=== PATIENT | male | born 1960 | race Two or more races ===

== ENCOUNTER → 2020-05-31 | Outpatient (BNVA) | payer MEDICARE, MEDICAID, SELFPAY | END | disposition home or self-care (01) | PROVIDERS: Visit Provider Urology ==

== ENCOUNTER → 2024-08-27 | Outpatient (CLI) | payer MEDICARE, MEDICAID, SELFPAY ==
[2024-08-27 19:07] LABS: Collection Type, Urine Catheter; Squamous Epithelial Cell,Urine 0 /hpf (0-5)
[2024-08-27 19:17] LABS: Bilirubin,Urine Negative (Negative); Blood,Urine 3+ (Negative); Clarity,Urine Turbid (Clear/Hazy); Color,Urine Dark-Brown (Lt Yel-Yel); Culture Indicated,Urine Yes; Glucose, Urine Negative (Negative); Ketones,Urine Negative (Negative); Leukocyte Esterase,Urine Positive (Negative); Nitrite,Urine Positive (Negative); Protein,Urine 2+ (Neg - Trace); RBC,Urine 3573 /hpf (0-3); Urobilinogen,Urine Negative mg/dL (0.0-1.0); WBC,Urine 423 /hpf (0-5)
== END | disposition home or self-care (01) ==
LOC: SLAB 21:56 → SLDO 08-28 09:17
PROVIDERS: PCP Family Medicine; Referring Provider Family Medicine; Visit Provider Family Medicine
DX: E11.29 Type 2 diabetes mellitus with other diabetic kidney complication (principal); R31.0 Gross hematuria
CPT/HCPCS: 81001; 87077; 87086; 87186

== ENCOUNTER → 2024-10-02 | Outpatient (CLI) | payer MEDICARE, MEDICAID, SELFPAY ==
[2024-10-02 16:36] LABS: Collection Type, Urine Catheter; Squamous Epithelial Cell,Urine 0 /hpf (0-5)
[2024-10-02 17:35] LABS: Bacteria,Urine 3+; Bilirubin,Urine Negative (Negative); Blood,Urine 1+ (Negative); Color,Urine Lt-Yellow (Lt Yel-Yel); Glucose, Urine Negative (Negative); Ketones,Urine Negative (Negative); Leukocyte Esterase,Urine Positive (Negative); Nitrite,Urine Positive (Negative); Protein,Urine 1+ (Neg - Trace); RBC,Urine 12 /hpf (0-3); Urobilinogen,Urine Negative mg/dL (0.0-1.0); WBC,Urine 221 /hpf (0-5)
[2024-10-02 17:39] LABS: Clarity,Urine Hazy (Clear/Hazy); Culture Indicated,Urine Yes
== END | disposition home or self-care (01) ==
LOC: SLDO 16:23
PROVIDERS: PCP Family Medicine; Referring Provider Family Medicine; Visit Provider Family Medicine
DX: E11.29 Type 2 diabetes mellitus with other diabetic kidney complication (principal); N39.0 Urinary tract infection, site not specified
CPT/HCPCS: 81001; 87077; 87086; 87186

== ENCOUNTER → 2024-10-20 | Outpatient (CLI) | payer MEDICARE, MEDICAID, SELFPAY ==
[2024-10-20 16:22] LABS: Collection Type, Urine Catheter
[2024-10-20 17:46] LABS: Bacteria,Urine 2+; Bilirubin,Urine Negative (Negative); Blood,Urine 3+ (Negative); Color,Urine Yellow (Lt Yel-Yel); Glucose, Urine Negative (Negative); Ketones,Urine Negative (Negative); Leukocyte Esterase,Urine Positive (Negative); Nitrite,Urine Negative (Negative); Protein,Urine 1+ (Neg - Trace); RBC,Urine 183 /hpf (0-3); Specific Gravity,Urine 1.014 (1.001-1.035); Squamous Epithelial Cell,Urine 1 /hpf (0-5); Urobilinogen,Urine Negative mg/dL (0.0-1.0); WBC,Urine 272 /hpf (0-5)
[2024-10-20 17:54] LABS: Clarity,Urine Hazy (Clear/Hazy); Culture Indicated,Urine Yes
== END | disposition home or self-care (01) ==
LOC: SLDO 16:19
PROVIDERS: PCP Family Medicine; Referring Provider Family Medicine; Visit Provider Family Medicine
DX: N39.0 Urinary tract infection, site not specified (principal)
CPT/HCPCS: 81001; 87077; 87086; 87186

== ENCOUNTER → 2024-11-19 | Outpatient (CLI) | payer MEDICARE, MEDICAID, SELFPAY ==
[2024-11-19 10:41] LABS: Collection Type, Urine Clean Catch; Squamous Epithelial Cell,Urine 0 /hpf (0-5)
[2024-11-19 11:23] LABS: Basophils % (Auto) 1 % (0-2.5); Eosinophils # (Auto) 0.8 Thou/mm3 (0.0-0.5); Eosinophils % (Auto) 11 % (0-10); Hematocrit 44.3 % (41.0-53.0); Hemoglobin 14.2 g/dL (13.5-16.0); Immature Granulocytes % (Auto) 0 % (0-0); Immature Granulocytes Auto 0.01 Thou/mm3 (0.00-0.00); Lymphocytes # (Auto) 1.7 Thou/mm3 (1.0-4.8); Lymphocytes % (Auto) 21 % (10-50); Mean Corpuscular HGB Conc 32.1 g/dl (31.0-37.0); Mean Corpuscular Hemoglobin 28.7 pg (25.0-35.0); Mean Corpuscular Volume 90 fL (80-100); Monocytes # (Auto) 0.5 Thou/mm3 (0.0-0.8); Monocytes % (Auto) 7 % (0-12); Neutrophils # (Auto) 4.6 Thou/mm3 (1.8-7.7); Neutrophils % (Auto) 60 % (37-80); Nucleated Red Blood Cell % 0 /100 WBC (0); Platelet Count 264 Thou/mm3 (140-440); RDW Standard Deviation 43.9 fL (35.1-43.9); Red Blood Count 4.94 Miln/mm3 (4.50-5.90); White Blood Count 7.7 Thou/mm3 (3.8-10.6)
[2024-11-19 11:54] LABS: Bacteria,Urine 1+; Bilirubin,Urine Negative (Negative); Blood,Urine 1+ (Negative); Clarity,Urine Turbid (Clear/Hazy); Color,Urine Yellow (Lt Yel-Yel); Glucose, Urine Negative (Negative); Ketones,Urine Negative (Negative); Leukocyte Esterase,Urine Positive (Negative); Nitrite,Urine Positive (Negative); PH,Urine 7.5 (5.0-7.0); Protein,Urine 2+ (Neg - Trace); RBC,Urine 36 /hpf (0-3); Specific Gravity,Urine 1.015 (1.001-1.035); Triple Phosphate Crystal,Urine 1+; Urobilinogen,Urine Negative mg/dL (0.0-1.0); WBC,Urine 214 /hpf (0-5)
[2024-11-19 11:57] LABS: Vitamin B12 709 pg/mL (211-911)
[2024-11-19 12:00] LABS: Creatinine MALB Rnd Ur 74 mg/dL (30-125)
[2024-11-19 12:01] LABS: Alanine Aminotransferase 11 U/L (10-49); Albumin, Serum 3.6 gm/dL (3.4-4.8); Alkaline Phosphatase 117 U/L (46-116); Anion Gap 9 (7-16); Aspartate Amino Transferase 22 U/L (0-34); BUN/Creatinine Ratio 17 Ratio (12-20); Bilirubin,Total 0.4 mg/dL (0.3-1.2); Blood Urea Nitrogen 24 mg/dL (9-23); Calcium 8.9 mg/dL (8.3-10.6); Calcium (Corrected) 9.2 mg/dL (8.5-10.1); Cardiac Risk Estimate 3.9 RATIO (4.0-6.7); Chloride 93 mMol/L (98-107); Cholesterol 141 mg/dL (132-200); Creatinine (Component) 1.4 mg/dL (0.6-1.3); Globulin 3.5 gm/dL (2.3-3.5); Glucose 88 mg/dL (74-106); HDL Cholesterol 36 mg/dL (40-60); LDL Cholesterol,Calculated 88 mg/dL (0-130); Osmolality,Calculated 267 (275-295); Potassium 5.1 mMol/L (3.4-5.1); Sodium 132 mMol/L (136-145); Thyroid Stimulating Hormone 0.87 uIU/mL (0.55-4.78); Total Protein 7.1 gm/dL (5.7-8.2); Triglycerides 83 mg/dL (30-150); Uric Acid 5.5 mg/dL (3.7-9.2); eGFR 57 See Note
[2024-11-19 12:03] LABS: Culture Indicated,Urine Yes
[2024-11-19 12:09] LABS: Glucose Estimated Average 123 mg/dL (80-131); Hemoglobin A1C 5.9 % Hgb (4.8-6.0)
[2024-11-19 12:21] LABS: Microalbumin Creat Ratio 870 mg/gCrea (<30); Microalbumin, Random Urine 644 mg/L (0-300)
== END | disposition home or self-care (01) ==
LOC: SLDO 10:16
PROVIDERS: Referring Provider Family Medicine; Visit Provider Internal Medicine
DX: Z00.00 Encounter for general adult medical examination without abnormal findings (principal); I12.9 Hypertensive chronic kidney disease with stage 1 through stage 4 chronic kidney disease, or unspecified chronic kidney disease; E11.22 Type 2 diabetes mellitus with diabetic chronic kidney disease; N18.30 Chronic kidney disease, stage 3 unspecified; N13.30 Unspecified hydronephrosis; F70 Mild intellectual disabilities; D51.9 Vitamin B12 deficiency anemia, unspecified; E55.9 Vitamin D deficiency, unspecified
CPT/HCPCS: 36415; 80053; 80061; 81001; 82043; 82306; 82570; 82607; 83036; 84443; 84550; 85025; 87077; 87086; 87186

== ENCOUNTER → 2024-11-22 | Outpatient (CLI) | payer MEDICARE, MEDICAID, SELFPAY ==
[2024-11-22 17:55] LABS: Collection Type, Urine Catheter
[2024-11-22 18:03] LABS: Bacteria,Urine 2+; Bilirubin,Urine Negative (Negative); Blood,Urine 2+ (Negative); Clarity,Urine Turbid (Clear/Hazy); Color,Urine Yellow (Lt Yel-Yel); Culture Indicated,Urine Yes; Glucose, Urine Negative (Negative); Ketones,Urine Negative (Negative); Leukocyte Esterase,Urine Positive (Negative); Nitrite,Urine Positive (Negative); PH,Urine 8.5 (5.0-7.0); Protein,Urine 2+ (Neg - Trace); RBC,Urine 262 /hpf (0-3); Specific Gravity,Urine 1.012 (1.001-1.035); Squamous Epithelial Cell,Urine 1 /hpf (0-5); Urobilinogen,Urine Negative mg/dL (0.0-1.0); WBC,Urine 2157 /hpf (0-5)
== END | disposition home or self-care (01) ==
LOC: SLAB 17:45 → SLDO 11-23 10:44
PROVIDERS: Referring Provider Family Medicine; Visit Provider Family Medicine
DX: N39.0 Urinary tract infection, site not specified (principal); N18.30 Chronic kidney disease, stage 3 unspecified
CPT/HCPCS: 81001; 87077; 87086; 87186

== ENCOUNTER → 2024-12-16 | Outpatient (CLI) | payer MEDICARE, MEDICAID, SELFPAY ==
[2024-12-16 16:33] LABS: Collection Type, Urine Catheter
[2024-12-16 18:18] LABS: Bacteria,Urine 3+; Bilirubin,Urine Negative (Negative); Blood,Urine 3+ (Negative); Glucose, Urine Negative (Negative); Ketones,Urine Negative (Negative); Leukocyte Esterase,Urine Positive (Negative); Nitrite,Urine Positive (Negative); PH,Urine 8.5 (5.0-7.0); Protein,Urine 2+ (Neg - Trace); RBC,Urine 376 /hpf (0-3); Specific Gravity,Urine 1.013 (1.001-1.035); Squamous Epithelial Cell,Urine 1 /hpf (0-5); Urobilinogen,Urine Negative mg/dL (0.0-1.0); WBC,Urine 85 /hpf (0-5)
[2024-12-16 18:19] LABS: Color,Urine Yellow (Lt Yel-Yel)
[2024-12-16 18:20] LABS: Clarity,Urine Turbid (Clear/Hazy); Culture Indicated,Urine Yes
== END | disposition home or self-care (01) ==
LOC: SLDO 16:27
PROVIDERS: PCP Family Medicine; Referring Provider Family Medicine; Visit Provider Family Medicine
DX: N39.0 Urinary tract infection, site not specified (principal)
CPT/HCPCS: 81001; 87077; 87086; 87186

== ENCOUNTER → 2025-02-24 | Outpatient (CLI) | payer MEDICARE, MEDICAID, SELFPAY ==
[2025-02-24 15:00] LABS: Collection Type, Urine Catheter; Squamous Epithelial Cell,Urine 0 /hpf (0-5)
[2025-02-24 16:44] LABS: Bilirubin,Urine Negative (Negative); Blood,Urine 2+ (Negative); Color,Urine Yellow (Lt Yel-Yel); Glucose, Urine Negative (Negative); Ketones,Urine Negative (Negative); Leukocyte Esterase,Urine Positive (Negative); Nitrite,Urine Positive (Negative); Protein,Urine 2+ (Neg - Trace); RBC,Urine 196 /hpf (0-3); Urobilinogen,Urine Negative mg/dL (0.0-1.0); WBC,Urine 1467 /hpf (0-5)
[2025-02-24 16:47] LABS: Clarity,Urine Turbid (Clear/Hazy); Culture Indicated,Urine Yes
== END | disposition home or self-care (01) ==
LOC: SLDO 14:47
PROVIDERS: PCP Family Medicine; Referring Provider Family Medicine; Visit Provider Family Medicine
DX: N39.0 Urinary tract infection, site not specified (principal)
CPT/HCPCS: 81001; 87077; 87086; 87186

== ENCOUNTER → 2025-03-08 | Outpatient (CLI) | payer MEDICARE, MEDICAID, SELFPAY | END | disposition home or self-care (01) | LOC: SLDO 16:10 | PROVIDERS: PCP Family Medicine; Referring Provider Family Medicine; Visit Provider Family Medicine | DX: N39.0 Urinary tract infection, site not specified (principal); N18.30 Chronic kidney disease, stage 3 unspecified | CPT/HCPCS: 87077; 87086; 87186 ==

== ENCOUNTER → 2025-03-09 | Outpatient (CLI) | payer MEDICARE, MEDICAID, SELFPAY ==
[2025-03-09 10:24] LABS: Collection Type, Urine Clean Catch
[2025-03-09 13:57] LABS: Bacteria,Urine 2+; Bilirubin,Urine Negative (Negative); Blood,Urine 2+ (Negative); Clarity,Urine Hazy (Clear/Hazy); Color,Urine Yellow (Lt Yel-Yel); Glucose, Urine Negative (Negative); Ketones,Urine Negative (Negative); Leukocyte Esterase,Urine Positive (Negative); Nitrite,Urine Positive (Negative); PH,Urine 7.5 (5.0-7.0); Protein,Urine 1+ (Neg - Trace); RBC,Urine 156 /hpf (0-3); Specific Gravity,Urine 1.012 (1.001-1.035); Squamous Epithelial Cell,Urine < 1 /hpf (0-5); Urobilinogen,Urine Negative mg/dL (0.0-1.0); WBC,Urine 335 /hpf (0-5)
== END | disposition home or self-care (01) ==
PROVIDERS: Referring Provider Urology; Visit Provider Urology
DX: N30.00 Acute cystitis without hematuria (principal)
CPT/HCPCS: 81001; 87077; 87086; 87186

== ENCOUNTER → 2025-03-09 | Outpatient (CLI) | payer MEDICARE, MEDICAID, SELFPAY ==
--- NOTE | 2025-03-09 10:36 | XR_ITS ---
Examination: Abdomen AP single view Technique: AP portable supine abdomen, single view Exam date and time: March 09, 2025 1050 hours INDICATIONS: Abdominal pain flank pain months, history kidney stones. FINDINGS: Prominent osteopenia Multiple calcifications, the largest 10 mm overlying the lower pole right kidney Colonic ileus Severe osteopenia Air density over the right groin which may relate to inguinal hernia IMPRESSION: Suspicious for right renal calculi
== END | disposition home or self-care (01) ==
PROVIDERS: Referring Provider Urology; Visit Provider Urology
DX: N20.0 Calculus of kidney (principal)
CPT/HCPCS: 74018

== ENCOUNTER → 2025-04-27 | Outpatient (CLI) | payer MEDICARE, MEDICAID, SELFPAY ==
[2025-04-27 08:52] LABS: Glucose Estimated Average 123 mg/dL (80-131); Hemoglobin A1C 5.9 % Hgb (4.8-6.0)
[2025-04-27 09:02] LABS: Ferritin 186 ng/mL (10.5-307.3); Iron 37 mcg/dL (65-175); Total Iron Binding Capacity 236 mcg/dL (250-425)
[2025-04-27 09:26] LABS: Basophils # (Auto) 0.0 Thou/mm3 (0.0-0.2); Basophils % (Auto) 0 % (0-2.5); Eosinophils # (Auto) 0.7 Thou/mm3 (0.0-0.5); Eosinophils % (Auto) 13 % (0-10); Hematocrit 35.3 % (41.0-53.0); Hemoglobin 11.6 g/dL (13.5-16.0); Immature Granulocytes Auto 0.02 Thou/mm3 (0.00-0.00); Lymphocytes # (Auto) 1.1 Thou/mm3 (1.0-4.8); Lymphocytes % (Auto) 20 % (10-50); Mean Corpuscular HGB Conc 32.9 g/dl (31.0-37.0); Mean Corpuscular Hemoglobin 29.4 pg (25.0-35.0); Mean Corpuscular Volume 89 fL (80-100); Monocytes # (Auto) 0.4 Thou/mm3 (0.0-0.8); Monocytes % (Auto) 8 % (0-12); Neutrophils # (Auto) 3.2 Thou/mm3 (1.8-7.7); Neutrophils % (Auto) 59 % (37-80); Nucleated Red Blood Cell # 0.00 Thou/mm3 (0.00-0.00); Nucleated Red Blood Cell % 0 /100 WBC (0); Platelet Count 210 Thou/mm3 (140-440); RDW Standard Deviation 45.8 fL (35.1-43.9); Red Blood Count 3.95 Miln/mm3 (4.50-5.90); White Blood Count 5.4 Thou/mm3 (3.8-10.6)
[2025-04-27 09:35] LABS: Alanine Aminotransferase 12 U/L (10-49); Albumin, Serum 3.2 gm/dL (3.4-4.8); Albumin/Globulin Ratio 1.1 (1.2-2.2); Alkaline Phosphatase 97 U/L (46-116); Anion Gap 6 (7-16); Aspartate Amino Transferase 18 U/L (0-34); BUN/Creatinine Ratio 14 Ratio (12-20); Bilirubin,Total 0.3 mg/dL (0.3-1.2); Blood Urea Nitrogen 22 mg/dL (9-23); Calcium 8.9 mg/dL (8.3-10.6); Calcium (Corrected) 9.5 mg/dL (8.5-10.1); Carbon Dioxide 34.7 mMol/L (20.0-31.0); Cardiac Risk Estimate 3.6 RATIO (4.0-6.7); Chloride 94 mMol/L (98-107); Cholesterol 146 mg/dL (132-200); Creatinine (Component) 1.6 mg/dL (0.6-1.3); Free T4 (Free Thyroxine) 1.07 ng/dL (0.89-1.76); Globulin 3.0 gm/dL (2.3-3.5); Glucose 117 mg/dL (74-106); HDL Cholesterol 41 mg/dL (40-60); LDL Cholesterol,Calculated 88 mg/dL (0-130); Osmolality,Calculated 274 (275-295); Potassium 4.9 mMol/L (3.4-5.1); Sodium 135 mMol/L (136-145); Thyroid Stimulating Hormone 0.71 uIU/mL (0.55-4.78); Total Protein 6.2 gm/dL (5.7-8.2); Triglycerides 86 mg/dL (30-150); eGFR 48 See Note
[2025-04-27 11:22] LABS: Vitamin B12 472 pg/mL (211-911)
== END | disposition home or self-care (01) ==
LOC: SLDO 07:32
PROVIDERS: Referring Provider Family Medicine; Visit Provider Family Medicine
DX: Z00.00 Encounter for general adult medical examination without abnormal findings (principal); E11.29 Type 2 diabetes mellitus with other diabetic kidney complication
CPT/HCPCS: 36415; 80053; 80061; 82607; 82728; 83036; 83540; 83550; 84439; 84443; 85025

== ENCOUNTER → 2025-05-04 | Outpatient (CLI) | payer MEDICARE, MEDICAID, SELFPAY ==
[2025-05-04 11:21] LABS: Collection Type, Urine Catheter; Squamous Epithelial Cell,Urine 0 /hpf (0-5)
[2025-05-04 13:38] LABS: Bacteria,Urine 3+; Bilirubin,Urine Negative (Negative); Blood,Urine 2+ (Negative); Clarity,Urine Clear (Clear/Hazy); Color,Urine Lt-Yellow (Lt Yel-Yel); Glucose, Urine Negative (Negative); Ketones,Urine Negative (Negative); Leukocyte Esterase,Urine Positive (Negative); Nitrite,Urine Positive (Negative); PH,Urine 7.5 (5.0-7.0); Protein,Urine 1+ (Neg - Trace); RBC,Urine 119 /hpf (0-3); Specific Gravity,Urine 1.011 (1.001-1.035); Urobilinogen,Urine Negative mg/dL (0.0-1.0); WBC,Urine 95 /hpf (0-5)
[2025-05-04 13:40] LABS: Culture Indicated,Urine Yes
== END | disposition home or self-care (01) ==
PROVIDERS: PCP Family Medicine; Referring Provider Family Medicine; Visit Provider Family Medicine
DX: R39.0 Extravasation of urine (principal); E11.29 Type 2 diabetes mellitus with other diabetic kidney complication
CPT/HCPCS: 81001; 87077; 87086; 87186

== ENCOUNTER → 2025-05-18 | Outpatient (CLI) | payer MEDICARE, MEDICAID, SELFPAY ==
[2025-05-18 22:06] LABS: Collection Type, Urine Catheter; Squamous Epithelial Cell,Urine 0 /hpf (0-5)
[2025-05-18 22:16] LABS: Bacteria,Urine 2+; Bilirubin,Urine Negative (Negative); Blood,Urine 3+ (Negative); Clarity,Urine Cloudy (Clear/Hazy); Color,Urine Orange (Lt Yel-Yel); Glucose, Urine Negative (Negative); Ketones,Urine Negative (Negative); Leukocyte Esterase,Urine Positive (Negative); Nitrite,Urine Negative (Negative); PH,Urine 7.5 (5.0-7.0); Protein,Urine 2+ (Neg - Trace); RBC,Urine 232 /hpf (0-3); Specific Gravity,Urine 1.012 (1.001-1.035); Urobilinogen,Urine Negative mg/dL (0.0-1.0); WBC,Urine 2351 /hpf (0-5)
[2025-05-18 22:17] LABS: Culture Indicated,Urine Yes
== END | disposition home or self-care (01) ==
LOC: SERX 21:43 → SLDO 09-03 09:21
PROVIDERS: Referring Provider Family Medicine; Visit Provider Family Medicine
DX: N39.0 Urinary tract infection, site not specified (principal); E11.29 Type 2 diabetes mellitus with other diabetic kidney complication; N18.30 Chronic kidney disease, stage 3 unspecified
CPT/HCPCS: 81001; 87077; 87086; 87186

== ENCOUNTER → 2025-06-10 | Outpatient (CLI) | payer MEDICARE, MEDICAID, SELFPAY ==
[2025-06-10 23:17] LABS: Collection Type, Urine Catheter; Squamous Epithelial Cell,Urine 0 /hpf (0-5)
[2025-06-10 23:44] LABS: Bilirubin,Urine Negative (Negative); Blood,Urine 3+ (Negative); Glucose, Urine Negative (Negative); Ketones,Urine Negative (Negative); Leukocyte Esterase,Urine Positive (Negative); Nitrite,Urine Negative (Negative); PH,Urine 7.5 (5.0-7.0); Protein,Urine 1+ (Neg - Trace); RBC,Urine 59 /hpf (0-3); Specific Gravity,Urine 1.007 (1.001-1.035); Urobilinogen,Urine Negative mg/dL (0.0-1.0); WBC,Urine 2961 /hpf (0-5)
[2025-06-10 23:55] LABS: Clarity,Urine Turbid (Clear/Hazy); Color,Urine Lt-Orange (Lt Yel-Yel)
== END | disposition home or self-care (01) ==
LOC: SLDO 22:37
PROVIDERS: PCP Family Medicine; Referring Provider Family Medicine; Visit Provider Family Medicine
DX: N39.0 Urinary tract infection, site not specified (principal); E11.29 Type 2 diabetes mellitus with other diabetic kidney complication; N18.9 Chronic kidney disease, unspecified
CPT/HCPCS: 81001

== ENCOUNTER → 2025-07-27 | Outpatient (CLI) | payer MEDICARE, MEDICAID, SELFPAY ==
[2025-07-27 09:32] LABS: Basophils # (Auto) 0.0 Thou/mm3 (0.0-0.2); Basophils % (Auto) 1 % (0-2.5); Eosinophils # (Auto) 0.8 Thou/mm3 (0.0-0.5); Eosinophils % (Auto) 12 % (0-10); Hematocrit 36.1 % (41.0-53.0); Hemoglobin 11.3 g/dL (13.5-16.0); Immature Granulocytes Auto 0.01 Thou/mm3 (0.00-0.00); Lymphocytes # (Auto) 1.6 Thou/mm3 (1.0-4.8); Lymphocytes % (Auto) 25 % (10-50); Mean Corpuscular HGB Conc 31.3 g/dl (31.0-37.0); Mean Corpuscular Hemoglobin 28.8 pg (25.0-35.0); Mean Corpuscular Volume 92 fL (80-100); Monocytes # (Auto) 0.4 Thou/mm3 (0.0-0.8); Monocytes % (Auto) 6 % (0-12); Neutrophils # (Auto) 3.5 Thou/mm3 (1.8-7.7); Neutrophils % (Auto) 56 % (37-80); Nucleated Red Blood Cell # 0.00 Thou/mm3 (0.00-0.00); Nucleated Red Blood Cell % 0 /100 WBC (0); Platelet Count 240 Thou/mm3 (140-440); RDW Standard Deviation 43.8 fL (35.1-43.9); Red Blood Count 3.92 Miln/mm3 (4.50-5.90); White Blood Count 6.2 Thou/mm3 (3.8-10.6)
[2025-07-27 09:52] LABS: Glucose Estimated Average 108 mg/dL (80-131); Hemoglobin A1C 5.4 % Hgb (4.8-6.0)
[2025-07-27 09:56] LABS: Alanine Aminotransferase 8 U/L (10-49); Albumin, Serum 3.7 gm/dL (3.4-4.8); Albumin/Globulin Ratio 1.2 (1.2-2.2); Alkaline Phosphatase 101 U/L (46-116); Anion Gap 7 (7-16); Aspartate Amino Transferase 22 U/L (0-34); BUN/Creatinine Ratio 19 Ratio (12-20); Bilirubin,Total 0.2 mg/dL (0.3-1.2); Blood Urea Nitrogen 26 mg/dL (9-23); Calcium 9.3 mg/dL (8.3-10.6); Calcium (Corrected) 9.5 mg/dL (8.5-10.1); Carbon Dioxide 32.8 mMol/L (20.0-31.0); Chloride 94 mMol/L (98-107); Creatinine (Component) 1.4 mg/dL (0.6-1.3); Globulin 3.0 gm/dL (2.3-3.5); Glucose 85 mg/dL (74-106); Osmolality,Calculated 271 (275-295); Potassium 5.1 mMol/L (3.4-5.1); Sodium 134 mMol/L (136-145); Thyroid Stimulating Hormone 1.15 uIU/mL (0.55-4.78); Total Protein 6.7 gm/dL (5.7-8.2); eGFR 57 See Note
== END | disposition home or self-care (01) ==
LOC: SLDO 09:02
PROVIDERS: Referring Provider Family Medicine; Visit Provider Family Medicine
DX: Z00.00 Encounter for general adult medical examination without abnormal findings (principal); E11.29 Type 2 diabetes mellitus with other diabetic kidney complication
CPT/HCPCS: 36415; 80053; 83036; 84443; 85025

== ENCOUNTER → 2025-08-11 | Outpatient (CLI) | payer MEDICARE, MEDICAID, SELFPAY ==
[2025-08-11 15:20] LABS: Collection Type, Urine Catheter; Squamous Epithelial Cell,Urine 0 /hpf (0-5)
[2025-08-11 16:55] LABS: Bacteria,Urine 2+; Bilirubin,Urine Negative (Negative); Blood,Urine 3+ (Negative); Color,Urine Lt-Brown (Lt Yel-Yel); Glucose, Urine Negative (Negative); Ketones,Urine Negative (Negative); Leukocyte Esterase,Urine Positive (Negative); Nitrite,Urine Negative (Negative); PH,Urine 7.5 (5.0-7.0); Protein,Urine 2+ (Neg - Trace); RBC,Urine 276 /hpf (0-3); Specific Gravity,Urine 1.009 (1.001-1.035); Urobilinogen,Urine Negative mg/dL (0.0-1.0); WBC,Urine 78 /hpf (0-5)
[2025-08-11 17:03] LABS: Clarity,Urine Hazy (Clear/Hazy); Culture Indicated,Urine Yes
== END | disposition home or self-care (01) ==
LOC: SLDO 15:03
PROVIDERS: PCP Family Medicine; Referring Provider Family Medicine; Visit Provider Family Medicine
DX: R31.0 Gross hematuria (principal); E11.29 Type 2 diabetes mellitus with other diabetic kidney complication
CPT/HCPCS: 81001; 87077; 87086; 87186

== ENCOUNTER → 2025-08-23 | Outpatient (CLI) | payer MEDICARE, MEDICAID, SELFPAY ==
[2025-08-23 23:01] LABS: Basophils # (Auto) 0.0 Thou/mm3 (0.0-0.2); Basophils % (Auto) 1 % (0-2.5); Eosinophils # (Auto) 0.7 Thou/mm3 (0.0-0.5); Eosinophils % (Auto) 10 % (0-10); Hematocrit 33.4 % (41.0-53.0); Hemoglobin 10.8 g/dL (13.5-16.0); Immature Granulocytes Auto 0.02 Thou/mm3 (0.00-0.00); Lymphocytes # (Auto) 1.7 Thou/mm3 (1.0-4.8); Lymphocytes % (Auto) 24 % (10-50); Mean Corpuscular HGB Conc 32.3 g/dl (31.0-37.0); Mean Corpuscular Hemoglobin 28.7 pg (25.0-35.0); Mean Corpuscular Volume 89 fL (80-100); Monocytes # (Auto) 0.5 Thou/mm3 (0.0-0.8); Monocytes % (Auto) 7 % (0-12); Neutrophils # (Auto) 4.2 Thou/mm3 (1.8-7.7); Neutrophils % (Auto) 58 % (37-80); Nucleated Red Blood Cell # 0.00 Thou/mm3 (0.00-0.00); Nucleated Red Blood Cell % 0 /100 WBC (0); Platelet Count 203 Thou/mm3 (140-440); RDW Standard Deviation 40.2 fL (35.1-43.9); Red Blood Count 3.76 Miln/mm3 (4.50-5.90); White Blood Count 7.2 Thou/mm3 (3.8-10.6)
[2025-08-23 23:26] LABS: Albumin, Serum 3.6 gm/dL (3.4-4.8); Anion Gap 6 (7-16); BUN/Creatinine Ratio 15 Ratio (12-20); Blood Urea Nitrogen 21 mg/dL (9-23); Calcium 8.6 mg/dL (8.3-10.6); Calcium (Corrected) 8.9 mg/dL (8.5-10.1); Carbon Dioxide 34.6 mMol/L (20.0-31.0); Chloride 90 mMol/L (98-107); Creatinine (Component) 1.4 mg/dL (0.6-1.3); Glucose 133 mg/dL (74-106); Magnesium 2.6 mg/dL (1.6-2.6); Osmolality,Calculated 267 (275-295); Phosphorous 2.9 mg/dL (2.4-5.1); Potassium 4.6 mMol/L (3.4-5.1); Sodium 131 mMol/L (136-145); Uric Acid 4.6 mg/dL (3.7-9.2); Vitamin D 25 Hydroxy Total 49.0 ng/mL (7.3-40.2); eGFR 56 See Note
== END | disposition home or self-care (01) ==
LOC: SLDO 22:23
PROVIDERS: PCP Internal Medicine; Referring Provider Internal Medicine; Visit Provider Internal Medicine
DX: E11.22 Type 2 diabetes mellitus with diabetic chronic kidney disease (principal); N18.32 Chronic kidney disease, stage 3b; N40.0 Benign prostatic hyperplasia without lower urinary tract symptoms
CPT/HCPCS: 36415; 80069; 82306; 83735; 84550; 85025

== ENCOUNTER 2025-09-15 20:14 | Inpatient (IN) | payer MEDICARE, MEDICAID, SELFPAY ==
[2025-09-15] VITALS (10 sets, daily range): BP systolic 100–119; BP diastolic 51–93; PULSE 120–156; RESP 18–19; TEMP 34.9; O2SAT 98–100; BMI 45.1
[2025-09-15] MEDS: SUCCINYLCHOLINE INJ 20 MG/ML VIAL 10 ML 200 MG IV (20:18)
[2025-09-15] MEDS: ETOMIDATE INJ 2 MG/ML VIAL 10 ML 40 MG IVP ×2 (20:18→20:38)
--- NOTE | 2025-09-15 20:22 | EKG_ITS ---
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
--- NOTE | 2025-09-15 20:24 | EDNOTE_ITS ---
Altered Mental Status RME/HPI General Chief Complaint: Altered Mental Status Stated Complaint: RESPIRATORY ARREST Time Seen by Provider: 09/15/25 20:23 Arrival date/time: 09/15/25 20:14 Mode of arrival: EMS RME / HPI MD complaint: altered mental status Associated symptoms: shortness of breath RME / HPI narrative: See [facility] for Dr. Belle's HPI Documentation. Related Data Home Medications ?Medication ?Instructions ?Recorded ?Confirmed duloxetine 20 mg capsule,delayed 20 mg PO BID 05/01/19 02/11/23 release gabapentin 100 mg capsule 100 mg PO TID 05/01/1902/11 polyethylene glycol 3350 17 gram 17 g PO QPM 05/01/19 02/11/23 oral powder packet (Miralax) baclofen 10 mg tablet 10 mg PO HS 03/01/20 3 clopidogrel 75 mg tablet (Plavix) 75 mg PO QDAY 02/11/23 metformin 500 mg tablet 500 mg PO BID 04/28/2102/11 tamsulosin 0.4 mg capsule 0.8 mg PO HS 02/12/22 acetaminophen 500 mg capsule 500 mg PO Q6H PRN Pain (S jaz 06/01/22 02/11/23 Score 1-3) magnesium oxide 400 mg PO QDAY 06/01/2201/20 multivitamin 1 tab PO HS 06/01/22 3 sennosides 8.6 mg-docusate sodium 1 tab-cap PO QHS PRN Constipation 06/01/22 02/11/23 50 mg tablet vitamin A 3,000 mcg (10,000 unit) 8,000 unit PO QDAY 1 02/11/23 capsule aspirin 81 mg tablet,delayed 81 mg PO HS 02/11/2301/20 release Previous Rx's ?Medication ?Instructions ?Recorded calcium carbonate (Oyster Shell 500 mg PO BID #60 tabs 03/10/20 Calcium 500) finasteride 5 mg tablet 5 mg PO QDAY #30 tabs ferrous sulfate 325 mg (65 mg 325 mg PO BID #60 tabs 0 04/28/21 iron) tablet cefuroxime axetil 500 mg tablet 500 mg PO BID #14 tabs 03/28/23 sulfamethoxazole 800 1 tab PO BID #14 tabs mg-trimethoprim 160 mg tablet (Bactrim DS) Allergies Allergy/AdvReac Type Severity Reaction Status Date / Time No Known Drug Allergies Allergy Unknown Verified 12/17/22 12:45 Review of Systems Review of Systems ROS Unobtainable: unobtainable due to mental status Past Medical History Past Medical History NEUROLOGIC: Positive Neurological Disorders and Cerebrovascular Accident CARDIAC: Positive Cardiac Disorders, Coronary Artery Disease, Hypercholesterolemia and Hypertension RESPIRATORY: Positive Pneumonia GASTROINTESTINAL: Positive Gastrointestinal Disorders, Obstructive Bowel, Hiatal Hernia and Gastroesophageal Reflux Disease GENITOURINARY: Positive Renal Disease and Benign Prostatic Hyperplasia MUSCULOSKELETAL: Positive Musculoskeletal Disorders and Muscular Dystrophy ENDOCRINE: Positive Endocrine Disorders and Diabetes Mellitus Type 2 HEMATOLOGIC: Positive Anemia OTHER HISTORY: Positive Developmental Delay Surgical History SURGICAL: Positive Abdominal Surgery and Bowel Surgery Social History SECOND HAND EXPOSURE: Yes ED Exam Narrative Physical exam: See [facility] for Dr. Belle's Physical Exam Documentation. Course Quality Measures none Orders Category Date Time Status Bedside COVID-19 Antigen Test NOW Care 09/15/25 20:[address] Screening NOW Care 09/15/25 20:37 Active EKG (ED ONLY) *Do not use* NOW Care 09/15/25 20:22 Completed [place]osta [Urinary Catheter] QS Care 09/15/25 21:03 Active [place] to [place] Routine Care 09/15/25 20:24 Ordered Insert NG / OG tube NOW Care 09/15/25 20:24 Active Intubation NOW Care 09/15/25 20:36 Completed Saline [Insert IV] NOW Care 09/15/25 20:[address] abdomen pelvis w con Stat Exams 09/15/25 20:[address] angio chest Stat Exams 09/15/25 20:[address] head/brain wo con Stat Exams 09/15/25 20:25 Completed EKG (ED Only) Stat Exams 09/15/25 20:22 Draft XR chest 1V post procedure Stat Exams 09/15/25 20:25 Completed ABG [Arterial Blood Gas] Stat Lab 09/15/25 20:48 Completed ABG [Arterial Blood Gas] Stat Lab 09/15/25 22:33 Completed Acetaminophen Stat Lab 09/15/25 20:58 Completed Alcohol, Blood Medical Stat Lab 09/15/25 20:58 Completed Ammonia Stat Lab 09/15/25 20:58 Completed Amylase Stat Lab 09/15/25 20:58 Completed BNP [B-Type Natriuretic Peptide] Stat Lab 09/15/25 20:58 Completed Beta Hydroxybutyrate Stat Lab 09/15/25 20:58 Completed Bilirubin,Direct Stat Lab 09/15/25 20:58 Completed Blood Culture (Lab) Stat Lab 09/15/25 21:25 Received CBC Stat Lab 09/15/25 20:58 Completed CK [Creatine Kinase] Stat Lab 09/15/25 20:58 Completed CMP [Comprehensive Metabolic Panel] Stat Lab 09/15/25 20:58 Completed COVID-19 Antigen (In-House) Stat Lab 09/15/25 21:20 Completed CRP [C-Reactive Protein] Stat Lab 09/15/25 20:58 Completed D-Dimer Stat Lab 09/15/25 20:58 Completed Drug Screen,Urine Stat Lab 09/15/25 20:37 Ordered ESR [Sed Rate (ESR)] Stat Lab 09/15/25 20:58 Completed Hemoglobin A1C [Glycohemoglobin w (eAG)] Stat Lab 09/15/25 20:58 Completed Influenza A & B Rapid Panel Stat Lab 09/15/25 21:20 Completed Lactate (Lactic Acid) Stat Lab 09/15/25 20:58 Completed Lactic Acid, 3 HR Stat Lab 09/16/25 00:11 Completed Lipase Stat Lab 09/15/25 20:58 Completed Magnesium Stat Lab 09/15/25 20:58 Completed PT [Prothrombin Time with INR] Stat Lab 09/15/25 20:58 Completed PTT [Partial Thromboplastin Time] Stat Lab 09/15/25 20:58 Completed Potassium Stat Lab 09/15/25 23:12 Completed Procalcitonin Stat Lab 09/15/25 20:58 Completed Sputum Culture and Gram Stain Stat Lab 09/15/25 23:06 Results TSH [Thyroid Stimulating Hormone] Stat Lab 09/15/25 20:58 Completed Troponin I Stat Lab 09/15/25 20:58 Completed Type and Screen Stat Lab 09/15/25 21:30 Completed UA, C/S IF [Urinalysis, C/S if Indicated] Stat Lab 09/15/25 20:38 Ordered DOPamine/D5w 400 MG IVPB [Intropin in D5w Ivpb] Med 09/15/25 20:37 Discontinued 400 mg in 250 ml IV .STK-MED DOPamine/D5w 400 MG IVPB [Intropin in D5w Ivpb] Med 09/15/25 20:35 Discontinued 400 mg in 250 ml IV 5 mcg/kg/min EPINEPHrine in NS 16 MG IVPB [Adrenalin/NS 16 MG IVPB] Med 09/15/25 20:34 Discontinued 16 mg in 250 ml IV .STK-MED EPINEPHrine in NS 16 MG IVPB [Adrenalin/NS 16 MG IVPB] Med 09/15/25 20:36 Discontinued 16 mg in 250 ml IV .STK-MED EPINEPHrine in NS 16 MG IVPB [Adrenalin/NS 16 MG IVPB] Med 09/15/25 20:35 Discontinued 16 mg in 250 ml IV 0.05 mcg/kg/min Etomidate Inj [Amidate Inj] Med 09/15/25 20:36 Discontinued 40 mg .ROUTE .STK-MED ONE Etomidate Inj [Amidate Inj] Med 09/15/25 20:10 Discontinued 40 mg IVP X1 ONE Etomidate Inj [Amidate Inj] Med 09/15/25 20:34 Discontinued 40 mg IVP X1 ONE Metoprolol Tartrate Inj [Lopressor Inj] Med 09/15/25 20:45 Discontinued 2.5 mg IVP X1 ONE Ondansetron Inj [Zofran Inj] Med 09/15/25 20:24 Discontinued 4 mg IVP X1 ONE Propofol 1,000 mg Ivpb [Diprivan Ivpb] Med 09/15/25 20:21 Discontinued 1,000 mg in 100 ml IV 5 mcg/kg/min Rocuronium Inj [Zemuron Inj] Med 09/15/25 20:37 Discontinued 100 mg .ROUTE .STK-MED ONE Rocuronium Inj [Zemuron Inj] Med 09/15/25 20:24 Discontinued 100 mg IVP X1 ONE Rocuronium Inj [Zemuron Inj] Med 09/15/25 20:34 Discontinued 100 mg IVP X1 ONE Sodium Chloride 0.9% 1000 ml [Ns] 1,000 ml Med 09/15/25 20:24 Discontinued IV 999 mls/hr Sodium Chloride 0.9% 1000 ml [Ns] 1,000 ml Med 09/15/25 22:40 Discontinued IV 999 mls/hr Sodium Chloride Rt Liset 10% [NS Rt Liset 10%] Med 09/15/25 20:37 Discontinued 5 ml INH X1 ONE Succinylcholine Inj [Anectine Inj] Med 09/15/25 20:10 Discontinued 200 mg IV X1 ONE Sputum Induction PRN RT 09/15/25 20:45 Ordered Volume Ventilator Stat RT 09/15/25 Active Vital Signs Vital signs: Vital Signs Pulse Rate 156 H 09/15/25 20:41 Blood Pressure 110/73 09/15/25 20:41 Pulse Oximetry (%) 100 09/15/25 20:41 Fraction of Inspired Oxygen 100 09/15/25 20:41 PROCEDURES: Intubation Time out performed: Yes sedative: Etomidate Mg Given: 40 paralytic: Rocuronium Mg Given: 100 Laryngoscope: Jessica Assist Device Used: LMA ET Tube Size: 8 ET Tube Uncuffed: Yes Tube Secured Depth (cm): 24 Tube Secured Location: other (gums) Tube Placement Confirmation: equal breath sounds bilaterally, no breath sounds over epigastrium and confirmation by capnometry Patient Tolerated Procedure: well and no complications Intubation Complications: none Altered Mental Status MDM Narrative MDM Narrative:: This section includes all my notes and documentations, including HPI, PE, and ED course. Harsh Belle MD HPI: 65 y/o male with Hx of CVA, CAD, HTN, Hypercholesterolemia, Muscular Dystrophy, and Type II DM BIBA from [facility] after witnessed unresponsiveness. He was placed on rubber table for shower. When he became unresponsive. When EMS arrived, he was unresponsive with agonal breathing. With Narcan 2 mg, equivocal improvement noted. Never lost pulse. No defibrillation. ROS: Can't obtain from the patient due to current clinical condition. Physical Exam: General: Patient is unresponsive. Eyes: PERRL. Neck: Supple. Heart: RRR. Lungs: In respiratory distress. Decreased air movement. Difficult to assess rhonchi, wheezing, rales. Abdomen: Soft. Legs: No clubbing, cyanosis, edema. Skin: Warm and dry. Neuro: GCS 3. I reviewed EMS and half-way notes. I reviewed all diagnostic test results: My interpretation of the EKG is: Sinus rhythm (102 bpm) with nonspecific ST-T changes. My interpretation of the chest x-ray is infiltrates. My review of the Head/Brain CT report is NAD. My review of the Chest CTA report is: Extensive bilateral pneumonia. My review of the Abdomen/Pelvis CT report is: Small bowel obstruction pattern. Right inguinal hernia containing bowel although no definite incarcerated bowel. Blood tests remarkable for D-dimer 3220, Cr 2.4, Glu 255, lactic acid 6.5, Ca 11.2. ABG showed pH 7.30, pCO2 57, pHCO3 28. Urine specimen pending. At this point, diagnoses include: Cardiac arrest Sepsis Pneumonia Airway intubation performed without difficulty Right inguinal hernia CHAR (acute kidney injury) Hypercalcemia Hyperglycemia Before diagnostic tests, patient lost pulse here and coded. ACLS protocol followed, including 2-minute cycles of chest compressions. After 2 cycles, patient successfully resuscitated. Treatment here included: IVF ABX Intubation Central line I discussed the case with our ICU team. About the presentation and exam and diagnostics and treatments here. And need of further care in the hospital. Agreed accept the patient. Harsh Belle MD Patient data External records reviewed:: [facility] previous records, EMS form, [facility] records and PCP records Clinical information provided by:: EMS Social determinants that could affect healthcare access:: housing (Care Home) Patient has the following chronic illnesses:: Cerebrovascular Accident, Coronary Artery Disease, Hypercholesterolemia, Hypertension, Obstructive Bowel, Hiatal Hernia, Gastroesophageal Reflux Disease, Renal Disease, Benign Prostatic Hyperplasia, Muscular Dystrophy, Diabetes Mellitus Type 2, Anemia, Developmental Delay How is presenting disease/condition affected by chronic disease/condition?: exacerbated by Evaluation data The following diagnostics were reviewed and interpreted by me:: EKG tracing(s) (My interpretation of the EKG is: Sinus rhythm (102 bpm) with nonspecific ST-T changes. Harsh Belle MD) Lab and/or radiology exams considered but not ordered:: None Interpretation Summary: I reviewed all diagnostic test results: My interpretation of the EKG is: Sinus rhythm (102 bpm) with nonspecific ST-T changes. My interpretation of the chest x-ray is infiltrates. My review of the Head/Brain CT report is NAD. My review of the Chest CTA report is: Extensive bilateral pneumonia. My review of the Abdomen/Pelvis CT report is: Small bowel obstruction pattern. Right inguinal hernia containing bowel although no definite incarcerated bowel. Blood tests remarkable for D-dimer 3220, Cr 2.4, Glu 255, lactic acid 6.5, Ca 11.2. ABG showed pH 7.30, pCO2 57, pHCO3 28. Urine specimen pending. Medications / Prescriptions Medications or Prescriptions considered but not ordered:: None Medication administrations:: Medication Administration History Acetaminophen (Acetaminophen 325 Mg Tablet) 650 mg PO Q6H PRN PRN Reason: Fever >101.3 Stop: 10/16/25 00:35 Aspirin (Aspirin Ec 81 Mg Tabec) 81 mg PO QDAY SHIVAM Stop: 10/16/25 15:44 Last Admin: 09/16/25 17:06 Dose: 81 mg Documented By: BRIAN Dextrose (Dextrose 50%-Water Inj 50 Ml Syringe) 25 ml IV Q15MIN PRN PRN Reason: BG 50-70 responsive npo pt Stop: 10/16/25 05:17 Dextrose (Dextrose 50%-Water Inj 50 Ml Syringe) 50 ml IV Q15MIN PRN PRN Reason: BG <50 OR BG <70 & pt unresponsive Stop: 10/16/25 05:17 Glucagon (Glucagon Inj 1 Mg Vial) 1 mg IM Q15MIN PRN PRN Reason: BG <70, and no IV access Heparin Sodium (Porcine) (Heparin Sod Inj 5000 Unit/Ml Vial) 5,000 unit SC Q8HR [facility] Stop: 09/30/25 05:59 Last Admin: 09/16/25 15:37 Dose: 5,000 unit Documented By: BRIAN Co-signed By: KARLEY Admin: 09/16/25 06:13 Dose: 5,000 unit Documented By: ANJELICA Co-signed By: SUNDAR Vasopressin/Sodium Chloride (Vasostrict/Ns Ivpb) 20 unit in 100 mls @ 9 mls/hr IV .Q11H7M PRN; Protocol PRN Reason: PER PROTOCOL Stop: 10/16/25 00:41 Last Admin: 09/16/25 11:54 Dose: 0.03 unit/min, 9 mls/hr Documented By: Titration: 09/16/25 11:54 Dose: Infused Documented By: MGKhalif Admin: 09/16/25 02:24 Dose: 0.03 unit/min, 9 mls/hr Documented By: ELIS Piperacillin/Tazobactam/Dextrose (Zosyn) 3.375 gm in 50 mls @ 100 mls/hr IV Q8HR SHIVAM; Protocol Stop: 09/23/25 13:59 Last Admin: 09/16/25 15:36 Dose: 100 mls/hr Documented By: BRIAN Propofol (Diprivan Ivpb) 1,000 mg in 100 mls @ 2.919 mls/hr IV .Q24H PRN; Protocol PRN Reason: PER PROTOCOL Stop: 10/15/25 20:20 Last Titration: 09/16/25 09:45 Dose: 0 mcg/kg/min, 0 mls/hr Documented By: Admin: 09/16/25 09:14 Dose: 35 mcg/kg/min, 20.433 mls/hr Documented By: BRIAN Co-signed By: CLARA Titration: 09/16/25 09:14 Dose: Infused Documented By: BRIAN Co-signed By: CLARA Titration: 09/16/25 09:00 Dose: 35 mcg/kg/min, 20.433 mls/hr Documented By: Titration: 09/16/25 08:00 Dose: 35 mcg/kg/min, 20.433 mls/hr Documented By: Titration: 09/16/25 07:00 Dose: 35 mcg/kg/min, 20.433 mls/hr Documented By: Titration: 09/16/25 06:00 Dose: 35 mcg/kg/min, 20.433 mls/hr Documented By: Titration: 09/16/25 05:00 Dose: 35 mcg/kg/min, 20.433 mls/hr Documented By: Titration: 09/16/25 04:51 Dose: 35 mcg/kg/min, 20.433 mls/hr Documented By: Admin: 09/16/25 04:32 Dose: 40 mcg/kg/min, 23.352 mls/hr Documented By: AD Co-signed By: AMY Fentanyl Citrate (Sublimaze Inj 2,500 Mcg/250 Ml Bag) 2,500 mcg in 250 mls @ 2.5 mls/hr IV .Q24H PRN; Protocol PRN Reason: PER PROTOCOL Stop: 09/21/25 03:50 Last Titration: 09/16/25 09:45 Dose: 0 mcg/hr, 0 mls/hr Documented By: Titration: 09/16/25 09:00 Dose: 175 mcg/hr, 17.5 mls/hr Documented By: Titration: 09/16/25 08:00 Dose: 175 mcg/hr, 17.5 mls/hr Documented By: Titration: 09/16/25 07:00 Dose: 175 mcg/hr, 17.5 mls/hr Documented By: Titration: 09/16/25 06:25 Dose: 175 mcg/hr, 17.5 mls/hr Documented By: Titration: 09/16/25 06:00 Dose: 125 mcg/hr, 12.5 mls/hr Documented By: Titration: 09/16/25 05:30 Dose: 125 mcg/hr, 12.5 mls/hr Documented By: Titration: 09/16/25 05:00 Dose: 75 mcg/hr, 7.5 mls/hr Documented By: Titration: 09/16/25 04:53 Dose: 75 mcg/hr, 7.5 mls/hr Documented By: Admin: 09/16/25 04:52 Dose: 25 mcg/hr, 2.5 mls/hr Documented By: AD Co-signed By: MLD Norepinephrine/Dextrose (Levophed In D5w 8mg/250ml) 8 mg in 250 mls @ 31.014 mls/hr IV .Q8H4M PRN; Protocol PRN Reason: PER PROTOCOL Stop: 10/16/25 04:02 Last Titration: 09/16/25 19:00 Dose: 0.15 mcg/kg/min, 27.366 mls/hr Documented By: Titration: 09/16/25 18:15 Dose: 0.15 mcg/kg/min, 27.366 mls/hr Documented By: Titration: 09/16/25 18:00 Dose: 0.17 mcg/kg/min, 31.014 mls/hr Documented By: Admin: 09/16/25 17:05 Dose: 0.17 mcg/kg/min, 31.014 mls/hr Documented By: Titration: 09/16/25 17:00 Dose: Infused Documented By: Titration: 09/16/25 16:00 Dose: 0.17 mcg/kg/min, 31.014 mls/hr Documented By: Titration: 09/16/25 15:23 Dose: 0.17 mcg/kg/min, 31.014 mls/hr Documented By: Titration: 09/16/25 15:00 Dose: 0.19 mcg/kg/min, 34.663 mls/hr Documented By: Titration: 09/16/25 14:00 Dose: 0.19 mcg/kg/min, 34.663 mls/hr Documented By: Titration: 09/16/25 13:00 Dose: 0.19 mcg/kg/min, 34.663 mls/hr Documented By: Titration: 09/16/25 12:00 Dose: 0.19 mcg/kg/min, 34.663 mls/hr Documented By: Titration: 09/16/25 11:00 Dose: 0.19 mcg/kg/min, 34.663 mls/hr Documented By: Titration: 09/16/25 10:00 Dose: 0.19 mcg/kg/min, 34.663 mls/hr Documented By: Titration: 09/16/25 09:00 Dose: 0.19 mcg/kg/min, 34.663 mls/hr Documented By: Admin: 09/16/25 08:45 Dose: 0.19 mcg/kg/min, 34.663 mls/hr Documented By: BRIAN Insulin Human Lispro (Insulin Lispro (Admelog) 1 Unit/0.01 Ml Unit) 0 unit SC Q6HR SHIVAM; Protocol Stop: 10/16/25 17:59 Last Admin: 09/16/25 19:32 Dose: Not Given Documented By: BRIAN Non-Admin Reason: BG 143 Ondansetron HCl (Ondansetron Inj 2 Mg/Ml Inj 2 Ml) 4 mg IVP Q6H PRN; Protocol PRN Reason: NAUSEA OR VOMITING Stop: 10/16/25 00:35 Pantoprazole Sodium (Pantoprazole Inj 40 Mg Vial) 40 mg IVP QDAY [facility] Stop: 10/16/25 08:59 Last Admin: 09/16/25 08:24 Dose: 40 mg Documented By: BRIAN Pharmacy Consult (Vancomycin Pharmacy To Dose 1 Each Each) 1 each IV QDAY PRN PRN Reason: PROTOCOL Stop: 10/16/25 08:59 Pharmacy Consult (Pharmacy Renal Dose Adjustment 1 Ea) 1 each XX PRN PRN PRN Reason: CONSULT Stop: 10/16/25 00:41 Discontinued Medications Aspirin (Aspirin 300 Mg Supp) 300 mg DE X1 ONE Stop: 09/16/25 09:49 Last Admin: 09/16/25 15:37 Dose: Not Given Documented By: BRIAN Non-Admin Reason: HELD PER Etomidate (Etomidate Inj 2 Mg/Ml Vial 10 Ml) 40 mg IVP X1 ONE Stop: 09/15/25 20:11 Last Admin: 09/15/25 20:18 Dose: 40 mg Documented By: DENVER Etomidate (Etomidate Inj 2 Mg/Ml Vial 10 Ml) 40 mg IVP X1 ONE Stop: 09/15/25 20:35 Last Admin: 09/15/25 20:38 Dose: 40 mg Documented By: DENVER Etomidate (Etomidate Inj 2 Mg/Ml Vial 10 Ml) Confirm Administered Dose 40 mg .ROUTE .STK-MED ONE Stop: 09/15/25 20:37 Last Admin: 09/15/25 20:51 Dose: Not Given Documented By: DENVER Non-Admin Reason: Override Medication Propofol (Diprivan Ivpb) 1,000 mg in 100 mls @ 3.81 mls/hr IV .Q24H PRN; Protocol PRN Reason: PER PROTOCOL Stop: 10/15/25 20:20 Last Titration: 09/16/25 04:00 Dose: 40 mcg/kg/min, 30.481 mls/hr Documented By: Titration: 09/16/25 03:56 Dose: 40 mcg/kg/min, 30.481 mls/hr Documented By: Titration: 09/16/25 03:41 Dose: 35 mcg/kg/min, 26.671 mls/hr Documented By: Titration: 09/16/25 03:00 Dose: 30 mcg/kg/min, 22.861 mls/hr Documented By: Titration: 09/16/25 02:45 Dose: 25 mcg/kg/min, 19.051 mls/hr Documented By: Titration: 09/16/25 02:12 Dose: 25 mcg/kg/min, 19.051 mls/hr Documented By: Titration: 09/16/25 02:10 Dose: 20 mcg/kg/min, 15.241 mls/hr Documented By: Titration: 09/16/25 01:35 Dose: 15 mcg/kg/min, 11.431 mls/hr Documented By: Titration: 09/15/25 21:01 Dose: 10 mcg/kg/min, 7.62 mls/hr Documented By: Admin: 09/15/25 20:45 Dose: 5 mcg/kg/min, 3.81 mls/hr Documented By: DENVER Co-signed By: TAHIRA Sodium Chloride (Ns) 1,000 mls @ 999 mls/hr IV .Q1H1M ONE Stop: 09/15/25 21:24 Last Infusion: 09/15/25 21:41 Dose: Infused Documented By: Admin: 09/15/25 20:40 Dose: 999 mls/hr Documented By: DENVER Epinephrine/Sodium Chloride (Adrenalin/Ns 16 Mg Ivpb) 16 mg in 250 mls @ 5.953 mls/hr IV .Q24H PRN; Protocol PRN Reason: Per Protocol Stop: 10/15/25 20:34 Last Titration: 09/16/25 04:53 Dose: 0 mcg/kg/min, 0 mls/hr Documented By: Titration: 09/16/25 04:45 Dose: 0.01 mcg/kg/min, 1.191 mls/hr Documented By: Titration: 09/16/25 04:38 Dose: 0.03 mcg/kg/min, 3.572 mls/hr Documented By: Titration: 09/16/25 04:24 Dose: 0.05 mcg/kg/min, 5.953 mls/hr Documented By: Titration: 09/16/25 04:10 Dose: 0.07 mcg/kg/min, 8.335 mls/hr Documented By: Titration: 09/16/25 04:00 Dose: 0.09 mcg/kg/min, 10.716 mls/hr Documented By: Titration: 09/16/25 03:56 Dose: 0.09 mcg/kg/min, 10.716 mls/hr Documented By: Titration: 09/16/25 03:41 Dose: 0.11 mcg/kg/min, 13.097 mls/hr Documented By: Titration: 09/16/25 03:09 Dose: 0.13 mcg/kg/min, 15.479 mls/hr Documented By: Titration: 09/16/25 03:00 Dose: 0.15 mcg/kg/min, 17.86 mls/hr Documented By: Titration: 09/16/25 02:45 Dose: 0.15 mcg/kg/min, 17.86 mls/hr Documented By: Titration: 09/16/25 02:10 Dose: 0.15 mcg/kg/min, 17.86 mls/hr Documented By: Titration: 09/15/25 21:00 Dose: 0.17 mcg/kg/min, 20.242 mls/hr Documented By: Titration: 09/15/25 20:56 Dose: 0.13 mcg/kg/min, 15.479 mls/hr Documented By: Admin: 09/15/25 20:41 Dose: 0.05 mcg/kg/min, 5.953 mls/hr Documented By: AC Dopamine HCl/Dextrose (Intropin In D5w Ivpb) 400 mg in 250 mls @ 23.814 mls/hr IV .[id number] [facility]; Protocol Stop: 10/15/25 20:34 Last Titration: 09/16/25 01:34 Dose: Infused Documented By: Admin: 09/15/25 23:07 Dose: 25 mcg/kg/min, 119.068 mls/hr Documented By: Titration: 09/15/25 23:04 Dose: Infused Documented By: Titration: 09/15/25 21:10 Dose: 25 mcg/kg/min, 119.068 mls/hr Documented By: Titration: 09/15/25 21:05 Dose: 20 mcg/kg/min, 95.255 mls/hr Documented By: Titration: 09/15/25 21:01 Dose: 15 mcg/kg/min, 71.441 mls/hr Documented By: Titration: 09/15/25 20:55 Dose: 10 mcg/kg/min, 47.627 mls/hr Documented By: Titration: 09/15/25 20:50 Dose: 10 mcg/kg/min, 47.627 mls/hr Documented By: Admin: 09/15/25 20:44 Dose: 5 mcg/kg/min, 23.814 mls/hr Documented By: AC Epinephrine/Sodium Chloride (Adrenalin/Ns 16 Mg Ivpb) Confirm Administered Dose 16 mg in 250 mls @ ud IV .STK-MED ONE Stop: 09/15/25 20:35 Last Admin: 09/15/25 20:50 Dose: Not Given Documented By: AC Non-Admin Reason: Cancelled by Provider Epinephrine/Sodium Chloride (Adrenalin/Ns 16 Mg Ivpb) Confirm Administered Dose 16 mg in 250 mls @ ud IV .STK-MED ONE Stop: 09/15/25 20:37 Last Admin: 09/15/25 20:50 Dose: Not Given Documented By: AC Non-Admin Reason: Override Medication Dopamine HCl/Dextrose (Intropin In D5w Ivpb) Confirm Administered Dose 400 mg in 250 mls @ ud IV .STK-MED ONE Stop: 09/15/25 20:38 Last Admin: 09/15/25 20:52 Dose: Not Given Documented By: DENVER Non-Admin Reason: Override Medication Sodium Chloride (Ns) 1,000 mls @ 999 mls/hr IV .Q1H1M ONE Stop: 09/15/25 23:40 Last Infusion: 09/16/25 00:16 Dose: Infused Documented By: Admin: 09/15/25 23:15 Dose: 999 mls/hr Documented By: DT Norepinephrine/Dextrose (Levophed In D5w 8mg/250ml) 8 mg in 250 mls @ 11.907 mls/hr IV .Q21H PRN; Protocol PRN Reason: PER PROTOCOL Stop: 10/16/25 00:39 Last Titration: 09/16/25 08:00 Dose: Infused Documented By: Titration: 09/16/25 07:00 Dose: 0.19 mcg/kg/min, 45.246 mls/hr Documented By: Titration: 09/16/25 06:00 Dose: 0.19 mcg/kg/min, 45.246 mls/hr Documented By: Titration: 09/16/25 05:00 Dose: 0.19 mcg/kg/min, 45.246 mls/hr Documented By: Titration: 09/16/25 04:53 Dose: 0.19 mcg/kg/min, 45.246 mls/hr Documented By: Titration: 09/16/25 04:00 Dose: 0.17 mcg/kg/min, 40.483 mls/hr Documented By: Titration: 09/16/25 03:41 Dose: 0.17 mcg/kg/min, 40.483 mls/hr Documented By: Titration: 09/16/25 02:45 Dose: 0.17 mcg/kg/min, 40.483 mls/hr Documented By: Titration: 09/16/25 02:09 Dose: 0.17 mcg/kg/min, 40.483 mls/hr Documented By: Titration: 09/16/25 01:46 Dose: 0.11 mcg/kg/min, 26.195 mls/hr Documented By: Admin: 09/16/25 01:35 Dose: 0.05 mcg/kg/min, 11.907 mls/hr Documented By: DT Lactated Ringer's (Lactated Ringers) 1,000 mls @ 999 mls/hr IV .Q1H1M ONE Stop: 09/16/25 01:46 Last Admin: 09/16/25 04:35 Dose: 999 mls/hr Documented By: AD Piperacillin/Tazobactam/Dextrose (Zosyn) 3.375 g in 50 mls @ 100 mls/hr IV X1 ONE; Protocol Stop: 09/16/25 01:29 Last Admin: 09/16/25 01:11 Dose: 100 mls/hr Documented By: DT Norepinephrine/Dextrose (Levophed In D5w 8mg/250ml) 8 mg in 250 mls @ 9.122 mls/hr IV .Q24H PRN; Protocol PRN Reason: PER PROTOCOL Stop: 10/16/25 00:39 Norepinephrine Bitartrate (Levophed In Ns 16mg/250ml) 16 mg in 250 mls @ 15.507 mls/hr IV .Q16H8M PRN; Protocol PRN Reason: PER PROTOCOL Stop: 10/16/25 02:44 Lactated Ringer's (Lactated Ringers) 1,000 mls @ 999 mls/hr IV .Q1H1M ONE Stop: 09/16/25 05:40 Last Admin: 09/16/25 04:51 Dose: 999 mls/hr Documented By: AD Lactated Ringer's (Lactated Ringers) 1,000 mls @ 999 mls/hr IV .Q1H1M ONE Stop: 09/16/25 06:31 Last Admin: 09/16/25 07:04 Dose: 999 mls/hr Documented By: BRIAN Vancomycin/Sodium Chloride (Vancomycin/Ns 1 Gm Ivpb) 200 mls @ 120 mls/hr IV Q2H SHIVAM Stop: 09/16/25 10:24 Last Admin: 09/16/25 09:31 Dose: 120 mls/hr Documented By: Infusion: 09/16/25 09:20 Dose: Infused Documented By: Admin: 09/16/25 07:39 Dose: 120 mls/hr Documented By: BRIAN Insulin Degludec (Insulin Degludec 5 Unit/0.05 Ml (Per 5 Units)) 6 unit SC X1 ONE Stop: 09/16/25 08:10 Last Admin: 09/16/25 08:24 Dose: 6 unit Documented By: BRIAN Co-signed By: CLARA Insulin Human Lispro (Insulin Lispro (Admelog) 1 Unit/0.01 Ml Unit) 0 unit SC Q4HR SHIVAM; Protocol Stop: 10/16/25 05:59 Last Admin: 09/16/25 06:14 Dose: 4 unit Documented By: ANJELICA Co-signed By: SUNDAR Insulin Human Lispro (Insulin Lispro (Admelog) 1 Unit/0.01 Ml Unit) 6 unit SC X1 ONE Stop: 09/16/25 08:10 Last Admin: 09/16/25 08:25 Dose: 6 unit Documented By: BRIAN Co-signed By: CLARA Insulin Human Lispro (Insulin Lispro (Admelog) 1 Unit/0.01 Ml Unit) 0 unit SC Q4HR SHIVAM; Protocol Stop: 10/16/25 08:59 Last Admin: 09/16/25 15:42 Dose: Not Given Documented By: BRIAN Non-Admin Reason: Bg [id number] Admin: 09/16/25 09:44 Dose: 4 unit Documented By: BRIAN Co-signed By: jada Lactulose (Lactulose Syrup 20 Gm/30 Ml Udc) 30 gm NG X1 ONE; Protocol Stop: 09/16/25 14:14 Last Admin: 09/16/25 15:37 Dose: 30 gm Documented By: BRIAN Metoprolol Tartrate (Metoprolol Tartrate Inj 1 Mg/Ml Vial 5 Ml) 2.5 mg IVP X1 ONE Stop: 09/15/25 20:46 Last Admin: 09/15/25 23:45 Dose: Not Given Documented By: ELIS Non-Admin Reason: Cancelled by Provider Ondansetron HCl (Ondansetron Inj 2 Mg/Ml Inj 2 Ml) 4 mg IVP X1 ONE; Protocol Stop: 09/15/25 20:25 Last Admin: 09/15/25 23:15 Dose: 4 mg Documented By: ELIS Polyethylene Glycol (Polyethylene Glycol 17 Gm Packet) 17 gm NG X1 ONE Stop: 09/16/25 18:27 Last Admin: 09/16/25 19:57 Dose: 17 gm Documented By: Rocuronium [place] (Rocuronium Inj 10 Mg/Ml Vial 10 Ml) 100 mg IVP X1 ONE Stop: 09/15/25 20:25 Last Admin: 09/15/25 20:40 Dose: 100 mg Documented By: DENVER Co-signed By: TAHIRA Rocuronium [place] (Rocuronium Inj 10 Mg/Ml Vial 10 Ml) 100 mg IVP X1 ONE Stop: 09/15/25 20:35 Last Admin: 09/15/25 20:43 Dose: Not Given Documented By: AC Non-Admin Reason: Cancelled by Provider Rocuronium [place] (Rocuronium Inj 10 Mg/Ml Vial 10 Ml) Confirm Administered Dose 100 mg .ROUTE .STK-MED ONE Stop: 09/15/25 20:38 Last Admin: 09/15/25 20:52 Dose: Not Given Documented By: DENVER Non-Admin Reason: Override Medication Sennosides (Senna Tablet) 1 tab NG X1 ONE; Protocol Stop: 09/16/25 18:27 Last Admin: 09/16/25 19:57 Dose: 1 tab Documented By: Sodium Chloride (Sodium Chloride Rt 10% 15 Ml Nebu) 5 ml INH X1 ONE Stop: 09/15/25 20:38 Last Admin: 09/15/25 23:19 Dose: Not Given Documented By: EVIE Non-Admin Reason: Sputum culture obtained w/o induction Succinylcholine Chloride (Succinylcholine Inj 20 Mg/Ml Vial 10 Ml) 200 mg IV X1 ONE Stop: 09/15/25 20:11 Last Admin: 09/15/25 20:18 Dose: 200 mg Documented By: DENVER See chart Consultations Consultation(s) initiated? (list below): Yes Consultation #1 (Physician, Specialty, Details): I discussed the case with our ICU team. About the presentation and exam and diagnostics and treatments here. And need of further care in the hospital. Agreed accept the patient. Diagnosis Differential diagnosis altered mental status: altered mental status, delirium, hypoglycemia, hyponatremia, subarachnoid hemorrhage, sepsis and other (Drug Overdose) Most likely diagnosis given after review of the tests above:: Cardiac arrest Sepsis Pneumonia Airway intubation performed without difficulty Right inguinal hernia CHAR (acute kidney injury) Hypercalcemia Admission Indicated Admission indicated?: indicated Explain why admission is indicated or not indicated:: Cardiac arrest Sepsis Pneumonia Airway intubation performed without difficulty Right inguinal hernia CHAR (acute kidney injury) Hypercalcemia Admission Request Was there a request for admission?: Yes Admission Attestation Admission request attestation: I discussed the case with our ICU team. About the presentation and exam and diagnostics and treatments here. And need of further care in the hospital. Agreed accept the patient. Disposition Plan Disposition Plan: Admit Critical Care Time Critical Care Time Critical Care Time: Yes Total Critical Care Time (min.): 62 Attestation: Due to a high probability of clinically significant, life threatening deterioration, the patient required my highest level of preparedness to intervene emergently and I personally spent this critical care time directly and personally managing the patient. This critical care time included obtaining a history; examining the patient; ordering and review of studies; arranging urgent treatment with development of a management plan; evaluation of patient's response to treatment; frequent reassessment; and discussions with family and other providers. It was exclusive of separately billable procedures and treating other patients and teaching time. Harsh Belle MD Discharge Plan Plan Patient Disposition: Admit Acute Care w/in Hospital Problem List Clinical Impression: Cardiac arrest, Sepsis, Pneumonia, Airway intubation performed without difficulty, Right inguinal hernia, CHAR (acute kidney injury), Hypercalcemia, Hyperglycemia
--- NOTE | 2025-09-15 20:25 | XR_ITS ---
Examination: CT brain head without contrast. 2-D sagittal coronal reconstructions Date and time of exam: Examination: September 15, 2025, 10:51 p.m., comparison May 06, 2019 INDICATIONS: CODE BLUE cardiopulmonary arrest 32 hours ago with altered mental status CTDI: vol (mGy): 50 DLP: (mGycm): 1020 Technique: Multiple CT axial sections of the brain have been obtained, 5 mm slice thickness. Contrast has not been administered. 2-D sagittal, coronal reconstructions have been obtained Low dose protocols were performed. One or more of the following dose reduction techniques were used; automated exposure control, adjustment of the mA and/or KV according to patient size, use of iterative reconstruction technique. Findings: No significant ventricular enlargement. Intra-axial or extra-axial hemorrhage density is not seen. No mass effect or midline shift Basal cisterns are not remarkable. Fourth ventricle is midline. Cranial vault intact. Impression: Negative for acute hemorrhage, mass effect or midline shift As clinically warranted, brain MRI follow-up would best assess for ischemic/anoxic change
--- NOTE | 2025-09-15 20:25 | XR_ITS ---
EXAMINATION: AP chest single view TECHNIQUE: AP portable supine chest single view Date and time: September 15, 2025, 10 0 7:00 p.m., comparison February 10, 2023 INDICATIONS: Hypoxic respiratory failure. FINDINGS: No significant cardiac enlargement Bilateral perihilar left basilar pneumonia with air bronchograms left base Endotracheal tube tip 2.6 cm above michael Orogastric tube in the stomach satisfactory position Central line tip SVC IMPRESSION: Bilateral perihilar left basilar pneumonia
--- NOTE | 2025-09-15 20:37 | XR_ITS ---
Examination: CTA chest with intravenous contrast 2-D reconstructions 3-D reconstructions, vascular Date and time of exam: September 15, 2025, 10:53 p.m. INDICATIONS: Hypoxia today CTDI: vol (mGy) 36.25 DLP: (mGycm) 623 Technique: Multiple axial sections of the thorax have been obtained. 3 mm slice thickness, from below the hemidiaphragms to above the apices of the lungs. Mediastinal and lung density settings have been obtained. 2-D sagittal and coronal reconstructions. 3-D angiographic renderings, 3-D volume renderings, 3D post processing, vascular maximum intensity projections obtained. Contrast administered is 100 cc Isovue-370. Low dose protocols were performed. One or more of the following dose reduction techniques were used; automated exposure control, adjustment of the mA and/or KV according to patient size, use of iterative reconstruction technique. Findings: Tracheal tube tip 16 mm above michael No thoracic aortic aneurysmal dilatation No pulmonary artery emboli Extensive bilateral pneumonia Moderate osteopenia IMPRESSION: Negative for pulmonary artery emboli Extensive bilateral pneumonia
--- NOTE | 2025-09-15 20:37 | XR_ITS ---
Examination: CT abdomen with intravenous contrast CT pelvis with intravenous contrast 2-D coronal reconstructions 2-D sagittal reconstructions Date and time of exam: September 15, 2025, 10:53 p.m. Comparison February 11, 2023 INDICATIONS: Vomiting abdominal pain today. CTDI: vol (mGy) 24.7 DLP: (mGycm) 1653 Technique: Multiple axial sections of the abdomen and pelvis have been obtained. 64 slice high-resolution scanner used. 3 mm axial sections have been obtained, post intravenous injection 60 cc Isovue-370 2-D sagittal, coronal reconstructions obtained. Low dose protocols were performed. One or more of the following dose reduction techniques were used; automated exposure control, adjustment of the mA and/or KV according to patient size, use of iterative reconstruction technique. Findings: Bibasilar pneumonia, consider aspiration pneumonia No visualized liver or splenic lesion Orogastric tube in the stomach No gallstones No pancreatic or adrenal mass Significant bilateral renal scarring Atrophic left kidney Fluid distended small bowel loops Colon and small bowel present in right inguinal hernia Abundant stool in the rectosigmoid Urinary bladder contracted around a Acosta catheter Rectal wall thickening Mild prostatomegaly IMPRESSION: Small bowel obstruction pattern, consider Gastrografin small bowel series follow-up Right inguinal hernia containing bowel although no definite incarcerated bowel
[2025-09-15] MEDS: ROCURONIUM INJ 10 MG/ML VIAL 10 ML 100 MG IVP (20:40)
[2025-09-15] MEDS: SODIUM CHLORIDE 0.9% 1000 ML 1,000 ML 999 ML IV ×2 (20:40→23:15)
[2025-09-15] MEDS: EPINEPHrine in NS 16 MG IVPB 16 MG/250 ML BAG 5.953 MG IV (20:41)
[2025-09-15] MEDS: DOPamine/D5w 400 MG IVPB 400 MG/250 ML BAG 23.814 MG IV (20:44)
[2025-09-15] MEDS: PROPOFOL 1,000 MG IVPB 1,000 MG/100 ML VIAL 3.81 MG IV (20:45)
[2025-09-15 20:55] LABS: Base Excess 0 (-3-3); HCO3 28 mEq/L (20-26); Inspired Oxygen, FIO2 100 %; O2 Saturation 100 % (91-98); PCO2 57 mmHg (32.0-48.0); PO2 167 mmHg (83-108); pH, Arterial 7.30 (7.35-7.45)
[2025-09-15 21:00] LABS: Allen Test Not Performed; Puncture Site Left Radial
[2025-09-15 21:08] LABS: Basophils # (Auto) 0.0 Thou/mm3 (0.0-0.2); Basophils % (Auto) 0 % (0-2.5); Beta Hydroxybutyrate 0.5 mmol/L (<0.6); Eosinophils # (Auto) 0.1 Thou/mm3 (0.0-0.5); Eosinophils % (Auto) 1 % (0-10); Hematocrit 49.3 % (41.0-53.0); Hemoglobin 16.0 g/dL (13.5-16.0); Immature Granulocytes Auto 0.03 Thou/mm3 (0.00-0.00); Lymphocytes # (Auto) 1.4 Thou/mm3 (1.0-4.8); Lymphocytes % (Auto) 12 % (10-50); Mean Corpuscular HGB Conc 32.5 g/dl (31.0-37.0); Mean Corpuscular Hemoglobin 28.9 pg (25.0-35.0); Mean Corpuscular Volume 89 fL (80-100); Monocytes # (Auto) 0.3 Thou/mm3 (0.0-0.8); Monocytes % (Auto) 3 % (0-12); Neutrophils # (Auto) 9.6 Thou/mm3 (1.8-7.7); Neutrophils % (Auto) 84 % (37-80); Nucleated Red Blood Cell # 0.00 Thou/mm3 (0.00-0.00); Nucleated Red Blood Cell % 0 /100 WBC (0); Platelet Count 226 Thou/mm3 (140-440); RDW Standard Deviation 41.2 fL (35.1-43.9); Red Blood Count 5.54 Miln/mm3 (4.50-5.90); White Blood Count 11.4 Thou/mm3 (3.8-10.6)
[2025-09-15 21:14] LABS: Lactate (Lactic Acid) 6.5 mMol/L (0.4-2.0)
[2025-09-15 21:16] LABS: Sed Rate (ESR) 63 mm/hr (0-20)
[2025-09-15 21:22] LABS: INR 1.0 (0.9-1.3); Partial Thromboplastin Time 21.1 Seconds (22.0-36.0); Prothrombin Time 10.6 Seconds (9.0-12.2)
[2025-09-15 21:25] LABS: Ammonia 18 uMol/L (11-32)
[2025-09-15 21:26] LABS: D-Dimer 3220 ng/mL (<600)
[2025-09-15 21:29] LABS: Glucose Estimated Average 103 mg/dL (80-131); Hemoglobin A1C 5.2 % Hgb (4.8-6.0)
[2025-09-15 21:39] LABS: B-Type Natriuretic Peptide < 20 pg/mL (0-100)
[2025-09-15 21:46] LABS: Influenza A Ag Negative; Influenza B Ag Negative
[2025-09-15 21:47] LABS: COVID-19 Antigen (In-House) Negative (Negative)
[2025-09-15 22:17] LABS: Acetaminophen < 2.0 mcg/mL (10.0-20.0); Albumin, Serum 4.6 gm/dL (3.4-4.8); Albumin/Globulin Ratio 1.1 (1.2-2.2); Alkaline Phosphatase 132 U/L (46-116); Amylase 259 U/L (30-118); Aspartate Amino Transferase 29 U/L (0-34); BUN/Creatinine Ratio 8 Ratio (12-20); Blood Urea Nitrogen 20 mg/dL (9-23); C-Reactive Protein 1.3 mg/dL (0.0-0.9); Calcium 11.2 mg/dL (8.3-10.6); Calcium (Corrected) 11.2 mg/dL (8.5-10.1); Carbon Dioxide 24.1 mMol/L (20.0-31.0); Creatine Kinase 74 U/L (34-171); Creatinine (Component) 2.4 mg/dL (0.6-1.3); Estimated Creatinine Clearance 39.7 mL/min (>60); Globulin 4.1 gm/dL (2.3-3.5); Glucose 255 mg/dL (74-106); Procalcitonin 0.45 ng/ml (0.0-0.49); Thyroid Stimulating Hormone 3.52 uIU/mL (0.55-4.78); Total Protein 8.7 gm/dL (5.7-8.2); eGFR 30 See Note
[2025-09-15 22:26] LABS: Troponin I 0.045 ng/mL (0.0-0.045)
--- NOTE | 2025-09-15 22:30 | PC.NURSE ---
THIS RN INFORMED PROVIDER OF NO URINE OUTPUT.
[2025-09-15 22:36] LABS: Alanine Aminotransferase 16 U/L (10-49); Alcohol, Blood Medical < 3.0 mg/dL (0-10.0); Anion Gap 17 (7-16); Bilirubin,Direct 0.1 mg/dL (0.0-0.3); Bilirubin,Total 0.4 mg/dL (0.3-1.2); Chloride 89 mMol/L (98-107); Lipase 55 U/L (12-53); Magnesium 3.2 mg/dL (1.6-2.6); Osmolality,Calculated 272 (275-295); Sodium 130 mMol/L (136-145)
[2025-09-15 22:38] LABS: Base Excess -1 (-3-3); HCO3 26 mEq/L (20-26); Inspired Oxygen, FIO2 100 %; O2 Saturation 100 % (91-98); PCO2 49 mmHg (32.0-48.0); PO2 154 mmHg (83-108); pH, Arterial 7.33 (7.35-7.45)
[2025-09-15 22:38] LABS: Potassium 6.4 mMol/L (3.4-5.1)
[2025-09-15 22:39] LABS: Allen Test Performed/OK; Puncture Site Right Radial
[2025-09-15] MEDS: DOPamine/D5w 400 MG IVPB 400 MG/250 ML BAG 119.068 MG IV (23:07)
[2025-09-15] MEDS: ONDANSETRON INJ 2 MG/ML INJ 2 ML 4 MG IVP (23:15)
[2025-09-15 23:32] LABS: Potassium 3.9 mMol/L (3.4-5.1)
--- NOTE | 2025-09-15 23:36 | PD.RESPROC ---
PROCEDURES: Procedure Date / Time 09/15/25 6216 Central Line Placement Right SC: Indication(s): shock and poor, or inadequate peripheral venous access Informed consent obtained: implied and procedure done urgently Time out done, and the following verified: correct patient, side and site, procedure, patient position and implants and/or equipment Patient placed on monitor/pulse ox: Yes Hand Hygiene: scrub, soap & water and alcohol-based hand rub Max Sterile Barrier Techniques used: cap, mask, sterile gown, sterile gloves and sterile full body drape Central line prep: Povidone-Iodine 1%, Chlorhexidine scrub and sterile drapes applied Ultrasound used for placement: Yes Sterile Technique if Ultrasound used, including sterile gel: yes Central line lumen inserted: triple Post procedure: sutured in place, good blood return, all ports aspirated, flushed, capped and sterile dressing applied Post procedure x-ray: tip of catheter in good position and no pneumothorax seen Patient tolerated procedure: well EBL(ml): 5 Procedure comment: Proceedure:Subclavian vein central line insertion A time out was performed. My hands were washed immediately prior to the procedure. I wore a surgical cap, mask with protective eyewear, sterile gown and sterile gloves throughout the procedure. The patient was placed in Trendelenburg position. The Rt chest region was prepped using chlorhexidine scrub and draped in sterile fashion using a full drape and sterile probe cover and sterile gel employed. The introducer needle was inserted approximately two centimeters lateral to and 1 cm inferior to the normal curvature of the patient's right clavicle. Venous blood was withdrawn. The syringe was removed and a guidewire was advanced into the introducer needle. A small incision was made at the skin surface with a scalpel and the introducer needle was exchanged for a dilator over the guidewire. After appropriate dilation was obtained, the dilator was exchanged over the wire for a central venous catheter. The wire was removed and the catheter was sutured in place. A sterile sorbaview shield was placed over the catheter at the insertion site. The patient tolerated the procedure without any hemodynamic compromise. At time of procedure completion, all ports aspirated and flushed properly. Post-procedure chest x-ray show tip of central line in SVC. Estimated blood loss is 5 cc. Procedure was performed under supervision of ED physician, Dr. Barbra Kirk MD PGY-3
[2025-09-16] VITALS (109 sets, daily range): BP systolic 68–148; BP diastolic 39–89; PULSE 64–126; RESP 0–33; TEMP 35.5–37.7; O2SAT 91–100
[2025-09-16 00:03] LABS: Reflex Lactate? Y
[2025-09-16 00:21] LABS: Lactic Acid, 3 HR 7.7 mMol/L (0.4-2.0)
[2025-09-16 01:09] LABS: Troponin I 2.194 ng/mL (0.0-0.045)
[2025-09-16] MEDS: PIPER/TAZO 3.375 GM PREMIX 3.375 G/50 ML BAG IV (01:11)
[2025-09-16] MEDS: Norepinephrine/D5W 8mg/250ml 8 MG/250 ML BAG 11.907 MG IV (01:35)
--- NOTE | 2025-09-16 01:54 | XR_ITS ---
EXAMINATION: AP chest single view TECHNIQUE: AP portable supine chest single view Date and time: September 16, 2025, 0208 hours, comparison September 15, 2025 INDICATIONS: Post central line placement FINDINGS: Reduced inspiratory effort Bilateral perihilar and left basilar pneumonia Normal heart size Tracheal tube tip 25 mm above michael Interval right internal jugular central line tip SVC satisfactory position Orogastric tube in the stomach Vascular congestion IMPRESSION: Interval right internal jugular central line tip SVC satisfactory position, no pneumothorax
[2025-09-16 02:12] LABS: Collection Type, Urine Clean Catch; Squamous Epithelial Cell,Urine 0 /hpf (0-5)
[2025-09-16] MEDS: VASOPRESSIN IN NS IVPB 20 UNIT/100 ML BAG 9 UNIT IV ×3 (02:24→23:05)
[2025-09-16 02:48] LABS: Bilirubin,Urine Negative (Negative); Blood,Urine 3+ (Negative); Color,Urine Orange (Lt Yel-Yel); Glucose, Urine 2+ (Negative); Ketones,Urine Negative (Negative); Leukocyte Esterase,Urine Positive (Negative); Nitrite,Urine Negative (Negative); PH,Urine 6.5 (5.0-7.0); Protein,Urine 2+ (Neg - Trace); Specific Gravity,Urine 1.042 (1.001-1.035); Urobilinogen,Urine Negative mg/dL (0.0-1.0); WBC,Urine 2197 /hpf (0-5)
[2025-09-16 02:51] LABS: Clarity,Urine Turbid (Clear/Hazy)
[2025-09-16 02:52] LABS: RBC,Urine 370 /hpf (0-3)
--- NOTE | 2025-09-16 03:13 | ESOP_ITS ---
PROCEDURES: Procedure Date / Time 09/16/25 0313 Procedural Time Out Time out performed: At 1:49 AM Central Line Placement Right IJ: Indication(s): shock and poor, or inadequate peripheral venous access Informed consent obtained: procedure done urgently Time out done, and the following verified: correct patient, side and site, procedure, patient position and implants and/or equipment Patient placed on monitor/pulse ox: Yes Hand Hygiene: scrub, soap & water and alcohol-based hand rub Max Sterile Barrier Techniques used: cap, mask, sterile gown, sterile glov es and sterile full body drape Sterile Technique if Ultrasound used, including sterile gel: yes Central line lumen inserted: triple Post procedure: sutured in place, good blood return, all ports aspirated, flushed, capped and sterile dressing applied Post procedure x-ray: tip of catheter in good position and no pneumothorax seen Patient tolerated procedure: well EBL(ml): 5 Procedure comment: Initially, Attempts were made to place a central line in the right femoral vein, left IJ and subclavian. The line was placed in subclavian vein but it was in the artery therefore it was taken out and right IJ was placed. Proceedure Name: Right IJV central Line placement Consent: Proceedure done urgently Indication: Shock A time out was performed. My hands were washed immediately prior to the procedure. I wore a surgical cap, mask with protective eyewear, full gown and sterile gloves throughout the procedure. The patient was placed in Trendelenburg position. Right chest region was prepped using chlorhexidine scrub and draped in sterile fashion using a full drape and sterile probe cover and sterile gel employed. The medial and lateral heads of the sternocleidomastoid muscle were identified as was the carotid pulse. The Right Internal Jugular vein was identified using the ultrasound. Anesthesia was achieved over the vein using 1% lidocaine. Using real-time out of plane guidance, the introducer needle was inserted into the left Internal Jugular vein under direct ultrasound visualization. Venous blood was withdrawn. The syringe was removed and a guidewire was advanced into the introducer needle. The guidewire was visualized in the Internal Jugular Vein by ultrasound. A small incision was made at the skin surface with a scalpel and the introducer needle was exchanged for a dilator over the guidewire. After appropriate dilation was obtained, the dilator was exchanged over the wire for a central venous catheter. The wire was removed and the catheter was sutured in place. A sterile sorbaview shield was placed over the catheter at the insertion site. The patient tolerated the procedure without any hemodynamic compromise. At time of procedure completion, all ports aspirated and flushed properly. Post-procedure chest x-ray confirmed correct Placement. Estimated blood loss is <5cc. -- Proceedure performed under the supervision of Dr Barbra Kirk MD PGY-3
--- NOTE | 2025-09-16 03:13 | PD.RESHP ---
Documentation for date of: 09/16/25 [facility] History of Present Illness Chief complaint: AMS, cardiac arrest History of present illness: This patient is a 65-year-old male with past medical history of developmental delay, muscular dystrophy, benign prostatic hyperplasia, history of neurogenic bladder, right inguinal hernia, CVA, CAD, hypertension, hyperlipidemia and diabetes was brought in to the ED on 09/15/2025 from [facility] with altered mental status.with altered mental status and had cardiac arrest with downtime of 20 mins at the facility. In ED he was resuscitated and ROSC was achieved. Just prior to arrival patient stated he did not feel good and rolled his eyes back and became unresponsive per nursing staff. Patient was found in supine position with GCS of 3 and blood sugar of 121 mg/dL. Narcan 2 mg was administered which made patient more responsive with improvement in agonal respiration. No obvious trauma was seen. No other complaints. Of note, patient was found to have labs done on 08/25/2025 at some clinic. Patient has a significant history of UTI with resistant organism including E. coli and Proteus. On 08/09/2025 patient was found to have E. coli ESBL type sensitive to Zosyn. Patient's caregiver is Antonia Garcia who can be contacted on [facility] who is the decision-maker for the patient. Patient's aunt was present at the bedside as well. They stated that patient was unresponsive prior to going to restroom for shower and he became unconscious. PMH: As above PSH: Suprapubic catheter placement in 2018 not removed, small bowel obstruction surgery Allergies: NKDA SH: None Home medications: Ferrous sulfate 325 mg twice daily, vitamin A 8000 units 1 cap p.o. daily, NS 0.9% irrigation solution flush Acosta catheter weekly with 60 cc NS, methenamine hippurate 1 tablet p.o. daily, DuoNebs as needed Tylenol 500 mg every 6 hourly as needed, Robitussin 5 mL p.o. as needed every 4 hourly for cough or congestion,, Camoseptine oint as needed to perineal area for redness, ibuprofen 400 mg every 6 as needed finasteride 5 mg 1 tablet daily, tamsulosin 0.4 mg 2 tablets p.o. daily, magnesium oxide 1 tablet daily, multivitamin 1 tablet daily, metformin 500 mg twice daily, duloxetine DR 20 mg capsule 1 p.o. twice daily, gabapentin 100 mg 3 times daily, baclofen 10 mg 1 tablet at night, mineral oil for impacted cerumen/hard of hearing, aspirin 81 mg for hypertension, calcium carbonate 500 mg twice daily, clopidogrel 75 mg for CVA prevention, polyethylene glycol once daily, Jazmin lanta liquid 15 mL p.o. twice daily for GERD ED course: Patient presented with pulseless electrical activity. CODE BLUE was called. CPR was performed with 2 rounds of epinephrine and ROSC was achieved.Patient received 40 mg etomidate, 100 mg rocuronium and ET tube 8 was placed around 24 cm.Patient received epinephrine and dopamine drip with propofol for sedation. He received 1 L bolus of NS. Post CODE BLUE, vitals reviewed blood pressure 113/93, heart rate 131, RR 18. Patient is currently intubated and mechanically ventilated. Chest x-ray revealed central line tip subclavian vein and bilateral perihilar left basilar pneumonia. ET tube 2.6 cm above michael. Orogastric tube in stomach. Labs revealed WBC 11.4, hemoglobin 16, platelet 226. INR 1.0. D-dimer 3220. ABGs revealed pH 7.33, pCO2 49, pO2 154. FiO2 100%. Chemistry panel reveals sodium 130, potassium 6.4, chloride 89, bicarb 24. Bicarb on 08/23/2025 was 34.6. Anion gap 17. BUN 20 and creatinine 2.4 baseline creatinine 1.4 from 08/23/2025. Blood glucose 255. A1c 5.2, lactic acid 6.5, corrected calcium 11.2, magnesium 3.2. CRP 1.3. Amylase 259. Lipase 55. Procalcitonin 0.45. TSH within normal limits. U tox revealed Tylenol less than 2 COVID and flu negative. Blood cultures were sent. Urinalysis is orange turbid with pH 6.5. Specific gravity of 1.042. Protein 2+, glucose 1+ blood 3+. RBC 370. WBC 2197. Imaging: Head CT showed no acute changes. Abdominal CT was significant for small bowel obstruction pattern with right inguinal hernia containing bowel. Abundant stool in rectosigmoid. CTA chest was negative for PE. Extensive bilateral pneumonia noted. Patient is admitted to ICU for acute encephalopathy postcardiac arrest, SBO and septic shock. Review of Systems Review of Systems ROS Unobtainable: unobtainable due to mental status and due to endotracheal tube Past Medical History Past Medical History NEUROLOGIC: Positive Neurological Disorders and Cerebrovascular Accident CARDIAC: Positive Cardiac Disorders, Coronary Artery Disease, Hypercholesterolemia and Hypertension RESPIRATORY: Positive Pneumonia GASTROINTESTINAL: Positive Gastrointestinal Disorders, Obstructive Bowel, Hiatal Hernia and Gastroesophageal Reflux Disease GENITOURINARY: Positive Renal Disease and Benign Prostatic Hyperplasia MUSCULOSKELETAL: Positive Musculoskeletal Disorders and Muscular Dystrophy ENDOCRINE: Positive Endocrine Disorders and Diabetes Mellitus Type 2 HEMATOLOGIC: Positive Anemia OTHER HISTORY: Positive Developmental Delay Surgical History SURGICAL: Positive Abdominal Surgery and Bowel Surgery Social History SECOND HAND EXPOSURE: Yes Exam Vital Signs Temp Pulse Resp BP Pulse Ox O2 Del Method FiO2 96.3 F L 114 H 18 134/89 H 99 Mechanical Ventilation 80 09/16/25 00:37 09/16/25 02:58 09/16/25 00:37 09/16/25 02:58 09/16/25 02:58 09/16/25 00:37 09/16/25 02:58 Narrative Exam GENERAL APPEARANCE: Patient is intubated and mechanically ventilated with sedation. HEENT: NC, AT. MMM. EOMI, clear conjunctiva, oropharynx clear. Anisocoria. Left pupil possible coloboma. Right pupil medial deviation. NECK: Supple without lymphadenopathy. No stiffness or restricted ROM. Right IJ central line placed. HEART: Sinus tachycardia with regular rhythm, normal S1/S2, no m/r/g LUNGS: CTAB, moving air well. No crackles or wheezes are heard. ABDOMEN: Soft, distended abdomen with hypoactive bowel sounds. BACK: No CVAT, no obvious deformity. EXTREMITIES: Without cyanosis, clubbing or edema. NEUROLOGICAL: Grossly nonfocal. Intubated and mechanically ventilated. CN not formally tested but appear grossly intact. Bedbound. Power in all limbs 2/4. exam: Right inguinal hernia not reducible. Skin: Warm and dry without any rash. Small swelling around the left IJ. Psych: Unable to assess Results: Labs 09/17/25 03:40 09/16/25 03:32 Labs: Short CBC 09/15/25 Range/Units 20:58 WBC 11.4 H (3.8-10.6) Thou/mm3 Hgb 16.0 (13.5-16.0) g/dL Hct 49.3 (41.0-53.0) % Plt Count 226 (140-440) Thou/mm3 BMP 09/15/25 09/15/25 20:58 23:12 Sodium 130 L Potassium 6.4 H* 3.9 D Chloride 89 L Carbon Dioxide 24.1 BUN 20 Creatinine 2.4 H Glucose 255 H Calcium 11.2 H Cardiac Enzymes 09/15/25 09/16/25 Range/Units 20:58 00:11 Total Creatine Kinase 74 (34-171) U/L Troponin I 0.045 2.194 H* D (0.0-0.045) ng/mL Liver Function 09/15/25 Range/Units 20:58 Total Bilirubin 0.4 (0.3-1.2) mg/dL Direct Bilirubin 0.1 (0.0-0.3) mg/dL AST 29 (0-34) U/L ALT 16 (10-49) U/L Alkaline Phosphatase 132 H (46-116) U/L Albumin 4.6 (3.4-4.8) gm/dL Urine 09/16/25 Range/Units 01:50 Urine Color [place] A (Lt Yel-Yel) Urine Clarity Turbid A (Clear/Hazy) Urine pH 6.5 (5.0-7.0) Ur Specific [place] 1.042 H (1.001-1.035) Urine Protein 2+ A (Neg - Trace) Urine Glucose (UA) 2+ A (Negative) ABG Interpretation ABG results: 09/15/25 09/15/25 20:48 22:33 ABG pH 7.30 L 7.33 L ABG pCO2 57 H 49 H ABG pO2 167 H 154 H ABG HCO3 28 H 26 ABG O2 Saturation 100 H 100 H ABG Base Excess 0 -1 Quality Measures Quality Measures VTE prophylaxis (Heparin SC ) Medications Home Medications and Allergies Home Medications ?Medication ?Instructions ?Recorded ?Confirmed ?Type duloxetine 20 mg capsule,delayed 20 mg PO BID 05/01/19 09/16/25 History release gabapentin 100 mg capsule 100 mg PO TID 05/01/19 09/16/25 History Held on 09/16/25. Instructions: Doctor's Order polyethylene glycol 3350 17 gram 17 g PO QPM 05/01/19 09/16/25 History oral powder packet (Miralax) baclofen 10 mg tablet 10 mg PO HS 03/01/20 09/16/25 History clopidogrel 75 mg tablet (Plavix) 75 mg PO QDAY 04/28/21 09/16/25 History metformin 500 mg tablet 500 mg PO BID 04/28/21 09/16/25 History Held on 09/16/25. Instructions: Doctor's Order tamsulosin 0.4 mg capsule 0.8 mg PO HS 02/12/22 09/16/25 History acetaminophen 500 mg capsule 500 mg PO Q6H PRN Pain (Scale 06/01/22 09/16/25 History Score 1-3) magnesium oxide 400 mg PO QDAY 06/01/22 09/16/25 History Held on 09/16/25. Instructions: Doctor's Order multivitamin 1 tab PO HS 06/01/22 09/16/25 History sennosides 8.6 mg-docusate sodium 1 tab-cap PO QHS PRN Constipation 06/01/22 09/16/25 History 50 mg tablet vitamin A 3,000 mcg (10,000 unit) 8,000 unit PO QDAY 07/23/22 09/16/25 History capsule aspirin 81 mg tablet,delayed 81 mg PO HS 02/11/23 09/16/25 History release methenamine hippurate 1 gram tablet 1 g PO DAILY 09/16/25 09/16/25 History Allergies Allergy/AdvReac Type Severity Reaction Status Date / Time No Known Drug Allergies Allergy Unknown Verified 12/17/22 12:45 Visit Medications Acetaminophen (Acetaminophen 325 Mg Tablet) 650 mg PO Q6H PRN PRN Reason: Fever >101.3 Stop: 10/16/25 00:35 Heparin Sodium (Porcine) (Heparin Sod Inj 5000 Unit/Ml Vial) 5,000 unit SC Q8HR [facility] Stop: 09/30/25 05:59 Propofol (Diprivan Ivpb) 1,000 mg in 100 mls @ 3.81 mls/hr IV .Q24H PRN; Protocol PRN Reason: PER PROTOCOL Stop: 10/15/25 20:20 Last Titration: 09/16/25 03:00 Dose: 30 mcg/kg/min, 22.861 mls/hr Norepinephrine/Dextrose (Levophed In D5w 8mg/250ml) 8 mg in 250 mls @ 11.907 mls/hr IV .Q21H PRN; Protocol PRN Reason: PER PROTOCOL Stop: 10/16/25 00:39 Last Titration: 09/16/25 03:00 Dose: 0.17 mcg/kg/min, 40.483 mls/hr Vasopressin/Sodium Chloride (Vasostrict/Ns Ivpb) 20 unit in 100 mls @ 9 mls/hr IV .Q11H7M PRN; Protocol PRN Reason: PER PROTOCOL Stop: 10/16/25 00:41 Last Admin: 09/16/25 02:24 Dose: 0.03 unit/min, 9 mls/hr Piperacillin/Tazobactam/Dextrose (Zosyn) 50 mls @ 100 mls/hr IV Q6HR SHIVAM; Protocol Stop: 09/23/25 00:41 Vancomycin HCl 2,000 mg/ (Sodium Chloride) 500 mls @ 150 mls/hr IV X1 ONE Stop: 09/16/25 04:19 Ondansetron HCl (Ondansetron Inj 2 Mg/Ml Inj 2 Ml) 4 mg IVP Q6H PRN; Protocol PRN Reason: NAUSEA OR VOMITING Stop: 10/16/25 00:35 Pantoprazole Sodium (Pantoprazole Inj 40 Mg Vial) 40 mg IVP QDAY SHIVAM Stop: 10/16/25 08:59 Pharmacy Consult (Vancomycin Pharmacy To Dose 1 Each Each) 1 each IV QDAY SHIVAM Stop: 10/16/25 08:59 Pharmacy Consult (Pharmacy Renal Dose Adjustment 1 Ea) 1 each XX PRN PRN PRN Reason: CONSULT Stop: 10/16/25 00:41 Discontinued Medications Etomidate (Etomidate Inj 2 Mg/Ml Vial 10 Ml) 40 mg IVP X1 ONE Stop: 09/15/25 20:11 Last Admin: 09/15/25 20:18 Dose: 40 mg Etomidate (Etomidate Inj 2 Mg/Ml Vial 10 Ml) 40 mg IVP X1 ONE Stop: 09/15/25 20:35 Last Admin: 09/15/25 20:38 Dose: 40 mg Sodium Chloride (Ns) 1,000 mls @ 999 mls/hr IV .Q1H1M ONE Stop: 09/15/25 21:24 Last Infusion: 09/15/25 21:41 Dose: Infused Epinephrine/Sodium Chloride (Adrenalin/Ns 16 Mg Ivpb) 16 mg in 250 mls @ 5.953 mls/hr IV .Q24H PRN; Protocol PRN Reason: Per Protocol Stop: 10/15/25 20:34 Last Titration: 09/16/25 03:09 Dose: 0.13 mcg/kg/min, 15.479 mls/hr Dopamine HCl/Dextrose (Intropin In D5w Ivpb) 400 mg in 250 mls @ 23.814 mls/hr IV .Q06O88O SHIVAM; Protocol Stop: 10/15/25 20:34 Last Titration: 09/16/25 01:34 Dose: Infused Sodium Chloride (Ns) 1,000 mls @ 999 mls/hr IV .Q1H1M ONE Stop: 09/15/25 23:40 Last Infusion: 09/16/25 00:16 Dose: Infused Lactated Ringer's (Lactated Ringers) 1,000 mls @ 999 mls/hr IV .Q1H1M ONE Stop: 09/16/25 01:46 Piperacillin/Tazobactam/Dextrose (Zosyn) 3.375 g in 50 mls @ 100 mls/hr IV X1 ONE; Protocol Stop: 09/16/25 01:29 Last Admin: 09/16/25 01:11 Dose: 100 mls/hr Metoprolol Tartrate (Metoprolol Tartrate Inj 1 Mg/Ml Vial 5 Ml) 2.5 mg IVP X1 ONE Stop: 09/15/25 20:46 Last Admin: 09/15/25 23:45 Dose: Not Given Ondansetron HCl (Ondansetron Inj 2 Mg/Ml Inj 2 Ml) 4 mg IVP X1 ONE; Protocol Stop: 09/15/25 20:25 Last Admin: 09/15/25 23:15 Dose: 4 mg Rocuronium Hext (Rocuronium Inj 10 Mg/Ml Vial 10 Ml) 100 mg IVP X1 ONE Stop: 09/15/25 20:25 Last Admin: 09/15/25 20:40 Dose: 100 mg Rocuronium Hext (Rocuronium Inj 10 Mg/Ml Vial 10 Ml) 100 mg IVP X1 ONE Stop: 09/15/25 20:35 Last Admin: 09/15/25 20:43 Dose: Not Given Sodium Chloride (Sodium Chloride Rt 10% 15 Ml Nebu) 5 ml INH X1 ONE Stop: 09/15/25 20:38 Last Admin: 09/15/25 23:19 Dose: Not Given Succinylcholine Chloride (Succinylcholine Inj 20 Mg/Ml Vial 10 Ml) 200 mg IV X1 ONE Stop: 09/15/25 20:11 Last Admin: 09/15/25 20:18 Dose: 200 mg Assessment & Plan Plan This patient is a 65-year-old bedbound male with past medical history of developmental delay, muscular dystrophy, benign prostatic hyperplasia, history of neurogenic bladder, right inguinal hernia, CVA, CAD, hypertension, hyperlipidemia and diabetes was brought in to the ED on 09/15/2025 from [facility] with altered mental status and had cardiac arrest with downtime of 20 mins at the facility. In ED he was resuscitated and ROSC was achieved. Patient is admitted to ICU for acute encephalopathy postcardiac arrest,SBO and septic shock. Neuro #Acute encephalopathy -DDx: Postcardiac arrest, septic shock - Patient presented from [facility] with altered mental status. Just prior to their arrival, patient did not feel good and rolled his eyes back. Baseline AOX3 -He became unresponsive and was found in supine position with GCS of 3 blood sugar 121 mg/dL. - Narcan 2 mg was given which made him more responsive with improvement in agonal respiration. No obvious trauma was seen. - Patient was found in PEA and CODE BLUE was called. CPR was performed with 2 rounds of epinephrine and ROSC was achieved. Patient was started on epinephrine and dopamine along with propofol for sedation and was intubated and mechanically ventilated for airway protection. -Patient does have a history of CVA with no residual deficit and was on Plavix for CVA prevention. - Tylenol less than 2. Ammonia 18. - mildly elevated Trop I -Urinalysis is orange turbid with pH 6.5. Specific gravity of 1.042. Protein 2+, glucose 1+ blood 3+. RBC 370. WBC 2197. -Imaging: Head CT showed no acute changes. Abdominal CT was significant for small bowel obstruction pattern with right inguinal hernia containing bowel. Abundant stool in rectosigmoid. CTA chest was negative for PE. Extensive bilateral pneumonia noted Rx -Continue with intubation and mechanical ventilation -Will continue with sedation for now - Will likely perform sedation occasion to assess patient's neurological status tomorrow #History of developmental delay and muscular dystrophy - Patient has a history of development delay and muscular dystrophy. -Patient is bedbound and has weakness in all 4 limbs and does not ambulate per caregiver. He cannot move his limbs against resistance at baseline. - He lives at residential. Rx -Outpatient follow-up -Will restart patient's home med once SBO resolved CVS #ROSC s/p Cardiac arrest #Shock -Likely multifactorial DDx: Cardiac arrest,cardiogenic vs septic -He became unresponsive and was found in supine position with GCS of 3 blood sugar 121 mg/dL. - Narcan 2 mg was given which made him more responsive with improvement in agonal respiration. No obvious trauma was seen. - Patient was found in PEA and CODE BLUE was called. CPR was performed with 2 rounds of epinephrine and ROSC was achieved. Patient was started on epinephrine and dopamine along with propofol for sedation and was intubated and mechanically ventilated for airway protection due to cardiac arrest. -Post CODE BLUE, vitals reviewed blood pressure 113/93, heart rate 131, RR 18. - Patient received 1 L bolus of NS and epinephrine and dopamine were started in the ED. -Subclavian central line was taken out as it was found to be in artery. -Post chest x-ray for right IJ central line was confirmed in the corrected position. -Elevated CRP. -Additional 1 L bolus was given. Urinalysis is orange turbid with pH 6.5. Specific gravity of 1.042. Protein 2+, glucose 1+ blood 3+. RBC 370. WBC 2197. Imaging: Head CT showed no acute changes. Abdominal CT was significant for small bowel obstruction pattern with right inguinal hernia containing bowel. Abundant stool in rectosigmoid. -CTA chest was negative for PE. Extensive bilateral pneumonia noted -Limited bedside ultrasound showed hyperdynamic heart with good segmental wall motion. IVC was not visible due to increased abdominal distention. -NICOM assessment showed fluid responsiveness with SVI 15.8% after 250 cc bolus. Cardiac index increased from 2.4-2.8 after fluid bolus. SVI 31, heart rate 90. Rx - Epinephrine and dopamine were stopped due to low suspicion for cardiogenic shock and patient was started on Levophed and vasopressin for septic shock - Continue with sedation with propofol -Continue IV antibiotics IV vancomycin and Zosyn Rxx - Will perform [place], bedside ultrasound and give fluids based on results - Monitor ABGs and vitals - Follow-up with blood cultures, urine culture, sputum cultures and MRSA screen - Follow-up with echo #NSTEMI type II vs type I - Troponin I 0.045--> 2 .194 -Patient presented with cardiac arrest with achievement of ROSC after 2 rounds of epi and CPR. - EKG showed sinus tachycardia with no acute ST-T changes. QTc 423. Rx -Troponin I Q6 hourly -Follow-up with echocardiogram due to cardiac arrest #History of hypertension #History of hyperlipidemia #History of CVA Rx - Holding home meds due to cardiac arrest and shock Pulm #Acute hypoxic respiratory failure #Intubated and mechanically ventilated post cardiac arrest DDx- Postcardiac arrest, aspiration versus community-acquired pneumonia -Patient presented with pulseless electrical activity. Per patient's caregiver, patient had agonal respiration. CODE BLUE was called. CPR was performed with 2 rounds of epinephrine and ROSC was achieved.Patient received 40 mg etomidate, 100 mg rocuronium and ET tube 8 was placed around 24 cm.Patient received epinephrine and dopamine drip with propofol for sedation. He received 1 L bolus of NS. -ABGs reveal pH 7.33, pCO2 49, pO2 of 154, FiO2 100%. -Post CODE BLUE, vitals reviewed blood pressure 113/93, heart rate 131, RR 18. -Chest x-ray revealed central line tip subclavian vein and bilateral perihilar left basilar pneumonia. ET tube 2.6 cm above michael. Orogastric tube in stomach. Rx -Will continue with intubation and mechanical ventilation -Continuing with antibiotics Rxx - Follow-up with ABGs and sputum cultures GI/ #Small bowel obstruction -History of ex lap due to hx of SBO, right inguinal hernia and neurogenic bladder with suprapubic cathetar in the past -Abdominal CT was significant for small bowel obstruction pattern with right inguinal hernia containing bowel. Abundant stool in rectosigmoid. -Patient has history of small bowel obstruction. Rx - NG tube on LIS - Will do Gastrografin series tomorrow - surgery consulted due to large RT inguinal hernia with SBO Rxx - Monitor for abdominal distention #History of right inguinal hernia #History of BPH and neurogenic bladder #History of recurrent UTIs with ESBL organisms - On chart review, patient was found to have recurrent UTIs with ESBL organism including E. coli and Proteus. - Patient was found to have right large inguinal hernia on examination. -UA was dirty Rx -Acosta catheter inserted -On antibiotics -Strict DIXON's #UTI with indwelling Acosta catheter -History of nephrolithiasis, bilateral hydronephrosis and neurogenic bladder - Patient has a history of indwelling Acosta catheter. Suprapubic catheter was placed in 2017 and was removed per patient's caregiver. -Suprapubic catheter was removed due to clots in the bladder. - Acosta catheter was replaced this week. -Previous urine cultures have been ESBL type with E. coli. -Per caregiver patient is due for another surgery on September 29 in [place] for removal of kidney stones. Rx -Will continue with Zosyn based on sensitivity to previous cultures Rxx - Follow-up with urine cultures Renal #CHAR on CKD stage II #Anion gap metabolic acidosis -Postcardiac arrest, history of obstructive uropathy due to BPH, history of neurogenic bladder - Patient presented with bicarb 24. Bicarb on 08/23/2025 was 34.6. Anion gap 17. -BUN 20 and creatinine 2.4 baseline creatinine 1.4 from 08/23/2025. Rx - Continue with pressors - Strict DIXON's - Avoid nephrotoxic agent - Renally dose medication #Lactic acidosis - In the setting of cardiac arrest Rx - IV fluids and pressors Rxx - Lactic acid Q3 hourly #Electrolyte disturbance #Hyponatremia #Hyperkalemia #Hypercalcemia - Patient presented with sodium 130, potassium 6.4, chloride 89. Rx -Repeat K came back 3.9 -Close monitoring of electrolytes Heme #Leukocytosis -White count 11.4 - Continue to monitor for fever spike and infection Rxx - Daily labs #Elevated D-dimer - D-dimer 3220 Endo #History of type 2 diabetes -A1c was 5 Rx - Blood sugar checks Q6 hourly ID #Septic shock #Aspiration pneumonia versus community-acquired pneumonia #UTI Rx -Continue with IV vancomycin and Zosyn [09/15/2025?] Rxx -Follow-up with blood cultures, sputum cultures and urine culture with MRSA Skin - Hematoma versus seroma on left side of neck - Continue to monitor swelling currently not increasing in size ICU health maintenance GI prophylaxis: Protonix 40 mg IV daily DVT prophylaxis: Heparin subcut Drips: Epinephrine and dopamine Antibiotics: Vancomycin and Zosyn Lines: Right IJ central line Tubes: OG Ventilator: AC/VC mode CODE STATUS: Full code Hospitalization: Patient is admitted to ICU for acute encephalopathy status postcardiac arrest, SBO with septic shock. Patient is seen and discussed with attending physician, Dr.Alhalaibeh Marquez Kirk MD PGY-3 Attending Provider Attestation/Addendum After examining patient and review of the clinical data patient was found to have high probability of imminent deterioration which required my direct management and intervention TOTAL CC TIME: 60 MIN TOTAL TIME: 60 Minutes of direct medical management and planning of care. I Yoon Allen MD, attest that I was physically present for del real portions of evaluation, and examined patient, labs and imagings and plan of care were discussed with IM residents team, and I agree with the findings and plans documented above.
[2025-09-16 03:44] LABS: Basophils # (Auto) 0.0 Thou/mm3 (0.0-0.2); Basophils % (Auto) 0 % (0-2.5); Eosinophils # (Auto) 0.0 Thou/mm3 (0.0-0.5); Eosinophils % (Auto) 0 % (0-10); Hematocrit 38.0 % (41.0-53.0); Hemoglobin 12.5 g/dL (13.5-16.0); Immature Granulocytes Auto 0.01 Thou/mm3 (0.00-0.00); Lymphocytes # (Auto) 0.4 Thou/mm3 (1.0-4.8); Lymphocytes % (Auto) 5 % (10-50); Mean Corpuscular HGB Conc 32.9 g/dl (31.0-37.0); Mean Corpuscular Hemoglobin 29.2 pg (25.0-35.0); Mean Corpuscular Volume 89 fL (80-100); Monocytes # (Auto) 0.3 Thou/mm3 (0.0-0.8); Monocytes % (Auto) 4 % (0-12); Neutrophils # (Auto) 6.5 Thou/mm3 (1.8-7.7); Neutrophils % (Auto) 91 % (37-80); Nucleated Red Blood Cell # 0.00 Thou/mm3 (0.00-0.00); Nucleated Red Blood Cell % 0 /100 WBC (0); Platelet Count 262 Thou/mm3 (140-440); RDW Standard Deviation 41.5 fL (35.1-43.9); Red Blood Count 4.28 Miln/mm3 (4.50-5.90); White Blood Count 7.2 Thou/mm3 (3.8-10.6)
[2025-09-16 03:48] LABS: Lactate (Lactic Acid) 8.4 mMol/L (0.4-2.0)
--- NOTE | 2025-09-16 03:53 | ECHO_ITS ---
Patient Info Name: Antonino Ennis Age: 65 years : 1960 Gender: Male Ht: 168 cm Wt: 97 kg BSA: 2.16 m2 BP: 104 / 51 mmHg HR: 76 bpm Exam Date: 09/17/2025 7:32 AM Admit Date: 09/16/2025 Site: [facility] Room Number: [id number] Patient Status: I Exam Type: CA echo doppler complete Oceanographic Meteorologist: Anna Armstrong Ordering Physician: Marquez Kirk Study Info Indications Elevated troponin and postcardiac arrest - Primary Location: S2SX Left Ventricular Outflow Tract Name Value Normal LVOT 2D LVOT Diameter 1.8 cm LVOT Doppler LVOT Peak Velocity 96 cm/s LVOT Mean Gradient 2 mmHg LVOT VTI 20 cm LVOT VTI/AV VTI Ratio 0.9 LVOT Stroke Volume 51 ml Pulmonic Valve Name Value Normal PV Doppler PV Peak Velocity 95 cm/s Mitral Valve Name Value Normal MV Doppler MV Decel Desha 517 cm/s2 MV PHT 49 ms MV Area (PHT) 4.5 cm2 4.0-5.0 MV Diastolic Function MV E Peak Velocity 87 cm/s MV A Peak Velocity 91 cm/s MV E/A 1.0 MV Annular TDI MV Septal e' Velocity 7.6 cm/s MV E/e' (Septal) 11.5 MV Lateral e' Velocity 9.6 cm/s MV E/e' (Lateral) 9.1 MV e' Average 8.60 cm/s MV E/e' (Average) 10.3 Tricuspid Valve Name Value Normal TV Regurgitation Doppler TR Peak Velocity 174 cm/s Estimated PAP/RSVP RA Pressure 8 mmHg <=5 PA Systolic Pressure 20 mmHg <36 RV Systolic Pressure 20 mmHg <36 TV Annular TDI TV Lateral Bridget s' Velocity 11.6 cm/s >=9.5 Aortic Valve Name Value Normal AV 2D/MM AV Cusp Sep (MM) 2.0 cm AV Doppler AV Peak Velocity 116 cm/s AV Mean Gradient 3 mmHg AV VTI 22 cm AV Area (Cont Eq VTI) 2.3 cm2 >=3.0 AV Area (Cont Eq Moustapha) 2.1 cm2 AV DI (Moustapha) 0.83 AV Regurgitation 2D LVOT Area 2.5 cm2 Ventricles Name Value Normal LV Dimensions 2D/MM IVS Diastolic Thickness (2D) 1.1 cm 0.6-1.0 LVID Diastole (2D) 4.7 cm 4.2-5.8 LVIW Diastolic Thickness (2D) 1.2 cm 0.6-1.0 LVID Systole (2D) 3.3 cm 2.5-4.0 LVIW Systolic Thickness (2D) 0.6 cm LVOT Diameter 1.8 cm LV Mass (2D Cubed) 199.60 g 88.00-224.00 LV Mass Index (2D Cubed) 92 g/m2 49-115 Relative Wall Thickness (2D) 0.51 <=0.42 IVS/LVIW Diastolic Thickness (2D) 0.92 0.00-1.50 LV Fractional Shortening/Ejection Fraction 2D/MM LV Fractional Shortening (2D) 30 % 25-43 LV EF (2D Teichholz) 57 % RV Dimensions 2D/MM TV Lateral Bridget s' Velocity 11.6 cm/s >=9.5 Atria Name Value Normal LA Dimensions LA Volume (4C A-L) 39 ml LA Volume (BP A-L) 44 ml Left Ventricle Left ventricular chamber dimension is normal. Left ventricular systolic function is normal with visually estimated ejection fraction of 60-65%. There is mild concentric hypertrophy noted in the left ventricle. Left ventricular segmental wall motion is normal. There is normal diastolic function in the left ventricle. Right Ventricle Right ventricular chamber dimension is normal. Right ventricular systolic function is normal. Left Atrium Left atrial chamber dimension is normal. Right Atrium Right atrial chamber dimension is normal. Aortic Valve The aortic valve is trileaflet. There is no aortic valve sclerosis. There is no aortic valve stenosis with a peak velocity of 116 cm/s, mean gradient of 3 mmHg, and aortic valve area of 2.3 cm2. There is no aortic valve regurgitation. Pulmonic Valve The pulmonic valve is normal. There is no pulmonic valve stenosis. There is trace pulmonic regurgitation. Mitral Valve The mitral valve has normal leaflets. There is no mitral valve stenosis. There is trace mitral valve regurgitation. Tricuspid Valve The tricuspid valve leaflets are normal. There is no tricuspid valve stenosis. There is trace tricuspid valve regurgitation. Pericardium/Pleural The pericardium appears normal. There is no pericardial effusion. No pleural effusion visualized. Inferior Vena Cava Not well visualized inferior vena cava with >50% collapse upon inspiration consistent with normal right atrial pressure, 8 mmHg. Aorta The aortic measurements are indexed to age and body surface area. The aortic root at the sinus of Valsalva is not well visualized. The prox ascending aorta is not well visualized. Summary 1. Left ventricle size is normal and systolic function is normal. Estimated ejection fraction is 60-65%. There is normal diastolic function. There is mild concentric hypertrophy noted. 2. The right ventricle is not well visualized. 3. There is trace mitral valve regurgitation. 4. There is trace tricuspid valve regurgitation. 5. trace pulmonic valve regurgitation. 6. The left atrium is normal. The right atrium is normal. 7. Not well visualized IVC with estimated RA pressure 8 mmHg. Report Signatures Finalized by Nicole Orozco on 09/17/2025 05:49 PM
[2025-09-16 04:20] LABS: Base Excess -2 (-3-3); HCO3 25 mEq/L (20-26); Inspired Oxygen, FIO2 80 %; O2 Saturation 99 % (91-98); PCO2 51 mmHg (32.0-48.0); PO2 118 mmHg (83-108); pH, Arterial 7.29 (7.35-7.45)
[2025-09-16 04:21] LABS: Allen Test Performed/OK; Puncture Site Left Radial
[2025-09-16] MEDS: PROPOFOL 1,000 MG IVPB 1,000 MG/100 ML VIAL 23.352 MG IV (04:32)
[2025-09-16] MEDS: RINGERS LACTATED 1000 ML 1,000 ML 999 ML IV ×3 (04:35→07:04)
[2025-09-16 04:37] LABS: Alanine Aminotransferase 10 U/L (10-49); Anion Gap 14 (7-16); Aspartate Amino Transferase 30 U/L (0-34); BUN/Creatinine Ratio 13 Ratio (12-20); Bilirubin,Total 0.6 mg/dL (0.3-1.2); Blood Urea Nitrogen 30 mg/dL (9-23); Carbon Dioxide 24.4 mMol/L (20.0-31.0); Cardiac Risk Estimate 3.7 RATIO (4.0-6.7); Chloride 91 mMol/L (98-107); Cholesterol 117 mg/dL (132-200); Creatinine (Component) 2.4 mg/dL (0.6-1.3); Estimated Creatinine Clearance 34.4 mL/min (>60); HDL Cholesterol 32 mg/dL (40-60); LDL Cholesterol,Calculated 59 mg/dL (0-130); Magnesium 2.8 mg/dL (1.6-2.6); Potassium 4.3 mMol/L (3.4-5.1); Sodium 129 mMol/L (136-145); Total Protein 6.6 gm/dL (5.7-8.2); Triglycerides 128 mg/dL (30-150); eGFR 30 See Note
[2025-09-16] MEDS: fentaNYL 2,500 MCG/250 ML BAG 2,500 MCG/250 ML BAG IV (04:52)
[2025-09-16 04:57] LABS: Albumin, Serum 3.4 gm/dL (3.4-4.8); Albumin/Globulin Ratio 1.1 (1.2-2.2); Alkaline Phosphatase 94 U/L (46-116); Calcium 8.8 mg/dL (8.3-10.6); Calcium (Corrected) 9.3 mg/dL (8.5-10.1); Globulin 3.2 gm/dL (2.3-3.5); Osmolality,Calculated 286 (275-295); Thyroid Stimulating Hormone 1.26 uIU/mL (0.55-4.78)
[2025-09-16 04:58] LABS: Glucose 485 mg/dL (74-106)
[2025-09-16] MEDS: HEPARIN SOD INJ 5000 UNIT/ML VIAL SC ×3 (06:13→22:16)
--- NOTE | 2025-09-16 06:13 | XR_ITS ---
EXAMINATION: AP chest single view TECHNIQUE: AP portable semiupright chest single view Date and time: 2024, 0719 hours, comparison September 16, 2025 0208 hours INDICATIONS: History cardiopulmonary arrest, shortness of breath, post intubation FINDINGS: Reduced inspiratory effort Perihilar left basilar pneumonia Mild prominence cardiac contour Prominent vascular congestion Tracheal tube tip 3.4 cm above michael. Orogastric tube in the stomach Right internal jugular central line tip SVC IMPRESSION: Bilateral perihilar and left basilar pneumonia Prominent vascular congestion
[2025-09-16] MEDS: INSULIN LISPRO (AdmeLOG) 1 UNIT/0.01 ML UNIT SC ×2 (06:14→09:44)
[2025-09-16 06:39] LABS: Reflex Lactate? Y
[2025-09-16 06:46] LABS: Lactate (Lactic Acid) 7.0 mMol/L (0.4-2.0)
[2025-09-16] MEDS: VANCOMYCIN/NS 1 GM IVPB 200 ML IV ×2 (07:39→09:31)
[2025-09-16 08:02] LABS: Troponin I 3.404 ng/mL (0.0-0.045)
[2025-09-16] MEDS: INSULIN DEGLUDEC 5 UNIT/0.05 ML (PER 5 UNITS) 6 UNIT SC (08:24)
[2025-09-16] MEDS: INSULIN LISPRO (AdmeLOG) 1 UNIT/0.01 ML UNIT 6 UNIT SC (08:25)
[2025-09-16] MEDS: Norepinephrine/D5W 8mg/250ml 8 MG/250 ML BAG 34.663 MG IV (08:45)
[2025-09-16] MEDS: PROPOFOL 1,000 MG IVPB 1,000 MG/100 ML VIAL 20.433 MG IV (09:14)
[2025-09-16 09:31] LABS: Lactate (Lactic Acid) 6.2 mMol/L (0.4-2.0)
[2025-09-16 09:39] LABS: Reflex Lactate? Y
--- NOTE | 2025-09-16 09:47 | EKG_ITS ---
[facility] Test Date: 2025-09-16 Pat Name: SINCERE RUBIN [facility] Gender: Male Eligibility Counselor: FTUIB : 1960 Requested By: Tc Méndez Order Number: [id number] Reading MD: Tc Méndez Measurements Intervals [place] Rate: 70 P: 28 TX: 168 QRS: -14 QRSD: 88 T: 51 QT: 356 QTc: 386 Interpretive Statements SINUS RHYTHM POSSIBLE RIGHT VENTRICULAR CONDUCTION DELAY NONSPECIFIC T-WAVE ABNORMALITY Compared to ECG 09/15/2025 20:21:45 T-wave abnormality now present Sinus tachycardia no longer present /store/S0/[id number].pdf
--- NOTE | 2025-09-16 10:51 | PC.SS ---
65YO male, Reason for visit: AMS, CARDIAC ARREST Initial assessment completed with Rosemarie Lema- Batch Freezer Operator [phone] via telephone. Role and purpose of today's contact was explained to Rosemarie. Patient's primary medical surrogate decisionmaker is the Emission Technician Rosemarie Lema [phone] or Antonia Garcia-[employer] [phone]. Rosemarie explained patient is non-ambulatory and requires maximum assistance with ADL completion. Patient utilizes 2L of oxygen at all times. Patient is connected to [facility] and his rehabilitation case coordinator is Mandi [place]. PCP: Saray Benitez, last appt. was early August 2025. PHARMACY: [facility] [place]. Patient to return to [facility] when medically clear. Per Rosemarie, ambulance transportation will be needed. DISCHARGE PLAN: [facility] NEXT OF KIN: Rosemarie Lema [phone], Antonia Garcia [phone]
[2025-09-16 12:25] LABS: Reflex Lactate? Y
[2025-09-16 13:02] LABS: Lactate (Lactic Acid) 4.0 mMol/L (0.4-2.0)
[2025-09-16 13:18] LABS: Troponin I 2.425 ng/mL (0.0-0.045)
--- NOTE | 2025-09-16 13:40 | ESCONSULT_ITS ---
<Statement entered by Nicole Orozco MD - 09/19/25 15:14> Patient is personally examined by me along with resident physician PGY 1 Dr. Rishi Dominguez I examined the patient and reviewed all the essential components of the consultation report is reviewed patient came to the hospital as lwl-no-dciomstz questionable cardiac arrest mostly appears to be PEA type of situation patient appears at developed hyperkalemia this is second time he has developed hyperkalemia possibly FELIX inhibitor related with CKD stage IIIb resuscitated successfully hyperkalemia is corrected patient is clinically stable not have any further issues. Cardiac echo unremarkable patient will be monitored closely in ICU for cardiac arrhythmias. Evidently patient with resident physician agree with the treatment and plan recommendation as documented. HPI Data of Consult Requesting Physician: Yoon Allen MD Admitting Provider: Yoon Allen MD Attending Provider: Yoon Allen MD Primary Care Provider: Saray Benitez NP Consult Narrative Reason for consult: ?Cardiac arrest, NSTEMI Type 2 vs Type 1, ?PEA History of present illness: Patient is a 65 yo M with PMH of neuromuscular issues, muscular dystrophy, benign prostatic hyperplasia, history of neurogenic bladder, right inguinal hernia, CVA, CAD, hypertension, hyperlipidemia and diabetes was brought in to the ED on 09/15/2025 pier[place] to ED with altered mentation and cardiac arrest. Per family member, he became unresponsive at correction, and was brought in to ED, where ROSC occurred. Cardiology consulted due to potential cardiac arrest vs PEA and NSTEMI. cc:: cc: Yoon Allen MD Review of Systems Review of Systems Narrative Review of Systems: General: Unable to obtain due to patient sedation. HEENT: Unable to obtain due to patient sedation. Heart: Unable to obtain due to patient sedation. Lungs: Unable to obtain due to patient sedation. Abdomen: Unable to obtain due to patient sedation. Genitourinary: Unable to obtain due to patient sedation. Musculoskeletal: Unable to obtain due to patient sedation. Neurology: Unable to obtain due to patient sedation. ROS otherwise negative except what is mentioned above. Exam Vital Signs Temp Pulse Resp BP Pulse Ox O2 Del Method FiO2 99.9 F 66 2 L 118/59 L 99 Mechanical Ventilation 40 09/16/25 04:00 09/16/25 08:45 09/16/25 07:46 09/16/25 08:45 09/16/25 07:46 09/16/25 00:37 09/16/25 07:04 Narrative Exam General: Alert, well-nourished, well-developed, bedbound, Eyes: PERRL, EOMI. Anicteric, vision grossly intact. Ears: No ear pain, no ear discharge, Hearing grossly intact. Nose: No nasal discharge. Mouth/Throat: Moist mucous membranes, no redness, no lesions. Neck: Neck supple, non-tender, no cervical lymphadenopathy. Lungs: Clear LYNNETTE to auscultation and percussion, No accessory muscle use. Cardio: Normal S1/S2, regular rhythm, no murmurs, no JVD or carotid bruits. Abdomen: Soft, non-tender, no palpable masses, peristalsis present, no guarding or rebound. Extremities: Symmetrical, no significant deformities, no peripheral edema , non-tender, peripheral pulses present. Skin: No rashes, no lesions, warm to touch. Neuro: No focal neurological deficits. Psych: Alert, un Results Labs 09/16/25 03:32 09/16/25 03:32 Labs: Short CBC 09/15/25 09/16/25 Range/Units 20:58 03:32 WBC 11.4 H 7.2 (3.8-10.6) Thou/mm3 Hgb 16.0 12.5 L D (13.5-16.0) g/dL Hct 49.3 38.0 L D (41.0-53.0) % Plt Count 226 262 D (140-440) Thou/mm3 BMP 09/15/25 09/15/25 09/16/25 20:58 23:12 03:32 Sodium 130 L 129 L Potassium 6.4 H* 3.9 D 4.3 Chloride 89 L 91 L Carbon Dioxide 24.1 24.4 BUN 20 30 H Creatinine 2.4 H 2.4 H Glucose 255 H 485 H* D Calcium 11.2 H 8.8 D Cardiac Enzymes 09/15/25 09/16/25 09/16/25 Range/Units 20:58 00:11 06:33 Total Creatine Kinase 74 (34-171) U/L Troponin I 0.045 2.194 H* D 3.404 H* D (0.0-0.045) ng/mL 09/16/25 Range/Units 12:48 Total Creatine Kinase (34-171) U/L Troponin I 2.425 H* D (0.0-0.045) ng/mL Liver Function 09/15/25 09/16/25 Range/Units 20:58 03:32 Total Bilirubin 0.4 0.6 (0.3-1.2) mg/dL Direct Bilirubin 0.1 (0.0-0.3) mg/dL AST 29 30 (0-34) U/L ALT 16 10 (10-49) U/L Alkaline Phosphatase 132 H 94 D (46-116) U/L Albumin 4.6 3.4 D (3.4-4.8) gm/dL Urine 09/16/25 Range/Units 01:50 Urine Color [place] A (Lt Yel-Yel) Urine Clarity Turbid A (Clear/Hazy) Urine pH 6.5 (5.0-7.0) Ur Specific [place] 1.042 H (1.001-1.035) Urine Protein 2+ A (Neg - Trace) Urine Glucose (UA) 2+ A (Negative) ABG Interpretation ABG results: 09/15/25 09/15/25 09/16/25 20:48 22:33 04:03 ABG pH 7.30 L 7.33 L 7.29 L ABG pCO2 57 H 49 H 51 H ABG pO2 167 H 154 H 118 H D ABG HCO3 28 H 26 25 ABG O2 Saturation 100 H 100 H 99 H ABG Base Excess 0 -1 -2 Quality Measures Quality Measures VTE prophylaxis (Heparin SC ) Medications Home Medications and Allergies Home Medications ?Medication ?Instructions ?Recorded ?Confirmed ?Type duloxetine 20 mg capsule,delayed 20 mg PO BID 05/01/19 02/11/23 History release gabapentin 100 mg capsule 100 mg PO TID 05/01/1902/11 History polyethylene glycol 3350 17 gram 17 g PO QPM 05/01/19 02/11/23 History oral powder packet (Miralax) baclofen 10 mg tablet 10 mg PO HS 03/01/20 3 History clopidogrel 75 mg tablet (Plavix) 75 mg PO QDAY 02/11/23 History metformin 500 mg tablet 500 mg PO BID 04/28/2102/11 History tamsulosin 0.4 mg capsule 0.8 mg PO HS 02/12/22 History acetaminophen 500 mg capsule 500 mg PO Q6H PRN Pain (S jaz 06/01/22 02/11/23 History Score 1-3) magnesium oxide 400 mg PO QDAY 06/01/2201/20 History multivitamin 1 tab PO HS 06/01/22 3 History sennosides 8.6 mg-docusate sodium 1 tab-cap PO QHS PRN Constipation 06/01/22 02/11/23 History 50 mg tablet vitamin A 3,000 mcg (10,000 unit) 8,000 unit PO QDAY 1 02/11/23 History capsule aspirin 81 mg tablet,delayed 81 mg PO HS 02/11/2301/20 History release Allergies Allergy/AdvReac Type Severity Reaction Status Date / Time No Known Drug Allergies Allergy Unknown Verified 12/17/22 12:45 Visit Medications Acetaminophen (Acetaminophen 325 Mg Tablet) 650 mg PO Q6H PRN PRN Reason: Fever >101.3 Stop: 10/16/25 00:35 Dextrose (Dextrose 50%-Water Inj 50 Ml Syringe) 25 ml IV Q15MIN PRN PRN Reason: BG 50-70 responsive npo pt Stop: 10/16/25 05:17 Dextrose (Dextrose 50%-Water Inj 50 Ml Syringe) 50 ml IV Q15MIN PRN PRN Reason: BG <50 OR BG <70 & pt unresponsive Stop: 10/16/25 05:17 Glucagon (Glucagon Inj 1 Mg Vial) 1 mg IM Q15MIN PRN PRN Reason: BG <70, and no IV access Heparin Sodium (Porcine) (Heparin Sod Inj 5000 Unit/Ml Vial) 5,000 unit SC Q8HR SHIVAM Stop: 09/30/25 05:59 Last Admin: 09/16/25 06:13 Dose: 5,000 unit Vasopressin/Sodium Chloride (Vasostrict/Ns Ivpb) 20 unit in 100 mls @ 9 mls/hr IV .Q11H7M PRN; Protocol PRN Reason: PER PROTOCOL Stop: 10/16/25 00:41 Last Admin: 09/16/25 11:54 Dose: 0.03 unit/min, 9 mls/hr Piperacillin/Tazobactam/Dextrose (Zosyn) 3.375 gm in 50 mls @ 100 mls/hr IV Q8HR SHIVAM; Protocol Stop: 09/23/25 13:59 Propofol (Diprivan Ivpb) 1,000 mg in 100 mls @ 2.919 mls/hr IV .Q24H PRN; Protocol PRN Reason: PER PROTOCOL Stop: 10/15/25 20:20 Last Admin: 09/16/25 09:14 Dose: 35 mcg/kg/min, 20.433 mls/hr Fentanyl Citrate (Sublimaze Inj 2,500 Mcg/250 Ml Bag) 2,500 mcg in 250 mls @ 2.5 mls/hr IV .Q24H PRN; Protocol PRN Reason: PER PROTOCOL Stop: 09/21/25 03:50 Last Titration: 09/16/25 06:25 Dose: 175 mcg/hr, 17.5 mls/hr Norepinephrine/Dextrose (Levophed In D5w 8mg/250ml) 8 mg in 250 mls @ 31.014 mls/hr IV .Q8H4M PRN; Protocol PRN Reason: PER PROTOCOL Stop: 10/16/25 04:02 Last Admin: 09/16/25 08:45 Dose: 0.19 mcg/kg/min, 34.663 mls/hr Insulin Human Lispro (Insulin Lispro (Admelog) 1 Unit/0.01 Ml Unit) 0 unit SC Q4HR SHIVAM; Protocol Stop: 10/16/25 08:59 Last Admin: 09/16/25 09:44 Dose: 4 unit Ondansetron HCl (Ondansetron Inj 2 Mg/Ml Inj 2 Ml) 4 mg IVP Q6H PRN; Protocol PRN Reason: NAUSEA OR VOMITING Stop: 10/16/25 00:35 Pantoprazole Sodium (Pantoprazole Inj 40 Mg Vial) 40 mg IVP QDAY SHIVAM Stop: 10/16/25 08:59 Last Admin: 09/16/25 08:24 Dose: 40 mg Pharmacy Consult (Vancomycin Pharmacy To Dose 1 Each Each) 1 each IV QDAY PRN PRN Reason: PROTOCOL Stop: 10/16/25 08:59 Pharmacy Consult (Pharmacy Renal Dose Adjustment 1 Ea) 1 each XX PRN PRN PRN Reason: CONSULT Stop: 10/16/25 00:41 Discontinued Medications Aspirin (Aspirin 300 Mg Supp) 300 mg AL X1 ONE Stop: 09/16/25 09:49 Etomidate (Etomidate Inj 2 Mg/Ml Vial 10 Ml) 40 mg IVP X1 ONE Stop: 09/15/25 20:11 Last Admin: 09/15/25 20:18 Dose: 40 mg Etomidate (Etomidate Inj 2 Mg/Ml Vial 10 Ml) 40 mg IVP X1 ONE Stop: 09/15/25 20:35 Last Admin: 09/15/25 20:38 Dose: 40 mg Propofol (Diprivan Ivpb) 1,000 mg in 100 mls @ 3.81 mls/hr IV .Q24H PRN; Protocol PRN Reason: PER PROTOCOL Stop: 10/15/25 20:20 Last Titration: 09/16/25 04:00 Dose: 40 mcg/kg/min, 30.481 mls/hr Sodium Chloride (Ns) 1,000 mls @ 999 mls/hr IV .Q1H1M ONE Stop: 09/15/25 21:24 Last Infusion: 09/15/25 21:41 Dose: Infused Epinephrine/Sodium Chloride (Adrenalin/Ns 16 Mg Ivpb) 16 mg in 250 mls @ 5.953 mls/hr IV .Q24H PRN; Protocol PRN Reason: Per Protocol Stop: 10/15/25 20:34 Last Titration: 09/16/25 04:53 Dose: 0 mcg/kg/min, 0 mls/hr Dopamine HCl/Dextrose (Intropin In D5w Ivpb) 400 mg in 250 mls @ 23.814 mls/hr IV .[id number] [facility]; Protocol Stop: 10/15/25 20:34 Last Titration: 09/16/25 01:34 Dose: Infused Sodium Chloride (Ns) 1,000 mls @ 999 mls/hr IV .Q1H1M ONE Stop: 09/15/25 23:40 Last Infusion: 09/16/25 00:16 Dose: Infused Norepinephrine/Dextrose (Levophed In D5w 8mg/250ml) 8 mg in 250 mls @ 11.907 mls/hr IV .Q21H PRN; Protocol PRN Reason: PER PROTOCOL Stop: 10/16/25 00:39 Last Titration: 09/16/25 08:00 Dose: Infused Lactated Ringer's (Lactated Ringers) 1,000 mls @ 999 mls/hr IV .Q1H1M ONE Stop: 09/16/25 01:46 Last Admin: 09/16/25 04:35 Dose: 999 mls/hr Piperacillin/Tazobactam/Dextrose (Zosyn) 3.375 g in 50 mls @ 100 mls/hr IV X1 ONE; Protocol Stop: 09/16/25 01:29 Last Admin: 09/16/25 01:11 Dose: 100 mls/hr Norepinephrine/Dextrose (Levophed In D5w 8mg/250ml) 8 mg in 250 mls @ 9.122 mls/hr IV .Q24H PRN; Protocol PRN Reason: PER PROTOCOL Stop: 10/16/25 00:39 Norepinephrine Bitartrate (Levophed In Ns 16mg/250ml) 16 mg in 250 mls @ 15.507 mls/hr IV .Q16H8M PRN; Protocol PRN Reason: PER PROTOCOL Stop: 10/16/25 02:44 Lactated Ringer's (Lactated Ringers) 1,000 mls @ 999 mls/hr IV .Q1H1M ONE Stop: 09/16/25 05:40 Last Admin: 09/16/25 04:51 Dose: 999 mls/hr Lactated Ringer's (Lactated Ringers) 1,000 mls @ 999 mls/hr IV .Q1H1M ONE Stop: 09/16/25 06:31 Last Admin: 09/16/25 07:04 Dose: 999 mls/hr Vancomycin/Sodium Chloride (Vancomycin/Ns 1 Gm Ivpb) 200 mls @ 120 mls/hr IV Q2H SHIVAM Stop: 09/16/25 10:24 Last Admin: 09/16/25 09:31 Dose: 120 mls/hr Insulin Degludec (Insulin Degludec 5 Unit/0.05 Ml (Per 5 Units)) 6 unit SC X1 ONE Stop: 09/16/25 08:10 Last Admin: 09/16/25 08:24 Dose: 6 unit Insulin Human Lispro (Insulin Lispro (Admelog) 1 Unit/0.01 Ml Unit) 0 unit SC Q4HR SHIVAM; Protocol Stop: 10/16/25 05:59 Last Admin: 09/16/25 06:14 Dose: 4 unit Insulin Human Lispro (Insulin Lispro (Admelog) 1 Unit/0.01 Ml Unit) 6 unit SC X1 ONE Stop: 09/16/25 08:10 Last Admin: 09/16/25 08:25 Dose: 6 unit Metoprolol Tartrate (Metoprolol Tartrate Inj 1 Mg/Ml Vial 5 Ml) 2.5 mg IVP X1 ONE Stop: 09/15/25 20:46 Last Admin: 09/15/25 23:45 Dose: Not Given Ondansetron HCl (Ondansetron Inj 2 Mg/Ml Inj 2 Ml) 4 mg IVP X1 ONE; Protocol Stop: 09/15/25 20:25 Last Admin: 09/15/25 23:15 Dose: 4 mg Rocuronium Oneco (Rocuronium Inj 10 Mg/Ml Vial 10 Ml) 100 mg IVP X1 ONE Stop: 09/15/25 20:25 Last Admin: 09/15/25 20:40 Dose: 100 mg Rocuronium Oneco (Rocuronium Inj 10 Mg/Ml Vial 10 Ml) 100 mg IVP X1 ONE Stop: 09/15/25 20:35 Last Admin: 09/15/25 20:43 Dose: Not Given Sodium Chloride (Sodium Chloride Rt 10% 15 Ml Nebu) 5 ml INH X1 ONE Stop: 09/15/25 20:38 Last Admin: 09/15/25 23:19 Dose: Not Given Succinylcholine Chloride (Succinylcholine Inj 20 Mg/Ml Vial 10 Ml) 200 mg IV X1 ONE Stop: 09/15/25 20:11 Last Admin: 09/15/25 20:18 Dose: 200 mg Assessment & Plan Plan This patient is a 65-year-old male with past medical history of developmental delay, muscular dystrophy, benign prostatic hyperplasia, history of neurogenic bladder, right inguinal hernia, CVA, CAD, hypertension, hyperlipidemia and diabetes was brought in to the ED on 09/15/2025 from [facility] home with altered mental status and had reported cardiac arrest with downtime of 20 mins at the facility. Per patient, he had a headache and stomach upset, and refused dinner; he went in to the shower (it had not started) and then felt like he was going to pass out. He has had these headaches before. In ED he was resuscitated and ROSC was achieved. Patient admitted for acute encephalopathy, postcardiac arrest, SBO, septic shock. #Cardiac arrest, (carcinogenic vs septic) vs PEA Head CT showed no acute changes. CTA chest negative for PE. Extensive bilateral pneumonia noted. Limited bedside ultrasound showed hyperdynamic heart with good segmental wall motion. IVC not visible due to increased abdominal distention. Plan: - Likely PEA - Monitor ABGs and vitals - Follow-up with blood cultures, urine culture, sputum cultures and MRSA screen - Follow-up with echo #NSTEMI type II - Troponin I 0.045--> 2.194 --> 3.404 --> 2.425 (last one 09/16/25 12:48) -Patient presented with cardiac arrest with achievement of ROSC after 2 rounds of epi and CPR. - EKG on admission showed sinus tachycardia with no acute ST-T changes. QTc 423. - Repeat EKG 09/16/25 showed sinus rhythm. QTc- 386 Plan: -Echo ordered #History of hypertension #History of hyperlipidemia #History of CVA Plan: - Holding home meds due to cardiac arrest and shock #Acute encephalopathy #History of developmental delay and muscular dystrophy #Acute hypoxic respiratory failure #Intubated and mechanically ventilated post cardiac arrest #Small bowel obstruction #History of right inguinal hernia #History of BPH and neurogenic bladder #History of recurrent UTIs with ESBL organisms #UTI with indwelling Acosta catheter #History of nephrolithiasis, bilateral hydronephrosis and neurogenic bladder #CHAR on CKD stage II #Anion gap metabolic acidosis #Lactic acidosis #Hyponatremia #Hyperkalemia #Hypercalcemia #Leukocytosis #Elevated D-dimer #History of type 2 diabetes #Septic shock #Aspiration pneumonia versus community-acquired pneumonia #UTI #Hematoma versus seroma on left side of neck Per primary team. This case was discussed with my attending physician, Dr. Orozco. Vadim Dominguez, PGY1
--- NOTE | 2025-09-16 14:44 | XR_ITS ---
EXAMINATION: AP chest single view TECHNIQUE: AP portable semiupright chest single view Date and time: September 11, 2025 1515 hours, comparison September 16, 2025 0719 hours INDICATIONS: Post orogastric tube placement FINDINGS: Mild enlargement cardiac contour Prominent perihilar infiltrate with vascular congestion Right internal jugular central line tip right atrium Orogastric tube in the stomach IMPRESSION: Bilateral significant perihilar pneumonia Moderate vascular congestion Orogastric tube in the stomach
--- NOTE | 2025-09-16 15:08 | ESPR_ITS ---
<Statement entered by Tc Méndez MD - 09/16/25 18:19> He is a 65-year-old male with significant past medical history of developmental delay, muscular dystrophy, BPH, history of neurogenic bladder, right inguinal hernia, CVA, CAD, hypertension, hyperlipidemia, diabetes was brought from halfway in view of altered mental status. Patient was noted to be unconscious and immediately called the EMS, unsure whether patient got chest compressions by the EMS and later brought to the ED where 2 rounds of chest compressions with 2 rounds of epinephrine is given following which he received achieved the ROSC. Later patient was intubated, started on dopamine and Epinephrine and admitted to the ICU. Later vasopressors were switched to Levophed and vasopressin in view of less suspicion of cardiac arrest. Patient had a history of recurrent ESBL E. coli UTIs and noted to have urinalysis suggestive of UTI, likely from ESBL E. coli. Patient is suspected to have a septic shock for which Zosyn and vancomycin is started, continued Levophed and vasopressin. This morning, sedation was stopped and patient is responding, following verbal commands. Received total 5 L bolus since overnight. Later SBT is done in the afternoon and patient was extubated successfully. Will continue to titrate the blood pressures and titrate vasopressors accordingly. Noted to have elevated troponin levels which later down trended. No significant EKG changes of ST and T wave changes. Patient had history of CVA for which she is on dual antiplatelets, aspirin and Plavix. No history of heart disease. Certified Public Accountant, Dr. Orozco is consulted in view of elevated troponins which is likely to to demand ischemia and he is recommended to continue current management and he also suggested that elevated troponin is due to demand ischemia. Will continue to monitor patient overnight, weaned off the vasopressors. Noted to have adequate amount of urine output. Pending blood and urine cultures I have personally seen and examined the patient, agree with residents assessment and plan Patient plan of care was discussed with the attending physician, Dr. Silvino Méndez, PGY2 Documentation for date of: 09/16/25 Subjective Subjective Interval history: History of present illness: This patient is a 65-year-old male with past medical history of developmental delay, muscular dystrophy, benign prostatic hyperplasia, history of neurogenic bladder, right inguinal hernia, CVA, CAD, hypertension, hyperlipidemia and diabetes was brought in to the ED on 09/15/2025 from [facility] with altered mental status.with altered mental status and had cardiac arrest with downtime of 20 mins at the facility. In ED he was resuscitated and ROSC was achieved. Just prior to arrival patient stated he did not feel good and rolled his eyes back and became unresponsive per nursing staff. Patient was found in supine position with GCS of 3 and blood sugar of 121 mg/dL. Narcan 2 mg was administered which made patient more responsive with improvement in agonal respiration. No obvious trauma was seen. No other complaints. Of note, patient was found to have labs done on 08/25/2025 at some clinic. Patient has a significant history of UTI with resistant organism including E. coli and Proteus. On 08/09/2025 patient was found to have E. coli ESBL type sensitive to Zosyn. Patient's caregiver is Antonia Garcia who can be contacted on [facility] who is the decision-maker for the patient. Patient's aunt was present at the bedside as well. They stated that patient was unresponsive prior to going to restroom for shower and he became unconscious. PMH: As above PSH: Suprapubic catheter placement in 2018 not removed, small bowel obstruction surgery Allergies: NKDA SH: None Home medications: Ferrous sulfate 325 mg twice daily, vitamin A 8000 units 1 cap p.o. daily, NS 0.9% irrigation solution flush Acosta catheter weekly with 60 cc NS, methenamine hippurate 1 tablet p.o. daily, DuoNebs as needed Tylenol 500 mg every 6 hourly as needed, Robitussin 5 mL p.o. as needed every 4 hourly for cough or congestion,, Camoseptine oint as needed to perineal area for redness, ibuprofen 400 mg every 6 as needed finasteride 5 mg 1 tablet daily, tamsulosin 0.4 mg 2 tablets p.o. daily, magnesium oxide 1 tablet daily, multivitamin 1 tablet daily, metformin 500 mg twice daily, duloxetine DR 20 mg capsule 1 p.o. twice daily, gabapentin 100 mg 3 times daily, baclofen 10 mg 1 tablet at night, mineral oil for impacted cerumen/hard of hearing, aspirin 81 mg for hypertension, calcium carbonate 500 mg twice daily, clopidogrel 75 mg for CVA prevention, polyethylene glycol once daily, Jazmin lanta liquid 15 mL p.o. twice daily for GERD ED course: Patient presented with pulseless electrical activity. CODE BLUE was called. CPR was performed with 2 rounds of epinephrine and ROSC was achieved.Patient received 40 mg etomidate, 100 mg rocuronium and ET tube 8 was placed around 24 cm.Patient received epinephrine and dopamine drip with propofol for sedation. He received 1 L bolus of NS. Post CODE BLUE, vitals reviewed blood pressure 113/93, heart rate 131, RR 18. Patient is currently intubated and mechanically ventilated. Chest x-ray revealed central line tip subclavian vein and bilateral perihilar left basilar pneumonia. ET tube 2.6 cm above michael. Orogastric tube in stomach. Labs revealed WBC 11.4, hemoglobin 16, platelet 226. INR 1.0. D-dimer 3220. ABGs revealed pH 7.33, pCO2 49, pO2 154. FiO2 100%. Chemistry panel reveals sodium 130, potassium 6.4, chloride 89, bicarb 24. Bicarb on 08/23/2025 was 34.6. Anion gap 17. BUN 20 and creatinine 2.4 baseline creatinine 1.4 from 08/23/2025. Blood glucose 255. A1c 5.2, lactic acid 6.5, corrected calcium 11.2, magnesium 3.2. CRP 1.3. Amylase 259. Lipase 55. Procalcitonin 0.45. TSH within normal limits. U tox revealed Tylenol less than 2 COVID and flu negative. Blood cultures were sent. Urinalysis is orange turbid with pH 6.5. Specific gravity of 1.042. Protein 2+, glucose 1+ blood 3+. RBC 370. WBC 2197. Imaging: Head CT showed no acute changes. Abdominal CT was significant for small bowel obstruction pattern with right inguinal hernia containing bowel. Abundant stool in rectosigmoid. CTA chest was negative for PE. Extensive bilateral pneumonia noted. Patient is admitted to ICU for acute encephalopathy postcardiac arrest, SBO and septic shock. 09/16/25: Patient seen and assessed at bedside. Maintained good urine output s/p 4L IV fluids, started on 5th liter this morning. NG tube suctioned 100 cc. Discontinued from epi and dopamine, started on Levophed and vasopressin due to higher suspicion of septic shock. Was sedated and intubated on exam this morning. Attempted sedation holiday, patient was alert and responding to commands. Started on SBT and successfully extubated. Alert and oriented x3 s/p extubation. Decreased strength in upper extremities, no strength in lower extremities per baseline. Troponins increased overnight from 2.194 to 3.404 in the morning. Repeat EKG was unremarkable for ST changes, consulted cardiology who also agreed likely secondary to NSTEMI type II in setting of septic shock. Troponin downtrended to 2.4. Lactic acidosis improving, continue to trend q3hr. Anion gap resolved. WBC WNL. Hgb back to baseline. Glucose 485, given lispro 4, with improvement to 300s, given lispro 6 and degludec 6 x1, started on sliding scale. Spoke to general surgeon, hernia is not strangulated and low suspicion for bowel obstruction. Given lactulose 30 x1, miralax, and senna. Monitor bowel movements tomorrow. Wean pressors as tolerated. Preliminary sputum cultures showed WBCs, GPC, and GNR. Continue IV vanc and Zosyn, will follow up urine, blood, and final sputum cultures. Exam Vital Signs Temp Pulse Resp BP Pulse Ox O2 Del Method FiO2 99.9 F 80 2 L 112/57 L 94 L Mechanical Ventilation 30 09/16/25 04:00 09/16/25 14:40 09/16/25 07:46 09/16/25 14:40 09/16/25 14:40 09/16/25 00:37 09/16/25 14:40 Narrative Exam Physical Exam General: Intubated and sedated. On mechanical ventilation. HEENT: Normocephalic, atraumatic, mucous membranes moist. Anisocoria. Right pupil medially deviated. Left pupil coloboma. Right IJ central line. Small hematoma on left neck. Heart: Regular rate and rhythm, normal S1 and S2, no murmurs appreciated. Lungs: Clear to auscultation with no wheezing or crackles. Abdomen: Soft, mildly distended, decreased bowel sounds. : Right inguinal hernia, no discoloration or sign of strangulation. Neurologic: Unable to assess due to sedation. Bedbound at baseline. Strength 2/4 in upper extremities at baseline. Extremities: No edema. Extremities cool to touch, decreased pedal pulses. 6th right toe. Skin: No rash or ecchymoses. Objective Labs 09/17/25 03:40 09/17/25 03:40 Labs: Laboratory Results - last 24 hr 09/15/25 09/15/25 09/15/25 20:48 20:58 21:20 WBC 11.4 H RBC 5.54 Hgb 16.0 Hct 49.3 MCV 89 MCH 28.9 MCHC 32.5 RDW Std Deviation 41.2 Plt Count 226 Neut % (Auto) 84 H Lymph % (Auto) 12 [place] % (Auto) 3 Eos % (Auto) 1 Baso % (Auto) 0 Neut # (Auto) 9.6 H Lymph # (Auto) 1.4 [place] # (Auto) 0.3 Eos # (Auto) 0.1 Baso # (Auto) 0.0 Immature Gran # (Auto) 0.03 H Absolute Nucleated RBC 0.00 Immature Gran % 0 Nucleated RBC % 0 ESR 63 H PT 10.6 INR 1.0 APTT 21.1 L D-Dimer 3220 H Puncture Site Left Radial ABG pH 7.30 L ABG pCO2 57 H ABG pO2 167 H ABG HCO3 28 H ABG O2 Saturation 100 H ABG Base Excess 0 FiO2 100 Sodium 130 L Potassium 6.4 H* Chloride 89 L Carbon Dioxide 24.1 Anion Gap 17 H BUN 20 Creatinine 2.4 H Estim Creat Clear Calc 39.7 L eGFR 30 L BUN/Creatinine Ratio 8 L Glucose [address] Glu mg/dL 103 Hemoglobin A1c 5.2 Calculated Osmolality 272 L Lactic Acid 6.5 H* Calcium 11.2 H Corrected Calcium 11.2 H Magnesium 3.2 H Total Bilirubin 0.4 Direct Bilirubin 0.1 AST 29 ALT 16 Alkaline Phosphatase 132 H Ammonia 18 Total Creatine Kinase 74 Troponin I 0.045 C-Reactive Prot, Quant 1.3 H B-Natriuretic Peptide < 20 Total Protein 8.7 H Albumin 4.6 Globulin 4.1 H Albumin/Globulin Ratio 1.1 L Triglycerides Cholesterol LDL Cholesterol, Calc HDL Cholesterol Cholesterol/HDL Ratio Amylase 259 H Lipase 55 H Beta-Hydroxybutyrate/Acetoacetate 0.5 Procalcitonin 0.45 TSH 3.52 Ur Collection Type Urine Color Urine Clarity Urine pH Ur Specific [place] Urine Protein Urine Glucose (UA) Urine Ketones Urine Blood Urine Nitrite Urine Bilirubin Urine Urobilinogen (Auto) Ur Leukocyte Esterase Urine RBC Urine WBC Ur Squamous Epith Cells Urine Bacteria Acetaminophen < 2.0 L Ethyl Alcohol < 3.0 Influenza A (Rapid) Negative Influenza B (Rapid) Negative SARS-CoV-2 Ag (Rapid) Negative Blood Type Antibody Screen Blood Bank Wristband ID 09/15/25 09/15/25 09/15/25 21:30 22:33 23:12 WBC RBC Hgb Hct MCV MCH MCHC RDW Std Deviation Plt Count Neut % (Auto) Lymph % (Auto) [place] % (Auto) Eos % (Auto) Baso % (Auto) Neut # (Auto) Lymph # (Auto) [place] # (Auto) Eos # (Auto) Baso # (Auto) Immature Gran # (Auto) Absolute Nucleated RBC Immature Gran % Nucleated RBC % ESR PT INR APTT D-Dimer Puncture Site Right Radial ABG pH 7.33 L ABG pCO2 49 H ABG pO2 154 H ABG HCO3 26 ABG O2 Saturation 100 H ABG Base Excess -1 FiO2 100 Sodium Potassium 3.9 D Chloride Carbon Dioxide Anion Gap BUN Creatinine Estim Creat Clear Calc eGFR BUN/Creatinine Ratio Glucose Estimated Ave Glu mg/dL Hemoglobin A1c Calculated Osmolality Lactic Acid Calcium Corrected Calcium Magnesium Total Bilirubin Direct Bilirubin AST ALT Alkaline Phosphatase Ammonia Total Creatine Kinase Troponin I C-Reactive Prot, Quant B-Natriuretic Peptide Total Protein Albumin Globulin Albumin/Globulin Ratio Triglycerides Cholesterol LDL Cholesterol, Calc HDL Cholesterol Cholesterol/HDL Ratio Amylase Lipase Beta-Hydroxybutyrate/Acetoacetate Procalcitonin TSH Ur Collection Type Urine Color Urine Clarity Urine pH Ur Specific [place] Urine Protein Urine Glucose (UA) Urine Ketones Urine Blood Urine Nitrite Urine Bilirubin Urine Urobilinogen (Auto) Ur Leukocyte Esterase Urine RBC Urine WBC Ur Squamous Epith Cells Urine Bacteria Acetaminophen Ethyl Alcohol Influenza A (Rapid) Influenza B (Rapid) SARS-CoV-2 Ag (Rapid) Blood Type B Positive Antibody Screen NEGATIVE Blood Bank Wristband ID Yes 09/16/25 09/16/25 09/16/25 00:11 01:50 03:32 WBC 7.2 RBC 4.28 L Hgb 12.5 L D Hct 38.0 L D MCV 89 MCH 29.2 MCHC 32.9 RDW Std Deviation 41.5 Plt Count 262 D Neut % (Auto) 91 H Lymph % (Auto) 5 L [place] % (Auto) 4 Eos % (Auto) 0 Baso % (Auto) 0 Neut # (Auto) 6.5 Lymph # (Auto) 0.4 L [place] # (Auto) 0.3 Eos # (Auto) 0.0 Baso # (Auto) 0.0 Immature Gran # (Auto) 0.01 H Absolute Nucleated RBC 0.00 Immature Gran % 0 Nucleated RBC % 0 ESR PT INR APTT D-Dimer Puncture Site ABG pH ABG pCO2 ABG pO2 ABG HCO3 ABG O2 Saturation ABG Base Excess FiO2 Sodium 129 L Potassium 4.3 Chloride 91 L Carbon Dioxide 24.4 Anion Gap 14 BUN 30 H Creatinine 2.4 H Estim Creat Clear Calc 34.4 L eGFR 30 L BUN/Creatinine Ratio 13 Glucose 485 H* D Estimated Ave Glu mg/dL Hemoglobin A1c Calculated Osmolality 286 Lactic Acid 7.7 H* 8.4 H* Calcium 8.8 D Corrected Calcium 9.3 D Magnesium 2.8 H Total Bilirubin 0.6 Direct Bilirubin AST 30 ALT 10 Alkaline Phosphatase 94 D Ammonia Total Creatine Kinase Troponin I 2.194 H* D C-Reactive Prot, Quant B-Natriuretic Peptide Total Protein 6.6 Albumin 3.4 D Globulin 3.2 Albumin/Globulin Ratio 1.1 L Triglycerides 128 Cholesterol 117 L LDL Cholesterol, Calc 59 HDL Cholesterol 32 L Cholesterol/HDL Ratio 3.7 L Amylase Lipase Beta-Hydroxybutyrate/Acetoacetate Procalcitonin TSH 1.26 D Ur Collection Type Clean Catch Urine Color [place] A Urine Clarity Turbid A Urine pH 6.5 Ur Specific [place] 1.042 H Urine Protein 2+ A Urine Glucose (UA) 2+ A Urine Ketones Negative Urine Blood 3+ A Urine Nitrite Negative Urine Bilirubin Negative Urine Urobilinogen (Auto) Negative Ur Leukocyte Esterase Positive Urine RBC 370 H Urine WBC 2197 H Ur Squamous Epith Cells 0 Urine Bacteria None Acetaminophen Ethyl Alcohol Influenza A (Rapid) Influenza B (Rapid) SARS-CoV-2 Ag (Rapid) Blood Type Antibody Screen Blood Bank Wristband ID 09/16/25 09/16/25 09/16/25 04:03 06:33 09:00 WBC RBC Hgb Hct MCV MCH MCHC RDW Std Deviation Plt Count Neut % (Auto) Lymph % (Auto) [place] % (Auto) Eos % (Auto) Baso % (Auto) Neut # (Auto) Lymph # (Auto) [place] # (Auto) Eos # (Auto) Baso # (Auto) Immature Gran # (Auto) Absolute Nucleated RBC Immature Gran % Nucleated RBC % ESR PT INR APTT D-Dimer Puncture Site Left Radial ABG pH 7.29 L ABG pCO2 51 H ABG pO2 118 H D ABG HCO3 25 ABG O2 Saturation 99 H ABG Base Excess -2 FiO2 80 Sodium Potassium Chloride Carbon Dioxide Anion Gap BUN Creatinine Estim Creat Clear Calc eGFR BUN/Creatinine Ratio Glucose Estimated Ave Glu mg/dL Hemoglobin A1c Calculated Osmolality Lactic Acid 7.0 H* 6.2 H* Calcium Corrected Calcium Magnesium Total Bilirubin Direct Bilirubin AST ALT Alkaline Phosphatase Ammonia Total Creatine Kinase Troponin I 3.404 H* D C-Reactive Prot, Quant B-Natriuretic Peptide Total Protein Albumin Globulin Albumin/Globulin Ratio Triglycerides Cholesterol LDL Cholesterol, Calc HDL Cholesterol Cholesterol/HDL Ratio Amylase Lipase Beta-Hydroxybutyrate/Acetoacetate Procalcitonin TSH Ur Collection Type Urine Color Urine Clarity Urine pH Ur Specific [place] Urine Protein Urine Glucose (UA) Urine Ketones Urine Blood Urine Nitrite Urine Bilirubin Urine Urobilinogen (Auto) Ur Leukocyte Esterase Urine RBC Urine WBC Ur Squamous Epith Cells Urine Bacteria Acetaminophen Ethyl Alcohol Influenza A (Rapid) Influenza B (Rapid) SARS-CoV-2 Ag (Rapid) Blood Type Antibody Screen Blood Bank Wristband ID 09/16/25 12:48 WBC RBC Hgb Hct MCV MCH MCHC RDW Std Deviation Plt Count Neut % (Auto) Lymph % (Auto) [place] % (Auto) Eos % (Auto) Baso % (Auto) Neut # (Auto) Lymph # (Auto) [place] # (Auto) Eos # (Auto) Baso # (Auto) Immature Gran # (Auto) Absolute Nucleated RBC Immature Gran % Nucleated RBC % ESR PT INR APTT D-Dimer Puncture Site ABG pH ABG pCO2 ABG pO2 ABG HCO3 ABG O2 Saturation ABG Base Excess FiO2 Sodium Potassium Chloride Carbon Dioxide Anion Gap BUN Creatinine Estim Creat Clear Calc eGFR BUN/Creatinine Ratio Glucose Estimated Ave Glu mg/dL Hemoglobin A1c Calculated Osmolality Lactic Acid 4.0 H Calcium Corrected Calcium Magnesium Total Bilirubin Direct Bilirubin AST ALT Alkaline Phosphatase Ammonia Total Creatine Kinase Troponin I 2.425 H* D C-Reactive Prot, Quant B-Natriuretic Peptide Total Protein Albumin Globulin Albumin/Globulin Ratio Triglycerides Cholesterol LDL Cholesterol, Calc HDL Cholesterol Cholesterol/HDL Ratio Amylase Lipase Beta-Hydroxybutyrate/Acetoacetate Procalcitonin TSH Ur Collection Type Urine Color Urine Clarity Urine pH Ur Specific [place] Urine Protein Urine Glucose (UA) Urine Ketones Urine Blood Urine Nitrite Urine Bilirubin Urine Urobilinogen (Auto) Ur Leukocyte Esterase Urine RBC Urine WBC Ur Squamous Epith Cells Urine Bacteria Acetaminophen Ethyl Alcohol Influenza A (Rapid) Influenza B (Rapid) SARS-CoV-2 Ag (Rapid) Blood Type Antibody Screen Blood Bank Wristband ID ABG Interpretation ABG results: 09/15/25 09/15/25 09/16/25 20:48 22:33 04:03 ABG pH 7.30 L 7.33 L 7.29 L ABG pCO2 57 H 49 H 51 H ABG pO2 167 H 154 H 118 H D ABG HCO3 28 H 26 25 ABG O2 Saturation 100 H 100 H 99 H ABG Base Excess 0 -1 -2 Quality Measures Quality Measures VTE prophylaxis (Heparin SC ) Assessment & Plan Assessment Current Active Medications: Generic Name Dose Route Start Last Admin Trade Name Freq PRN Reason Stop Dose Admin Acetaminophen 650 mg 09/16/25 00:36 Acetaminophen 325 Mg Tablet PO 10/16/25 00:35 Q6H PRN Fever >101.3 Dextrose 25 ml 09/16/25 05:18 Dextrose 50%-Water Inj 50 Ml Syringe IV 10/16/25 05:17 Q15MIN PRN BG 50-70 responsive npo pt Dextrose 50 ml 09/16/25 05:18 Dextrose 50%-Water Inj 50 Ml Syringe IV 10/16/25 05:17 Q15MIN PRN BG <50 OR BG <70 & pt unresponsive Glucagon 1 mg 09/16/25 05:18 Glucagon Inj 1 Mg Vial IM Q15MIN PRN BG <70, and no IV access Heparin Sodium (Porcine) 5,000 unit 09/16/25 06:00 09/16/25 06:13 Heparin Sod Inj 5000 Unit/Ml Vial SC 09/30/25 05:59 5,000 unit Q8HR SHIVAM Administration Vasopressin/Sodium Chloride 20 unit in 100 mls @ 9 mls/hr 09/16/25 00:42 09/16/25 11:54 Vasostrict/Ns Ivpb IV 10/16/25 00:41 0.03 unit/min .Q11H7M PRN 9 mls/hr PER PROTOCOL Administration Protocol 0.03 UNIT/MIN Piperacillin/Tazobactam/Dextrose 3.375 gm in 50 mls @ 100 mls/hr 09/16/25 14:00 Zosyn IV 09/23/25 13:59 Q8HR SHIVAM Protocol Propofol 1,000 mg in 100 mls @ 2.919 mls/hr 09/16/25 03:24 09/16/25 09:14 Diprivan Ivpb IV 10/15/25 20:20 35 mcg/kg/min .Q24H PRN 20.433 mls/hr PER PROTOCOL Administration Protocol 5 MCG/KG/MIN Fentanyl Citrate 2,500 mcg in 250 mls @ 2.5 mls/hr 09/16/25 03:51 09/16/25 06:25 Sublimaze Inj 2,500 Mcg/250 Ml Bag IV 09/21/25 03:50 175 mcg/hr .Q24H PRN 17.5 mls/hr PER PROTOCOL Titration Protocol 25 MCG/HR Norepinephrine/Dextrose 8 mg in 250 mls @ 31.014 mls/hr 09/16/25 04:03 09/16/25 08:45 Levophed In D5w 8mg/250ml IV 10/16/25 04:02 0.19 mcg/kg/min .Q8H4M PRN 34.663 mls/hr PER PROTOCOL Administration Protocol 0.17 MCG/KG/MIN Insulin Human Lispro 0 unit 09/16/25 09:00 09/16/25 09:44 Insulin Lispro (Admelog) 1 Unit/0.01 Ml Unit SC 10/16/25 08:59 4 unit Q4HR SHIVAM Administration Protocol Ondansetron HCl 4 mg 09/16/25 00:36 Ondansetron Inj 2 Mg/Ml Inj 2 Ml IVP 10/16/25 00:35 Q6H PRN NAUSEA OR VOMITING Protocol Pantoprazole Sodium 40 mg 09/16/25 09:00 09/16/25 08:24 Pantoprazole Inj 40 Mg Vial IVP 10/16/25 08:59 40 mg QDAY SHIVAM Administration Pharmacy Consult 1 each 09/16/25 09:00 Vancomycin Pharmacy To Dose 1 Each Each IV 10/16/25 08:59 QDAY PRN PROTOCOL Pharmacy Consult 1 each 09/16/25 00:42 Pharmacy Renal Dose Adjustment 1 Ea XX 10/16/25 00:41 PRN PRN CONSULT Plan This patient is a 65-year-old bedbound male with past medical history of developmental delay, muscular dystrophy, benign prostatic hyperplasia, history of neurogenic bladder, right inguinal hernia, CVA, CAD, hypertension, hyperlipidemia and diabetes was brought in to the ED on 09/15/2025 from [facility] with altered mental status and had cardiac arrest with downtime of 20 mins at the facility. In ED he was resuscitated and ROSC was achieved. Patient is admitted to ICU for acute encephalopathy postcardiac arrest,SBO and septic shock. Neuro #Acute encephalopathy (resolved) -DDx: Postcardiac arrest, septic shock Diagnostic work up: - Tylenol less than 2. Ammonia 18. -UA was orange turbid with pH 6.5. Specific gravity of 1.042. Protein 2+, glucose 1+ blood 3+. RBC 370. WBC 2197. - Head CT showed no acute changes. - Abdominal CT was significant for small bowel obstruction pattern with right inguinal hernia containing bowel. Abundant stool in rectosigmoid. - CTA chest was negative for PE. Extensive bilateral pneumonia noted Treatment: - Off sedation - Passed SBT, extubated successfully - Back to baseline Treatment follow up: - Follow up urine and blood cultures #History of developmental delay and muscular dystrophy #Neuropathy #Hx TIA 2021 Diagnostic work up: -Patient is bedbound and has weakness in all 4 limbs and does not ambulate per caregiver. He cannot move his limbs against resistance at baseline. - Home medications include gabapentin 100 mg TID and baclofen 10 mg nightly - He lives at [facility]. - Has history of TIA 2021 with no residual deficit, on Plavix and ASA. - Follows Dr. Patterson Treatment: - No active treatment - Restarted ASA 81 mg daily Treatment follow up: -Outpatient follow-up - Recommend discontinuing Plavix as TIA has been over 3 months - Restart home gabapentin and baclofen when able to tolerate PO #Hx of depression Diagnostic work up: - Home medication includes duloxetine 20 mg BID Treatment: - Hold home duloxetine Treatment follow up: - Restart once patient able to tolerate oral CVS #Shock -Likely distributive septic Diagnostic work up: - BP 113/93, heart rate 131, RR 18 s/p ROSC - Attempted right femoral central line, then subclavian, finally successfully placed central line in right IJ - Post procedural CXR showed good position of central line, negative for hemopericardium or pneumothorax. - WBC 11.4 -> 7.2. - Urinalysis was orange turbid with pH 6.5. Specific gravity of 1.042. Protein 2+, glucose 1+ blood 3+. RBC 370. WBC 2197. - Has history of recurrent ESBL UTIs with indwelling Acosta cathether, previously suprapubic. - CTA chest was negative for PE. Extensive bilateral pneumonia noted. - Limited bedside ultrasound showed hyperdynamic heart with good segmental wall motion, unlikely cardiogenic. IVC was not visible due to increased abdominal distention. - NICOM assessment showed fluid responsiveness with SVI 15.8% after 250 cc bolus. Cardiac index increased from 2.4-2.8 after fluid bolus. SVI 31, heart rate 90. Treatment: - S/p epinephrine and dopamine - S/p 5L IV LR - Wean Levophed and vasopressin as tolerated, MAP >65 - Off sedation - Extubated - IV vancomycin and Zosyn (09/15- Treatment follow up: - Follow-up with blood cultures, urine culture, sputum cultures and MRSA screen - Follow up formal echo #NSTEMI type II #?Cardiac arrest Diagnostic work up: - From [facility]. EMS called around 8PM on 09/15, patient was being bathed when he became unresponsive. Baseline AOX3 - Per EMS, GCS of 3 blood sugar 121 mg/dL. - Given Narcan 2 mg, became more responsive with improvement in agonal respiration. No obvious trauma was seen. - Upon ED arrival, patient found in PEA and CODE BLUE was called. CPR was performed with 2 rounds of epinephrine and ROSC was achieved. Intubated and sedated upon arrival - Troponin I 0.045--> 2 .194 -> 3.4 -> 2.4 - EKG showed sinus tachycardia with no acute ST-T changes. QTc 423. - Repeat EKG also showed sinus tachycardia with non-specific T wave changes (only in V2). - Limited bedside ultrasound showed hyperdynamic heart with good segmental wall motion, unlikely cardiogenic. IVC was not visible due to increased abdominal distention. Treatment: - Consulted cardiology, agreed likely demand ischemia in setting of septic shock Treatment follow up: -Follow-up with echocardiogram #History of hypertension #History of hyperlipidemia #History of CVA Treatment: - Holding home meds due to cardiac arrest and shock Pulm #Acute hypoxic respiratory failure #Intubated and mechanically ventilated post cardiac arrest #Extubated 09/16 DDx- Postcardiac arrest, aspiration versus community-acquired pneumonia - Has been on 2L O2 all day for the past couple of months. 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 Diagnostic work up: - Intubated after achieving ROSC - ABGs 09/15 pH 7.33, pCO2 49, pO2 of 154, FiO2 100%. - ABG 09/16 pH 7.29, pCO2 51 prior to extubation -Chest x-ray revealed central line tip subclavian vein and bilateral perihilar left basilar pneumonia. ET tube 2.6 cm above michael. Orogastric tube in stomach. - Successfully discontinued from sedation and extubated on 09/16. Saturating well on 5L oxymask. - Preliminary sputum gram stain show GPC, GNR, and WBCs Treatment: - Off sedation - S/p extubation - IV vanc and Zosyn Treatment follow up: - Follow-up final sputum cultures GI/ #Small bowel obstruction (ruled out) #Hx SBO s/p ex lap Diagnostic work up: -Abdominal CT was significant for small bowel obstruction pattern with right inguinal hernia containing bowel. Abundant stool in rectosigmoid. Treatment: - Clamped and removed OG tube - Replaced with NG tube - Lactulose 30 x1, Miralax x1, and Senna x1 - Consulted surgery, upon review of CT low suspicion for SBO and inguinal hernia not strangulated or incarcerated, may consider surgery at a later time Treatment work up: - Monitor for abdominal distention #History of BPH and neurogenic bladder #History of recurrent UTIs with ESBL organisms Diagnostic work up: - Suprapubic catheter was placed in 2018, recently replaced with indwelling Acosta catheter last week - Home medications include tamulosin 0.4 mg 2 tabs daily and finasteride 5 mg daily - Upon chart review, previous urine cultures grew ESBL sensitive to Zosyn, as well as Pseudomonas and Morganella - Urinalysis was orange turbid with pH 6.5. Specific gravity of 1.042. Protein 2+, glucose 1+ blood 3+. RBC 370. WBC 2197. Treatment: - IV Zosyn (09/15- Treatment follow up: - Follow up final urine cultures - Resume home tamulosin and finasteride if able to tolerate PO #History of right inguinal hernia Diagnostic work up: - Has large right inguinal hernia on exam, does not appear to be strangulated (no discoloration around area) - Abdominal CT was significant for small bowel obstruction pattern with right inguinal hernia containing bowel. Treatment: - Consulted general surgery, no need for intervention at this time Treatment follow up: - Outpatient follow up Renal #CHAR on CKD stage II Likely in setting of septic shock Diagnostic work up: - BUN 20. Creatinine 2.4 (baseline 1.4-1.6) Treatment: - S/p 5L IV LR - Avoid nephrotoxic agent - Renally dose medication Treatment follow up: - Strict DIXON's #Anion gap metabolic acidosis (resolved) Likely in setting of septic shock Diagnostic work up: - ABG 09/15 pH 7.3, pCO2 57 - ABG 09/16 pH 7.29, pCO2 51 - Bicarb 24 - Anion gap 17 -> 14 Treatment: - Continue with pressors Treatment follow up: - Follow up post extubation ABG #Lactic acidosis (improving) In the setting of septic shock Diagnostic work up: - Lactic 6.5 --> 8.4 --> 4.0 --> 2.1 Treatment: - S/p 5L IV LR Treatment follow up: - Trend Lactic acid Q3 hourly #Hyponatremia #Hypochloremia #Hyperkalemia (resolved) #Hypercalcemia (resolved) Likely pseudo in setting of hyperglycemia Diagnostic work up: - Patient presented with sodium 130, potassium 6.4, chloride 89. Treatment: - No active treatment at this time Treatment follow up: -Follow up AM CMP #History of nephrolithiasis, bilateral hydronephrosis and neurogenic bladder #?Nephrolithiasis Diagnostic work up: - Per caregiver patient is due for another surgery on September 29 in [place] for removal of kidney stones. - No stones noted on CT - Maintaining good urine output Treatment: - S/p 5L LR - No active treatment at this time Treatment follow up: - Outpatient follow up Heme #Leukocytosis, reactive versus infection (resolved) Ddx: UTI, CAP Diagnostic work up: - WBC 11.4 -> 7.2 - Afebrile during admission - Urinalysis was orange turbid with pH 6.5. Specific gravity of 1.042. Protein 2+, glucose 1+ blood 3+. RBC 370. WBC 2197. - Preliminary sputum gram stain show GPC, GNR, and WBCs Treatment: - IV vanc and Zosyn (09/15- Treatment follow up: - Monitor CBC AM - Follow up urine and blood cultures - Follow up final sputum cultures #Elevated D-dimer Ddx: older age, septic shock Diagnostic work up: - D-dimer 3220 - PT and INR WNL, PTT low at 21 - CTA chest was negative for PE. Extensive bilateral pneumonia noted. - No lower extremity swelling noted on exam Treatment: - Treat underlying cause for septic shock - DVT prophylaxis with heparin Treatment follow up: - Continue to monitor for signs of clots Endo #History of type 2 diabetes, non insulin dependent Diagnostic work up: - A1c 5.2 - Home medication includes metformin 500 mg BID - Glucose 121 -> 231 -> 406 -> 149 Treatment: - S/p lispro 4 x1, lispro 6 x1 and degludec 6 x1 - SSI step 3 q6hr Treatment follow up: - Blood sugar checks Q6 hourly ID #Pneumonia #Hx of recurrent ESBL UTI with indwelling Acosta catheter Diagnostic work up: - WBC 11.4 -> 7.2 - Afebrile during admission -Chest x-ray revealed central line tip subclavian vein and bilateral perihilar left basilar pneumonia. - Urinalysis was orange turbid with pH 6.5. Specific gravity of 1.042. Protein 2+, glucose 1+ blood 3+. RBC 370. WBC 2197. - Preliminary sputum gram stain show GPC, GNR, and WBCs Treatment: - IV vanc and Zosyn (09/15- Treatment follow up: - Monitor CBC AM - Follow up urine and blood cultures - Follow up final sputum cultures Skin #Hematoma versus seroma on left side of neck Diagnostic work up: - S/p attempt to place left IJ central line Treatment: - No active treatment at this time Treatment follow up: - Continue to monitor swelling currently not increasing in size ICU Health maintenance: Mechanical ventilation: extubated Sedation: off Diet: NG Tube DVT prophylaxis: Heparin SQ GI prophylaxis: Protonix 40 IV daily Acosta: yes Lines: PIV, right IJ central line Antibiotics: vanc and zosyn CODE STATUS: FULL Patient plan of care was discussed with the senior resident, Dr. Méndez, and attending physician, Dr. Silvino Denise DO, PGY-1 Attending Provider Attestation/Addendum Patient seen and examined, discussed with resident team. In brief this is 65-year-old male who was admitted overnight status post cardiac arrest. There is question whether the patient actually did lose pulses versus agonal breathing and a respiratory arrest. Patient underwent approximately 1 round of CPR with epi prior to ROSC. He was intubated at that point in time. On exam patient is intubated, sedated, lungs are clear to auscultation, heart rate regular and rhythmic, abdomen appears to be somewhat distended, there is no clubbing or mottling noted on the extremities with some trace edema present. Patient is currently on vasopressors for shock. Will place a cheetah to evaluate for additional fluid balance evidence as well as some hemodynamics, suspect distributive shock. He is status post multiple liters of fluids in the ER. Continue with his antibiotics. Will give a sedation vacation and see if we are able to transition him from AC/VC to a spontaneous breathing trial. He has minimal FiO2 requirements. He has been seen by surgery for his possible small bowel obstruction as well as significant right inguinal hernia containing bowel. No indication for any acute surgical procedure. The patient was noted to have elevated troponins in the setting of status post arrest and CPR. There are no ST elevations or depressions on EKG. Given that his troponins have increased to 3 will request a cardiology eval and start the patient on aspirin. Highly suspect that this is a type II demand ischemia event. If we are able to wean his ventilator and he does well on spontaneous will extubate later today. Patient does have a significant lactic acidosis however this is trending back down and overall the patient appears to be improving. He currently has acute on chronic kidney disease and will monitor I's and O's. He has a adequate urinary output at this point in time. Case discussed with ICU team Labs, imaging and records reviewed Approximately 40 critical care minutes required evaluation, exam, review, dimension, discussion and formulation of plan of care for this critically ill patient with shock and respiratory failure at high risk for further ongoing decompensation.
[2025-09-16 15:27] LABS: Lactate (Lactic Acid) 2.9 mMol/L (0.4-2.0)
[2025-09-16] MEDS: PIPER/TAZO 3.375 GM PREMIX 3.375 GM/50 ML BAG IV ×2 (15:36→22:16)
[2025-09-16] MEDS: LACTULOSE SYRUP 20 GM/30 ML UDC 30 GM NG (15:37)
[2025-09-16 15:53] LABS: Reflex Lactate? Y
[2025-09-16] MEDS: Norepinephrine/D5W 8mg/250ml 8 MG/250 ML BAG 31.014 MG IV (17:05)
[2025-09-16] MEDS: ASPIRIN EC 81 MG TABEC PO (17:06)
[2025-09-16 18:26] LABS: Reflex Lactate? Y
[2025-09-16 18:48] LABS: Lactate (Lactic Acid) 2.1 mMol/L (0.4-2.0)
[2025-09-16] MEDS: POLYETHYLENE GLYCOL 17 GM PACKET NG (19:57)
[2025-09-16 21:36] LABS: Lactate (Lactic Acid) 1.8 mMol/L (0.4-2.0)
[2025-09-16 21:46] LABS: Reflex Lactate? Y
[2025-09-17] VITALS (100 sets, daily range): BP systolic 74–133; BP diastolic 37–86; PULSE 61–98; RESP 0–914; TEMP 36.6–37.5; O2SAT 90–100; BMI 34.4
[2025-09-17] MEDS: Norepinephrine/D5W 8mg/250ml 8 MG/250 ML BAG 16.419 MG IV (01:46)
[2025-09-17 04:05] LABS: Base Excess, Venous 3 (-3-3); O2 Saturation, Venous 100 % (96-97); PCO2, Venous 41 mmHg (36-56); PO2, Venous 139 mmHg (15-58); pH, Venous 7.43 (7.33-7.66)
[2025-09-17 04:08] LABS: Basophils # (Auto) 0.0 Thou/mm3 (0.0-0.2); Basophils % (Auto) 0 % (0-2.5); Eosinophils # (Auto) 0.0 Thou/mm3 (0.0-0.5); Eosinophils % (Auto) 0 % (0-10); Hematocrit 29.0 % (41.0-53.0); Hemoglobin 9.5 g/dL (13.5-16.0); Immature Granulocytes Auto 0.07 Thou/mm3 (0.00-0.00); Lymphocytes # (Auto) 0.9 Thou/mm3 (1.0-4.8); Lymphocytes % (Auto) 12 % (10-50); Mean Corpuscular HGB Conc 32.8 g/dl (31.0-37.0); Mean Corpuscular Hemoglobin 29.1 pg (25.0-35.0); Mean Corpuscular Volume 89 fL (80-100); Monocytes # (Auto) 0.7 Thou/mm3 (0.0-0.8); Monocytes % (Auto) 8 % (0-12); Neutrophils # (Auto) 6.3 Thou/mm3 (1.8-7.7); Neutrophils % (Auto) 79 % (37-80); Nucleated Red Blood Cell # 0.00 Thou/mm3 (0.00-0.00); Nucleated Red Blood Cell % 0 /100 WBC (0); Platelet Count 189 Thou/mm3 (140-440); RDW Standard Deviation 43.7 fL (35.1-43.9); Red Blood Count 3.27 Miln/mm3 (4.50-5.90); White Blood Count 8.0 Thou/mm3 (3.8-10.6)
[2025-09-17 04:28] LABS: INR 1.2 (0.9-1.3); Partial Thromboplastin Time 31.9 Seconds (22.0-36.0); Prothrombin Time 12.6 Seconds (9.0-12.2)
[2025-09-17 04:58] LABS: Alanine Aminotransferase 10 U/L (10-49); Albumin, Serum 3.1 gm/dL (3.4-4.8); Albumin/Globulin Ratio 1.1 (1.2-2.2); Alkaline Phosphatase 74 U/L (46-116); Anion Gap 4 (7-16); Aspartate Amino Transferase 33 U/L (0-34); BUN/Creatinine Ratio 16 Ratio (12-20); Bilirubin,Total 0.3 mg/dL (0.3-1.2); Blood Urea Nitrogen 33 mg/dL (9-23); Calcium 8.2 mg/dL (8.3-10.6); Calcium (Corrected) 8.9 mg/dL (8.5-10.1); Carbon Dioxide 29.5 mMol/L (20.0-31.0); Chloride 98 mMol/L (98-107); Creatinine (Component) 2.1 mg/dL (0.6-1.3); Estimated Creatinine Clearance 39.3 mL/min (>60); Globulin 2.8 gm/dL (2.3-3.5); Glucose 140 mg/dL (74-106); Magnesium 3.1 mg/dL (1.6-2.6); Osmolality,Calculated 271 (275-295); Phosphorous 3.3 mg/dL (2.4-5.1); Potassium 5.2 mMol/L (3.4-5.1); Sodium 131 mMol/L (136-145); Total Protein 5.9 gm/dL (5.7-8.2); Vancomycin,Random 19.6 mcg/mL; eGFR 35 See Note
[2025-09-17] MEDS: HEPARIN SOD INJ 5000 UNIT/ML VIAL SC ×3 (05:12→20:55)
[2025-09-17] MEDS: PIPER/TAZO 3.375 GM PREMIX 3.375 GM/50 ML BAG IV ×3 (05:12→20:56)
--- NOTE | 2025-09-17 07:37 | ESPR_ITS ---
<Statement entered by Nicole Orozco MD - 09/19/25 15:16> I personally examined evaluated the patient intensive care and patient is clinically stable extubated successfully patient clearly has hyperkalemia possibly causing bradycardia and cardiac arrest which improved successfully with resuscitation now back to sinus rhythm hyperkalemia corrected clinically stable echo is unremarkable hence we will sign off the patient's case now we will see the patient as necessary. Examined the patient evaluated the resident physician all essential components of the note is reviewed by me agree with the treatment plan recommendation as documented by resident physician Dr. Blayne Bell Documentation for date of: 09/17/25 Subjective Subjective Interval history: Patient seen and assessed in hospital bed. Troponin has peaked and downtrended. Echo is pending official read. Continue monitoring patient for any abrupt changes in vitals, labs or telemetry monitoring. Reason for elevated troponin likely multifactorial and secondary to sepsis and s/p chest compressions during cardiac arrest. Per H&P, patient never complained of chest pain prior to being unresponsive. He does have extensive risk factors for CAD as noted by his ASCVD risk score of 11.1%(coronary or stroke or non-fatal GA or stroke) in next 10 years. Also, patient's QUEENIE score is 165?points; 30?% probability of from admission to 6 months. Will consider further invasive workup based on ECHO findings. Exam Vital Signs Temp Pulse Resp BP Pulse Ox O2 Del Method O2 Flow Rate 99.5 F 69 16 119/59 L 98 Oxy Mask 3 09/17/25 07:00 09/17/25 07:35 09/17/25 07:35 09/17/25 07:30 09/17/25 07:35 09/17/25 07:00 09/17/25 07:35 FiO2 30 09/16/25 14:40 Narrative Exam Gen: NAD HEENT: NCAT, EOMI, Pupils reactive LYNNETTE, not icteric. External ears normal. No rhinorrhea. Dry mucous membranes. Neck: Supple, full range of motion, no observable masses, No meningeal sign, L side small hematoma, unchanged. Lungs: No Respiratory distress, clear bilateral. CV: RRR, no murmurs. Abdomen: Soft, nondistended, No rebound tenderness. MSK: No joint swelling, no redness, peripheral pulses presents, no peripheral edema, 6th toe on R foot. Skin: No rashes, petechiae, lesions. Neuro: No focal neurological deficits appreciated, sensory and motor strength 2/5 LYNNETTE UE and LE. Objective Labs 09/17/25 16:45 09/17/25 11:15 Labs: Laboratory Results - last 24 hr 09/16/25 09/16/25 09/16/25 06:33 09:00 12:48 WBC RBC Hgb Hct MCV MCH MCHC RDW Std Deviation Plt Count Neut % (Auto) Lymph % (Auto) Lanier % (Auto) Eos % (Auto) Baso % (Auto) Neut # (Auto) Lymph # (Auto) Lanier # (Auto) Eos # (Auto) Baso # (Auto) Immature Gran # (Auto) Absolute Nucleated RBC Immature Gran % Nucleated RBC % PT INR APTT VBG pH VBG pCO2 VBG pO2 VBG O2 Sat (Nilesh) VBG Base Excess Sodium Potassium Chloride Carbon Dioxide Anion Gap BUN Creatinine Estim Creat Clear Calc eGFR BUN/Creatinine Ratio Glucose Calculated Osmolality Lactic Acid 6.2 H* 4.0 H Calcium Corrected Calcium Phosphorus Magnesium Total Bilirubin AST ALT Alkaline Phosphatase Troponin I 3.404 H* D 2.425 H* D Total Protein Albumin Globulin Albumin/Globulin Ratio Random Vancomycin 09/16/25 09/16/25 09/16/25 15:20 18:30 21:20 WBC RBC Hgb Hct MCV MCH MCHC RDW Std Deviation Plt Count Neut % (Auto) Lymph % (Auto) Lanier % (Auto) Eos % (Auto) Baso % (Auto) Neut # (Auto) Lymph # (Auto) Lanier # (Auto) Eos # (Auto) Baso # (Auto) Immature Gran # (Auto) Absolute Nucleated RBC Immature Gran % Nucleated RBC % PT INR APTT VBG pH VBG pCO2 VBG pO2 VBG O2 Sat (Nilesh) VBG Base Excess Sodium Potassium Chloride Carbon Dioxide Anion Gap BUN Creatinine Estim Creat Clear Calc eGFR BUN/Creatinine Ratio Glucose Calculated Osmolality Lactic Acid 2.9 H 2.1 H 1.8 Calcium Corrected Calcium Phosphorus Magnesium Total Bilirubin AST ALT Alkaline Phosphatase Troponin I Total Protein Albumin Globulin Albumin/Globulin Ratio Random Vancomycin 09/17/25 03:40 WBC 8.0 RBC 3.27 L Hgb 9.5 L D Hct 29.0 L MCV 89 MCH 29.1 MCHC 32.8 RDW Std Deviation 43.7 Plt Count 189 D Neut % (Auto) 79 Lymph % (Auto) 12 Lanier % (Auto) 8 Eos % (Auto) 0 Baso % (Auto) 0 Neut # (Auto) 6.3 Lymph # (Auto) 0.9 L Lanier # (Auto) 0.7 Eos # (Auto) 0.0 Baso # (Auto) 0.0 Immature Gran # (Auto) 0.07 H Absolute Nucleated RBC 0.00 Immature Gran % 1 H Nucleated RBC % 0 PT 12.6 H INR 1.2 APTT 31.9 D VBG pH 7.43 VBG pCO2 41 VBG pO2 139 H VBG O2 Sat (Nilesh) 100 H VBG Base Excess 3 Sodium 131 L Potassium 5.2 H D Chloride 98 Carbon Dioxide 29.5 Anion Gap 4 L BUN 33 H Creatinine 2.1 H Estim Creat Clear Calc 39.3 L eGFR 35 L BUN/Creatinine Ratio 16 Glucose 140 H D Calculated Osmolality 271 L Lactic Acid Calcium 8.2 L Corrected Calcium 8.9 Phosphorus 3.3 Magnesium 3.1 H Total Bilirubin 0.3 AST 33 ALT 10 Alkaline Phosphatase 74 D Troponin I Total Protein 5.9 Albumin 3.1 L Globulin 2.8 Albumin/Globulin Ratio 1.1 L Random Vancomycin 19.6 ABG Interpretation ABG results: 09/15/25 09/15/25 09/16/25 20:48 22:33 04:03 ABG pH 7.30 L 7.33 L 7.29 L ABG pCO2 57 H 49 H 51 H ABG pO2 167 H 154 H 118 H D ABG HCO3 28 H 26 25 ABG O2 Saturation 100 H 100 H 99 H ABG Base Excess 0 -1 -2 VBG pH VBG pCO2 VBG pO2 VBG Base Excess 09/17/25 03:40 ABG pH ABG pCO2 ABG pO2 ABG HCO3 ABG O2 Saturation ABG Base Excess VBG pH 7.43 VBG pCO2 41 VBG pO2 139 H VBG Base Excess 3 Quality Measures Quality Measures VTE prophylaxis (Heparin SC ) Assessment & Plan Assessment Current Active Medications: Generic Name Dose Route Start Last Admin Trade Name Freq PRN Reason Stop Dose Admin Acetaminophen 650 mg 09/16/25 00:36 Acetaminophen 325 Mg Tablet PO 10/16/25 00:35 Q6H PRN Fever >101.3 Aspirin 81 mg 09/16/25 15:45 09/16/25 17:06 Aspirin Ec 81 Mg Tabec PO 10/16/25 15:44 81 mg QDAY SHIVAM Administration Dextrose 25 ml 09/16/25 05:18 Dextrose 50%-Water Inj 50 Ml Syringe IV 10/16/25 05:17 Q15MIN PRN BG 50-70 responsive npo pt Dextrose 50 ml 09/16/25 05:18 Dextrose 50%-Water Inj 50 Ml Syringe IV 10/16/25 05:17 Q15MIN PRN BG <50 OR BG <70 & pt unresponsive Glucagon 1 mg 09/16/25 05:18 Glucagon Inj 1 Mg Vial IM Q15MIN PRN BG <70, and no IV access Heparin Sodium (Porcine) 5,000 unit 09/16/25 06:00 09/17/25 05:12 Heparin Sod Inj 5000 Unit/Ml Vial SC 09/30/25 05:59 5,000 unit Q8HR SHIVAM Administration Vasopressin/Sodium Chloride 20 unit in 100 mls @ 9 mls/hr 09/16/25 00:42 09/16/25 23:05 Vasostrict/Ns Ivpb IV 10/16/25 00:41 0.03 unit/min .Q11H7M PRN 9 mls/hr PER PROTOCOL Administration Protocol 0.03 UNIT/MIN Piperacillin/Tazobactam/Dextrose 3.375 gm in 50 mls @ 100 mls/hr 09/16/25 14:00 09/17/25 05:42 Zosyn IV 09/23/25 13:59 Infused Q8HR SHIVAM Infusion Protocol Propofol 1,000 mg in 100 mls @ 2.919 mls/hr 09/16/25 03:24 09/16/25 09:45 Diprivan Ivpb IV 10/15/25 20:20 0 mcg/kg/min .Q24H PRN 0 mls/hr PER PROTOCOL Titration Protocol 5 MCG/KG/MIN Fentanyl Citrate 2,500 mcg in 250 mls @ 2.5 mls/hr 09/16/25 03:51 09/16/25 09:45 Sublimaze Inj 2,500 Mcg/250 Ml Bag IV 09/21/25 03:50 0 mcg/hr .Q24H PRN 0 mls/hr PER PROTOCOL Titration Protocol 25 MCG/HR Norepinephrine/Dextrose 8 mg in 250 mls @ 31.014 mls/hr 09/16/25 04:03 09/17/25 06:15 Levophed In D5w 8mg/250ml IV 10/16/25 04:02 0.07 mcg/kg/min .Q8H4M PRN 12.771 mls/hr PER PROTOCOL Titration Protocol 0.17 MCG/KG/MIN Vancomycin HCl/Dextrose 250 mls @ 120 mls/hr 09/17/25 10:00 Vancomycin/D5w 1,250 Mg Ivpb IV 09/24/25 09:59 Q24H SHIVAM Insulin Human Lispro 0 unit 09/16/25 18:00 09/17/25 05:47 Insulin Lispro (Admelog) 1 Unit/0.01 Ml Unit SC 10/16/25 17:59 Not Given Q6HR SHIVAM Protocol Ondansetron HCl 4 mg 09/16/25 00:36 Ondansetron Inj 2 Mg/Ml Inj 2 Ml IVP 10/16/25 00:35 Q6H PRN NAUSEA OR VOMITING Protocol Pantoprazole Sodium 40 mg 09/16/25 09:00 09/16/25 08:24 Pantoprazole Inj 40 Mg Vial IVP 10/16/25 08:59 40 mg QDAY SHIVAM Administration Pharmacy Consult 1 each 09/16/25 09:00 Vancomycin Pharmacy To Dose 1 Each Each IV 10/16/25 08:59 QDAY PRN PROTOCOL Pharmacy Consult 1 each 09/16/25 00:42 Pharmacy Renal Dose Adjustment 1 Ea XX 10/16/25 00:41 PRN PRN CONSULT Plan 65-year-old male with past medical history of developmental delay, muscular dystrophy, benign prostatic hyperplasia, history of neurogenic bladder, right inguinal hernia, CVA, CAD, hypertension, hyperlipidemia and diabetes presented with altered mental status and had reported cardiac arrest with downtime of 20 minutes; admitted for post-ROSC management in ICU,\ #NSTEMI type II As per HPI, patient did not report any chest [facility] ASCVD risk score of 11.1%(coronary or stroke or non-fatal GA or stroke) in next 10 years - Lipid panel largely unremarkable along with no home medications for hypertension, A1c of 5.2 QUEENIE score is 165?points; 30?% probability of from admission to 6 months. Troponin I 0.045--> 2.194 --> 3.404 --> 2.425 (last one 09/16/25 12:48) Patient presented with cardiac arrest with achievement of ROSC after 2 rounds of epi and CPR. EKG on admission showed sinus tachycardia with no acute ST-T changes. QTc 423. Repeat EKG 09/16/25 showed sinus rhythm. QTc- 386 Plan: Echo pending official read Will consider further invasive workup, including LHC, if significant findings are noted. #Cardiac arrest Etiology of arrest likely secondary to electrolyte abnormalities (hyperkalemia) in the setting of constipation, SBO deemed not to be clinically significant Other etiologies include ACS (less likely based on bedisde ECHO findings) vs. Aspiration PNA Head CT showed no acute changes CTA chest negative for PE. Extensive bilateral pneumonia noted. Limited bedside ultrasound showed hyperdynamic heart with good segmental wall motion. IVC not visible due to increased abdominal distention. 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 Patient seen and assessed with attending Dr. Ernesto Bell, DO PGY-2 - Internal Medicine
[2025-09-17] MEDS: INSULIN HUM REGULAR 1 UNIT/0.01 ML (PER UNIT) 5 UNIT IV (08:15)
[2025-09-17] MEDS: DEXTROSE 50%-WATER INJ 50 ML SYRINGE IVP (08:15)
[2025-09-17] MEDS: ASPIRIN EC 81 MG TABEC PO (08:16)
[2025-09-17] MEDS: VANCOMYCIN/D5W 1,250 MG IVPB 250 ML 120 MG IV (10:00)
[2025-09-17] MEDS: VASOPRESSIN IN NS IVPB 20 UNIT/100 ML BAG 9 UNIT IV (10:02)
[2025-09-17 10:50] LABS: Hematocrit 26.6 % (41.0-53.0)
--- NOTE | 2025-09-17 10:52 | ESPR_ITS ---
Documentation for date of: 09/17/25 Subjective Subjective Interval history: This patient is a 65-year-old male with past medical history of developmental delay, muscular dystrophy, benign prostatic hyperplasia, history of neurogenic bladder, right inguinal hernia, CVA, CAD, hypertension, hyperlipidemia and diabetes was brought in to the ED on 09/15/2025 from [facility] with altered mental status.with altered mental status and had cardiac arrest with downtime of 20 mins at the facility. In ED he was resuscitated and ROSC was achieved. Just prior to arrival patient stated he did not feel good and rolled his eyes back and became unresponsive per nursing staff. Patient was found in supine position with GCS of 3 and blood sugar of 121 mg/dL. Narcan 2 mg was administered which made patient more responsive with improvement in agonal respiration. No obvious trauma was seen. No other complaints. Of note, patient was found to have labs done on 08/25/2025 at some clinic. Patient has a significant history of UTI with resistant organism including E. coli and Proteus. On 08/09/2025 patient was found to have E. coli ESBL type sensitive to Zosyn. Patient's caregiver is Antonia Garcia who can be contacted on [facility] who is the decision-maker for the patient. Patient's aunt was present at the bedside as well. They stated that patient was unresponsive prior to going to restroom for shower and he became unconscious. PMH: As above PSH: Suprapubic catheter placement in 2018 not removed, small bowel obstruction surgery Allergies: NKDA SH: None Home medications: Ferrous sulfate 325 mg twice daily, vitamin A 8000 units 1 cap p.o. daily, NS 0.9% irrigation solution flush Acosta catheter weekly with 60 cc NS, methenamine hippurate 1 tablet p.o. daily, DuoNebs as needed Tylenol 500 mg every 6 hourly as needed, Robitussin 5 mL p.o. as needed every 4 hourly for cough or congestion,, Camoseptine oint as needed to perineal area for redness, ibuprofen 400 mg every 6 as needed finasteride 5 mg 1 tablet daily, tamsulosin 0.4 mg 2 tablets p.o. daily, magnesium oxide 1 tablet daily, multivitamin 1 tablet daily, metformin 500 mg twice daily, duloxetine DR 20 mg capsule 1 p.o. twice daily, gabapentin 100 mg 3 times daily, baclofen 10 mg 1 tablet at night, mineral oil for impacted cerumen/hard of hearing, aspirin 81 mg for hypertension, calcium carbonate 500 mg twice daily, clopidogrel 75 mg for CVA prevention, polyethylene glycol once daily, Jazmin lanta liquid 15 mL p.o. twice daily for GERD ED course: Patient presented with pulseless electrical activity. CODE BLUE was called. CPR was performed with 2 rounds of epinephrine and ROSC was achieved.Patient received 40 mg etomidate, 100 mg rocuronium and ET tube 8 was placed around 24 cm.Patient received epinephrine and dopamine drip with propofol for sedation. He received 1 L bolus of NS. Post CODE BLUE, vitals reviewed blood pressure 113/93, heart rate 131, RR 18. Patient is currently intubated and mechanically ventilated. Chest x-ray revealed central line tip subclavian vein and bilateral perihilar left basilar pneumonia. ET tube 2.6 cm above michael. Orogastric tube in stomach. Labs revealed WBC 11.4, hemoglobin 16, platelet 226. INR 1.0. D-dimer 3220. ABGs revealed pH 7.33, pCO2 49, pO2 154. FiO2 100%. Chemistry panel reveals sodium 130, potassium 6.4, chloride 89, bicarb 24. Bicarb on 08/23/2025 was 34.6. Anion gap 17. BUN 20 and creatinine 2.4 baseline creatinine 1.4 from 08/23/2025. Blood glucose 255. A1c 5.2, lactic acid 6.5, corrected calcium 11.2, magnesium 3.2. CRP 1.3. Amylase 259. Lipase 55. Procalcitonin 0.45. TSH within normal limits. U tox revealed Tylenol less than 2 COVID and flu negative. Blood cultures were sent. Urinalysis is orange turbid with pH 6.5. Specific gravity of 1.042. Protein 2+, glucose 1+ blood 3+. RBC 370. WBC 2197. Imaging: Head CT showed no acute changes. Abdominal CT was significant for small bowel obstruction pattern with right inguinal hernia containing bowel. Abundant stool in rectosigmoid. CTA chest was negative for PE. Extensive bilateral pneumonia noted. Patient is admitted to ICU for acute encephalopathy postcardiac arrest, SBO and septic shock. 09/16/25: Patient seen and assessed at bedside. Maintained good urine output s/p 4L IV fluids, started on 5th liter this morning. NG tube suctioned 100 cc. Discontinued from epi and dopamine, started on Levophed and vasopressin due to higher suspicion of septic shock. Was sedated and intubated on exam this morning. Attempted sedation holiday, patient was alert and responding to commands. Started on SBT and successfully extubated. Alert and oriented x3 s/p extubation. Decreased strength in upper extremities, no strength in lower extremities per baseline. Troponins increased overnight from 2.194 to 3.404 in the morning. Repeat EKG was unremarkable for ST changes, consulted cardiology who also agreed likely secondary to NSTEMI type II in setting of septic shock. Troponin downtrended to 2.4. Lactic acidosis improving, continue to trend q3hr. Anion gap resolved. WBC WNL. Hgb back to baseline. Glucose 485, given lispro 4, with improvement to 300s, given lispro 6 and degludec 6 x1, started on sliding scale. Spoke to general surgeon, hernia is not strangulated and low suspicion for bowel obstruction. Given lactulose 30 x1, miralax, and senna. Monitor bowel movements tomorrow. Wean pressors as tolerated. Preliminary sputum cultures showed WBCs, GPC, and GNR. Continue IV vanc and Zosyn, will follow up urine, blood, and final sputum cultures. 09/09/2025: Patient was seen and examined at bedside this morning. Overnight patient had a large bowel movement. Has been having good urine output and no fevers overnight, but nursing staff stated dark output from the NG tube, therefore will follow up on Hgb for possible bleed. Otherwise patient's urine culture did grow GNR therefore we will continue with Zosyn for now as previous cultures have grown ESBL. Patient's hemoglobin did drop to 9.5 from 12.5, but patient did in fact get 5 L of IV fluids yesterday therefore could be hemodilutional. Will follow-up in the afternoon with a repeat hemoglobin if continues to drop will get GI. Patient continues to be on vasopressors, but requirements are going down and he is currently off Levophed and only on vasopressin. Patient mildly hyperkalemic today in the a.m. therefore was given insulin 5 IV x 1 with an amp of D50. Kidney function is also improving slightly. Will consider DC vanco once MRSA nares results. Exam Vital Signs Temp Pulse Resp BP Pulse Ox O2 Del Method O2 Flow Rate 99.5 F 68 13 112/72 99 Oxy Mask 3 09/17/25 07:00 09/17/25 10:18 09/17/25 10:18 09/17/25 09:46 09/17/25 10:18 09/17/25 07:00 09/17/25 07:35 FiO2 30 09/16/25 14:40 Narrative Exam Gen: A&O X 3, NAD HEENT: NCAT, EOMI, Pupils reactive LYNNETTE, not icteric. External ears normal. No rhinorrhea. Dry mucous membranes. Neck: Supple, full range of motion, no observable masses, No meningeal sign, L side small hematoma, unchanged. Lungs: No Respiratory distress, clear bilateral. CV: RRR, no murmurs. Abdomen: Soft, nondistended, No rebound tenderness. MSK: No joint swelling, no redness, peripheral pulses presents, no peripheral edema, 6th toe on R foot. Skin: No rashes, petechiae, lesions. Neuro: No focal neurological deficits appreciated, sensory and motor strength 2/5 LYNNETTE UE and LE. Psych: Cooperative, appropriate mood and effect. Objective Labs 09/18/25 05:25 09/18/25 05:25 Labs: Laboratory Results - last 24 hr 09/16/25 09/16/25 09/16/25 12:48 15:20 18:30 WBC RBC Hgb Hct MCV MCH MCHC RDW Std Deviation Plt Count Neut % (Auto) Lymph % (Auto) [place] % (Auto) Eos % (Auto) Baso % (Auto) Neut # (Auto) Lymph # (Auto) [place] # (Auto) Eos # (Auto) Baso # (Auto) Immature Gran # (Auto) Absolute Nucleated RBC Immature Gran % Nucleated RBC % PT INR APTT VBG pH VBG pCO2 VBG pO2 VBG O2 Sat (Nilesh) VBG Base Excess Sodium Potassium Chloride Carbon Dioxide Anion Gap BUN Creatinine Estim Creat Clear Calc eGFR BUN/Creatinine Ratio Glucose Calculated Osmolality Lactic Acid 4.0 H 2.9 H 2.1 H Calcium Corrected Calcium Phosphorus Magnesium Total Bilirubin AST ALT Alkaline Phosphatase Troponin I 2.425 H* D Total Protein Albumin Globulin Albumin/Globulin Ratio Random Vancomycin 09/16/25 09/17/25 21:20 03:40 WBC 8.0 RBC 3.27 L Hgb 9.5 L D Hct 29.0 L MCV 89 MCH 29.1 MCHC 32.8 RDW Std Deviation 43.7 Plt Count 189 D Neut % (Auto) 79 Lymph % (Auto) 12 [place] % (Auto) 8 Eos % (Auto) 0 Baso % (Auto) 0 Neut # (Auto) 6.3 Lymph # (Auto) 0.9 L [place] # (Auto) 0.7 Eos # (Auto) 0.0 Baso # (Auto) 0.0 Immature Gran # (Auto) 0.07 H Absolute Nucleated RBC 0.00 Immature Gran % 1 H Nucleated RBC % 0 PT 12.6 H INR 1.2 APTT 31.9 D VBG pH 7.43 VBG pCO2 41 VBG pO2 139 H VBG O2 Sat (Nilesh) 100 H VBG Base Excess 3 Sodium 131 L Potassium 5.2 H D Chloride 98 Carbon Dioxide 29.5 Anion Gap 4 L BUN 33 H Creatinine 2.1 H Estim Creat Clear Calc 39.3 L eGFR 35 L BUN/Creatinine Ratio 16 Glucose 140 H D Calculated Osmolality 271 L Lactic Acid 1.8 Calcium 8.2 L Corrected Calcium 8.9 Phosphorus 3.3 Magnesium 3.1 H Total Bilirubin 0.3 AST 33 ALT 10 Alkaline Phosphatase 74 D Troponin I Total Protein 5.9 Albumin 3.1 L Globulin 2.8 Albumin/Globulin Ratio 1.1 L Random Vancomycin 19.6 ABG Interpretation ABG results: 09/15/25 09/15/25 09/16/25 20:48 22:33 04:03 ABG pH 7.30 L 7.33 L 7.29 L ABG pCO2 57 H 49 H 51 H ABG pO2 167 H 154 H 118 H D ABG HCO3 28 H 26 25 ABG O2 Saturation 100 H 100 H 99 H ABG Base Excess 0 -1 -2 VBG pH VBG pCO2 VBG pO2 VBG Base Excess 09/17/25 03:40 ABG pH ABG pCO2 ABG pO2 ABG HCO3 ABG O2 Saturation ABG Base Excess VBG pH 7.43 VBG pCO2 41 VBG pO2 139 H VBG Base Excess 3 Quality Measures Quality Measures VTE prophylaxis (Heparin SC ) Assessment & Plan Assessment Current Active Medications: Generic Name Dose Route Start Last Admin Trade Name Freq PRN Reason Stop Dose Admin Acetaminophen 650 mg 09/16/25 00:36 Acetaminophen 325 Mg Tablet PO 10/16/25 00:35 Q6H PRN Fever >101.3 Aspirin 81 mg 09/16/25 15:45 09/17/25 08:16 Aspirin Ec 81 Mg Tabec PO 10/16/25 15:44 81 mg QDAY SHIVAM Administration Dextrose 25 ml 09/16/25 05:18 Dextrose 50%-Water Inj 50 Ml Syringe IV 10/16/25 05:17 Q15MIN PRN BG 50-70 responsive npo pt Dextrose 50 ml 09/16/25 05:18 Dextrose 50%-Water Inj 50 Ml Syringe IV 10/16/25 05:17 Q15MIN PRN BG <50 OR BG <70 & pt unresponsive Glucagon 1 mg 09/16/25 05:18 Glucagon Inj 1 Mg Vial IM Q15MIN PRN BG <70, and no IV access Heparin Sodium (Porcine) 5,000 unit 09/16/25 06:00 09/17/25 05:12 Heparin Sod Inj 5000 Unit/Ml Vial SC 09/30/25 05:59 5,000 unit Q8HR SHIVAM Administration Vasopressin/Sodium Chloride 20 unit in 100 mls @ 9 mls/hr 09/16/25 00:42 09/16/25 23:05 Vasostrict/Ns Ivpb IV 10/16/25 00:41 0.03 unit/min .Q11H7M PRN 9 mls/hr PER PROTOCOL Administration Protocol 0.03 UNIT/MIN Piperacillin/Tazobactam/Dextrose 3.375 gm in 50 mls @ 100 mls/hr 09/16/25 14:00 09/17/25 05:42 Zosyn IV 09/23/25 13:59 Infused Q8HR SHIVAM Infusion Protocol Propofol 1,000 mg in 100 mls @ 2.919 mls/hr 09/16/25 03:24 09/16/25 09:45 Diprivan Ivpb IV 10/15/25 20:20 0 mcg/kg/min .Q24H PRN 0 mls/hr PER PROTOCOL Titration Protocol 5 MCG/KG/MIN Fentanyl Citrate 2,500 mcg in 250 mls @ 2.5 mls/hr 09/16/25 03:51 09/16/25 09:45 Sublimaze Inj 2,500 Mcg/250 Ml Bag IV 09/21/25 03:50 0 mcg/hr .Q24H PRN 0 mls/hr PER PROTOCOL Titration Protocol 25 MCG/HR Norepinephrine/Dextrose 8 mg in 250 mls @ 31.014 mls/hr 09/16/25 04:03 09/17/25 10:00 Levophed In D5w 8mg/250ml IV 10/16/25 04:02 0.03 mcg/kg/min .Q8H4M PRN 5.473 mls/hr PER PROTOCOL Titration Protocol 0.17 MCG/KG/MIN Vancomycin HCl/Dextrose 250 mls @ 120 mls/hr 09/17/25 10:00 Vancomycin/D5w 1,250 Mg Ivpb IV 09/24/25 09:59 Q24H SHIVAM Protocol Insulin Human Lispro 0 unit 09/16/25 18:00 09/17/25 05:47 Insulin Lispro (Admelog) 1 Unit/0.01 Ml Unit SC 10/16/25 17:59 Not Given Q6HR SHIVAM Protocol Ondansetron HCl 4 mg 09/16/25 00:36 Ondansetron Inj 2 Mg/Ml Inj 2 Ml IVP 10/16/25 00:35 Q6H PRN NAUSEA OR VOMITING Protocol Pantoprazole Sodium 40 mg 09/16/25 09:00 09/17/25 08:16 Pantoprazole Inj 40 Mg Vial IVP 10/16/25 08:59 40 mg QDAY SHIVAM Administration Pharmacy Consult 1 each 09/16/25 09:00 Vancomycin Pharmacy To Dose 1 Each Each IV 10/16/25 08:59 QDAY PRN PROTOCOL Pharmacy Consult 1 each 09/16/25 00:42 Pharmacy Renal Dose Adjustment 1 Ea XX 10/16/25 00:41 PRN PRN CONSULT Plan This patient is a 65-year-old bedbound male with past medical history of developmental delay, muscular dystrophy, benign prostatic hyperplasia, history of neurogenic bladder, right inguinal hernia, CVA, CAD, hypertension, hyperlipidemia and diabetes was brought in to the ED on 09/15/2025 from [facility] home with altered mental status and had cardiac arrest with downtime of 20 mins at the facility. In ED he was resuscitated and ROSC was achieved. Patient is admitted to ICU for acute encephalopathy postcardiac arrest,SBO and septic shock. Neuro #Acute encephalopathy (resolved) #History of developmental delay and muscular dystrophy #Neuropathy #Hx TIA 2021 Diagnostic work up: -Patient is bedbound and has weakness in all 4 limbs and does not ambulate per caregiver. He cannot move his limbs against resistance at baseline. - Home medications include gabapentin 100 mg TID and baclofen 10 mg nightly - He lives at [facility]. - Has history of TIA 2021 with no residual deficit, on Plavix and ASA. - Follows Dr. Patterson Treatment: - No active treatment - Continue ASA 81 mg daily Treatment follow up: -Outpatient follow-up - Recommend discontinuing Plavix as TIA has been over 3 months - Restart home gabapentin and baclofen when able to tolerate PO #Hx of depression Diagnostic work up: - Home medication includes duloxetine 20 mg BID Treatment: - Not taking duloxetine as per chart Treatment follow up: - Restart once patient able to tolerate oral CVS #Shock -Likely distributive septic Diagnostic work up: - BP 113/93, heart rate 131, RR 18 s/p ROSC - Attempted right femoral central line, then subclavian, finally successfully placed central line in right IJ - Post procedural CXR showed good position of central line, negative for hemopericardium or pneumothorax. - WBC 11.4 -> 7.2. - Urinalysis was orange turbid with pH 6.5. Specific gravity of 1.042. Protein 2+, glucose 1+ blood 3+. RBC 370. WBC 2197. - Has history of recurrent ESBL UTIs with indwelling Acosta cathether, previously suprapubic. - CTA chest was negative for PE. Extensive bilateral pneumonia noted. - Limited bedside ultrasound showed hyperdynamic heart with good segmental wall motion, unlikely cardiogenic. IVC was not visible due to increased abdominal distention. - Initial NICOM assessment showed fluid responsiveness with SVI 15.8% after 250 cc bolus. Cardiac index increased from 2.4-2.8 after fluid bolus. SVI 31, heart rate 90. - Urine culture grew GNR Treatment: - S/p epinephrine and dopamine - S/p 5L IV LR - Weaning Levophed and vasopressin as tolerated, MAP >65 - Added midodrine to help wean off vasopressors - IV vancomycin and Zosyn (09/15- Treatment follow up: - Follow-up with blood cultures, urine culture, sputum cultures and MRSA screen - Follow up formal echo #NSTEMI type II #?Cardiac arrest Diagnostic work up: - From [facility]. EMS called around 8PM on 09/15, patient was being bathed when he became unresponsive. Baseline AOX3 - Per EMS, GCS of 3 blood sugar 121 mg/dL. - Given Narcan 2 mg, became more responsive with improvement in agonal respiration. No obvious trauma was seen. - Upon ED arrival, patient found in PEA and CODE BLUE was called. CPR was performed with 2 rounds of epinephrine and ROSC was achieved. Intubated and sedated upon arrival - Troponin I 0.045--> 2 .194 -> 3.4 -> 2.4 - EKG showed sinus tachycardia with no acute ST-T changes. QTc 423. - Repeat EKG also showed sinus tachycardia with non-specific T wave changes (only in V2). - Limited bedside ultrasound showed hyperdynamic heart with good segmental wall motion, unlikely cardiogenic. IVC was not visible due to increased abdominal distention. Treatment: - Consulted cardiology, agreed likely demand ischemia in setting of septic shock Treatment follow up: -Follow-up with echocardiogram #History of hypertension #History of hyperlipidemia #History of CVA Treatment: - Holding home meds due to cardiac arrest and shock Pulm #Acute hypoxic respiratory failure, resolved #Intubated and mechanically ventilated post cardiac arrest #Extubated 09/16 DDx- Postcardiac arrest, aspiration versus community-acquired pneumonia - Has been on 2L O2 all day for the past couple of months. Following cardiopulmonary technologist in [place]. Diagnostic work up: - Intubated after achieving ROSC - ABGs 09/15 pH 7.33, pCO2 49, pO2 of 154, FiO2 100%. - ABG 09/16 pH 7.29, pCO2 51 prior to extubation -Chest x-ray revealed central line tip subclavian vein and bilateral perihilar left basilar pneumonia. ET tube 2.6 cm above michael. Orogastric tube in stomach. - Successfully discontinued from sedation and extubated on 09/16. Saturating well on 5L oxymask. - Preliminary sputum gram stain show GPC, GNR, and WBCs Treatment: - Off sedation - S/p extubation - IV vanc and Zosyn Treatment follow up: - Follow-up final sputum cultures GI #Small bowel obstruction (ruled out) #Hx SBO s/p ex lap #History of BPH and neurogenic bladder #History of recurrent UTIs with ESBL organisms Diagnostic work up: - Suprapubic catheter was placed in 2018, recently replaced with indwelling Acosta catheter last week - Home medications include tamulosin 0.4 mg 2 tabs daily and finasteride 5 mg daily - Upon chart review, previous urine cultures grew ESBL sensitive to Zosyn, as well as Pseudomonas and Morganella - Urinalysis was orange turbid with pH 6.5. Specific gravity of 1.042. Protein 2+, glucose 1+ blood 3+. RBC 370. WBC 2197. Treatment: - IV Zosyn (09/15- Treatment follow up: - Follow up final urine cultures - Resume home tamulosin and finasteride if able to tolerate PO #History of right inguinal hernia Diagnostic work up: - Has large right inguinal hernia on exam, does not appear to be strangulated (no discoloration around area) - Abdominal CT was significant for small bowel obstruction pattern with right inguinal hernia containing bowel. Treatment: - Consulted general surgery, no need for intervention at this time Treatment follow up: - Outpatient follow up Renal #CHAR on CKD stage II, improving Likely in setting of septic shock Diagnostic work up: - BUN 20. Creatinine 2.4 (baseline 1.4-1.6) Treatment: - S/p 5L IV LR - Avoid nephrotoxic agent - Renally dose medication Treatment follow up: - Strict DIXON's #Anion gap metabolic acidosis (resolved) #Lactic acidosis (resolved) #Hyponatremia #Hypochloremia #Hyperkalemia (resolved) #Hypercalcemia (resolved) Likely pseudo in setting of hyperglycemia Diagnostic work up: - Patient presented with sodium 130, potassium 6.4, chloride 89. Treatment: - Insulin R 5unit IV x1 and D50 Treatment follow up: -Follow up AM CMP #History of nephrolithiasis, bilateral hydronephrosis and neurogenic bladder #?Nephrolithiasis Diagnostic work up: - Per caregiver patient is due for another surgery on September 29 in [place] for removal of kidney stones. - No stones noted on CT - Maintaining good urine output Treatment: - S/p 5L LR - No active treatment at this time Treatment follow up: - Outpatient follow up Heme #Normocytic hypochromic anemia Patient's hemoglobin 8.7 today from 12.5 previously Could be hemodilutional in the setting of 5 L of IV fluids versus GI bleed in the setting of dark output from NG tube No history of any esophageal ulcers or varices or any gastric ulcers either. Plan: Follow-up on afternoon hemoglobin Consider GI consult if hemoglobin continues to drop Consider transfusion if Hgb less than 7 #Leukocytosis, reactive versus infection (resolved) Ddx: UTI, CAP Diagnostic work up: - WBC 11.4 -> 7.2 - Afebrile during admission - Urinalysis was orange turbid with pH 6.5. Specific gravity of 1.042. Protein 2+, glucose 1+ blood 3+. RBC 370. WBC 2197. - Preliminary sputum gram stain show GPC, GNR, and WBCs Treatment: - IV vanc and Zosyn (09/15- Treatment follow up: - Monitor CBC AM - Follow up urine and blood cultures - Follow up final sputum cultures #Elevated D-dimer Ddx: older age, septic shock Diagnostic work up: - D-dimer 3220 - PT and INR WNL, PTT low at 21 - CTA chest was negative for PE. Extensive bilateral pneumonia noted. - No lower extremity swelling noted on exam Treatment: - Treat underlying cause for septic shock - DVT prophylaxis with heparin Treatment follow up: - Continue to monitor for signs of clots Endo #History of type 2 diabetes, non insulin dependent Diagnostic work up: - A1c 5.2 - Home medication includes metformin 500 mg BID - Glucose 121 -> 231 -> 406 -> 149 Treatment: - S/p lispro 4 x1, lispro 6 x1 and degludec 6 x1 - SSI step 3 q6hr Treatment follow up: - Blood sugar checks Q6 hourly ID #Community acquired Pneumonia #UTI, GNR #Hx of recurrent ESBL UTI with indwelling Acosta catheter Diagnostic work up: - WBC 11.4 -> 7.2 - Afebrile during admission -Chest x-ray revealed central line tip subclavian vein and bilateral perihilar left basilar pneumonia. - Urinalysis was orange turbid with pH 6.5. Specific gravity of 1.042. Protein 2+, glucose 1+ blood 3+. RBC 370. WBC 2197. - Preliminary sputum gram stain show GPC, GNR, and WBCs - Urine culture grew GNR preliminary Treatment: - IV vanc and Zosyn (09/15-) Treatment follow up: - Monitor CBC AM - Follow up urine and blood cultures - Follow up final sputum cultures Skin #Hematoma versus seroma on left side of neck Diagnostic work up: - S/p attempt to place left IJ central line - No increase in size Treatment: - No active treatment at this time Treatment follow up: - Continue to monitor swelling currently not increasing in size ICU Health maintenance: Mechanical ventilation: extubated Sedation: off Diet: CLL DVT prophylaxis: Heparin SQ GI prophylaxis: Protonix 40 IV daily Acosta: yes Lines: PIV, right IJ central line Antibiotics: vanc and zosyn CODE STATUS: FULL Patient plan of care was discussed with my attending physician, Dr. Silvino Reddy Attending Provider Attestation/Addendum Patient seen and examined, discussed with resident. In brief this is 65-year-old male status post cardiac arrest with acute hypoxic respiratory failure. The patient was successfully extubated. He did have some degree of shock requiring vasopressor support. This is improving. Today he is awake alert and interactive. His abdomen is less distended than yesterday. He is having bowel movements with bowel regimen in place. Will continue with antibiotics. Patient does have a history of ESBL organisms with UTIs. His urine at this time is suspicious for UTI and has gram-negative rods. He is currently stable on antibiotics. He appears ready for downgrade to the floor. Case discussed with ICU team Labs, imaging records reviewed Approximately 40 critical care been required for evaluation, exam, review, touch, discussion formulation of plan of care for prescription outpatient status post cardiac arrest who is at high risk for further ongoing decompensation.
[2025-09-17 10:57] LABS: Hemoglobin 8.7 g/dL (13.5-16.0)
[2025-09-17] MEDS: INSULIN LISPRO (AdmeLOG) 1 UNIT/0.01 ML UNIT SC (11:52)
[2025-09-17 11:57] LABS: Potassium 4.7 mMol/L (3.4-5.1)
[2025-09-17] MEDS: MIDODRINE 5 MG TABLET PO ×2 (16:36→20:55)
[2025-09-17 17:45] LABS: Hematocrit 25.4 % (41.0-53.0)
[2025-09-17 17:47] LABS: Hemoglobin 8.3 g/dL (13.5-16.0)
[2025-09-18] VITALS (56 sets, daily range): BP systolic 90–149; BP diastolic 49–90; PULSE 65–88; RESP 0–25; TEMP 36.6–37.3; O2SAT 91–98; BMI 34.4
[2025-09-18] MEDS: MIDODRINE 5 MG TABLET PO (00:42)
[2025-09-18] MEDS: MIDODRINE 5 MG TABLET 10 MG PO ×2 (05:17→14:18)
[2025-09-18] MEDS: PIPER/TAZO 3.375 GM PREMIX 3.375 GM/50 ML BAG IV ×3 (05:18→22:15)
[2025-09-18] MEDS: HEPARIN SOD INJ 5000 UNIT/ML VIAL SC ×2 (05:18→17:04)
[2025-09-18 06:06] LABS: Basophils # (Auto) 0.0 Thou/mm3 (0.0-0.2); Basophils % (Auto) 0 % (0-2.5); Eosinophils # (Auto) 0.0 Thou/mm3 (0.0-0.5); Eosinophils % (Auto) 0 % (0-10); Hematocrit 25.9 % (41.0-53.0); Immature Granulocytes Auto 0.09 Thou/mm3 (0.00-0.00); Lymphocytes # (Auto) 1.0 Thou/mm3 (1.0-4.8); Lymphocytes % (Auto) 13 % (10-50); Mean Corpuscular HGB Conc 32.0 g/dl (31.0-37.0); Mean Corpuscular Hemoglobin 29.0 pg (25.0-35.0); Mean Corpuscular Volume 91 fL (80-100); Monocytes # (Auto) 0.5 Thou/mm3 (0.0-0.8); Monocytes % (Auto) 6 % (0-12); Neutrophils # (Auto) 6.1 Thou/mm3 (1.8-7.7); Neutrophils % (Auto) 79 % (37-80); Nucleated Red Blood Cell # 0.00 Thou/mm3 (0.00-0.00); Nucleated Red Blood Cell % 0 /100 WBC (0); Platelet Count 180 Thou/mm3 (140-440); RDW Standard Deviation 44.1 fL (35.1-43.9); Red Blood Count 2.86 Miln/mm3 (4.50-5.90); White Blood Count 7.7 Thou/mm3 (3.8-10.6)
[2025-09-18 06:15] LABS: Hemoglobin 8.3 g/dL (13.5-16.0)
[2025-09-18 06:29] LABS: INR 1.0 (0.9-1.3); Prothrombin Time 10.7 Seconds (9.0-12.2)
[2025-09-18 06:32] LABS: Alanine Aminotransferase 11 U/L (10-49); Albumin, Serum 3.2 gm/dL (3.4-4.8); Albumin/Globulin Ratio 1.1 (1.2-2.2); Alkaline Phosphatase 67 U/L (46-116); Anion Gap 5 (7-16); Aspartate Amino Transferase 30 U/L (0-34); BUN/Creatinine Ratio 18 Ratio (12-20); Bilirubin,Total 0.2 mg/dL (0.3-1.2); Blood Urea Nitrogen 40 mg/dL (9-23); Calcium 8.0 mg/dL (8.3-10.6); Calcium (Corrected) 8.6 mg/dL (8.5-10.1); Carbon Dioxide 30.6 mMol/L (20.0-31.0); Chloride 97 mMol/L (98-107); Creatinine (Component) 2.2 mg/dL (0.6-1.3); Estimated Creatinine Clearance 37.4 mL/min (>60); Globulin 2.9 gm/dL (2.3-3.5); Glucose 93 mg/dL (74-106); Magnesium 3.2 mg/dL (1.6-2.6); Osmolality,Calculated 276 (275-295); Phosphorous 2.8 mg/dL (2.4-5.1); Potassium 4.6 mMol/L (3.4-5.1); Sodium 133 mMol/L (136-145); Total Protein 6.1 gm/dL (5.7-8.2); eGFR 33 See Note
[2025-09-18] MEDS: ASPIRIN EC 81 MG TABEC PO (08:45)
[2025-09-18] MEDS: VANCOMYCIN/D5W 1,250 MG IVPB 250 ML 120 MG IV (09:23)
[2025-09-18 11:20] LABS: OBS Card Expiration Date 2026-09; OBS Card Lot # 23001; OBS Developer Lot # 23002; OBS Performed By loped2; OBS QC OK? Yes; Occult Blood, Stool Negative (Negative)
--- NOTE | 2025-09-18 14:44 | PD.RESPRO ---
Documentation for date of: 09/18/25 Subjective Subjective Interval history: 65-year-old male received as ICU downgrade overnight. Patient admitted after pulseless electrical activity, cardiac arrest with downtime 20 minutes at facility, admitted to ICU. Patient's underlying etiology of distributive shock likely septic secondary to UTI. Patient extubated 09/16, weaned off of pressors and was downgraded to telemetry overnight. Patient seen in ICU this morning, alert oriented answering questions. Has NG tube intact. Speech therapy recommended dysphagia 1 diet, patient was started on it, will keep NG tube for now, consider discontinuing in the morning. Continue midodrine, patient having black stools however occult blood was negative will defer GI consult for now. Watch closely strict aspiration precautions consider videofluoroscopic swallow or GI consult if patient has concerns of dysphagia/aspiration. Will continue with vancomycin and Zosyn, MRSA nares pending, urine culture resulted GNR pending speciation. Will consider resuming home medicines in AM. Exam Vital Signs Temp Pulse Resp BP Pulse Ox O2 Del Method O2 Flow Rate 98.2 F 70 19 112/53 L 95 Nasal Cannula 2 09/18/25 13:30 09/18/25 14:18 09/18/25 13:30 09/18/25 14:18 09/18/25 13:30 09/18/25 13:30 09/18/25 13:30 FiO2 30 09/16/25 14:40 Narrative Exam Gen: A&O X 3, NAD HEENT: NCAT, EOMI, Pupils reactive LYNNETTE, not icteric. External ears normal. No rhinorrhea. Dry mucous membranes. Neck: Supple, full range of motion, no observable masses, No meningeal sign, L side small hematoma, unchanged. Lungs: No Respiratory distress, clear bilateral. CV: RRR, no murmurs. Abdomen: Soft, nondistended, No rebound tenderness. MSK: No joint swelling, no redness, peripheral pulses presents, no peripheral edema, 6th toe on R foot. Skin: No rashes, petechiae, lesions. Neuro: No focal neurological deficits appreciated, sensory and motor strength 2/5 LYNNETTE UE and LE. Psych: Cooperative, appropriate mood and effect. Objective Labs 09/18/25 05:25 09/18/25 05:25 Labs: Laboratory Results - last 24 hr 09/17/25 09/18/25 09/18/25 16:45 05:25 10:48 WBC 7.7 RBC 2.86 L Hgb 8.3 L 8.3 L Hct 25.4 L 25.9 L MCV 91 MCH 29.0 MCHC 32.0 RDW Std Deviation 44.1 H Plt Count 180 Neut % (Auto) 79 Lymph % (Auto) 13 Dare % (Auto) 6 Eos % (Auto) 0 Baso % (Auto) 0 Neut # (Auto) 6.1 Lymph # (Auto) 1.0 Dare # (Auto) 0.5 Eos # (Auto) 0.0 Baso # (Auto) 0.0 Immature Gran # (Auto) 0.09 H Absolute Nucleated RBC 0.00 Immature Gran % 1 H Nucleated RBC % 0 PT 10.7 INR 1.0 Sodium 133 L Potassium 4.6 Chloride 97 L Carbon Dioxide 30.6 Anion Gap 5 L BUN 40 H Creatinine 2.2 H Estim Creat Clear Calc 37.4 L eGFR 33 L BUN/Creatinine Ratio 18 Glucose 93 Calculated Osmolality 276 Calcium 8.0 L Corrected Calcium 8.6 Phosphorus 2.8 Magnesium 3.2 H Total Bilirubin 0.2 L AST 30 ALT 11 Alkaline Phosphatase 67 Total Protein 6.1 Albumin 3.2 L Globulin 2.9 Albumin/Globulin Ratio 1.1 L Stool Occult Blood Negative ABG Interpretation ABG results: 09/15/25 09/15/25 09/16/25 20:48 22:33 04:03 ABG pH 7.30 L 7.33 L 7.29 L ABG pCO2 57 H 49 H 51 H ABG pO2 167 H 154 H 118 H D ABG HCO3 28 H 26 25 ABG O2 Saturation 100 H 100 H 99 H ABG Base Excess 0 -1 -2 VBG pH VBG pCO2 VBG pO2 VBG Base Excess 09/17/25 03:40 ABG pH ABG pCO2 ABG pO2 ABG HCO3 ABG O2 Saturation ABG Base Excess VBG pH 7.43 VBG pCO2 41 VBG pO2 139 H VBG Base Excess 3 Quality Measures Quality Measures VTE prophylaxis (Heparin SC ) Assessment & Plan Assessment Current Active Medications: Generic Name Dose Route Start Last Admin Trade Name Freq PRN Reason Stop Dose Admin Acetaminophen 650 mg 09/16/25 00:36 Acetaminophen 325 Mg Tablet PO 10/16/25 00:35 Q6H PRN Fever >101.3 Aspirin 81 mg 09/16/25 15:45 09/18/25 08:45 Aspirin Ec 81 Mg Tabec PO 10/16/25 15:44 81 mg QDAY SHIVAM Administration Dextrose 25 ml 09/16/25 05:18 Dextrose 50%-Water Inj 50 Ml Syringe IV 10/16/25 05:17 Q15MIN PRN BG 50-70 responsive npo pt Dextrose 50 ml 09/16/25 05:18 Dextrose 50%-Water Inj 50 Ml Syringe IV 10/16/25 05:17 Q15MIN PRN BG <50 OR BG <70 & pt unresponsive Glucagon 1 mg 09/16/25 05:18 Glucagon Inj 1 Mg Vial IM Q15MIN PRN BG <70, and no IV access Heparin Sodium (Porcine) 5,000 unit 09/18/25 18:00 Heparin Sod Inj 5000 Unit/Ml Vial SC 10/02/25 17:59 Q12HR SHIVAM Piperacillin/Tazobactam/Dextrose 3.375 gm in 50 mls @ 100 mls/hr 09/16/25 14:00 09/18/25 14:17 Zosyn IV 09/23/25 13:59 100 mls/hr Q8HR SHIVAM Administration Protocol Vancomycin HCl/Dextrose 250 mls @ 120 mls/hr 09/17/25 10:00 09/18/25 09:23 Vancomycin/D5w 1,250 Mg Ivpb IV 09/24/25 09:59 120 mls/hr Q24H SHIVAM Administration Protocol Insulin Human Lispro 0 unit 09/16/25 18:00 09/18/25 12:10 Insulin Lispro (Admelog) 1 Unit/0.01 Ml Unit SC 10/16/25 17:59 Not Given Q6HR [facility] Protocol Midodrine 10 mg 09/18/25 06:00 09/18/25 14:18 Midodrine 5 Mg Tablet PO 10/18/25 05:59 10 mg TID SHIVAM Administration Ondansetron HCl 4 mg 09/16/25 00:36 Ondansetron Inj 2 Mg/Ml Inj 2 Ml IVP 10/16/25 00:35 Q6H PRN NAUSEA OR VOMITING Protocol Pharmacy Consult 1 each 09/16/25 09:00 Vancomycin Pharmacy To Dose 1 Each Each IV 10/16/25 08:59 QDAY PRN PROTOCOL Pharmacy Consult 1 each 09/16/25 00:42 Pharmacy Renal Dose Adjustment 1 Ea XX 12/27/25 00:41 PRN PRN CONSULT Plan Assessment and plan: Summary: 65-year-old bedbound male with past medical history of evelopmental delay, muscular dystrophy, benign prostatic hyperplasia, history of neurogenic bladder, right inguinal hernia, CVA, CAD, hypertension, hyperlipidemia and diabetes was brought in to the ED on 09/15/2025 from [facility]' family home with altered mental status and had cardiac arrest with downtime of 20 mins at the facility. In ED he was resuscitated and ROSC was achieved. Patient was admitted to ICU for acute encephalopathy postcardiac arrest, distributive shock?septic secondary to UTI for management. Patient was extubated 09/16, weaned off of pressors and was downgraded to telemetry on 09/18. #Urinary tract infection #Community-acquired pneumonia #Distributive shock, likely septic secondary to UTI, resolved Patient presented with septic shock, weaned off of pressors. Currently on midodrine, blood pressure stable. Blood culture negative for 48 hours Urine culture positive for GNR, pending speciation - Continue Zosyn and vancomycin - Follow MRSA naris and discontinue vancomycin - Follow urine culture speciation - Continue midodrine with hold parameters #CHAR on CKD stage II Patient's baseline creatinine 1.4?1.6 Patient is status post 5 L IV LR Patient's underlying CHAR secondary to insult from distributive shock - Nephrology consulted, appreciate recommendations - Avoid nephrotoxic agents #NSTEMI type II #Cardiac arrest, pulseless electrical activity, status post ROSC In ER patient was found in PEA, CODE BLUE was called CPR performed with 2 rounds of epi and ROSC was achieved. Echocardiogram obtained shows EF 60 to 65%, mild concentric hypertrophy normal diastolic dysfunction EKG 09/16?sinus rhythm, EKG 09/15?sinus tachycardia no acute ST-T changes Troponin on presentation 2.194 up trended to 3.4 and then down trended to 2.4 - Cardiology is consulted, appreciate recommendations #Type 2 diabetes mellitus, [id number] Hemoglobin A1c 5.2 - Sliding scale insulin #Dysphagia Patient has NG tube intact, SBO was ruled out Speech therapy recommended dysphagia 1 diet, patient was started on it, will keep NG tube for now, consider discontinuing in the morning. Watch closely strict aspiration precautions consider videofluoroscopic swallow or GI consult if patient has concerns of dysphagia/aspiration. #History of developmental delay and muscular dystrophy #History of depression #History of TIA Patient on gabapentin and baclofen at home, from [facility] has history of TIA - Continue aspirin - Hold home baclofen, duloxetine and gabapentin, monitor mentation consider resuming in a.m. #History of hypertension #History of hyperlipidemia Currently blood pressure normotensive hold antihypertensives #History of BPH and neurogenic bladder #History of right inguinal hernia - Hold home tamsulosin, resume in a.m. #Anion gap metabolic acidosis, resolved #Lactic acidosis resolved #Hyponatremia #Hypochloremia #Hyperkalemia resolved #Hypercalcemia resolved - Follow CMP in a.m. #Normocytic normochromic anemia #Dark stools - Follow CBC in a.m. - Consider GI workup if hemoglobin drops, FOBT negative DVT prophylaxis: Heparin every 12 hour GI prophylaxis: IV Protonix 40 Diet: Dysphagia 1 Lines: Peripheral IV Code status: Full code Case discussed with Attending Physician Dr. Yash Vallecillo MD Internal Medicine PGY-2 Disclaimer: This note was dictated by speech recognition. Minor errors in trim operator may be present due to voice recognition software. Attending Provider Attestation/Addendum I have discussed and was present for the essential components of the history, physical examination, diagnosis, and treatment plan with the resident. I agree with the patient's care as documented by the resident and amended herein by me. Elmo Mason DO. Although this document has been carefully reviewed, there may still be some phonetic and other typographical errors. These errors are purely grammatical due to imperfections in the software program and should not be construed in any way to compromise the substance of the patient's medical care during this visit. Patient seen and evaluated this AM. No acute events overnight, urine output 1 L last 24 hours, other significant labs include a stable hemoglobin 11.3, sodium 133, BUN 40 and an uptrending creatinine to 2.2. Urine cultures demonstrating GNR however no speciation as of yet, blood cultures NGTD. FOBT was negative. Speech eval recommended pur?ed diet which has been added. MRSA nares negative hence vancomycin has been discontinued. Will continue Zosyn at this time until urine culture speciate, nephrology has been consulted, thinks uptrending creatinine is likely from previous shock, will continue to monitor, possible DC in the next few days once urine culture speciate's and renal function improves.
[2025-09-19] VITALS (15 sets, daily range): BP systolic 108–155; BP diastolic 63–82; PULSE 73–115; RESP 13–96; TEMP 36.4–37.4; O2SAT 90–100; BMI 36.8
[2025-09-19] MEDS: ONDANSETRON INJ 2 MG/ML INJ 2 ML 4 MG IVP ×2 (03:01→10:20)
[2025-09-19 05:32] LABS: Basophils # (Auto) 0.0 Thou/mm3 (0.0-0.2); Basophils % (Auto) 0 % (0-2.5); Eosinophils # (Auto) 0.0 Thou/mm3 (0.0-0.5); Eosinophils % (Auto) 0 % (0-10); Hematocrit 26.5 % (41.0-53.0); Immature Granulocytes Auto 0.02 Thou/mm3 (0.00-0.00); Lymphocytes # (Auto) 0.9 Thou/mm3 (1.0-4.8); Lymphocytes % (Auto) 11 % (10-50); Mean Corpuscular HGB Conc 32.5 g/dl (31.0-37.0); Mean Corpuscular Hemoglobin 29.5 pg (25.0-35.0); Mean Corpuscular Volume 91 fL (80-100); Monocytes # (Auto) 0.4 Thou/mm3 (0.0-0.8); Monocytes % (Auto) 4 % (0-12); Neutrophils # (Auto) 6.6 Thou/mm3 (1.8-7.7); Neutrophils % (Auto) 84 % (37-80); Nucleated Red Blood Cell # 0.00 Thou/mm3 (0.00-0.00); Nucleated Red Blood Cell % 0 /100 WBC (0); Platelet Count 190 Thou/mm3 (140-440); RDW Standard Deviation 45.1 fL (35.1-43.9); Red Blood Count 2.92 Miln/mm3 (4.50-5.90); White Blood Count 7.9 Thou/mm3 (3.8-10.6)
[2025-09-19 05:35] LABS: Hemoglobin 8.6 g/dL (13.5-16.0)
[2025-09-19 05:38] LABS: INR 1.0 (0.9-1.3); Prothrombin Time 10.3 Seconds (9.0-12.2)
[2025-09-19 05:52] LABS: Alanine Aminotransferase 9 U/L (10-49); Albumin, Serum 3.4 gm/dL (3.4-4.8); Albumin/Globulin Ratio 1.2 (1.2-2.2); Alkaline Phosphatase 72 U/L (46-116); Anion Gap 8 (7-16); Aspartate Amino Transferase 12 U/L (0-34); BUN/Creatinine Ratio 16 Ratio (12-20); Bilirubin,Total 0.2 mg/dL (0.3-1.2); Blood Urea Nitrogen 36 mg/dL (9-23); Calcium 8.3 mg/dL (8.3-10.6); Calcium (Corrected) 8.8 mg/dL (8.5-10.1); Carbon Dioxide 30.8 mMol/L (20.0-31.0); Chloride 98 mMol/L (98-107); Creatinine (Component) 2.3 mg/dL (0.6-1.3); Estimated Creatinine Clearance 37.0 mL/min (>60); Globulin 2.9 gm/dL (2.3-3.5); Glucose 110 mg/dL (74-106); Osmolality,Calculated 283 (275-295); Phosphorous 2.7 mg/dL (2.4-5.1); Potassium 4.1 mMol/L (3.4-5.1); Sodium 137 mMol/L (136-145); Total Protein 6.3 gm/dL (5.7-8.2); eGFR 31 See Note
[2025-09-19] MEDS: PIPER/TAZO 3.375 GM PREMIX 3.375 GM/50 ML BAG IV ×3 (05:56→21:30)
--- NOTE | 2025-09-19 07:52 | XR_ITS ---
EXAMINATION: AP chest single view TECHNIQUE: AP portable upright chest single view Date and time: September 19, 2025, 0809 hours INDICATIONS: Shortness of breath today FINDINGS: Mild enlargement cardiac contour Prominent vascular congestion Extensive edema and/or pneumonia throughout both lungs Right internal jugular central line tip right atrium Prominent osteopenia IMPRESSION: Mild enlargement cardiac contour Prominent vascular congestion Extensive edema and/or pneumonia throughout both lungs, clinical correlation advised
[2025-09-19] MEDS: ASPIRIN EC 81 MG TABEC PO (08:14)
[2025-09-19] MEDS: HEPARIN SOD INJ 5000 UNIT/ML VIAL SC ×2 (08:14→21:29)
[2025-09-19] MEDS: ALBUTEROL/IPRATROPIUM (Duoneb) RT SOL 3 ML NEBU INH (08:35)
[2025-09-19 09:01] LABS: Base Excess, Venous 5 (-3-3); O2 Saturation, Venous 97 % (96-97); PCO2, Venous 52 mmHg (36-56); PO2, Venous 80 mmHg (15-58); pH, Venous 7.39 (7.33-7.66)
[2025-09-19] MEDS: FUROSEMIDE INJ 10 MG/ML 4ML VIAL 40 MG IVP (10:11)
--- NOTE | 2025-09-19 14:42 | ESPR_ITS ---
Documentation for date of: 09/19/25 Subjective Subjective Interval history: Overnight, patient was noted to have cough productive of dark brown sputum. Patient seen examined at bedside. Patient alert, appropriately responsive to commands. Noted to be hypoxic, saturating approximately 87-90% on 15 L OxyMask, improved with high flow nasal cannula. Patient did note shortness of breath, but denied fevers, chills, chest pain. Chest x-ray showed increased fluid bilateral lungs, Lasix IV given. Patient noted to have melena, FOBT positive, GI consulted, patient made n.p.o. Sputum and urine culture speciated to broadly resistant bacteria, continue treatment with IV Zosyn. Exam Vital Signs Temp Pulse Resp BP Pulse Ox O2 Del Method O2 Flow Rate 97.5 F 94 22 H 113/81 99 High Flow Nasal Cannula 40 09/19/25 12:00 09/19/25 13:18 09/19/25 13:18 09/19/25 12:00 09/19/25 13:18 09/19/25 12:00 09/19/25 13:18 FiO2 90 09/19/25 13:18 Narrative Exam Gen: A&O X 3, NAD HEENT: NCAT, EOMI, Pupils reactive LYNNETTE, not icteric. External ears normal. No rhinorrhea. Dry mucous membranes. Neck: Supple, full range of motion, no observable masses, No meningeal sign, L side small hematoma, unchanged. Lungs: Diffuse wheezing, rhonchi, coarse breath sounds. CV: RRR, no murmurs. Abdomen: Soft, nondistended, No rebound tenderness. MSK: No joint swelling, no redness, peripheral pulses presents, 2+ BLE edema, 6th toe on R foot. Skin: No rashes, petechiae, lesions. Neuro: No focal neurological deficits appreciated, sensory and motor strength 2/5 LYNNETTE UE and LE. Psych: Cooperative, appropriate mood and effect. Objective Labs 09/19/25 04:45 09/19/25 04:45 Labs: Laboratory Results - last 24 hr 09/19/25 09/19/25 04:45 08:35 WBC 7.9 RBC 2.92 L Hgb 8.6 L Hct 26.5 L MCV 91 MCH 29.5 MCHC 32.5 RDW Std Deviation 45.1 H Plt Count 190 Neut % (Auto) 84 H Lymph % (Auto) 11 Hughes % (Auto) 4 Eos % (Auto) 0 Baso % (Auto) 0 Neut # (Auto) 6.6 Lymph # (Auto) 0.9 L Hughes # (Auto) 0.4 Eos # (Auto) 0.0 Baso # (Auto) 0.0 Immature Gran # (Auto) 0.02 H Absolute Nucleated RBC 0.00 Immature Gran % 0 Nucleated RBC % 0 PT 10.3 INR 1.0 VBG pH 7.39 VBG pCO2 52 D VBG pO2 80 H D VBG O2 Sat (Nilesh) 97 VBG Base Excess 5 H Sodium 137 Potassium 4.1 D Chloride 98 Carbon Dioxide 30.8 Anion Gap 8 BUN 36 H Creatinine 2.3 H Estim Creat Clear Calc 37.0 L eGFR 31 L BUN/Creatinine Ratio 16 Glucose 110 H Calculated Osmolality 283 Calcium 8.3 Corrected Calcium 8.8 Phosphorus 2.7 Total Bilirubin 0.2 L AST 12 ALT 9 L Alkaline Phosphatase 72 Total Protein 6.3 Albumin 3.4 Globulin 2.9 Albumin/Globulin Ratio 1.2 ABG Interpretation ABG results: 09/15/25 09/15/25 09/16/25 20:48 22:33 04:03 ABG pH 7.30 L 7.33 L 7.29 L ABG pCO2 57 H 49 H 51 H ABG pO2 167 H 154 H 118 H D ABG HCO3 28 H 26 25 ABG O2 Saturation 100 H 100 H 99 H ABG Base Excess 0 -1 -2 VBG pH VBG pCO2 VBG pO2 VBG Base Excess 09/17/25 09/19/25 03:40 08:35 ABG pH ABG pCO2 ABG pO2 ABG HCO3 ABG O2 Saturation ABG Base Excess VBG pH 7.43 7.39 VBG pCO2 41 52 D VBG pO2 139 H 80 H D VBG Base Excess 3 5 H Quality Measures Quality Measures VTE prophylaxis (Heparin SC ) Assessment & Plan Assessment Current Active Medications: Generic Name Dose Route Start Last Admin Trade Name Freq PRN Reason Stop Dose Admin Acetaminophen 650 mg 09/16/25 00:36 Acetaminophen 325 Mg Tablet PO 10/16/25 00:35 Q6H PRN Fever >101.3 Aspirin 81 mg 09/16/25 15:45 09/19/25 08:14 Aspirin Ec 81 Mg Tabec PO 10/16/25 15:44 81 mg QDAY SHIVAM Administration Dextrose 25 ml 09/16/25 05:18 Dextrose 50%-Water Inj 50 Ml Syringe IV 10/16/25 05:17 Q15MIN PRN BG 50-70 responsive npo pt Dextrose 50 ml 09/16/25 05:18 Dextrose 50%-Water Inj 50 Ml Syringe IV 10/16/25 05:17 Q15MIN PRN BG <50 OR BG <70 & pt unresponsive Glucagon 1 mg 09/16/25 05:18 Glucagon Inj 1 Mg Vial IM Q15MIN PRN BG <70, and no IV access Heparin Sodium (Porcine) 5,000 unit 09/18/25 18:00 09/19/25 08:14 Heparin Sod Inj 5000 Unit/Ml Vial SC 10/02/25 17:59 5,000 unit Q12HR SHIVAM Administration Piperacillin/Tazobactam/Dextrose 3.375 gm in 50 mls @ 100 mls/hr 09/16/25 14:00 09/19/25 13:33 Zosyn IV 09/23/25 13:59 100 mls/hr Q8HR SHIVAM Administration Protocol Insulin Human Lispro 0 unit 09/18/25 17:00 09/19/25 12:13 Insulin Lispro (Admelog) 1 Unit/0.01 Ml Unit SC 10/18/25 16:59 Not Given ACHS [facility] Protocol Midodrine 10 mg 09/18/25 06:00 09/19/25 13:39 Midodrine 5 Mg Tablet PO 10/18/25 05:59 Not Given TID [facility] Ondansetron HCl 4 mg 09/16/25 00:36 09/19/25 10:20 Ondansetron Inj 2 Mg/Ml Inj 2 Ml IVP 10/16/25 00:35 4 mg Q6H PRN Administration NAUSEA OR VOMITING Protocol Pantoprazole Sodium 40 mg 09/19/25 21:00 Pantoprazole Inj 40 Mg Vial IVP 10/19/25 20:59 BID [facility] Pharmacy Consult 1 each 09/16/25 00:42 Pharmacy Renal Dose Adjustment 1 Ea XX 10/16/25 00:41 PRN PRN CONSULT Plan Assessment and plan: Summary: 65-year-old bedbound male with past medical history of evelopmental delay, muscular dystrophy, benign prostatic hyperplasia, history of neurogenic bladder, right inguinal hernia, CVA, CAD, hypertension, hyperlipidemia and diabetes was brought in to the ED on 09/15/2025 from [facility]' family home with altered mental status and had cardiac arrest with downtime of 20 mins at the facility. In ED he was resuscitated and ROSC was achieved. Patient was admitted to ICU for acute encephalopathy postcardiac arrest, distributive shock?septic secondary to UTI for management. Patient was extubated 09/16, weaned off of pressors and was downgraded to telemetry on 09/18. #Normocytic normochromic anemia #Melena Patient has chronic, stable anemia. Noted to have melena 09/19, FOBT positive. GI consulted, will see today. - Follow CBC, transfuse as needed - GI consulted, appreciate recommendations - IV Protonix - N.p.o. #Acute hypoxic respiratory failure Overnight patient developed cough with dark sputum. Patient then developed significant hypoxia, saturation 87-90% on 15 L oxy mask. Patient placed on high flow nasal cannula with improvement in O2 saturation. Chest x-ray taken, showed worsening vascular congestion, fluid in bilateral lungs. Concern for aspiration event in setting of dysphagia, patient made NPO. - HFNC, titrate as tolerated - Aspiration precautions - Lasix 40 IV x 1 given - Treat pneumonia as below #Urinary tract infection #Community-acquired pneumonia #Distributive shock, likely septic secondary to UTI, resolved Patient presented with septic shock, weaned off of pressors. Currently on midodrine, blood pressure stable. Blood culture negative for 48 hours Urine culture positive for ESBL, sputum culture positive for ESBL, Klebsiella, Proteus. MRSA nares negative, vancomycin discontinued - Continue Zosyn (started 09/16) - Continue midodrine with hold parameters #CHAR on CKD stage II Patient's baseline creatinine 1.4?1.6 Patient is status post 5 L IV LR Patient's underlying CHAR secondary to insult from distributive shock - Nephrology consulted, appreciate recommendations - Avoid nephrotoxic agents #NSTEMI type II #Cardiac arrest, pulseless electrical activity, status post ROSC In ER patient was found in PEA, CODE BLUE was called CPR performed with 2 rounds of epi and ROSC was achieved. Echocardiogram obtained shows EF 60 to 65%, mild concentric hypertrophy normal diastolic dysfunction EKG 09/16?sinus rhythm, EKG 09/15?sinus tachycardia no acute ST-T changes Troponin on presentation 2.194 up trended to 3.4 and then down trended to 2.4 - Cardiology is consulted, appreciate recommendations #Type 2 diabetes mellitus, [id number] Hemoglobin A1c 5.2 - Sliding scale insulin #Dysphagia Patient has NG tube intact, SBO was ruled out Speech therapy recommended dysphagia 1 diet, patient was started on it, will keep NG tube for now, consider discontinuing in the morning. Patient had possible aspiration event 09/19 - GI consulted, appreciate recommendations - N.p.o. #History of developmental delay and muscular dystrophy #History of depression #History of TIA Patient on gabapentin and baclofen at home, from [facility] has history of TIA - Continue aspirin - Hold home baclofen, duloxetine and gabapentin, monitor mentation consider resuming in a.m. #History of hypertension #History of hyperlipidemia Currently blood pressure normotensive hold antihypertensives #History of BPH and neurogenic bladder #History of right inguinal hernia - Consider starting patient on tamsulosin #Anion gap metabolic acidosis, resolved #Lactic acidosis resolved #Hyponatremia #Hypochloremia #Hyperkalemia resolved #Hypercalcemia resolved - Follow CMP in a.m. DVT prophylaxis: Heparin every 12 hour GI prophylaxis: IV Protonix 40 Diet: N.p.o. Lines: Peripheral IV Code status: Full code Case discussed with Attending Physician Dr. Yash Fallon MD Internal Medicine PGY-2 Disclaimer: This note was dictated by speech recognition. Minor errors in telemarketing agent may be present due to voice recognition software. Attending Provider Attestation/Addendum Provide I think you are talking about people to call me I have discussed and was present for the essential components of the history, physical examination, diagnosis, and treatment plan with the resident. I agree with the patient's care as documented by the resident and amended herein by me. Elmo Mason DO. Although this document has been carefully reviewed, there may still be some phonetic and other typographical errors. These errors are purely grammatical due to imperfections in the software program and should not be construed in any way to compromise the substance of the patient's medical care during this visit. Patient seen and evaluated this AM. No acute events overnight however patient did become very short of breath and hypoxic in the a.m., now on 15 L at 91% SpO2. I's and O's overnight, 940/1600 mL, At time of bedside visit the patient was having a bowel movement we noticed that his stool was completely black. FOBT was obtained and was positive, GI was consulted and the patient started on Protonix 40 mg twice daily. Chest x-ray performed today showed edema and possible pneumonia, very extensive hence a dose of Lasix was given in the morning prior to knowing about the GI bleed however we will refrain from repeat doses. For the patient's ESBL E. coli, the patient is on Zosyn, presently day 4, ET tube secretions that were sent for culture on arrival grew Klebsiella, Pseudomonas and E. coli all sensitive to Zosyn. The patient's CHAR worse today, creatinine 2.3, likely secondary to shock on arrival. Nephrology is consulted, appreciate recommendations.
[2025-09-19] MEDS: INSULIN LISPRO (AdmeLOG) 1 UNIT/0.01 ML UNIT SC (16:46)
--- NOTE | 2025-09-19 17:20 | PD.IMCONS ---
HPI Data of Consult Requesting Physician: Milagros Dubois MD Primary Care Provider: Saray Benitez NP Consult Narrative Reason for consult: Melena History of present illness: 65 years old male being evaluated at request of the internal medicine team for episodes of melena and dropping hemoglobin hematocrit to 8.3 and 25.9 Patient was admitted on 09/15/2025 when his hemoglobin hematocrit was 16.0 and 49.3 At that point his BUN/creatinine was 40 and 2.2 Today his BUN/creatinine is 36 and 2.3 09/15/[address] scan with abdomen and pelvis showed small bowel obstruction pattern which has resolved right inguinal hernia containing bowel 09/19/2025 chest x-ray shows extensive edema/pneumonia involving both lungs Patient currently in acute respiratory failure on high flow nasal cannula at 10 L The niece and the grandson were in the room at the time of my interview of the patient not much history was obtainable from him Patient currently on Zosyn and midodrine 10 mg 3 times daily Patient on clopidogrel for unspecified cause at the moment not known to me cc:: cc: Milagros Dubois MD Review of Systems Review of Systems Systems Reviewed: All systems reviewed, normal except as documented Past Medical History Surgical History OTHER SURGICAL HX: As in the history of present illness Meds Home Medications and Allergies Home Medications ?Medication ?Instructions ?Recorded ?Confirmed ?Type duloxetine 20 mg capsule,delayed 20 mg PO BID 05/01/19 09/16/25 History release gabapentin 100 mg capsule 100 mg PO TID 05/01/19 09/16/25 History Held on 09/16/25. Instructions: Doctor's Order polyethylene glycol 3350 17 gram 17 g PO QPM 05/01/19 09/16/25 History oral powder packet (Miralax) baclofen 10 mg tablet 10 mg PO HS 03/01/20 09/16/25 History clopidogrel 75 mg tablet (Plavix) 75 mg PO QDAY 04/28/21 09/16/25 History metformin 500 mg tablet 500 mg PO BID 04/28/21 09/16/25 History Held on 09/16/25. Instructions: Doctor's Order tamsulosin 0.4 mg capsule 0.8 mg PO HS 02/12/22 09/16/25 History acetaminophen 500 mg capsule 500 mg PO Q6H PRN Pain (Scale 06/01/22 09/16/25 History Score 1-3) magnesium oxide 400 mg PO QDAY 06/01/22 09/16/25 History Held on 09/16/25. Instructions: Doctor's Order multivitamin 1 tab PO HS 06/01/22 09/16/25 History sennosides 8.6 mg-docusate sodium 1 tab-cap PO QHS PRN Constipation 06/01/22 09/16/25 History 50 mg tablet vitamin A 3,000 mcg (10,000 unit) 8,000 unit PO QDAY 07/23/22 09/16/25 History capsule aspirin 81 mg tablet,delayed 81 mg PO HS 02/11/23 09/16/25 History release methenamine hippurate 1 gram tablet 1 g PO DAILY 09/16/25 09/16/25 History Allergies Allergy/AdvReac Type Severity Reaction Status Date / Time No Known Drug Allergies Allergy Unknown Verified 12/17/22 12:45 Exam Vital Signs Temp Pulse Resp BP Pulse Ox O2 Del Method O2 Flow Rate 98.3 F 90 13 144/76 H 95 High Flow Nasal Cannula 30 09/19/25 16:00 09/19/25 16:00 09/19/25 16:00 09/19/25 16:00 09/19/25 16:00 09/19/25 16:00 09/19/25 16:00 FiO2 60 09/19/25 16:00 Constitutional Comments: Chronically ill-appearing Routine Respiratory Exam Comments: Scattered rhonchi and rails Routine Abdominal Exam Comments: Soft nontender Results Labs 09/19/25 04:45 09/19/25 04:45 Labs: Short CBC 09/19/25 Range/Units 04:45 WBC 7.9 (3.8-10.6) Thou/mm3 Hgb 8.6 L (13.5-16.0) g/dL Hct 26.5 L (41.0-53.0) % Plt Count 190 (140-440) Thou/mm3 BMP 09/19/25 04:45 Sodium 137 Potassium 4.1 D Chloride 98 Carbon Dioxide 30.8 BUN 36 H Creatinine 2.3 H Glucose 110 H Calcium 8.3 Liver Function 09/19/25 Range/Units 04:45 Total Bilirubin 0.2 L (0.3-1.2) mg/dL AST 12 (0-34) U/L ALT 9 L (10-49) U/L Alkaline Phosphatase 72 (46-116) U/L Albumin 3.4 (3.4-4.8) gm/dL ABG Interpretation ABG results: 09/15/25 09/15/25 09/16/25 20:48 22:33 04:03 ABG pH 7.30 L 7.33 L 7.29 L ABG pCO2 57 H 49 H 51 H ABG pO2 167 H 154 H 118 H D ABG HCO3 28 H 26 25 ABG O2 Saturation 100 H 100 H 99 H ABG Base Excess 0 -1 -2 VBG pH VBG pCO2 VBG pO2 VBG Base Excess 09/17/25 09/19/25 03:40 08:35 ABG pH ABG pCO2 ABG pO2 ABG HCO3 ABG O2 Saturation ABG Base Excess VBG pH 7.43 7.39 VBG pCO2 41 52 D VBG pO2 139 H 80 H D VBG Base Excess 3 5 H Assessment and Plan Additional Assessment & Plan Additional Plan: # Melena in the setting of acute hypoxic respiratory failure on high flow nasal cannula with dropping hemoglobin hematocrit Plan Serial CBC PRBC transfusion if the hemoglobin drops below 7 g I will wait for the upper endoscopy till respiratory status improves IV Protonix Will follow the patient Other medical problems include CHAR on CKD Bilateral pneumonia/superimposed congestive heart failure Right inguinal hernia containing bowel Will follow the patient Thank you very much for the opportunity to participate in the care of this patient I have told the attending RN to start the patient on clear liquid diet
[2025-09-19 19:03] LABS: OBS Developer Lot # 75023G; OBS Performed By DEMAM; OBS QC OK? Yes; Occult Blood, Stool Positive (Negative)
[2025-09-19] MEDS: MIDODRINE 5 MG TABLET 10 MG PO (21:31)
[2025-09-20] VITALS (16 sets, daily range): BP systolic 104–144; BP diastolic 63–87; PULSE 73–92; RESP 11–25; TEMP 36.1–37; O2SAT 92–97; BMI 36.8; BMI 36.6
[2025-09-20] MEDS: PIPER/TAZO 3.375 GM PREMIX 3.375 GM/50 ML BAG IV (05:22)
[2025-09-20 06:48] LABS: Basophils # (Auto) 0.0 Thou/mm3 (0.0-0.2); Basophils % (Auto) 0 % (0-2.5); Eosinophils # (Auto) 0.0 Thou/mm3 (0.0-0.5); Eosinophils % (Auto) 0 % (0-10); Hematocrit 25.0 % (41.0-53.0); Immature Granulocytes Auto 0.04 Thou/mm3 (0.00-0.00); Lymphocytes # (Auto) 1.4 Thou/mm3 (1.0-4.8); Lymphocytes % (Auto) 12 % (10-50); Mean Corpuscular HGB Conc 31.2 g/dl (31.0-37.0); Mean Corpuscular Hemoglobin 28.1 pg (25.0-35.0); Mean Corpuscular Volume 90 fL (80-100); Monocytes # (Auto) 0.7 Thou/mm3 (0.0-0.8); Monocytes % (Auto) 6 % (0-12); Neutrophils # (Auto) 9.2 Thou/mm3 (1.8-7.7); Neutrophils % (Auto) 81 % (37-80); Nucleated Red Blood Cell # 0.00 Thou/mm3 (0.00-0.00); Nucleated Red Blood Cell % 0 /100 WBC (0); Platelet Count 176 Thou/mm3 (140-440); RDW Standard Deviation 44.8 fL (35.1-43.9); Red Blood Count 2.78 Miln/mm3 (4.50-5.90); White Blood Count 11.3 Thou/mm3 (3.8-10.6)
[2025-09-20 07:05] LABS: Hemoglobin 7.8 g/dL (13.5-16.0)
[2025-09-20 07:15] LABS: Alanine Aminotransferase < 7 U/L (10-49); Albumin, Serum 3.4 gm/dL (3.4-4.8); Albumin/Globulin Ratio 1.1 (1.2-2.2); Alkaline Phosphatase 70 U/L (46-116); Anion Gap 8 (7-16); Aspartate Amino Transferase 23 U/L (0-34); BUN/Creatinine Ratio 16 Ratio (12-20); Bilirubin,Total 0.3 mg/dL (0.3-1.2); Blood Urea Nitrogen 36 mg/dL (9-23); Calcium 7.8 mg/dL (8.3-10.6); Calcium (Corrected) 8.3 mg/dL (8.5-10.1); Carbon Dioxide 33.9 mMol/L (20.0-31.0); Chloride 100 mMol/L (98-107); Creatinine (Component) 2.3 mg/dL (0.6-1.3); Estimated Creatinine Clearance 37.0 mL/min (>60); Globulin 3.0 gm/dL (2.3-3.5); Glucose 104 mg/dL (74-106); Osmolality,Calculated 291 (275-295); Potassium 3.6 mMol/L (3.4-5.1); Sodium 142 mMol/L (136-145); Total Protein 6.4 gm/dL (5.7-8.2); eGFR 31 See Note
--- NOTE | 2025-09-20 07:42 | PD.RESPRO ---
Documentation for date of: 09/20/25 Subjective Subjective Interval history: Patient seen and examined at bedside; no acute events overnight. Still on 30L @ 50% HFNC. Consulted [facility]; some concern for aspiration and KUB showed an air distended stomch, with colonic ileus. Exam Vital Signs Temp Pulse Resp BP Pulse Ox O2 Del Method O2 Flow Rate 98.2 F 75 20 134/79 H 95 High Flow Nasal Cannula 30 09/20/25 04:00 09/20/25 06:44 09/20/25 06:44 09/20/25 05:25 09/20/25 06:44 09/20/25 04:00 09/20/25 06:44 FiO2 50 09/20/25 06:44 Narrative Exam General: A/O x3, no acute distress, well-nourished, well-developed Eyes: PERRL, EOMI. Anicteric, vision grossly intact. Ears: No ear pain, no ear discharge, Hearing grossly intact. Nose: No nasal discharge. Mouth/Throat: Moist mucous membranes, no redness, no lesions. Neck: Neck supple, non-tender, no cervical lymphadenopathy. Lungs: bilateral wheezing, No accessory muscle use. Cardio: Normal S1/S2, regular rhythm, no murmurs, no JVD or carotid bruits. Abdomen: Soft, non-tender, no palpable masses, peristalsis present, no guarding or rebound. Extremities: Symmetrical, no significant deformities, bilateral pitting edema LLE , non-tender, peripheral pulses present. Skin: No rashes, no lesions, warm to touch. Neuro: No focal neurological deficits, at baseline Psych: Cooperative, appropriate mood and effect. Objective Labs 09/20/25 13:53 09/20/25 06:11 Labs: Laboratory Results - last 24 hr 09/19/25 09/19/25 09/20/25 08:35 10:40 06:11 WBC 11.3 H D RBC 2.78 L Hgb 7.8 L Hct 25.0 L MCV 90 MCH 28.1 MCHC 31.2 RDW Std Deviation 44.8 H Plt Count 176 Neut % (Auto) 81 H Lymph % (Auto) 12 [place] % (Auto) 6 Eos % (Auto) 0 Baso % (Auto) 0 Neut # (Auto) 9.2 H Lymph # (Auto) 1.4 [place] # (Auto) 0.7 Eos # (Auto) 0.0 Baso # (Auto) 0.0 Immature Gran # (Auto) 0.04 H Absolute Nucleated RBC 0.00 Immature Gran % 0 Nucleated RBC % 0 VBG pH 7.39 VBG pCO2 52 D VBG pO2 80 H D VBG O2 Sat (Nilesh) 97 VBG Base Excess 5 H Sodium 142 Potassium 3.6 D Chloride 100 Carbon Dioxide 33.9 H Anion Gap 8 BUN 36 H Creatinine 2.3 H Estim Creat Clear Calc 37.0 L eGFR 31 L BUN/Creatinine Ratio 16 Glucose 104 Calculated Osmolality 291 Calcium 7.8 L Corrected Calcium 8.3 L Total Bilirubin 0.3 AST 23 ALT < 7 L Alkaline Phosphatase 70 Total Protein 6.4 Albumin 3.4 Globulin 3.0 Albumin/Globulin Ratio 1.1 L Stool Occult Blood Positive A ABG Interpretation ABG results: 09/15/25 09/15/25 09/16/25 20:48 22:33 04:03 ABG pH 7.30 L 7.33 L 7.29 L ABG pCO2 57 H 49 H 51 H ABG pO2 167 H 154 H 118 H D ABG HCO3 28 H 26 25 ABG O2 Saturation 100 H 100 H 99 H ABG Base Excess 0 -1 -2 VBG pH VBG pCO2 VBG pO2 VBG Base Excess 09/17/25 09/19/25 03:40 08:35 ABG pH ABG pCO2 ABG pO2 ABG HCO3 ABG O2 Saturation ABG Base Excess VBG pH 7.43 7.39 VBG pCO2 41 52 D VBG pO2 139 H 80 H D VBG Base Excess 3 5 H Quality Measures Quality Measures VTE prophylaxis (Heparin SC ) Assessment & Plan Assessment Current Active Medications: Generic Name Dose Route Start Last Admin Trade Name Freq PRN Reason Stop Dose Admin Acetaminophen 650 mg 09/16/25 00:36 Acetaminophen 325 Mg Tablet PO 10/16/25 00:35 Q6H PRN Fever >101.3 Aspirin 81 mg 09/16/25 15:45 09/19/25 08:14 Aspirin Ec 81 Mg Tabec PO 10/16/25 15:44 81 mg QDAY SHIVAM Administration Dextrose 25 ml 09/16/25 05:18 Dextrose 50%-Water Inj 50 Ml Syringe IV 10/16/25 05:17 Q15MIN PRN BG 50-70 responsive npo pt Dextrose 50 ml 09/16/25 05:18 Dextrose 50%-Water Inj 50 Ml Syringe IV 10/16/25 05:17 Q15MIN PRN BG <50 OR BG <70 & pt unresponsive Glucagon 1 mg 09/16/25 05:18 Glucagon Inj 1 Mg Vial IM Q15MIN PRN BG <70, and no IV access Heparin Sodium (Porcine) 5,000 unit 09/18/25 18:00 09/19/25 21:29 Heparin Sod Inj 5000 Unit/Ml Vial SC 10/02/25 17:59 5,000 unit Q12HR SHIVAM Administration Piperacillin/Tazobactam/Dextrose 3.375 gm in 50 mls @ 100 mls/hr 09/16/25 14:00 09/20/25 05:22 Zosyn IV 09/23/25 13:59 100 mls/hr Q8HR SHIVAM Administration Protocol Insulin Human Lispro 0 unit 09/20/25 00:00 09/20/25 05:25 Insulin Lispro (Admelog) 1 Unit/0.01 Ml Unit SC 10/20/25 00:00 Not Given Q6HR [facility] Protocol Midodrine 10 mg 09/18/25 06:00 09/20/25 05:25 Midodrine 5 Mg Tablet PO 10/18/25 05:59 Not Given TID [facility] Ondansetron HCl 4 mg 09/16/25 00:36 09/19/25 10:20 Ondansetron Inj 2 Mg/Ml Inj 2 Ml IVP 10/16/25 00:35 4 mg Q6H PRN Administration NAUSEA OR VOMITING Protocol Pantoprazole Sodium 40 mg 09/19/25 21:00 09/19/25 21:29 Pantoprazole Inj 40 Mg Vial IVP 10/19/25 20:59 40 mg BID SHIVAM Administration Pharmacy Consult 1 each 09/16/25 00:42 Pharmacy Renal Dose Adjustment 1 Ea XX 10/16/25 00:41 PRN PRN CONSULT Plan 65-year-old bedbound male with past medical history of evelopmental delay, muscular dystrophy, benign prostatic hyperplasia, history of neurogenic bladder, right inguinal hernia, CVA, CAD, hypertension, hyperlipidemia and diabetes was brought in to the ED on 09/15/2025 from [facility] with altered mental status and had cardiac arrest with downtime of 20 mins at the facility. In ED he was resuscitated and ROSC was achieved. Patient was admitted to ICU for acute encephalopathy postcardiac arrest, distributive shock?septic secondary to UTI for management. Patient was extubated 09/16, weaned off of pressors and was downgraded to telemetry on 09/18. #Urinary tract infection #Community-acquired pneumonia #Distributive shock, likely septic secondary to UTI, resolved #Acute hypoxic respiratory failure Patient presented with septic shock, weaned off of pressors. Currently on midodrine, blood pressure stable. Blood culture negative for 48 hours Urine culture positive for ESBL, sputum culture positive for ESBL, Klebsiella, Proteus. MRSA nares negative, vancomycin discontinued 09-20-25- zosyn disconsitnued; 09-19-25- Overnight patient developed cough with dark sputum. Patient then developed significant hypoxia, saturation 87-90% on 15 L oxy mask. Patient placed on high flow nasal cannula with improvement in O2 saturation. Chest x-ray taken, showed worsening vascular congestion, fluid in bilateral lungs. Concern for aspiration event in setting of dysphagia, patient made NPO. 09-20-25- patient still 30L HFNC Plan: - Started meropenem 1g IV Q12H - Continue midodrine with hold parameters - Bumex 2mg 1x given - Infectious disease consulted #Normocytic normochromic anemia #Melena Patient has chronic, stable anemia. Noted to have melena 09/19, FOBT positive. GI consulted. Plan: - Follow CBC, transfuse as needed - GI consulted, will wait for upper GI until respiratory status improved - IV Protonix - N.p.o. 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 Echocardiogram obtained shows EF 60 to 65%, mild concentric hypertrophy normal diastolic dysfunction EKG 09/16?sinus rhythm, EKG 09/15?sinus tachycardia no acute ST-T changes Troponin on presentation 2.194 up trended to 3.4 and then down trended to 2.4 Plan: - Cardiology is consulted, state that likely cause is due to kyperkalemia #Type 2 diabetes mellitus, [id number] Hemoglobin A1c 5.2 - Sliding scale insulin #Dysphagia Patient has NG tube intact, SBO was ruled out Speech therapy recommended dysphagia 1 diet, patient was started on it, will keep NG tube for now, consider discontinuing in the morning. Patient had possible aspiration event 09/19 Plan: - GI recommendations as above - N.p.o. #History of developmental delay and muscular dystrophy #History of depression #History of TIA Patient on gabapentin and baclofen at home, from [employer] [facility] has history of TIA - Continue aspirin - Hold home baclofen, duloxetine and gabapentin, monitor mentation consider resuming in a.m. #History of hypertension #History of hyperlipidemia Currently blood pressure normotensive hold antihypertensives #History of BPH and neurogenic bladder #History of right inguinal hernia - Consider starting patient on tamsulosin #Anion gap metabolic acidosis, resolved #Lactic acidosis resolved #Hyponatremia #Hypochloremia #Hyperkalemia resolved #Hypercalcemia resolved - Follow CMP in a.m. - KCl 20 mEq given 1x DVT prophylaxis: Heparin every 12 hour GI prophylaxis: IV Protonix 40 Diet: N.p.o. Lines: Peripheral IV Code status: Full code This case was discussed with my attending physician, Dr. Barraza, and senior resident, Dr. Cali. Vadim Dominguez, PGY1 Senior Resident Attestation: The patient is still on high flow nasal cannula, and due to concern for ESBL pneumonia, antibiotics were switched to meropenem, ID consultation was done, Lasix switched to Bumex for fluid overload, and KCl 20 mEq IV x 1 was repleted. I discussed with and supervised the qa internship physician involved in the care of this patient. I personally saw and examined the patient and discussed the assessment and plan with the entire medicine team, including my attending. I agree with the assessment and plan as documented above. Tremaine Cali MD PGY3 Internal Medicine
[2025-09-20] MEDS: ASPIRIN EC 81 MG TABEC PO (08:28)
[2025-09-20] MEDS: CALCIUM CARBONATE 600 MG TABLET PO ×2 (08:28→21:08)
[2025-09-20] MEDS: CALCIUM GLUC/NS 1000MG IVPB 1,000 MG/50 ML BAG 50 MG IV (08:29)
[2025-09-20] MEDS: HEPARIN SOD INJ 5000 UNIT/ML VIAL SC ×2 (08:30→21:08)
[2025-09-20 08:59] LABS: Magnesium 2.8 mg/dL (1.6-2.6); Phosphorous 2.7 mg/dL (2.4-5.1)
--- NOTE | 2025-09-20 09:06 | PCS.ST ---
HFNC 30L/m. PO trials completed with liquids and purees, stable RR and O2 saturations. No s/s of laryngeal penetration. Recommend to resume Dysphagia 1 diet.
--- NOTE | 2025-09-20 09:24 | PC.SS ---
Follow up note: EGD pending. Pt will return to alf upon dc.
--- NOTE | 2025-09-20 13:44 | ESPR_ITS ---
Documentation for date of: 09/20/25 Subjective Subjective Interval history: Downtrending hemoglobin hematocrit of 7.8 and 25.0 Patient remains on high flow oxygen Not a candidate for any invasive GI workup at the moment Exam Vital Signs Temp Pulse Resp BP Pulse Ox O2 Del Method O2 Flow Rate 97.6 F 76 17 134/87 H 97 High Flow Nasal Cannula 30 09/20/25 12:00 09/20/25 12:00 09/20/25 12:00 09/20/25 12:00 09/20/25 12:00 09/20/25 12:00 09/20/25 12:00 FiO2 50 09/20/25 12:00 Objective Labs 09/20/25 06:11 09/20/25 06:11 Labs: Laboratory Results - last 24 hr 09/19/25 09/20/25 10:40 06:11 WBC 11.3 H D RBC 2.78 L Hgb 7.8 L Hct 25.0 L MCV 90 MCH 28.1 MCHC 31.2 RDW Std Deviation 44.8 H Plt Count 176 Neut % (Auto) 81 H Lymph % (Auto) 12 [place] % (Auto) 6 Eos % (Auto) 0 Baso % (Auto) 0 Neut # (Auto) 9.2 H Lymph # (Auto) 1.4 [place] # (Auto) 0.7 Eos # (Auto) 0.0 Baso # (Auto) 0.0 Immature Gran # (Auto) 0.04 H Absolute Nucleated RBC 0.00 Immature Gran % 0 Nucleated RBC % 0 Sodium 142 Potassium 3.6 D Chloride 100 Carbon Dioxide 33.9 H Anion Gap 8 BUN 36 H Creatinine 2.3 H Estim Creat Clear Calc 37.0 L eGFR 31 L BUN/Creatinine Ratio 16 Glucose 104 Calculated Osmolality 291 Calcium 7.8 L Corrected Calcium 8.3 L Phosphorus 2.7 Magnesium 2.8 H Total Bilirubin 0.3 AST 23 ALT < 7 L Alkaline Phosphatase 70 Total Protein 6.4 Albumin 3.4 Globulin 3.0 Albumin/Globulin Ratio 1.1 L Stool Occult Blood Positive A Impressions Impression: Melena Anemia blood loss Acute hypoxic respiratory failure requiring high flow oxygen Continue conservative management Transfusion as needed Once the oxygen status improved and the respiratory status improved I will perform an upper endoscopy ABG Interpretation ABG results: 09/15/25 09/15/25 09/16/25 20:48 22:33 04:03 ABG pH 7.30 L 7.33 L 7.29 L ABG pCO2 57 H 49 H 51 H ABG pO2 167 H 154 H 118 H D ABG HCO3 28 H 26 25 ABG O2 Saturation 100 H 100 H 99 H ABG Base Excess 0 -1 -2 VBG pH VBG pCO2 VBG pO2 VBG Base Excess 09/17/25 09/19/25 03:40 08:35 ABG pH ABG pCO2 ABG pO2 ABG HCO3 ABG O2 Saturation ABG Base Excess VBG pH 7.43 7.39 VBG pCO2 41 52 D VBG pO2 139 H 80 H D VBG Base Excess 3 5 H Assessment & Plan A&P Narrative # Melena in the setting of acute hypoxic respiratory failure on high flow nasal cannula with dropping hemoglobin hematocrit Plan Serial CBC PRBC transfusion if the hemoglobin drops below 7 g I will wait for the upper endoscopy till respiratory status improves IV Protonix Will follow the patient Other medical problems include CHAR on CKD Bilateral pneumonia/superimposed congestive heart failure Right inguinal hernia containing bowel Will follow the patient Thank you very much for the opportunity to participate in the care of this patient I have told the attending RN to start the patient on clear liquid diet Time Spent With Patient Time: Total time spent is greater than 50% in coordination of care (as documented) at patient's floor/unit and/or counseling patient:
[2025-09-20 14:17] LABS: Hematocrit 24.4 % (41.0-53.0)
[2025-09-20 14:21] LABS: Hemoglobin 7.7 g/dL (13.5-16.0)
[2025-09-20] MEDS: BUMETANIDE INJ 0.25 MG/ML VIAL 4 ML 2 MG IVP (15:07)
--- NOTE | 2025-09-20 15:14 | XR_ITS ---
Examination: Abdomen AP single view Technique: AP portable supine abdomen, single view Exam date and time: September 20, 2025, 1525 hours INDICATIONS: Renal insufficiency distention today. FINDINGS: Moderately air distended stomach Prominent colonic ileus A few loops of air distended small bowel No free air No renal or ureteral calculi IMPRESSION: Moderately air distended stomach Prominent colonic ileus Mild small bowel ileus
[2025-09-20] MEDS: LACTULOSE SYRUP 20 GM/30 ML UDC PO (17:32)
[2025-09-20] MEDS: POTASSIUM CHL 10 mEq IVPB 10 MEQ/100 ML BAG 100 MEQ IV ×2 (17:33→18:28)
[2025-09-20] MEDS: MIDODRINE 5 MG TABLET 10 MG PO (21:09)
[2025-09-20] MEDS: MEROPENEM INJ 1,000 MG in SODIUM CHLORIDE 0.9% (Popper) 50 ML 100 MG IV (21:09)
[2025-09-21] VITALS (19 sets, daily range): BP systolic 141–150; BP diastolic 59–83; PULSE 77–130; RESP 16–30; TEMP 36.4–38; O2SAT 83–100
[2025-09-21] MEDS: ACETAMINOPHEN 325 MG TABLET 650 MG PO (03:49)
[2025-09-21 05:42] LABS: Basophils # (Auto) 0.0 Thou/mm3 (0.0-0.2); Basophils % (Auto) 0 % (0-2.5); Eosinophils # (Auto) 0.1 Thou/mm3 (0.0-0.5); Eosinophils % (Auto) 0 % (0-10); Hematocrit 26.0 % (41.0-53.0); Immature Granulocytes Auto 0.26 Thou/mm3 (0.00-0.00); Lymphocytes # (Auto) 1.5 Thou/mm3 (1.0-4.8); Lymphocytes % (Auto) 11 % (10-50); Mean Corpuscular HGB Conc 32.3 g/dl (31.0-37.0); Mean Corpuscular Hemoglobin 29.4 pg (25.0-35.0); Mean Corpuscular Volume 91 fL (80-100); Monocytes # (Auto) 1.0 Thou/mm3 (0.0-0.8); Monocytes % (Auto) 7 % (0-12); Neutrophils # (Auto) 10.9 Thou/mm3 (1.8-7.7); Neutrophils % (Auto) 80 % (37-80); Nucleated Red Blood Cell # 0.00 Thou/mm3 (0.00-0.00); Nucleated Red Blood Cell % 0 /100 WBC (0); Platelet Count 160 Thou/mm3 (140-440); RDW Standard Deviation 45.0 fL (35.1-43.9); Red Blood Count 2.86 Miln/mm3 (4.50-5.90); White Blood Count 13.7 Thou/mm3 (3.8-10.6)
[2025-09-21 07:22] LABS: Alanine Aminotransferase 9 U/L (10-49); Albumin, Serum 3.5 gm/dL (3.4-4.8); Alkaline Phosphatase 81 U/L (46-116); Anion Gap 12 (7-16); Aspartate Amino Transferase < 8 U/L (0-34); BUN/Creatinine Ratio 14 Ratio (12-20); Bilirubin,Total 0.4 mg/dL (0.3-1.2); Blood Urea Nitrogen 30 mg/dL (9-23); Calcium 7.9 mg/dL (8.3-10.6); Calcium (Corrected) 8.3 mg/dL (8.5-10.1); Carbon Dioxide 30.7 mMol/L (20.0-31.0); Chloride 95 mMol/L (98-107); Creatinine (Component) 2.1 mg/dL (0.6-1.3); Estimated Creatinine Clearance 40.6 mL/min (>60); Glucose 97 mg/dL (74-106); Magnesium 2.2 mg/dL (1.6-2.6); Osmolality,Calculated 281 (275-295); Phosphorous 2.7 mg/dL (2.4-5.1); Potassium 3.3 mMol/L (3.4-5.1); Sodium 138 mMol/L (136-145); eGFR 35 See Note
[2025-09-21 07:55] LABS: Hemoglobin 8.4 g/dL (13.5-16.0)
[2025-09-21] MEDS: ALBUTEROL/IPRATROPIUM (Duoneb) RT SOL 3 ML NEBU INH ×2 (09:01→18:22)
--- NOTE | 2025-09-21 09:01 | XR_ITS ---
EXAMINATION: AP chest single view TECHNIQUE: AP portable upright chest single view Date and time: September 21, 2025, 0927 hours, comparison September 19, 2025 INDICATIONS: Worsening respiratory symptoms difficulty breathing today. FINDINGS: Interval severe diffuse right lung pneumonia Significant left lung pneumonia No significant cardiac enlargement Right internal jugular central line tip satisfactory position no pneumothorax IMPRESSION: Interval severe diffuse right lung pneumonia Significant left lung pneumonia
--- NOTE | 2025-09-21 09:19 | ESPR_ITS ---
Documentation for date of: 09/21/25 Subjective Subjective Interval history: Patient seen and examined at bedside; had increased work of breathing with secretions, requiring 35L at 50% FiO2 on HFNC. Will diurese again today. Exam Vital Signs Temp Pulse Resp BP Pulse Ox O2 Del Method O2 Flow Rate 97.8 F 99 26 H 145/78 H 94 L High Flow Nasal Cannula 35 09/21/25 08:00 09/21/25 09:04 09/21/25 09:04 09/21/25 08:00 09/21/25 09:04 09/21/25 08:00 09/21/25 09:04 FiO2 70 09/21/25 09:04 Narrative Exam General: A/O x3, no acute distress, well-nourished, well-developed Eyes: PERRL, EOMI. Anicteric, vision grossly intact. Ears: No ear pain, no ear discharge, Hearing grossly intact. Nose: No nasal discharge. Mouth/Throat: Moist mucous membranes, no redness, no lesions. Neck: Neck supple, non-tender, no cervical lymphadenopathy. Lungs: bilateral wheezing, No accessory muscle use. Cardio: Normal S1/S2, regular rhythm, no murmurs, no JVD or carotid bruits. Abdomen: Soft, non-tender, no palpable masses, peristalsis present, no guarding or rebound. Extremities: Symmetrical, no significant deformities, bilateral pitting edema lower extremities, non-tender, peripheral pulses present. Skin: No rashes, no lesions, warm to touch. Neuro: No focal neurological deficits, at baseline Psych: Cooperative, appropriate mood and effect. Objective Labs 09/21/25 04:44 09/21/25 04:44 Labs: Laboratory Results - last 24 hr 09/20/25 09/21/25 13:53 04:44 WBC 13.7 H RBC 2.86 L Hgb 7.7 L 8.4 L Hct 24.4 L 26.0 L MCV 91 MCH 29.4 MCHC 32.3 RDW Std Deviation 45.0 H Plt Count 160 Neut % (Auto) 80 Lymph % (Auto) 11 [place] % (Auto) 7 Eos % (Auto) 0 Baso % (Auto) 0 Neut # (Auto) 10.9 H Lymph # (Auto) 1.5 [place] # (Auto) 1.0 H Eos # (Auto) 0.1 Baso # (Auto) 0.0 Immature Gran # (Auto) 0.26 H Absolute Nucleated RBC 0.00 Immature Gran % 2 H Nucleated RBC % 0 Sodium 138 Potassium 3.3 L Chloride 95 L Carbon Dioxide 30.7 Anion Gap 12 BUN 30 H Creatinine 2.1 H Estim Creat Clear Calc 40.6 L eGFR 35 L BUN/Creatinine Ratio 14 Glucose 97 Calculated Osmolality 281 Calcium 7.9 L Corrected Calcium 8.3 L Phosphorus 2.7 Magnesium 2.2 Total Bilirubin 0.4 AST < 8 ALT 9 L Alkaline Phosphatase 81 Albumin 3.5 ABG Interpretation ABG results: 09/15/25 09/15/25 09/16/25 20:48 22:33 04:03 ABG pH 7.30 L 7.33 L 7.29 L ABG pCO2 57 H 49 H 51 H ABG pO2 167 H 154 H 118 H D ABG HCO3 28 H 26 25 ABG O2 Saturation 100 H 100 H 99 H ABG Base Excess 0 -1 -2 VBG pH VBG pCO2 VBG pO2 VBG Base Excess 09/17/25 09/19/25 03:40 08:35 ABG pH ABG pCO2 ABG pO2 ABG HCO3 ABG O2 Saturation ABG Base Excess VBG pH 7.43 7.39 VBG pCO2 41 52 D VBG pO2 139 H 80 H D VBG Base Excess 3 5 H Quality Measures Quality Measures VTE prophylaxis (Heparin SC ) Assessment & Plan Assessment Current Active Medications: Generic Name Dose Route Start Last Admin Trade Name Freq PRN Reason Stop Dose Admin Acetaminophen 650 mg 09/16/25 00:36 09/21/25 03:49 Acetaminophen 325 Mg Tablet PO 10/16/25 00:35 650 mg Q6H PRN Administration Fever >101.3 Albuterol/Ipratropium 3 ml 09/21/25 08:15 09/21/25 09:01 Albuterol/Ipratropium (Duoneb) Rt Liset 3 Ml Nebu INH 10/21/25 08:14 3 ml Q6HRRT SHIVAM Administration Aspirin 81 mg 09/16/25 15:45 09/20/25 08:28 Aspirin Ec 81 Mg Tabec PO 10/16/25 15:44 81 mg QDAY SHIVAM Administration Calcium Carbonate 600 mg 09/20/25 09:00 09/20/25 21:08 Calcium Carbonate 600 Mg Tablet PO 10/20/25 08:59 600 mg BID SHIVAM Administration Dextrose 25 ml 09/16/25 05:18 Dextrose 50%-Water Inj 50 Ml Syringe IV 10/16/25 05:17 Q15MIN PRN BG 50-70 responsive npo pt Dextrose 50 ml 09/16/25 05:18 Dextrose 50%-Water Inj 50 Ml Syringe IV 10/16/25 05:17 Q15MIN PRN BG <50 OR BG <70 & pt unresponsive Glucagon 1 mg 09/16/25 05:18 Glucagon Inj 1 Mg Vial IM Q15MIN PRN BG <70, and no IV access Heparin Sodium (Porcine) 5,000 unit 09/18/25 18:00 09/20/25 21:08 Heparin Sod Inj 5000 Unit/Ml Vial SC 10/02/25 17:59 5,000 unit Q12HR SHIVAM Administration Meropenem 1,000 mg/ Sodium 50 mls @ 100 mls/hr 09/20/25 21:00 09/20/25 21:09 Chloride IV 09/27/25 20:59 100 mls/hr Q12HR SHIVAM Administration Insulin Human Lispro 0 unit 09/20/25 00:00 09/21/25 05:49 Insulin Lispro (Admelog) 1 Unit/0.01 Ml Unit SC 10/20/25 00:00 Not Given Q6HR [facility] Protocol Midodrine 10 mg 09/18/25 06:00 09/21/25 05:48 Midodrine 5 Mg Tablet PO 10/18/25 05:59 Not Given TID [facility] Ondansetron HCl 4 mg 09/16/25 00:36 09/19/25 10:20 Ondansetron Inj 2 Mg/Ml Inj 2 Ml IVP 10/16/25 00:35 4 mg Q6H PRN Administration NAUSEA OR VOMITING Protocol Pantoprazole Sodium 40 mg 09/19/25 21:00 09/20/25 21:10 Pantoprazole Inj 40 Mg Vial IVP 10/19/25 20:59 40 mg BID SHIVAM Administration Pharmacy Consult 1 each 09/16/25 00:42 Pharmacy Renal Dose Adjustment 1 Ea XX 10/16/25 00:41 PRN PRN CONSULT Plan 65-year-old bedbound male with past medical history of evelopmental delay, muscular dystrophy, benign prostatic hyperplasia, history of neurogenic bladder, right inguinal hernia, CVA, CAD, hypertension, hyperlipidemia and diabetes was brought in to the ED on 09/15/2025 from [facility]' family home with altered mental status and had cardiac arrest with downtime of 20 mins at the facility. In ED he was resuscitated and ROSC was achieved. Patient was admitted to ICU for acute encephalopathy postcardiac arrest, distributive shock?septic secondary to UTI for management. Patient was extubated 09/16, weaned off of pressors and was downgraded to telemetry on 09/18. #Acute hypoxic respiratory failure Secondary to diffuse bilateral pneumonia #Community-acquired pneumonia Secondary to Proteus Mirabella's, Klebsiella pneumoniae and ESBL E. coli #Urinary tract infection Secondary to ESBL E. coli #Distributive shock, likely septic secondary to UTI, resolved Patient presented with septic shock, weaned off of pressors. Currently on midodrine, blood pressure stable. Blood culture negative for 48 hours Urine culture positive for ESBL, sputum culture positive for ESBL, Klebsiella, Proteus. MRSA nares negative, vancomycin discontinued 09-20-25- zosyn disconsitnued; 09-19-25- Overnight patient developed cough with dark sputum. Patient then developed significant hypoxia, saturation 87-90% on 15 L oxy mask. Patient placed on high flow nasal cannula with improvement in O2 saturation. Chest x- ray taken, showed worsening vascular congestion, fluid in bilateral lungs. Concern for aspiration event in setting of dysphagia, patient made NPO. 09-20-25- patient still 30L HFNC Plan: - meropenem 1g IV Q12H - Continue midodrine with hold parameters - Bumex 2mg 1x given again today - Infectious disease consulted - Cocci serologies pending #Normocytic normochromic anemia #Melena Patient has chronic, stable anemia. Noted to have melena 09/19, FOBT positive. GI consulted. Plan: - Follow CBC, transfuse as needed - GI consulted, will wait for upper GI until respiratory status improved - IV Protonix - N.p.o. 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 Echocardiogram obtained shows EF 60 to 65%, mild concentric hypertrophy normal diastolic dysfunction EKG 09/16?sinus rhythm, EKG 09/15?sinus tachycardia no acute ST-T changes Troponin on presentation 2.194 up trended to 3.4 and then down trended to 2.4 Plan: - Cardiology is consulted, state that likely cause is due to hyperkalemia #Type 2 diabetes mellitus, [id number] Hemoglobin A1c 5.2 - Sliding scale insulin #Dysphagia Patient has NG tube intact, SBO was ruled out Speech therapy recommended dysphagia 1 diet, patient was started on it, will keep NG tube for now, consider discontinuing in the morning. Patient had possible aspiration event 09/19 Will keep npo for now Plan: - GI recommendations as above - N.p.o. #History of developmental delay and muscular dystrophy #History of depression #History of TIA Patient on gabapentin and baclofen at home, from [facility] has history of TIA - Continue aspirin - Hold home baclofen, duloxetine and gabapentin, monitor mentation #History of hypertension #History of hyperlipidemia Currently blood pressure normotensive hold antihypertensives #History of BPH and neurogenic bladder #History of right inguinal hernia - Consider starting patient on tamsulosin #Anion gap metabolic acidosis, resolved #Lactic acidosis resolved #Hyponatremia #Hypochloremia #Hyperkalemia resolved #Hypercalcemia resolved - Follow CMP in a.m. - KCl 20 mEq given 1x DVT prophylaxis: Heparin every 12 hour GI prophylaxis: IV Protonix 40 Diet: N.p.o. Lines: Peripheral IV Code status: Full code This case was discussed with my attending physician, Dr. Mason, and senior resident, Dr. Cali. Vadim Dominguez, PGY1 Senior Resident Attestation: The patient is still on high flow nasal cannula, was negative by 1.1 L in 24 hours, started on Bumex 2 mg daily, and we will continue with meropenem for UTI and pneumonia. I discussed with and supervised the internet architect physician involved in the care of this patient. I personally saw and examined the patient and discussed the assessment and plan with the entire medicine team, including my attending. I agree with the assessment and plan as documented above. Tremaine Cali MD PGY3 Internal Medicine Attending Provider Attestation/Addendum , I have discussed and was present for the essential components of the history, physical examination, diagnosis, and treatment plan with the resident. I agree with the patient's care as documented by the resident and amended herein by me. Elmo Mason DO. Although this document has been carefully reviewed, there may still be some phonetic and other typographical errors. These errors are purely grammatical due to imperfections in the software program and should not be construed in any way to compromise the substance of the patient's medical care during this visit.
[2025-09-21] MEDS: MEROPENEM INJ 1,000 MG in SODIUM CHLORIDE 0.9% (Popper) 50 ML 100 MG IV ×2 (09:44→21:52)
[2025-09-21] MEDS: ASPIRIN EC 81 MG TABEC PO (09:45)
[2025-09-21] MEDS: CALCIUM CARBONATE 600 MG TABLET PO ×2 (09:45→21:53)
[2025-09-21] MEDS: BUMETANIDE INJ 0.25 MG/ML VIAL 4 ML 2 MG IVP (09:45)
[2025-09-21] MEDS: POTASSIUM CHLORIDE 10% 20 MEQ/15 ML UDC 40 MEQ PO (09:46)
[2025-09-21] MEDS: CALCIUM GLUC/NS 1000MG IVPB 1,000 MG/50 ML BAG 50 MG IV (09:52)
[2025-09-21] MEDS: HEPARIN SOD INJ 5000 UNIT/ML VIAL SC ×2 (09:53→21:53)
[2025-09-21 13:20] LABS: Albumin/Globulin Ratio 1.1 (1.2-2.2); Globulin 3.3 gm/dL (2.3-3.5); Total Protein 6.8 gm/dL (5.7-8.2)
--- NOTE | 2025-09-21 13:55 | PC.NURSE ---
Pt leaving for IR for PICC line insertion. Pt ambulated to [facility] with transfer nurse Ashley AYALA.
--- NOTE | 2025-09-21 21:11 | PD.IMPROG ---
Documentation for date of: 09/21/25 Subjective Subjective Interval history: 65 years old male comes remains in acute hypoxic respiratory failure Abdominal x-ray shows distended stomach and somewhat of a colonic ileus Chest x-ray now shows bilateral pneumonia Labored breathing on high flow nasal cannula Exam Vital Signs Temp Pulse Resp BP Pulse Ox O2 Del Method O2 Flow Rate 99.8 F 78 24 H 149/83 H 99 High Flow Nasal Cannula 35 09/21/25 18:10 09/21/25 18:22 09/21/25 18:22 09/21/25 16:00 09/21/25 18:22 09/21/25 16:00 09/21/25 18:22 FiO2 80 09/21/25 18:22 Objective Labs 09/21/25 04:44 09/21/25 04:44 Labs: Laboratory Results - last 24 hr 09/21/25 04:44 WBC 13.7 H RBC 2.86 L Hgb 8.4 L Hct 26.0 L MCV 91 MCH 29.4 MCHC 32.3 RDW Std Deviation 45.0 H Plt Count 160 Neut % (Auto) 80 Lymph % (Auto) 11 [place] % (Auto) 7 Eos % (Auto) 0 Baso % (Auto) 0 Neut # (Auto) 10.9 H Lymph # (Auto) 1.5 [place] # (Auto) 1.0 H Eos # (Auto) 0.1 Baso # (Auto) 0.0 Immature Gran # (Auto) 0.26 H Absolute Nucleated RBC 0.00 Immature Gran % 2 H Nucleated RBC % 0 Sodium 138 Potassium 3.3 L Chloride 95 L Carbon Dioxide 30.7 Anion Gap 12 BUN 30 H Creatinine 2.1 H Estim Creat Clear Calc 40.6 L eGFR 35 L BUN/Creatinine Ratio 14 Glucose 97 Calculated Osmolality 281 Calcium 7.9 L Corrected Calcium 8.3 L Phosphorus 2.7 Magnesium 2.2 Total Bilirubin 0.4 AST < 8 ALT 9 L Alkaline Phosphatase 81 Total Protein 6.8 Albumin 3.5 Globulin 3.3 Albumin/Globulin Ratio 1.1 L Impressions Impression: # Anemia of blood loss\patient not a candidate for any endoscopic intervention Continue to monitor CBC and transfuse as necessary # Acute hypoxic respiratory failure secondary to bilateral pneumonia patient on high flow nasal cannula Continue current management ABG Interpretation ABG results: 11/26/25 11/26/25 11/27/25 20:48 22:33 04:03 ABG pH 7.30 L 7.33 L 7.29 L ABG pCO2 57 H 49 H 51 H ABG pO2 167 H 154 H 118 H D ABG HCO3 28 H 26 25 ABG O2 Saturation 100 H 100 H 99 H ABG Base Excess 0 -1 -2 VBG pH VBG pCO2 VBG pO2 VBG Base Excess 09/17/25 09/19/25 03:40 08:35 ABG pH ABG pCO2 ABG pO2 ABG HCO3 ABG O2 Saturation ABG Base Excess VBG pH 7.43 7.39 VBG pCO2 41 52 D VBG pO2 139 H 80 H D VBG Base Excess 3 5 H Assessment & Plan A&P Narrative # Melena in the setting of acute hypoxic respiratory failure on high flow nasal cannula with dropping hemoglobin hematocrit Plan Serial CBC PRBC transfusion if the hemoglobin drops below 7 g I will wait for the upper endoscopy till respiratory status improves IV Protonix Will follow the patient Other medical problems include CHAR on CKD Bilateral pneumonia/superimposed congestive heart failure Right inguinal hernia containing bowel Will follow the patient Thank you very much for the opportunity to participate in the care of this patient I have told the attending RN to start the patient on clear liquid diet Time Spent With Patient Time: Total time spent is greater than 50% in coordination of care (as documented) at patient's floor/unit and/or counseling patient:
[2025-09-22] VITALS (14 sets, daily range): BP systolic 99–153; BP diastolic 58–81; PULSE 74–103; RESP 14–27; TEMP 36.3–37.2; O2SAT 85–100; BMI 35.0
[2025-09-22] MEDS: ALBUTEROL/IPRATROPIUM (Duoneb) RT SOL 3 ML NEBU INH ×4 (00:46→19:25)
[2025-09-22 06:16] LABS: Basophils # (Auto) 0.0 Thou/mm3 (0.0-0.2); Basophils % (Auto) 0 % (0-2.5); Eosinophils # (Auto) 0.2 Thou/mm3 (0.0-0.5); Eosinophils % (Auto) 2 % (0-10); Hematocrit 24.7 % (41.0-53.0); Immature Granulocytes Auto 0.07 Thou/mm3 (0.00-0.00); Lymphocytes # (Auto) 1.2 Thou/mm3 (1.0-4.8); Lymphocytes % (Auto) 13 % (10-50); Mean Corpuscular HGB Conc 31.2 g/dl (31.0-37.0); Mean Corpuscular Hemoglobin 28.5 pg (25.0-35.0); Mean Corpuscular Volume 92 fL (80-100); Monocytes # (Auto) 0.9 Thou/mm3 (0.0-0.8); Monocytes % (Auto) 9 % (0-12); Neutrophils # (Auto) 7.0 Thou/mm3 (1.8-7.7); Neutrophils % (Auto) 75 % (37-80); Nucleated Red Blood Cell # 0.00 Thou/mm3 (0.00-0.00); Nucleated Red Blood Cell % 0 /100 WBC (0); Platelet Count 214 Thou/mm3 (140-440); RDW Standard Deviation 44.9 fL (35.1-43.9); Red Blood Count 2.70 Miln/mm3 (4.50-5.90); White Blood Count 9.3 Thou/mm3 (3.8-10.6)
[2025-09-22 06:39] LABS: Alanine Aminotransferase 9 U/L (10-49); Albumin, Serum 3.3 gm/dL (3.4-4.8); Albumin/Globulin Ratio 1.0 (1.2-2.2); Alkaline Phosphatase 77 U/L (46-116); Anion Gap 8 (7-16); Aspartate Amino Transferase 17 U/L (0-34); BUN/Creatinine Ratio 16 Ratio (12-20); Bilirubin,Total 0.4 mg/dL (0.3-1.2); Blood Urea Nitrogen 31 mg/dL (9-23); Calcium 7.6 mg/dL (8.3-10.6); Calcium (Corrected) 8.2 mg/dL (8.5-10.1); Carbon Dioxide 33.8 mMol/L (20.0-31.0); Chloride 97 mMol/L (98-107); Creatinine (Component) 1.9 mg/dL (0.6-1.3); Estimated Creatinine Clearance 43.8 mL/min (>60); Globulin 3.2 gm/dL (2.3-3.5); Glucose 103 mg/dL (74-106); Magnesium 1.9 mg/dL (1.6-2.6); Osmolality,Calculated 284 (275-295); Phosphorous 2.6 mg/dL (2.4-5.1); Potassium 3.6 mMol/L (3.4-5.1); Sodium 139 mMol/L (136-145); Total Protein 6.5 gm/dL (5.7-8.2); eGFR 39 See Note
--- NOTE | 2025-09-22 08:35 | PD.RESPRO ---
Documentation for date of: 09/22/25 Subjective Subjective Interval history: Patient seen and examined at bedside; no acute events overnight. -1300mL out today; creatinine improved to 1.9. Still on 35L @ 100% FiO2 in AM. Will increase diuresis today. Exam Vital Signs Temp Pulse Resp BP Pulse Ox O2 Del Method O2 Flow Rate 98.1 F 85 24 H 142/71 H 96 High Flow Nasal Cannula 35 09/22/25 04:00 09/22/25 06:01 09/22/25 06:01 09/22/25 05:25 09/22/25 06:01 09/22/25 04:00 09/22/25 06:01 FiO2 100 09/22/25 06:01 Narrative Exam General: A/O x3, no acute distress, well-nourished, well-developed Eyes: PERRL, EOMI. Anicteric, vision grossly intact. Ears: No ear pain, no ear discharge, Hearing grossly intact. Nose: No nasal discharge. Mouth/Throat: Moist mucous membranes, no redness, no lesions. Neck: Neck supple, non-tender, no cervical lymphadenopathy. Lungs: bilateral wheezing, No accessory muscle use. Cardio: Normal S1/S2, regular rhythm, no murmurs, no JVD or carotid bruits. Abdomen: Soft, non-tender, no palpable masses, peristalsis present, no guarding or rebound. Extremities: Symmetrical, no significant deformities, bilateral pitting edema lower extremities, non-tender, peripheral pulses present. Skin: No rashes, no lesions, warm to touch. Neuro: No focal neurological deficits, at baseline Psych: Cooperative, appropriate mood and effect. Objective Labs 09/22/25 05:15 09/22/25 05:15 Labs: Laboratory Results - last 24 hr 09/21/25 09/22/25 04:44 05:15 WBC 9.3 RBC 2.70 L Hct 24.7 L MCV 92 MCH 28.5 MCHC 31.2 RDW Std Deviation 44.9 H Plt Count 214 D Neut % (Auto) 75 Lymph % (Auto) 13 [place] % (Auto) 9 Eos % (Auto) 2 Baso % (Auto) 0 Neut # (Auto) 7.0 Lymph # (Auto) 1.2 [place] # (Auto) 0.9 H Eos # (Auto) 0.2 Baso # (Auto) 0.0 Immature Gran # (Auto) 0.07 H Absolute Nucleated RBC 0.00 Immature Gran % 1 H Nucleated RBC % 0 Sodium 139 Potassium 3.6 Chloride 97 L Carbon Dioxide 33.8 H Anion Gap 8 BUN 31 H Creatinine 1.9 H Estim Creat Clear Calc 43.8 L eGFR 39 L BUN/Creatinine Ratio 16 Glucose 103 Calculated Osmolality 284 Calcium 7.6 L Corrected Calcium 8.2 L Phosphorus 2.6 Magnesium 1.9 Total Bilirubin 0.4 AST 17 ALT 9 L Alkaline Phosphatase 77 Total Protein 6.8 6.5 Albumin 3.3 L Globulin 3.3 3.2 Albumin/Globulin Ratio 1.1 L 1.0 L ABG Interpretation ABG results: 09/15/25 09/15/25 09/16/25 20:48 22:33 04:03 ABG pH 7.30 L 7.33 L 7.29 L ABG pCO2 57 H 49 H 51 H ABG pO2 167 H 154 H 118 H D ABG HCO3 28 H 26 25 ABG O2 Saturation 100 H 100 H 99 H ABG Base Excess 0 -1 -2 VBG pH VBG pCO2 VBG pO2 VBG Base Excess 09/17/25 09/19/25 03:40 08:35 ABG pH ABG pCO2 ABG pO2 ABG HCO3 ABG O2 Saturation ABG Base Excess VBG pH 7.43 7.39 VBG pCO2 41 52 D VBG pO2 139 H 80 H D VBG Base Excess 3 5 H Quality Measures Quality Measures VTE prophylaxis (Heparin SC ) Assessment & Plan Assessment Current Active Medications: Generic Name Dose Route Start Last Admin Trade Name Freq PRN Reason Stop Dose Admin Acetaminophen 650 mg 09/16/25 00:36 09/21/25 03:49 Acetaminophen 325 Mg Tablet PO 10/16/25 00:35 650 mg Q6H PRN Administration Fever >101.3 Albuterol/Ipratropium 3 ml 09/21/25 08:15 09/22/25 06:01 Albuterol/Ipratropium (Duoneb) Rt Liset 3 Ml Nebu INH 10/21/25 08:14 3 ml Q6HRRT SHIVAM Administration Aspirin 81 mg 09/16/25 15:45 09/21/25 09:45 Aspirin Ec 81 Mg Tabec PO 10/16/25 15:44 81 mg QDAY SHIVAM Administration Bumetanide 2 mg 09/22/25 09:00 Bumetanide Inj 0.25 Mg/Ml Vial 4 Ml IVP 10/22/25 08:59 QDAY SHIVAM Calcium Carbonate 600 mg 09/20/25 09:00 09/21/25 21:53 Calcium Carbonate 600 Mg Tablet PO 10/20/25 08:59 600 mg BID SHIVAM Administration Dextrose 25 ml 09/16/25 05:18 Dextrose 50%-Water Inj 50 Ml Syringe IV 10/16/25 05:17 Q15MIN PRN BG 50-70 responsive npo pt Dextrose 50 ml 09/16/25 05:18 Dextrose 50%-Water Inj 50 Ml Syringe IV 10/16/25 05:17 Q15MIN PRN BG <50 OR BG <70 & pt unresponsive Glucagon 1 mg 09/16/25 05:18 Glucagon Inj 1 Mg Vial IM Q15MIN PRN BG <70, and no IV access Heparin Sodium (Porcine) 5,000 unit 09/18/25 18:00 09/21/25 21:53 Heparin Sod Inj 5000 Unit/Ml Vial SC 10/02/25 17:59 5,000 unit Q12HR SHIVAM Administration Meropenem 1,000 mg/ Sodium 50 mls @ 100 mls/hr 09/20/25 21:00 09/21/25 21:52 Chloride IV 09/27/25 20:59 100 mls/hr Q12HR SHIVAM Administration Magnesium Sulfate/Dextrose 1 gm in 100 mls @ 100 mls/hr 09/22/25 08:35 Magnesium Sulfate Ivpb IV 09/22/25 09:34 X1 ONE Insulin Human Lispro 0 unit 09/20/25 00:00 09/22/25 05:25 Insulin Lispro (Admelog) 1 Unit/0.01 Ml Unit SC 10/20/25 00:00 Not Given Q6HR [facility] Protocol Midodrine 10 mg 09/18/25 06:00 09/22/25 05:25 Midodrine 5 Mg Tablet PO 10/18/25 05:59 Not Given TID [facility] Ondansetron HCl 4 mg 09/16/25 00:36 09/19/25 10:20 Ondansetron Inj 2 Mg/Ml Inj 2 Ml IVP 10/16/25 00:35 4 mg Q6H PRN Administration NAUSEA OR VOMITING Protocol Pantoprazole Sodium 40 mg 09/19/25 21:00 09/21/25 21:53 Pantoprazole Inj 40 Mg Vial IVP 10/19/25 20:59 40 mg BID SHIVAM Administration Pharmacy Consult 1 each 09/16/25 00:42 Pharmacy Renal Dose Adjustment 1 Ea XX 10/16/25 00:41 PRN PRN CONSULT Sennosides 1 tab 09/21/25 10:30 09/21/25 14:13 Senna Tablet PO 10/21/25 10:29 1 tab QDAY SHIVAM Administration Protocol Plan 65-year-old bedbound male with past medical history of evelopmental delay, muscular dystrophy, benign prostatic hyperplasia, history of neurogenic bladder, right inguinal hernia, CVA, CAD, hypertension, hyperlipidemia and diabetes was brought in to the ED on 09/15/2025 from [facility]' family home with altered mental status and had cardiac arrest with downtime of 20 mins at the facility. In ED he was resuscitated and ROSC was achieved. Patient was admitted to ICU for acute encephalopathy postcardiac arrest, distributive shock?septic secondary to UTI for management. Patient was extubated 09/16, weaned off of pressors and was downgraded to telemetry on 09/18. #Acute hypoxic respiratory failure Secondary to diffuse bilateral pneumonia #Community-acquired pneumonia Secondary to Proteus Mirabella's, Klebsiella pneumoniae and ESBL E. coli #Urinary tract infection Secondary to ESBL E. coli #Distributive shock, likely septic secondary to UTI, resolved Patient presented with septic shock, weaned off of pressors. Currently on midodrine, blood pressure stable. Blood culture negative for 48 hours Urine culture positive for ESBL, sputum culture positive for ESBL, Klebsiella, Proteus. MRSA nares negative, vancomycin discontinued 09-20-25- zosyn disconsitnued; 09-19-25- Overnight patient developed cough with dark sputum. Patient then developed significant hypoxia, saturation 87-90% on 15 L oxy mask. Patient placed on high flow nasal cannula with improvement in O2 saturation. Chest x-ray taken, showed worsening vascular congestion, fluid in bilateral lungs. Concern for aspiration event in setting of dysphagia, patient made NPO. 09-20-25- patient still 30L HFNC 09-21-25- cocci serology negative Plan: - meropenem 1g IV Q12H - Continue midodrine with hold parameters - Bumex 2mg 1x daily started - Infectious disease consulted #Normocytic normochromic anemia #Melena Patient has chronic, stable anemia. Noted to have melena 09/19, FOBT positive. GI consulted. Plan: - Follow CBC, transfuse as needed - GI consulted, will wait for upper GI until respiratory status improved - IV Protonix - N.p.o. 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 Echocardiogram obtained shows EF 60 to 65%, mild concentric hypertrophy normal diastolic dysfunction EKG 09/16?sinus rhythm, EKG 09/15?sinus tachycardia no acute ST-T changes Troponin on presentation 2.194 up trended to 3.4 and then down trended to 2.4 Plan: - Cardiology is consulted, state that likely cause is due to hyperkalemia #Type 2 diabetes mellitus, [id number] Hemoglobin A1c 5.2 - Sliding scale insulin #Dysphagia Patient has NG tube intact, SBO was ruled out Speech therapy recommended dysphagia 1 diet, patient was started on it, will keep NG tube for now, consider discontinuing in the morning. Patient had possible aspiration event 09/19 Will keep npo for now Plan: - GI recommendations as above - N.p.o. #History of developmental delay and muscular dystrophy #History of depression #History of TIA Patient on gabapentin and baclofen at home, from [facility] has history of TIA - Continue aspirin - Hold home baclofen, duloxetine and gabapentin, monitor mentation #History of hypertension #History of hyperlipidemia Currently blood pressure normotensive hold antihypertensives #History of BPH and neurogenic bladder #History of right inguinal hernia - Consider starting patient on tamsulosin #Anion gap metabolic acidosis, resolved #Lactic acidosis resolved #Hyponatremia #Hypochloremia #Hyperkalemia resolved #Hypercalcemia resolved - Follow CMP in a.m. - KCl 20 mEq given 1x DVT prophylaxis: Heparin every 12 hour GI prophylaxis: IV Protonix 40 Diet: N.p.o. Lines: Peripheral IV Code status: Full code This case was discussed with my attending physician, Dr. Mason, and senior resident, Dr. Cali. Vadim Dominguez, PGY1 Senior Resident Attestation: The patient continues to be on high flow nasal cannula. He is negative by 1300 cc, other vitals has been fairly stable, labs revealed hemoglobin 7.7 corrected calcium 8.2 cocci IgM negative, creatinine is mildly improving to 1.9 Chest x-ray done today was significant for bibasilar atelectasis with perihilar bibasilar pneumonia. Will continue with meropenem IV, Bumex IV, DuoNeb, and was started on intensive spirometry. I discussed with and supervised the international marketing executive physician involved in the care of this patient. I personally saw and examined the patient and discussed the assessment and plan with the entire medicine team, including my attending. I agree with the assessment and plan as documented above. Tremaine Cali MD PGY3 Internal Medicine Attending Provider Attestation/Addendum , I have discussed and was present for the essential components of the history, physical examination, diagnosis, and treatment plan with the resident. I agree with the patient's care as documented by the resident and amended herein by me. Elmo Mason DO. Although this document has been carefully reviewed, there may still be some phonetic and other typographical errors. These errors are purely grammatical due to imperfections in the software program and should not be construed in any way to compromise the substance of the patient's medical care during this visit.
--- NOTE | 2025-09-22 08:42 | XR_ITS ---
EXAMINATION: AP chest single view TECHNIQUE: AP portable semiupright chest single view Date and time: September 22, 2025, 0908 hours, comparison September 21, 2025 INDICATIONS: Worsening shortness of breath today. FINDINGS: Pneumonia has actually improved in the right lung However, there does remain significant perihilar bibasilar pneumonia Elevation right hemidiaphragm Mild prominence left ventricle Right internal jugular central line tip satisfactory position IMPRESSION: Pneumonia has improved in the right lung However, there does remain significant perihilar bibasilar pneumonia
[2025-09-22] MEDS: MEROPENEM INJ 1,000 MG in SODIUM CHLORIDE 0.9% (Popper) 50 ML 100 MG IV (08:53)
--- NOTE | 2025-09-22 08:54 | PC.SS ---
Follow up note: Pt is on high flow O2, 35 liters. Pt will return to half-way upon dc.
[2025-09-22] MEDS: BUMETANIDE INJ 0.25 MG/ML VIAL 4 ML 2 MG IVP (08:55)
[2025-09-22] MEDS: HEPARIN SOD INJ 5000 UNIT/ML VIAL SC ×2 (08:56→20:58)
[2025-09-22] MEDS: CALCIUM CARBONATE 600 MG TABLET PO ×2 (09:07→20:57)
[2025-09-22] MEDS: ASPIRIN EC 81 MG TABEC PO (09:08)
[2025-09-22] MEDS: Magnesium Sulfate 2 GM Ivpb 2 GM/50 ML BAG IV (09:09)
[2025-09-22 09:58] LABS: Hemoglobin 7.7 g/dL (13.5-16.0)
--- NOTE | 2025-09-22 11:15 | PD.IMPROG ---
Documentation for date of: 09/22/25 Subjective Subjective Interval history: Patient remains on high flow nasal cannula Not a candidate for any invasive GI workup Exam Vital Signs Temp Pulse Resp BP Pulse Ox O2 Del Method O2 Flow Rate 98.6 F 76 18 148/81 H 100 High Flow Nasal Cannula 35 09/22/25 08:00 09/22/25 08:55 09/22/25 08:00 09/22/25 08:55 09/22/25 08:00 09/22/25 08:00 09/22/25 08:00 FiO2 100 09/22/25 08:00 Objective Labs 09/23/25 04:55 09/23/25 04:55 Labs: Laboratory Results - last 24 hr 09/21/25 09/22/25 04:44 05:15 WBC 9.3 RBC 2.70 L Hgb 7.7 L Hct 24.7 L MCV 92 MCH 28.5 MCHC 31.2 RDW Std Deviation 44.9 H Plt Count 214 D Neut % (Auto) 75 Lymph % (Auto) 13 [place] % (Auto) 9 Eos % (Auto) 2 Baso % (Auto) 0 Neut # (Auto) 7.0 Lymph # (Auto) 1.2 [place] # (Auto) 0.9 H Eos # (Auto) 0.2 Baso # (Auto) 0.0 Immature Gran # (Auto) 0.07 H Absolute Nucleated RBC 0.00 Immature Gran % 1 H Nucleated RBC % 0 Sodium 139 Potassium 3.6 Chloride 97 L Carbon Dioxide 33.8 H Anion Gap 8 BUN 31 H Creatinine 1.9 H Estim Creat Clear Calc 43.8 L eGFR 39 L BUN/Creatinine Ratio 16 Glucose 103 Calculated Osmolality 284 Calcium 7.6 L Corrected Calcium 8.2 L Phosphorus 2.6 Magnesium 1.9 Total Bilirubin 0.4 AST 17 ALT 9 L Alkaline Phosphatase 77 Total Protein 6.8 6.5 Albumin 3.3 L Globulin 3.3 3.2 Albumin/Globulin Ratio 1.1 L 1.0 L Impressions Impression: GI bleed relatively stable hemoglobin hematocrit Acute respiratory failure on high flow oxygen No invasive GI workup ABG Interpretation ABG results: 09/15/25 09/15/25 09/16/25 20:48 22:33 04:03 ABG pH 7.30 L 7.33 L 7.29 L ABG pCO2 57 H 49 H 51 H ABG pO2 167 H 154 H 118 H D ABG HCO3 28 H 26 25 ABG O2 Saturation 100 H 100 H 99 H ABG Base Excess 0 -1 -2 VBG pH VBG pCO2 VBG pO2 VBG Base Excess 09/17/25 09/19/25 03:40 08:35 ABG pH ABG pCO2 ABG pO2 ABG HCO3 ABG O2 Saturation ABG Base Excess VBG pH 7.43 7.39 VBG pCO2 41 52 D VBG pO2 139 H 80 H D VBG Base Excess 3 5 H Assessment & Plan A&P Narrative # Melena in the setting of acute hypoxic respiratory failure on high flow nasal cannula with dropping hemoglobin hematocrit Plan Serial CBC PRBC transfusion if the hemoglobin drops below 7 g I will wait for the upper endoscopy till respiratory status improves IV Protonix Will follow the patient Other medical problems include CHAR on CKD Bilateral pneumonia/superimposed congestive heart failure Right inguinal hernia containing bowel Will follow the patient Thank you very much for the opportunity to participate in the care of this patient I have told the attending RN to start the patient on clear liquid diet Time Spent With Patient Time: Total time spent is greater than 50% in coordination of care (as documented) at patient's floor/unit and/or counseling patient:
--- NOTE | 2025-09-22 13:56 | ESCONSULT_ITS ---
<Statement entered by Kelvin Oseguera MD - 09/24/25 09:16> pt seen with resident. all findings confirmed. see additional notes for details HPI Data of Consult Requesting Physician: Yash Mason DO Admitting Provider: Yoon Allen MD Attending Provider: Yash Mason DO Primary Care Provider: Saray Benitez NP Consult Narrative History of present illness: Mr. Ennis is a 65-year-old male with past medical history of developmental delay, muscular dystrophy, benign prostatic hyperplasia, history of neurogenic bladder, right inguinal hernia, CVA, CAD, hypertension, hyperlipidemia and type 2 diabetes was brought in to the ED on 09/15/2025 from [facility] with altered mental status and unresponsive. Upon arrival to the ED Pt was unresponsive without a pulse, CODE BLUE was activated and CPR was started. After 2 rounds of epinephrine, ROSC was obtained. Pt was then admitted to the ICU and was started on pressor support (levophed and vasopressin). Pt is downgraded to telemetry on 09/18 for continue management. Pt does have a signifcant Hx of reccurent ESBL E. COli UTI. During this hospital admission, blood cultures are negative, ET secretion cultures grew proteus mirabilis, ESBL E. Coli and Klebsiella Pneumonae which has limited drug sensitivity. Pt was initially started on Zosyn and Vancomycin. And switch to meropenem on 09/20. Pt is alert, saturating on HFNC, does not have nay complaints. Primary Hospitalist team consulted ID to confirm Meropenem is an appropriate choice of antibiotics considering Pt's previous ESBL Hx. PMH: Developmental delay, muscular dystrophy, benign prostatic hyperplasia, history of neurogenic bladder, right inguinal hernia, CVA, CAD, hypertension, hyperlipidemia and type 2 diabetes PSH: Per chart reviewing Pt had a Suprapubic catheter placement in 2018 not removed, small bowel obstruction surgery Allergies: NKDA SH: None cc:: cc: Yash Mason DO Review of Systems Review of Systems Systems Reviewed: All systems reviewed, normal except as documented Exam Vital Signs Temp Pulse Resp BP Pulse Ox O2 Del Method O2 Flow Rate 97.4 F 89 22 H 137/68 H 99 High Flow Nasal Cannula 30 09/22/25 12:00 09/22/25 13:11 09/22/25 13:11 09/22/25 12:00 09/22/25 13:11 09/22/25 12:00 09/22/25 13:11 FiO2 90 09/22/25 13:11 Narrative Exam GENERAL: Alert but unable to answer questions, Pt does track with eyes and able to nod yes or no to questions, Not in acute distress NEURO: unable to fully asses due to pt developmental delay HEENT: Atraumatic, Normocephalic. mucous membranes moist. Eyes open, symmetrical, & clear HEART: Normal Heart Sounds LUNGS: Clear to auscultation with no wheezing or crackles. ABDOMEN: soft, non-distended, non-tender, bowel sounds heard, no guarding or rebound tenderness SKIN: No Rash or ecchymoses EXTREMITIES: No edema, tenderness, able to move all 4 extremities, pedal pulses palpated Results Labs 09/23/25 04:55 09/23/25 04:55 Labs: Short CBC 09/22/25 Range/Units 05:15 WBC 9.3 (3.8-10.6) Thou/mm3 Hgb 7.7 L (13.5-16.0) g/dL Hct 24.7 L (41.0-53.0) % Plt Count 214 D (140-440) Thou/mm3 BMP 09/22/25 05:15 Sodium 139 Potassium 3.6 Chloride 97 L Carbon Dioxide 33.8 H BUN 31 H Creatinine 1.9 H Glucose 103 Calcium 7.6 L Liver Function 09/22/25 Range/Units 05:15 Total Bilirubin 0.4 (0.3-1.2) mg/dL AST 17 (0-34) U/L ALT 9 L (10-49) U/L Alkaline Phosphatase 77 (46-116) U/L Albumin 3.3 L (3.4-4.8) gm/dL ABG Interpretation ABG results: 09/15/25 09/15/25 09/16/25 20:48 22:33 04:03 ABG pH 7.30 L 7.33 L 7.29 L ABG pCO2 57 H 49 H 51 H ABG pO2 167 H 154 H 118 H D ABG HCO3 28 H 26 25 ABG O2 Saturation 100 H 100 H 99 H ABG Base Excess 0 -1 -2 VBG pH VBG pCO2 VBG pO2 VBG Base Excess 09/17/25 09/19/25 03:40 08:35 ABG pH ABG pCO2 ABG pO2 ABG HCO3 ABG O2 Saturation ABG Base Excess VBG pH 7.43 7.39 VBG pCO2 41 52 D VBG pO2 139 H 80 H D VBG Base Excess 3 5 H Quality Measures Quality Measures VTE prophylaxis (Heparin SC ) Medications Home Medications and Allergies Home Medications ?Medication ?Instructions ?Recorded ?Confirmed ?Type duloxetine 20 mg capsule,delayed 20 mg PO BID 05/01/19 09/16/25 History release gabapentin 100 mg capsule 100 mg PO TID 05/01/1909/16 History Held on 09/16/25. Instructions: Doctor's Order polyethylene glycol 3350 17 gram 17 g PO QPM 05/01/19 09/16/25 History oral powder packet (Miralax) baclofen 10 mg tablet 10 mg PO HS 03/01/20 5 History clopidogrel 75 mg tablet (Plavix) 75 mg PO QDAY 09/16/25 History metformin 500 mg tablet 500 mg PO BID 04/28/2109/16 History Held on 09/16/25. Instructions: Doctor's Order tamsulosin 0.4 mg capsule 0.8 mg PO HS 02/12/22 History acetaminophen 500 mg capsule 500 mg PO Q6H PRN Pain (S jaz 06/01/22 09/16/25 History Score 1-3) magnesium oxide 400 mg PO QDAY 06/01/2208/22 History Held on 09/16/25. Instructions: Doctor's Order multivitamin 1 tab PO HS 06/01/22 5 History sennosides 8.6 mg-docusate sodium 1 tab-cap PO QHS PRN Constipation 06/01/22 09/16/25 History 50 mg tablet vitamin A 3,000 mcg (10,000 unit) 8,000 unit PO QDAY 1 09/16/25 History capsule aspirin 81 mg tablet,delayed 81 mg PO HS 02/11/2308/22 History release methenamine hippurate 1 gram tablet 1 g PO DAILY 09/1609/16/25 History Allergies Allergy/AdvReac Type Severity Reaction Status Date / Time No Known Drug Allergies Allergy Unknown Verified 12/17/22 12:45 Visit Medications Acetaminophen (Acetaminophen 325 Mg Tablet) 650 mg PO Q6H PRN PRN Reason: Fever >101.3 Stop: 10/16/25 00:35 Last Admin: 09/21/25 03:49 Dose: 650 mg Albuterol/Ipratropium (Albuterol/Ipratropium (Duoneb) Rt Liset 3 Ml Nebu) 3 ml INH Q6HRRT [facility] Stop: 10/21/25 08:14 Last Admin: 09/22/25 13:09 Dose: Not Given Aspirin (Aspirin Ec 81 Mg Tabec) 81 mg PO QDAY [facility] Stop: 10/16/25 15:44 Last Admin: 09/22/25 09:08 Dose: 81 mg Bumetanide (Bumetanide Inj 0.25 Mg/Ml Vial 4 Ml) 2 mg IVP QDAY [facility] Stop: 10/22/25 08:59 Last Admin: 09/22/25 08:55 Dose: 2 mg Calcium Carbonate (Calcium Carbonate 600 Mg Tablet) 600 mg PO BID [facility] Stop: 10/20/25 08:59 Last Admin: 09/22/25 09:07 Dose: 600 mg Dextrose (Dextrose 50%-Water Inj 50 Ml Syringe) 25 ml IV Q15MIN PRN PRN Reason: BG 50-70 responsive npo pt Stop: 10/16/25 05:17 Dextrose (Dextrose 50%-Water Inj 50 Ml Syringe) 50 ml IV Q15MIN PRN PRN Reason: BG <50 OR BG <70 & pt unresponsive Stop: 10/16/25 05:17 Glucagon (Glucagon Inj 1 Mg Vial) 1 mg IM Q15MIN PRN PRN Reason: BG <70, and no IV access Heparin Sodium (Porcine) (Heparin Sod Inj 5000 Unit/Ml Vial) 5,000 unit SC Q12HR [facility] Stop: 10/02/25 17:59 Last Admin: 09/22/25 08:56 Dose: 5,000 unit Meropenem 1,000 mg/ Sodium (Chloride) 50 mls @ 100 mls/hr IV Q12HR [facility] Stop: 09/27/25 20:59 Last Admin: 09/22/25 08:53 Dose: 100 mls/hr Insulin Human Lispro (Insulin Lispro (Admelog) 1 Unit/0.01 Ml Unit) 0 unit SC Q6HR [facility]; Protocol Stop: 10/20/25 00:00 Last Admin: 09/22/25 05:25 Dose: Not Given Midodrine (Midodrine 5 Mg Tablet) 10 mg PO TID [facility] Stop: 10/18/25 05:59 Last Admin: 09/22/25 05:25 Dose: Not Given Ondansetron HCl (Ondansetron Inj 2 Mg/Ml Inj 2 Ml) 4 mg IVP Q6H PRN; Protocol PRN Reason: NAUSEA OR VOMITING Stop: 10/16/25 00:35 Last Admin: 09/19/25 10:20 Dose: 4 mg Pantoprazole Sodium (Pantoprazole Inj 40 Mg Vial) 40 mg IVP BID [facility] Stop: 10/19/25 20:59 Last Admin: 09/22/25 08:55 Dose: 40 mg Pharmacy Consult (Pharmacy Renal Dose Adjustment 1 Ea) 1 each XX PRN PRN PRN Reason: CONSULT Stop: 10/16/25 00:41 Sennosides (Senna Tablet) 1 tab PO QDAY [facility]; Protocol Stop: 10/21/25 10:29 Last Admin: 09/22/25 09:07 Dose: 1 tab Discontinued Medications Albuterol/Ipratropium (Albuterol/Ipratropium (Duoneb) Rt Liset 3 Ml Nebu) 3 ml INH X1 ONE Stop: 09/19/25 07:53 Last Admin: 09/19/25 08:35 Dose: 3 ml Aspirin (Aspirin 300 Mg Supp) 300 mg MD X1 ONE Stop: 09/16/25 09:49 Last Admin: 09/16/25 15:37 Dose: Not Given Bumetanide (Bumetanide Inj 0.25 Mg/Ml Vial 4 Ml) 2 mg IVP X1 ONE Stop: 09/20/25 10:56 Last Admin: 09/20/25 15:07 Dose: 2 mg Bumetanide (Bumetanide Inj 0.25 Mg/Ml Vial 4 Ml) 2 mg IVP X1 ONE Stop: 09/21/25 08:09 Last Admin: 09/21/25 09:45 Dose: 2 mg Dextrose (Dextrose 50%-Water Inj 50 Ml Syringe) 50 ml IVP X1 ONE Stop: 09/17/25 07:16 Last Admin: 09/17/25 08:15 Dose: 50 ml Etomidate (Etomidate Inj 2 Mg/Ml Vial 10 Ml) 40 mg IVP X1 ONE Stop: 09/15/25 20:11 Last Admin: 09/15/25 20:18 Dose: 40 mg Etomidate (Etomidate Inj 2 Mg/Ml Vial 10 Ml) 40 mg IVP X1 ONE Stop: 09/15/25 20:35 Last Admin: 09/15/25 20:38 Dose: 40 mg Furosemide (Furosemide Inj 10 Mg/Ml 4ml Vial) 40 mg IVP X1 ONE Stop: 09/19/25 09:11 Last Admin: 09/19/25 10:11 Dose: 40 mg Furosemide (Furosemide Inj 10 Mg/Ml 4ml Vial) 40 mg IVP X1 ONE Stop: 09/19/25 10:19 Last Admin: 09/19/25 10:33 Dose: Not Given Heparin Sodium (Porcine) (Heparin Sod Inj 5000 Unit/Ml Vial) 5,000 unit SC Q8HR [facility] Stop: 09/30/25 05:59 Last Admin: 09/18/25 05:18 Dose: 5,000 unit Propofol (Diprivan Ivpb) 1,000 mg in 100 mls @ 3.81 mls/hr IV .Q24H PRN; Protocol PRN Reason: PER PROTOCOL Stop: 10/15/25 20:20 Last Titration: 09/16/25 04:00 Dose: 40 mcg/kg/min, 30.481 mls/hr Sodium Chloride (Ns) 1,000 mls @ 999 mls/hr IV .Q1H1M ONE Stop: 09/15/25 21:24 Last Infusion: 09/15/25 21:41 Dose: Infused Epinephrine/Sodium Chloride (Adrenalin/Ns 16 Mg Ivpb) 16 mg in 250 mls @ 5.953 mls/hr IV .Q24H PRN; Protocol PRN Reason: Per Protocol Stop: 10/15/25 20:34 Last Titration: 09/16/25 04:53 Dose: 0 mcg/kg/min, 0 mls/hr Dopamine HCl/Dextrose (Intropin In D5w Ivpb) 400 mg in 250 mls @ 23.814 mls/hr IV .[id number] [facility]; Protocol Stop: 10/15/25 20:34 Last Titration: 09/16/25 01:34 Dose: Infused Sodium Chloride (Ns) 1,000 mls @ 999 mls/hr IV .Q1H1M ONE Stop: 09/15/25 23:40 Last Infusion: 09/16/25 00:16 Dose: Infused Norepinephrine/Dextrose (Levophed In D5w 8mg/250ml) 8 mg in 250 mls @ 11.907 mls/hr IV .Q21H PRN; Protocol PRN Reason: PER PROTOCOL Stop: 10/16/25 00:39 Last Titration: 09/16/25 08:00 Dose: Infused Vasopressin/Sodium Chloride (Vasostrict/Ns Ivpb) 20 unit in 100 mls @ 9 mls/hr IV .Q11H7M PRN; Protocol PRN Reason: PER PROTOCOL Stop: 10/16/25 00:41 Last Titration: 09/17/25 18:30 Dose: 0 unit/min, 0 mls/hr Piperacillin/Tazobactam/Dextrose (Zosyn) 3.375 gm in 50 mls @ 100 mls/hr IV Q8HR [facility]; Protocol Stop: 09/23/25 13:59 Last Admin: 09/20/25 05:22 Dose: 100 mls/hr Lactated Ringer's (Lactated Ringers) 1,000 mls @ 999 mls/hr IV .Q1H1M ONE Stop: 09/16/25 01:46 Last Admin: 09/16/25 04:35 Dose: 999 mls/hr Piperacillin/Tazobactam/Dextrose (Zosyn) 3.375 g in 50 mls @ 100 mls/hr IV X1 ONE; Protocol Stop: 09/16/25 01:29 Last Admin: 09/16/25 01:11 Dose: 100 mls/hr Propofol (Diprivan Ivpb) 1,000 mg in 100 mls @ 2.919 mls/hr IV .Q24H PRN; Protocol PRN Reason: PER PROTOCOL Stop: 10/15/25 20:20 Last Titration: 09/16/25 09:45 Dose: 0 mcg/kg/min, 0 mls/hr Norepinephrine/Dextrose (Levophed In D5w 8mg/250ml) 8 mg in 250 mls @ 9.122 mls/hr IV .Q24H PRN; Protocol PRN Reason: PER PROTOCOL Stop: 10/16/25 00:39 Norepinephrine Bitartrate (Levophed In Ns 16mg/250ml) 16 mg in 250 mls @ 15.507 mls/hr IV .Q16H8M PRN; Protocol PRN Reason: PER PROTOCOL Stop: 10/16/25 02:44 Fentanyl Citrate (Sublimaze Inj 2,500 Mcg/250 Ml Bag) 2,500 mcg in 250 mls @ 2.5 mls/hr IV .Q24H PRN; Protocol PRN Reason: PER PROTOCOL Stop: 09/21/25 03:50 Last Titration: 09/16/25 09:45 Dose: 0 mcg/hr, 0 mls/hr Norepinephrine/Dextrose (Levophed In D5w 8mg/250ml) 8 mg in 250 mls @ 31.014 mls/hr IV .Q8H4M PRN; Protocol PRN Reason: PER PROTOCOL Stop: 10/16/25 04:02 Last Titration: 09/17/25 12:00 Dose: 0 mcg/kg/min, 0 mls/hr Lactated Ringer's (Lactated Ringers) 1,000 mls @ 999 mls/hr IV .Q1H1M ONE Stop: 09/16/25 05:40 Last Admin: 09/16/25 04:51 Dose: 999 mls/hr Lactated Ringer's (Lactated Ringers) 1,000 mls @ 999 mls/hr IV .Q1H1M ONE Stop: 09/16/25 06:31 Last Admin: 09/16/25 07:04 Dose: 999 mls/hr Vancomycin/Sodium Chloride (Vancomycin/Ns 1 Gm Ivpb) 200 mls @ 120 mls/hr IV Q2H [facility] Stop: 09/16/25 10:24 Last Admin: 09/16/25 09:31 Dose: 120 mls/hr Vancomycin HCl/Dextrose (Vancomycin/D5w 1,250 Mg Ivpb) 250 mls @ 120 mls/hr IV Q24H [facility]; Protocol Stop: 09/24/25 09:59 Last Admin: 09/18/25 09:23 Dose: 120 mls/hr Calcium Chloride 10 ml/ (Dextrose) 110 mls @ 110 mls/hr IV X1 ONE Stop: 09/20/25 08:52 Calcium Gluconate/Sodium Chloride (Calcium Gluc/Ns 1000mg Ivpb) 1,000 mg in 50 mls @ 50 mls/hr IV X1 ONE Stop: 09/20/25 08:59 Last Admin: 09/20/25 08:29 Dose: 50 mls/hr Potassium Chloride (Kcl Ivpb) 10 meq in 100 mls @ 100 mls/hr IV Q1H [facility] Stop: 09/20/25 17:31 Last Admin: 09/20/25 18:28 Dose: 100 mls/hr Calcium Gluconate/Sodium Chloride (Calcium Gluc/Ns 1000mg Ivpb) 1,000 mg in 50 mls @ 50 mls/hr IV X1 ONE Stop: 09/21/25 08:40 Last Admin: 09/21/25 09:52 Dose: 50 mls/hr Magnesium Sulfate/Dextrose (Magnesium Sulfate Ivpb) 1 gm in 100 mls @ 100 mls/hr IV X1 ONE Stop: 09/22/25 09:34 Magnesium Sulfate (Magnesium Sulfate Ivpb) 2 gm in 50 mls @ 25 mls/hr IV X1 ONE Stop: 09/22/25 10:37 Last Admin: 09/22/25 09:09 Dose: 25 mls/hr Insulin Degludec (Insulin Degludec 5 Unit/0.05 Ml (Per 5 Units)) 6 unit SC X1 ONE Stop: 09/16/25 08:10 Last Admin: 09/16/25 08:24 Dose: 6 unit Insulin Human Lispro (Insulin Lispro (Admelog) 1 Unit/0.01 Ml Unit) 0 unit SC Q4HR [facility]; Protocol Stop: 10/16/25 05:59 Last Admin: 09/16/25 06:14 Dose: 4 unit Insulin Human Lispro (Insulin Lispro (Admelog) 1 Unit/0.01 Ml Unit) 6 unit SC X1 ONE Stop: 09/16/25 08:10 Last Admin: 09/16/25 08:25 Dose: 6 unit Insulin Human Lispro (Insulin Lispro (Admelog) 1 Unit/0.01 Ml Unit) 0 unit SC Q4HR [facility]; Protocol Stop: 10/16/25 08:59 Last Admin: 09/16/25 15:42 Dose: Not Given Insulin Human Lispro (Insulin Lispro (Admelog) 1 Unit/0.01 Ml Unit) 0 unit SC Q6HR [facility]; Protocol Stop: 10/16/25 17:59 Last Admin: 09/18/25 12:10 Dose: Not Given Insulin Human Lispro (Insulin Lispro (Admelog) 1 Unit/0.01 Ml Unit) 0 unit SC ACHS [facility]; Protocol Stop: 10/18/25 16:59 Last Admin: 09/19/25 16:46 Dose: 3 unit Insulin Human Regular (Insulin Hum Regular 1 Unit/0.01 Ml (Per Unit)) 5 unit IV X1 ONE Stop: 09/17/25 07:16 Last Admin: 09/17/25 08:15 Dose: 5 unit Lactulose (Lactulose Syrup 20 Gm/30 Ml Udc) 30 gm NG X1 ONE; Protocol Stop: 09/16/25 14:14 Last Admin: 09/16/25 15:37 Dose: 30 gm Lactulose (Lactulose Syrup 20 Gm/30 Ml Udc) 20 gm PO X1 ONE; Protocol Stop: 09/20/25 16:28 Last Admin: 09/20/25 17:32 Dose: 20 gm Metoprolol Tartrate (Metoprolol Tartrate Inj 1 Mg/Ml Vial 5 Ml) 2.5 mg IVP X1 ONE Stop: 09/15/25 20:46 Last Admin: 09/15/25 23:45 Dose: Not Given Midodrine (Midodrine 5 Mg Tablet) 5 mg PO TID [facility] Stop: 10/17/25 16:14 Last Admin: 09/17/25 20:55 Dose: 5 mg Midodrine (Midodrine 5 Mg Tablet) 5 mg PO X1 ONE Stop: 09/18/25 00:23 Last Admin: 09/18/25 00:42 Dose: 5 mg Ondansetron HCl (Ondansetron Inj 2 Mg/Ml Inj 2 Ml) 4 mg IVP X1 ONE; Protocol Stop: 09/15/25 20:25 Last Admin: 09/15/25 23:15 Dose: 4 mg Pantoprazole Sodium (Pantoprazole Inj 40 Mg Vial) 40 mg IVP QDAY [facility] Stop: 10/16/25 08:59 Last Admin: 09/17/25 08:16 Dose: 40 mg Pantoprazole Sodium (Pantoprazole Inj 40 Mg Vial) 40 mg IVP QDAY [facility] Stop: 10/19/25 08:59 Last Admin: 09/19/25 08:14 Dose: 40 mg Pharmacy Consult (Vancomycin Pharmacy To Dose 1 Each Each) 1 each IV QDAY PRN PRN Reason: PROTOCOL Stop: 10/16/25 08:59 Polyethylene Glycol (Polyethylene Glycol 17 Gm Packet) 17 gm NG X1 ONE Stop: 09/16/25 18:27 Last Admin: 09/16/25 19:57 Dose: 17 gm Potassium Chloride (Potassium Chloride 20 Meq Tabcr) 20 meq PO X1 ONE Stop: 09/21/25 07:43 Last Admin: 09/21/25 09:46 Dose: Not Given Potassium Chloride (Potassium Chloride 10% 20 Meq/15 Ml Udc) 40 meq PO X1 ONE Stop: 09/21/25 08:07 Last Admin: 09/21/25 09:46 Dose: 40 meq Potassium Chloride (Potassium Chloride 20 Meq Tabcr) 40 meq PO X1 ONE Stop: 09/22/25 08:39 Last Admin: 09/22/25 09:07 Dose: 40 meq Rocuronium [place] (Rocuronium Inj 10 Mg/Ml Vial 10 Ml) 100 mg IVP X1 ONE Stop: 09/15/25 20:25 Last Admin: 09/15/25 20:40 Dose: 100 mg Rocuronium [place] (Rocuronium Inj 10 Mg/Ml Vial 10 Ml) 100 mg IVP X1 ONE Stop: 09/15/25 20:35 Last Admin: 09/15/25 20:43 Dose: Not Given Sennosides (Senna Tablet) 1 tab NG X1 ONE; Protocol Stop: 09/16/25 18:27 Last Admin: 09/16/25 19:57 Dose: 1 tab Sodium Chloride (Sodium Chloride Rt 10% 15 Ml Nebu) 5 ml INH X1 ONE Stop: 09/15/25 20:38 Last Admin: 09/15/25 23:19 Dose: Not Given Succinylcholine Chloride (Succinylcholine Inj 20 Mg/Ml Vial 10 Ml) 200 mg IV X1 ONE Stop: 09/15/25 20:11 Last Admin: 09/15/25 20:18 Dose: 200 mg Assessment & Plan Plan Mr. Ennis is a 65-year-old male with past medical history of developmental delay, muscular dystrophy, benign prostatic hyperplasia, history of neurogenic bladder, right inguinal hernia, CVA, CAD, hypertension, hyperlipidemia and type 2 diabetes was brought in to the ED on 09/15/2025 from [facility] with altered mental status and unresponsive. Upon arrival to the ED Pt was unresponsive without a pulse, CODE BLUE was activated and CPR was started. After 2 rounds of epinephrine, ROSC was obtained. Pt was then admitted to the ICU and was started on pressor support (levophed and vasopressin). Pt is downgraded to telemetry on 09/18 for continue management. Pt does have a signifcant Hx of reccurent ESBL E. COli UTI. #CAP 2/2 Proteus Mirabella's, Klebsiella pneumoniae and ESBL E. coli #ESBL E. coli UTI - CXR show bilateral perihilar pneumonia and left basilar pneumonia Urine analysis on admission is positive for leokocyte esterase and pyuria with WBC count of 2197 -Urine culture positive for ESBL E.Coli -Sputum culture positive for ESBL E. Coli, Klebsiella, Proteus. -MRSA nares and Blood Culture negative -Pt has a long history of ESBL E. Coli UTI based on previous cultures. No record of pt previous treatment with Fosfomycin in the last 1 year. Pt was initially started on Zosyn 09/16-09/20 and Vancomycin 09/15-09/18. And switch to meropenem on 09/20- 09/22 Plan: -Fosfomycin 3gm x1 ordered for 09/23/25 -Discontinue all other antibiotics #Distributive shock, likely septic secondary to UTI, resolved #Normocytic normochromic anemia #Melena #CHAR on CKD stage II #NSTEMI type II #Cardiac arrest, pulseless electrical activity, status post ROSC #Type 2 diabetes mellitus, [id number] #Dysphagia #History of developmental delay and muscular dystrophy #History of depression #History of TIA #History of hypertension #History of hyperlipidemia #History of BPH and neurogenic bladder #History of right inguinal hernia #Anion gap metabolic acidosis, resolved #Lactic acidosis resolved #Hyponatremia #Hypochloremia #Hyperkalemia resolved #Hypercalcemia resolved Assessment and plan discussed with my senior attending physician Dr. Ana Rosa Sanchez (PGY-2)- Internal medicine resident
[2025-09-22 14:04] LABS: Cocci Serology, IgM Negative (Negative)
[2025-09-22] MEDS: MIDODRINE 5 MG TABLET 10 MG PO ×2 (14:09→21:05)
--- NOTE | 2025-09-22 17:14 | PD.IDPROG ---
Subjective Subjective Interval history: no pos bc, treating pos sputum and urine with esbl . no prior fosfomycin exposure noted . hx of nb and mr/dd Exam Vital Signs Temp Pulse Resp BP Pulse Ox O2 Del Method O2 Flow Rate 97.4 F 76 22 H 140/58 H 99 High Flow Nasal Cannula 30 09/22/25 12:00 09/22/25 16:00 09/22/25 13:11 09/22/25 14:09 09/22/25 13:11 09/22/25 12:00 09/22/25 13:11 FiO2 90 09/22/25 13:11 Narrative Exam on O2 but not distressed. no cough. may be over rx per staff. no pain verified at all. a Objective - Internal Medicine Labs 09/22/25 05:15 09/22/25 05:15 Labs: Laboratory Results - last 24 hr 09/21/25 09/22/25 23:31 05:15 WBC 9.3 RBC 2.70 L Hgb 7.7 L Hct 24.7 L MCV 92 MCH 28.5 MCHC 31.2 RDW Std Deviation 44.9 H Plt Count 214 D Neut % (Auto) 75 Lymph % (Auto) 13 [place] % (Auto) 9 Eos % (Auto) 2 Baso % (Auto) 0 Neut # (Auto) 7.0 Lymph # (Auto) 1.2 [place] # (Auto) 0.9 H Eos # (Auto) 0.2 Baso # (Auto) 0.0 Immature Gran # (Auto) 0.07 H Absolute Nucleated RBC 0.00 Immature Gran % 1 H Nucleated RBC % 0 Sodium 139 Potassium 3.6 Chloride 97 L Carbon Dioxide 33.8 H Anion Gap 8 BUN 31 H Creatinine 1.9 H Estim Creat Clear Calc 43.8 L eGFR 39 L BUN/Creatinine Ratio 16 Glucose 103 Calculated Osmolality 284 Calcium 7.6 L Corrected Calcium 8.2 L Phosphorus 2.6 Magnesium 1.9 Total Bilirubin 0.4 AST 17 ALT 9 L Alkaline Phosphatase 77 Total Protein 6.5 Albumin 3.3 L Globulin 3.2 Albumin/Globulin Ratio 1.0 L Coccid[place]ides IgM Ab Negative ABG Interpretation ABG results: 09/15/25 09/15/25 09/16/25 20:48 22:33 04:03 ABG pH 7.30 L 7.33 L 7.29 L ABG pCO2 57 H 49 H 51 H ABG pO2 167 H 154 H 118 H D ABG HCO3 28 H 26 25 ABG O2 Saturation 100 H 100 H 99 H ABG Base Excess 0 -1 -2 VBG pH VBG pCO2 VBG pO2 VBG Base Excess 09/17/25 09/19/25 03:40 08:35 ABG pH ABG pCO2 ABG pO2 ABG HCO3 ABG O2 Saturation ABG Base Excess VBG pH 7.43 7.39 VBG pCO2 41 52 D VBG pO2 139 H 80 H D VBG Base Excess 3 5 H Assessment & Plan A&P Narrative uti vs asb may have colonization of suprapubic cath too. bph mr/dd will give one dose fosfomycin and if off O2, then back to nh in am Time Spent With Patient Time: Total time spent is greater than 50% in coordination of care (as documented) at patient's floor/unit and/or counseling patient:
[2025-09-23] VITALS (16 sets, daily range): BP systolic 109–150; BP diastolic 48–92; PULSE 65–101; RESP 12–27; TEMP 36.2–37; O2SAT 92–100
[2025-09-23] MEDS: DEXTROSE 50%-WATER INJ 50 ML SYRINGE 25 ML IV (01:09)
[2025-09-23] MEDS: ALBUTEROL/IPRATROPIUM (Duoneb) RT SOL 3 ML NEBU INH ×4 (01:49→19:49)
[2025-09-23] MEDS: MIDODRINE 5 MG TABLET 10 MG PO ×2 (06:08→14:14)
[2025-09-23 06:24] LABS: Basophils # (Auto) 0.0 Thou/mm3 (0.0-0.2); Basophils % (Auto) 0 % (0-2.5); Eosinophils # (Auto) 0.5 Thou/mm3 (0.0-0.5); Eosinophils % (Auto) 6 % (0-10); Hematocrit 26.3 % (41.0-53.0); Immature Granulocytes Auto 0.05 Thou/mm3 (0.00-0.00); Lymphocytes # (Auto) 1.2 Thou/mm3 (1.0-4.8); Lymphocytes % (Auto) 14 % (10-50); Mean Corpuscular HGB Conc 31.2 g/dl (31.0-37.0); Mean Corpuscular Hemoglobin 29.2 pg (25.0-35.0); Mean Corpuscular Volume 94 fL (80-100); Monocytes # (Auto) 0.6 Thou/mm3 (0.0-0.8); Monocytes % (Auto) 7 % (0-12); Neutrophils # (Auto) 6.1 Thou/mm3 (1.8-7.7); Neutrophils % (Auto) 72 % (37-80); Nucleated Red Blood Cell # 0.00 Thou/mm3 (0.00-0.00); Nucleated Red Blood Cell % 0 /100 WBC (0); Platelet Count 272 Thou/mm3 (140-440); RDW Standard Deviation 46.3 fL (35.1-43.9); Red Blood Count 2.81 Miln/mm3 (4.50-5.90); White Blood Count 8.5 Thou/mm3 (3.8-10.6)
[2025-09-23 06:53] LABS: Albumin, Serum 3.4 gm/dL (3.4-4.8); Albumin/Globulin Ratio 1.0 (1.2-2.2); Alkaline Phosphatase 76 U/L (46-116); Anion Gap 12 (7-16); Aspartate Amino Transferase 20 U/L (0-34); BUN/Creatinine Ratio 18 Ratio (12-20); Bilirubin,Total 0.3 mg/dL (0.3-1.2); Blood Urea Nitrogen 34 mg/dL (9-23); Calcium 8.1 mg/dL (8.3-10.6); Calcium (Corrected) 8.6 mg/dL (8.5-10.1); Carbon Dioxide 31.9 mMol/L (20.0-31.0); Chloride 98 mMol/L (98-107); Creatinine (Component) 1.9 mg/dL (0.6-1.3); Estimated Creatinine Clearance 43.2 mL/min (>60); Globulin 3.4 gm/dL (2.3-3.5); Glucose 106 mg/dL (74-106); Magnesium 2.4 mg/dL (1.6-2.6); Osmolality,Calculated 290 (275-295); Phosphorous 3.9 mg/dL (2.4-5.1); Potassium 3.9 mMol/L (3.4-5.1); Sodium 142 mMol/L (136-145); Total Protein 6.8 gm/dL (5.7-8.2); eGFR 39 See Note
[2025-09-23 07:07] LABS: Alanine Aminotransferase 8 U/L (10-49)
[2025-09-23 07:19] LABS: Hepatitis C Antibody Non Reactive (Non React)
[2025-09-23 07:55] LABS: Hemoglobin 8.2 g/dL (13.5-16.0)
[2025-09-23] MEDS: BUMETANIDE INJ 0.25 MG/ML VIAL 4 ML 2 MG IVP (08:49)
[2025-09-23] MEDS: HEPARIN SOD INJ 5000 UNIT/ML VIAL SC ×2 (08:51→21:20)
[2025-09-23] MEDS: ASPIRIN EC 81 MG TABEC PO (08:52)
[2025-09-23] MEDS: CALCIUM CARBONATE 600 MG TABLET PO ×2 (08:52→21:20)
[2025-09-23] MEDS: FOSFOMYCIN PWD 3 GM PACKET (NON-FORMULARY) PO (09:00)
[2025-09-23 10:30] LABS: HIV (1&2) Antibody Rapid Non-Reactive
[2025-09-23 12:11] LABS: Cocci Serology, IgG Negative (Negative)
--- NOTE | 2025-09-23 14:18 | PD.RESPRO ---
Documentation for date of: 09/23/25 Subjective Subjective Interval history: Patient was seen and examined at bedside. No acute events took place overnight. According to nurse at bedside, patient had black tarry stool at night. Nursing staff attempted to wean the patient off high flow nasal cannula currently at 30 L and 100% FiO2, but attempts led to desaturations putting the patient back on HFNC or regional settings. 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 He can verbalize his needs. He is bowel and bladder incontinent. Had suprapubic cath previously but due to recurrent infections it was discontinued and not renenwed by his urologist. On urinary cath at the facility. Exam Vital Signs Temp Pulse Resp BP Pulse Ox O2 Del Method O2 Flow Rate 98.1 F 101 H 26 H 124/70 98 High Flow Nasal Cannula 30 09/23/25 08:00 09/23/25 14:14 09/23/25 12:57 09/23/25 14:14 09/23/25 12:57 09/23/25 08:00 09/23/25 12:57 FiO2 100 09/23/25 12:57 Narrative Exam General: Patient very lethargic and somnolent at the time of the exam, would not awaken even to shakes about his shoulder. Deferred mental status exam Eyes: PERRL, EOMI. Anicteric, vision grossly intact. Ears: No ear pain, no ear discharge, Hearing grossly intact. Nose: No nasal discharge. Mouth/Throat: Moist mucous membranes, no redness, no lesions. Neck: Neck supple, non-tender, no cervical lymphadenopathy. Lungs: bilateral wheezing, No accessory muscle use. Cardio: Normal S1/S2, regular rhythm, no murmurs, no JVD or carotid bruits. Abdomen: Soft, non-tender, no palpable masses, peristalsis present, no guarding or rebound. Extremities: Symmetrical, no significant deformities, bilateral pitting edema lower extremities, non-tender, peripheral pulses present. Skin: No rashes, no lesions, warm to touch. Neuro: No focal neurological deficits, at baseline Psych: Cooperative, appropriate mood and effect. Objective Labs 09/24/25 04:58 09/24/25 04:58 Labs: Laboratory Results - last 24 hr 09/21/25 09/23/25 23:31 04:55 WBC 8.5 RBC 2.81 L Hgb 8.2 L Hct 26.3 L MCV 94 MCH 29.2 MCHC 31.2 RDW Std Deviation 46.3 H Plt Count 272 D Neut % (Auto) 72 Lymph % (Auto) 14 [place] % (Auto) 7 Eos % (Auto) 6 Baso % (Auto) 0 Neut # (Auto) 6.1 Lymph # (Auto) 1.2 [place] # (Auto) 0.6 Eos # (Auto) 0.5 Baso # (Auto) 0.0 Immature Gran # (Auto) 0.05 H Absolute Nucleated RBC 0.00 Immature Gran % 1 H Nucleated RBC % 0 Sodium 142 Potassium 3.9 Chloride 98 Carbon Dioxide 31.9 H Anion Gap 12 BUN 34 H Creatinine 1.9 H Estim Creat Clear Calc 43.2 L eGFR 39 L BUN/Creatinine Ratio 18 Glucose 106 Calculated Osmolality 290 Calcium 8.1 L Corrected Calcium 8.6 Phosphorus 3.9 Magnesium 2.4 Total Bilirubin 0.3 AST 20 ALT 8 L Alkaline Phosphatase 76 Total Protein 6.8 Albumin 3.4 Globulin 3.4 Albumin/Globulin Ratio 1.0 L Coccidioides IgG Ab Negative Hepatitis C Antibody Non Reactive HIV 1&2 Antibody Rapid Non-Reactive ABG Interpretation ABG results: 09/15/25 09/15/25 09/16/25 20:48 22:33 04:03 ABG pH 7.30 L 7.33 L 7.29 L ABG pCO2 57 H 49 H 51 H ABG pO2 167 H 154 H 118 H D ABG HCO3 28 H 26 25 ABG O2 Saturation 100 H 100 H 99 H ABG Base Excess 0 -1 -2 VBG pH VBG pCO2 VBG pO2 VBG Base Excess 09/17/25 09/19/25 03:40 08:35 ABG pH ABG pCO2 ABG pO2 ABG HCO3 ABG O2 Saturation ABG Base Excess VBG pH 7.43 7.39 VBG pCO2 41 52 D VBG pO2 139 H 80 H D VBG Base Excess 3 5 H Quality Measures Quality Measures VTE prophylaxis (Heparin SC ) Assessment & Plan Assessment Current Active Medications: Generic Name Dose Route Start Last Admin Trade Name Freq PRN Reason Stop Dose Admin Acetaminophen 650 mg 09/16/25 00:36 09/21/25 03:49 Acetaminophen 325 Mg Tablet PO 10/16/25 00:35 650 mg Q6H PRN Administration Fever >101.3 Albuterol/Ipratropium 3 ml 09/21/25 08:15 09/23/25 12:57 Albuterol/Ipratropium (Duoneb) Rt Liset 3 Ml Nebu INH 10/21/25 08:14 3 ml Q6HRRT SHIVAM Administration Aspirin 81 mg 09/16/25 15:45 09/23/25 08:52 Aspirin Ec 81 Mg Tabec PO 10/16/25 15:44 81 mg QDAY SHIVAM Administration Bumetanide 2 mg 09/22/25 09:00 09/23/25 08:49 Bumetanide Inj 0.25 Mg/Ml Vial 4 Ml IVP 10/22/25 08:59 2 mg QDAY SHIVAM Administration Calcium Carbonate 600 mg 09/20/25 09:00 09/23/25 08:52 Calcium Carbonate 600 Mg Tablet PO 10/20/25 08:59 600 mg BID SHIVAM Administration Dextrose 25 ml 09/16/25 05:18 09/23/25 01:09 Dextrose 50%-Water Inj 50 Ml Syringe IV 10/16/25 05:17 25 ml Q15MIN PRN Administration BG 50-70 responsive npo pt Dextrose 50 ml 09/16/25 05:18 Dextrose 50%-Water Inj 50 Ml Syringe IV 10/16/25 05:17 Q15MIN PRN BG <50 OR BG <70 & pt unresponsive Glucagon 1 mg 09/16/25 05:18 Glucagon Inj 1 Mg Vial IM Q15MIN PRN BG <70, and no IV access Heparin Sodium (Porcine) 5,000 unit 09/18/25 18:00 09/23/25 08:51 Heparin Sod Inj 5000 Unit/Ml Vial SC 10/02/25 17:59 5,000 unit Q12HR SHIVAM Administration Insulin Human Lispro 0 unit 09/20/25 00:00 09/23/25 12:00 Insulin Lispro (Admelog) 1 Unit/0.01 Ml Unit SC 10/20/25 00:00 Not Given Q6HR [facility] Protocol Midodrine 10 mg 09/18/25 06:00 09/23/25 14:14 Midodrine 5 Mg Tablet PO 10/18/25 05:59 10 mg TID SHIVAM Administration Ondansetron HCl 4 mg 09/16/25 00:36 09/19/25 10:20 Ondansetron Inj 2 Mg/Ml Inj 2 Ml IVP 10/16/25 00:35 4 mg Q6H PRN Administration NAUSEA OR VOMITING Protocol Pantoprazole Sodium 40 mg 09/19/25 21:00 09/23/25 08:48 Pantoprazole Inj 40 Mg Vial IVP 10/19/25 20:59 40 mg BID SHIVAM Administration Pharmacy Consult 1 each 09/16/25 00:42 Pharmacy Renal Dose Adjustment 1 Ea XX 10/16/25 00:41 PRN PRN CONSULT Sennosides 1 tab 09/21/25 10:30 09/23/25 08:52 Senna Tablet PO 10/21/25 10:29 1 tab QDAY SHIVAM Administration Protocol Plan 65-year-old bedbound male with past medical history of?evelopmental?delay, muscular dystrophy, benign prostatic hyperplasia, history of neurogenic bladder, right inguinal hernia, CVA, CAD, hypertension, hyperlipidemia and diabetes was [facility] in [facility] the ED [facility] with altered mental status and had cardiac arrest with downtime of 20 mins at the facility. In ED he was resuscitated and ROSC was achieved. Patient was admitted to ICU for acute encephalopathy postcardiac arrest, distributive shock?septic secondary to UTI for management. Patient was extubated 09/16, weaned off of pressors and was downgraded to telemetry on 09/18.? ? #Acute hypoxic respiratory failure Secondary to diffuse bilateral pneumonia? #Community-acquired pneumonia Secondary to?Proteus Mirabella's, Klebsiella pneumoniae and ESBL E. coli? #Urinary tract infection Secondary to ESBL E. coli? #Distributive shock, likely septic secondary to UTI, resolved? ? Patient presented with septic shock, weaned off of pressors. Currently on midodrine, blood pressure stable. Blood culture negative for 48 hours? Urine culture positive for ESBL, sputum culture positive for ESBL, Klebsiella, Proteus.? MRSA nares negative, vancomycin discontinued? 09-20-25-?zosyn?disconsitnued;?? 09-19-25- Overnight patient developed cough with dark sputum. Patient then developed significant hypoxia, saturation 87-90% on 15 L oxy mask. Patient placed on high flow nasal cannula with improvement in O2 saturation. Chest x-ray taken, showed worsening vascular congestion, fluid in bilateral lungs. Concern for aspiration event in setting of dysphagia, patient made NPO.?? 09-20-25- patient still 30L HFNC? 09-21-25- cocci serology negative? ? CXR 09/22 shows improved pneumonia in the right lung, however there remains significant perihilar bibasilar pneumonia? During this hospital admission, blood cultures are negative, ET secretion cultures grew proteus mirabilis, ESBL E. Coli and Klebsiella?Pneumonae?which has limited drug sensitivity.? ? Plan:? - fosfomycin 3g x1? - meropenem 1g IV Q12H?(09/20-09/22) - Continue midodrine?with hold?parameters? - Bumex 2mg 1x daily started? - incentive spirometry - DuoNebs - Infectious disease consulted? ? #Normocytic normochromic anemia? #Melena? Patient has chronic, stable anemia. Noted to have melena 09/19, FOBT positive. GI consulted.? ? Plan:? ? - Follow CBC, transfuse as needed? - GI consulted, will wait for upper GI until respiratory status improved? - IV Protonix? -?N.p.o.? ? 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 Patient's baseline creatinine 1.4?1.6? Patient is status post 5 L IV LR? Patient's underlying CHAR secondary to insult from distributive shock? ? Plan:? ? - Nephrology consulted, appreciate recommendations? - Avoid nephrotoxic agents? ? #NSTEMI type II? #Cardiac arrest, pulseless electrical activity, status post ROSC? In ER patient was found in PEA, CODE BLUE was called CPR performed with 2 rounds of epi and ROSC was achieved.? Echocardiogram obtained shows EF 60 to 65%, mild concentric hypertrophy normal diastolic dysfunction? EKG 09/16?sinus rhythm, EKG 09/15?sinus tachycardia no acute ST-T changes? Troponin on presentation 2.194 up trended to 3.4 and then down trended to 2.4? ? Plan:? ? - Cardiology is consulted, state that likely cause is due to hyperkalemia? ? #Type 2 diabetes mellitus, [id number]? Hemoglobin A1c 5.2? - Sliding scale insulin? ? #Dysphagia? Patient has NG tube intact, SBO was ruled out? Speech therapy recommended dysphagia 1 diet, patient was started on it, will keep NG tube for now, consider discontinuing in the morning.? Patient had possible aspiration event 09/19? Will keep?npo?for now? ? Plan:? ? - GI recommendations as above? -?N.p.o.? ? #History of developmental delay and muscular dystrophy? #History of depression? #History of TIA? Patient on gabapentin and baclofen at home, from [facility] custodial has history of TIA? - Continue aspirin? - Hold home baclofen, duloxetine and gabapentin, monitor mentation? ? #History of hypertension? #History of hyperlipidemia? Currently blood pressure normotensive hold antihypertensives? ? #History of BPH and neurogenic bladder? #History of right inguinal hernia? - Consider starting patient on tamsulosin? ? #Anion gap metabolic acidosis, resolved? #Lactic acidosis resolved? #Hyponatremia? #Hypochloremia? #Hyperkalemia resolved? #Hypercalcemia resolved? - Follow CMP in a.m.? - KCl 20?mEq?given 1x? ? DVT prophylaxis: Heparin every 12 hour? GI prophylaxis: IV Protonix 40? Diet:?N.p.o.? Lines: Peripheral IV? Code status: Full code This case was discussed with my attending physician, Dr. Mason, and senior resident, Dr Cali Even though this this note was carefully revised there may still be minor errors in warehouse shipping supervisor due to voice recognition software. 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 However he can verbalize his needs, with bladder and bowel incontinence. He is still saturating 92% on high flow nasal cannula with FiO2 100% on 30 L oxygen. Physical exam revealed bibasilar absent lung sounds, and renal function has been stable with creatinine 1.9. HIV and HCV serology were negative. We will continue with meropenem, DuoNeb, and continue to taper down oxygen requirement, after which he was will be probably getting EGD. I discussed with and supervised the industrial engineering intern physician involved in the care of this patient. I personally saw and examined the patient and discussed the assessment and plan with the entire medicine team, including my attending. I agree with the assessment and plan as documented above. Tremaine Cali MD PGY3 Internal Medicine Attending Provider Attestation/Addendum I have discussed and was present for the essential components of the history, physical examination, diagnosis, and treatment plan with the resident. I agree with the patient's care as documented by the resident and amended herein by me. Elmo Mason DO. Although this document has been carefully reviewed, there may still be some phonetic and other typographical errors. These errors are purely grammatical due to imperfections in the software program and should not be construed in any way to compromise the substance of the patient's medical care during this visit.
--- NOTE | 2025-09-23 20:04 | ESPR_ITS ---
Documentation for date of: 09/23/25 Subjective Subjective Interval history: Patient evaluated Hemoglobin hematocrit relatively stable at 8.2 and 26.3 Remains on high flow oxygen Not a candidate for any invasive GI workup because of high risk of further deterioration of the respiratory status may require endotracheal intubation with IV moderate sedation Exam Vital Signs Temp Pulse Resp BP Pulse Ox O2 Del Method O2 Flow Rate 98.6 F 70 23 H 120/62 94 L High Flow Nasal Cannula 30 09/23/25 16:00 09/23/25 19:49 09/23/25 19:49 09/23/25 16:00 09/23/25 19:49 09/23/25 16:00 09/23/25 19:49 FiO2 100 09/23/25 19:49 Objective Labs 09/23/25 04:55 09/23/25 04:55 Labs: Laboratory Results - last 24 hr 09/21/25 09/23/25 23:31 04:55 WBC 8.5 RBC 2.81 L Hgb 8.2 L Hct 26.3 L MCV 94 MCH 29.2 MCHC 31.2 RDW Std Deviation 46.3 H Plt Count 272 D Neut % (Auto) 72 Lymph % (Auto) 14 [place] % (Auto) 7 Eos % (Auto) 6 Baso % (Auto) 0 Neut # (Auto) 6.1 Lymph # (Auto) 1.2 [place] # (Auto) 0.6 Eos # (Auto) 0.5 Baso # (Auto) 0.0 Immature Gran # (Auto) 0.05 H Absolute Nucleated RBC 0.00 Immature Gran % 1 H Nucleated RBC % 0 Sodium 142 Potassium 3.9 Chloride 98 Carbon Dioxide 31.9 H Anion Gap 12 BUN 34 H Creatinine 1.9 H Estim Creat Clear Calc 43.2 L eGFR 39 L BUN/Creatinine Ratio 18 Glucose 106 Calculated Osmolality 290 Calcium 8.1 L Corrected Calcium 8.6 Phosphorus 3.9 Magnesium 2.4 Total Bilirubin 0.3 AST 20 ALT 8 L Alkaline Phosphatase 76 Total Protein 6.8 Albumin 3.4 Globulin 3.4 Albumin/Globulin Ratio 1.0 L Coccidioides IgG Ab Negative Hepatitis C Antibody Non Reactive HIV 1&2 Antibody Rapid Non-Reactive Impressions Impression: Melena Acute GI bleed Acute hypoxic respiratory failure Continue conservative management ABG Interpretation ABG results: 09/15/25 09/15/25 09/16/25 20:48 22:33 04:03 ABG pH 7.30 L 7.33 L 7.29 L ABG pCO2 57 H 49 H 51 H ABG pO2 167 H 154 H 118 H D ABG HCO3 28 H 26 25 ABG O2 Saturation 100 H 100 H 99 H ABG Base Excess 0 -1 -2 VBG pH VBG pCO2 VBG pO2 VBG Base Excess 09/17/25 09/19/25 03:40 08:35 ABG pH ABG pCO2 ABG pO2 ABG HCO3 ABG O2 Saturation ABG Base Excess VBG pH 7.43 7.39 VBG pCO2 41 52 D VBG pO2 139 H 80 H D VBG Base Excess 3 5 H Assessment & Plan A&P Narrative uti vs asb may have colonization of suprapubic cath too. bph mr/dd will give one dose fosfomycin and if off O2, then back to nh in am Time Spent With Patient Time: Total time spent is greater than 50% in coordination of care (as documented) at patient's floor/unit and/or counseling patient:
[2025-09-24] VITALS (18 sets, daily range): BP systolic 111–142; BP diastolic 63–95; PULSE 76–110; RESP 13–30; TEMP 36.1–36.7; O2SAT 92–99; BMI 33.6
[2025-09-24] MEDS: ALBUTEROL/IPRATROPIUM (Duoneb) RT SOL 3 ML NEBU INH ×5 (01:16→22:57)
[2025-09-24 05:57] LABS: Basophils # (Auto) 0.0 Thou/mm3 (0.0-0.2); Basophils % (Auto) 0 % (0-2.5); Eosinophils # (Auto) 0.3 Thou/mm3 (0.0-0.5); Eosinophils % (Auto) 3 % (0-10); Hematocrit 28.0 % (41.0-53.0); Immature Granulocytes Auto 0.05 Thou/mm3 (0.00-0.00); Lymphocytes # (Auto) 1.1 Thou/mm3 (1.0-4.8); Lymphocytes % (Auto) 10 % (10-50); Mean Corpuscular HGB Conc 31.1 g/dl (31.0-37.0); Mean Corpuscular Hemoglobin 28.8 pg (25.0-35.0); Mean Corpuscular Volume 93 fL (80-100); Monocytes # (Auto) 0.8 Thou/mm3 (0.0-0.8); Monocytes % (Auto) 7 % (0-12); Neutrophils # (Auto) 9.1 Thou/mm3 (1.8-7.7); Neutrophils % (Auto) 80 % (37-80); Nucleated Red Blood Cell # 0.00 Thou/mm3 (0.00-0.00); Nucleated Red Blood Cell % 0 /100 WBC (0); Platelet Count 301 Thou/mm3 (140-440); RDW Standard Deviation 45.1 fL (35.1-43.9); Red Blood Count 3.02 Miln/mm3 (4.50-5.90); White Blood Count 11.4 Thou/mm3 (3.8-10.6)
[2025-09-24 06:02] LABS: Hemoglobin 8.7 g/dL (13.5-16.0)
[2025-09-24 06:37] LABS: Alanine Aminotransferase 8 U/L (10-49); Albumin, Serum 3.5 gm/dL (3.4-4.8); Albumin/Globulin Ratio 1.0 (1.2-2.2); Alkaline Phosphatase 76 U/L (46-116); Anion Gap 16 (7-16); Aspartate Amino Transferase 18 U/L (0-34); BUN/Creatinine Ratio 20 Ratio (12-20); Bilirubin,Total 0.3 mg/dL (0.3-1.2); Blood Urea Nitrogen 36 mg/dL (9-23); Calcium 8.0 mg/dL (8.3-10.6); Calcium (Corrected) 8.4 mg/dL (8.5-10.1); Carbon Dioxide 28.8 mMol/L (20.0-31.0); Chloride 93 mMol/L (98-107); Creatinine (Component) 1.8 mg/dL (0.6-1.3); Estimated Creatinine Clearance 45.3 mL/min (>60); Globulin 3.5 gm/dL (2.3-3.5); Glucose 100 mg/dL (74-106); Magnesium 2.3 mg/dL (1.6-2.6); Osmolality,Calculated 283 (275-295); Potassium 4.1 mMol/L (3.4-5.1); Sodium 138 mMol/L (136-145); Total Protein 7.0 gm/dL (5.7-8.2); eGFR 42 See Note
--- NOTE | 2025-09-24 08:33 | PC.SS ---
Follow up note: High flow O2. On IV antibiotic. Pt will return to [facility] upon dc.
--- NOTE | 2025-09-24 09:19 | ESPR_ITS ---
Subjective Subjective Interval history: treated. still here . hiv and hep c serology notably neg Exam Vital Signs Temp Pulse Resp BP Pulse Ox O2 Del Method O2 Flow Rate 97.1 F 82 24 H 142/77 H 94 L High Flow Nasal Cannula 30 09/24/25 08:00 09/24/25 08:00 09/24/25 08:00 09/24/25 08:00 09/24/25 08:00 09/24/25 08:00 09/24/25 08:00 FiO2 100 09/24/25 08:00 Narrative Exam limited eval today Objective - Internal Medicine Labs 09/24/25 04:58 09/24/25 04:58 Labs: Laboratory Results - last 24 hr 09/21/25 09/23/25 09/24/25 23:31 04:55 04:58 WBC 11.4 H RBC 3.02 L Hgb 8.7 L Hct 28.0 L MCV 93 MCH 28.8 MCHC 31.1 RDW Std Deviation 45.1 H Plt Count 301 Neut % (Auto) 80 Lymph % (Auto) 10 [place] % (Auto) 7 Eos % (Auto) 3 Baso % (Auto) 0 Neut # (Auto) 9.1 H Lymph # (Auto) 1.1 [place] # (Auto) 0.8 Eos # (Auto) 0.3 Baso # (Auto) 0.0 Immature Gran # (Auto) 0.05 H Absolute Nucleated RBC 0.00 Immature Gran % 0 Nucleated RBC % 0 Sodium 138 Potassium 4.1 Chloride 93 L Carbon Dioxide 28.8 Anion Gap 16 BUN 36 H Creatinine 1.8 H Estim Creat Clear Calc 45.3 L eGFR 42 L BUN/Creatinine Ratio 20 Glucose 100 Calculated Osmolality 283 Calcium 8.0 L Corrected Calcium 8.4 L Magnesium 2.3 Total Bilirubin 0.3 AST 18 ALT 8 L Alkaline Phosphatase 76 Total Protein 7.0 Albumin 3.5 Globulin 3.5 Albumin/Globulin Ratio 1.0 L Coccidioides IgG Ab Negative HIV 1&2 Antibody Rapid Non-Reactive ABG Interpretation ABG results: 09/15/25 09/15/25 09/16/25 20:48 22:33 04:03 ABG pH 7.30 L 7.33 L 7.29 L ABG pCO2 57 H 49 H 51 H ABG pO2 167 H 154 H 118 H D ABG HCO3 28 H 26 25 ABG O2 Saturation 100 H 100 H 99 H ABG Base Excess 0 -1 -2 VBG pH VBG pCO2 VBG pO2 VBG Base Excess 09/17/25 09/19/25 03:40 08:35 ABG pH ABG pCO2 ABG pO2 ABG HCO3 ABG O2 Saturation ABG Base Excess VBG pH 7.43 7.39 VBG pCO2 41 52 D VBG pO2 139 H 80 H D VBG Base Excess 3 5 H Assessment & Plan A&P Narrative uti vs asb may have colonization of suprapubic cath too. bph mr/dd will give one dose fosfomycin and if off O2, then back to nh at your discretion will see again prn Time Spent With Patient Time: Total time spent is greater than 50% in coordination of care (as documented) at patient's floor/unit and/or counseling patient:
--- NOTE | 2025-09-24 09:34 | PC.NURSE ---
Dr. Dia orders to stop x1 calcium carbonate order, as pt. already has a scheduled dose BID.
[2025-09-24] MEDS: CALCIUM CARBONATE 600 MG TABLET PO ×2 (09:37→21:38)
[2025-09-24] MEDS: ASPIRIN EC 81 MG TABEC PO (09:37)
[2025-09-24] MEDS: BUMETANIDE INJ 0.25 MG/ML VIAL 4 ML 2 MG IVP (09:38)
[2025-09-24] MEDS: SODIUM CL RT SOL 3% 4 ML NEBU (NON-FORMULARY) INH ×4 (10:34→22:57)
--- NOTE | 2025-09-24 12:30 | PC.NURSE ---
Addendum entered by Gricel Richter RN 09/24/25 18:38: [address] Bonilla and got same report hold BiPAP for now. Original Note: Per Evelin Bonilla orders to hold Bipap for now.
[2025-09-24] MEDS: HEPARIN SOD INJ 5000 UNIT/ML VIAL SC ×2 (14:24→21:39)
--- NOTE | 2025-09-24 14:28 | PC.PT ---
Patient has been non ambulatory and jaylyn lift transfers for ~10years. Will need a lift machine if patient will be sitting on the chair. PROM can be done by nursing staff or careprovider from [facility]. Will cancel PT evaluation. Patient is at his PLOF. Dr. Mason made aware.
[2025-09-24] MEDS: ACETYLCYSTEINE RT SOL 10% 4 ML NEBU INH (14:46)
--- NOTE | 2025-09-24 17:28 | ESPR_ITS ---
Documentation for date of: 09/24/25 Subjective Subjective Interval history: Patient was seen and examined at bedside. No acute events took place overnight. According to nurse at bedside, patient had had black tarry stools which turned watery brown on 09/22. Nursing staff attempted to wean the patient off high flow nasal cannula currently at 30 L and 100% FiO2, but attempts led to desaturations putting the patient back on HFNC or regional settings. Weaning down for size with RT. [facility], she informed this provider that the patient is wheelchair bound, cannot propel himself, has issues with check and transfer beader strength, and therfore has recently lost ability to feed self. He can verbalize his needs. He is bowel and bladder incontinent. Had suprapubic cath previously but due to recurrent infections it was discontinued and not renenwed by his urologist. On urinary cath at the facility. Exam Vital Signs Temp Pulse Resp BP Pulse Ox O2 Del Method O2 Flow Rate 97.7 F 110 H 13 111/64 98 High Flow Nasal Cannula 30 09/24/25 16:00 09/24/25 16:00 09/24/25 16:00 09/24/25 16:00 09/24/25 16:00 09/24/25 16:00 09/24/25 16:00 FiO2 100 09/24/25 16:00 Narrative Exam General: Patient very lethargic and somnolent at the time of the exam, would not awaken even to shakes about his shoulder. Deferred mental status exam Eyes: PERRL, EOMI. Anicteric, vision grossly intact. Ears: No ear pain, no ear discharge, Hearing grossly intact. Nose: No nasal discharge. Mouth/Throat: Moist mucous membranes, no redness, no lesions. Neck: Neck supple, non-tender, no cervical lymphadenopathy. Lungs: bilateral wheezing, No accessory muscle use. Cardio: Normal S1/S2, regular rhythm, no murmurs, no JVD or carotid bruits. Abdomen: Soft, non-tender, no palpable masses, peristalsis present, no guarding or rebound. Extremities: Symmetrical, no significant deformities, bilateral pitting edema lower extremities, non-tender, peripheral pulses present. Skin: No rashes, no lesions, warm to touch. Neuro: No focal neurological deficits, at baseline Psych: Cooperative, appropriate mood and effect. Objective Labs 09/25/25 04:06 09/25/25 04:06 Labs: Laboratory Results - last 24 hr 09/24/25 04:58 WBC 11.4 H RBC 3.02 L Hgb 8.7 L Hct 28.0 L MCV 93 MCH 28.8 MCHC 31.1 RDW Std Deviation 45.1 H Plt Count 301 Neut % (Auto) 80 Lymph % (Auto) 10 [place] % (Auto) 7 Eos % (Auto) 3 Baso % (Auto) 0 Neut # (Auto) 9.1 H Lymph # (Auto) 1.1 [place] # (Auto) 0.8 Eos # (Auto) 0.3 Baso # (Auto) 0.0 Immature Gran # (Auto) 0.05 H Absolute Nucleated RBC 0.00 Immature Gran % 0 Nucleated RBC % 0 Sodium 138 Potassium 4.1 Chloride 93 L Carbon Dioxide 28.8 Anion Gap 16 BUN 36 H Creatinine 1.8 H Estim Creat Clear Calc 45.3 L eGFR 42 L BUN/Creatinine Ratio 20 Glucose 100 Calculated Osmolality 283 Calcium 8.0 L Corrected Calcium 8.4 L Magnesium 2.3 Total Bilirubin 0.3 AST 18 ALT 8 L Alkaline Phosphatase 76 Total Protein 7.0 Albumin 3.5 Globulin 3.5 Albumin/Globulin Ratio 1.0 L ABG Interpretation ABG results: 09/15/25 09/15/25 09/16/25 20:48 22:33 04:03 ABG pH 7.30 L 7.33 L 7.29 L ABG pCO2 57 H 49 H 51 H ABG pO2 167 H 154 H 118 H D ABG HCO3 28 H 26 25 ABG O2 Saturation 100 H 100 H 99 H ABG Base Excess 0 -1 -2 VBG pH VBG pCO2 VBG pO2 VBG Base Excess 09/17/25 09/19/25 03:40 08:35 ABG pH ABG pCO2 ABG pO2 ABG HCO3 ABG O2 Saturation ABG Base Excess VBG pH 7.43 7.39 VBG pCO2 41 52 D VBG pO2 139 H 80 H D VBG Base Excess 3 5 H Quality Measures Quality Measures VTE prophylaxis (Heparin SC ) Assessment & Plan Assessment Current Active Medications: Generic Name Dose Route Start Last Admin Trade Name Freq PRN Reason Stop Dose Admin Acetaminophen 650 mg 09/16/25 00:36 09/21/25 03:49 Acetaminophen 325 Mg Tablet PO 12/27/25 00:35 650 mg Q6H PRN Administration Fever >101.3 Acetylcysteine 4 ml 09/24/25 12:15 09/24/25 14:46 Acetylcysteine Rt Liset 10% 4 Ml Nebu INH 10/24/25 12:14 4 ml QDAYRT SHIVAM Administration Albuterol/Ipratropium 3 ml 09/24/25 15:00 09/24/25 14:46 Albuterol/Ipratropium (Duoneb) Rt Liset 3 Ml Nebu INH 10/24/25 14:59 3 ml Q4HRRT SHIVAM Administration Aspirin 81 mg 09/16/25 15:45 09/24/25 09:37 Aspirin Ec 81 Mg Tabec PO 10/16/25 15:44 81 mg QDAY SHIVAM Administration Bumetanide 2 mg 09/22/25 09:00 09/24/25 09:38 Bumetanide Inj 0.25 Mg/Ml Vial 4 Ml IVP 10/22/25 08:59 2 mg QDAY SHIVAM Administration Calcium Carbonate 600 mg 09/20/25 09:00 09/24/25 09:37 Calcium Carbonate 600 Mg Tablet PO 10/20/25 08:59 600 mg BID SHIVAM Administration Dextrose 25 ml 09/16/25 05:18 09/23/25 01:09 Dextrose 50%-Water Inj 50 Ml Syringe IV 10/16/25 05:17 25 ml Q15MIN PRN Administration BG 50-70 responsive npo pt Dextrose 50 ml 09/16/25 05:18 Dextrose 50%-Water Inj 50 Ml Syringe IV 10/16/25 05:17 Q15MIN PRN BG <50 OR BG <70 & pt unresponsive Glucagon 1 mg 09/16/25 05:18 Glucagon Inj 1 Mg Vial IM Q15MIN PRN BG <70, and no IV access Heparin Sodium (Porcine) 5,000 unit 09/24/25 14:00 09/24/25 14:24 Heparin Sod Inj 5000 Unit/Ml Vial SC 10/08/25 13:59 5,000 unit Q8HR SHIVAM Administration Insulin Human Lispro 0 unit 09/24/25 17:00 09/24/25 17:12 Insulin Lispro (Admelog) 1 Unit/0.01 Ml Unit SC 10/24/25 16:59 Not Given ACHS [facility] Protocol Midodrine 10 mg 09/18/25 06:00 09/24/25 13:28 Midodrine 5 Mg Tablet PO 10/18/25 05:59 Not Given TID [facility] Ondansetron HCl 4 mg 09/16/25 00:36 09/19/25 10:20 Ondansetron Inj 2 Mg/Ml Inj 2 Ml IVP 10/16/25 00:35 4 mg Q6H PRN Administration NAUSEA OR VOMITING Protocol Pantoprazole Sodium 40 mg 09/19/25 21:00 09/24/25 09:37 Pantoprazole Inj 40 Mg Vial IVP 10/19/25 20:59 40 mg BID SHIVAM Administration Pharmacy Consult 1 each 09/16/25 00:42 Pharmacy Renal Dose Adjustment 1 Ea XX 10/16/25 00:41 PRN PRN CONSULT Sennosides 1 tab 09/21/25 10:30 09/24/25 09:37 Senna Tablet PO 10/21/25 10:29 1 tab QDAY [facility] Administration Protocol Sodium Chloride 4 ml 09/24/25 09:30 09/24/25 14:49 Sodium Cl Rt Liset 3% 4 Ml Nebu (Non-Formulary) INH 10/24/25 09:29 Not Given Q4HRRT SHIVAM Plan 65-year-old bedbound male with past medical history of?evelopmental?delay, muscular dystrophy, benign prostatic hyperplasia, history of neurogenic bladder, right inguinal hernia, CVA, CAD, hypertension, hyperlipidemia and diabetes was brought in to the ED on 09/15/2025 from[facility] with altered mental status and had cardiac arrest with downtime of 20 mins at the facility. In ED he was resuscitated and ROSC was achieved. Patient was admitted to ICU for acute encephalopathy postcardiac arrest, distributive shock?septic secondary to UTI for management. Patient was extubated 09/16, weaned off of pressors and was downgraded to telemetry on 09/18.? ? #Acute hypoxic respiratory failure Secondary to diffuse bilateral pneumonia? #Community-acquired pneumonia Secondary to?Proteus Mirabella's, Klebsiella pneumoniae and ESBL E. coli? #Urinary tract infection Secondary to ESBL E. coli? #Distributive shock, likely septic secondary to UTI, resolved? ? Patient presented with septic shock, weaned off of pressors. Currently on midodrine, blood pressure stable. Blood culture negative for 48 hours? Urine culture positive for ESBL, sputum culture positive for ESBL, Klebsiella, Proteus.? MRSA nares negative, vancomycin discontinued? 09-20-25-?zosyn?disconsitnued;?? 09-19-25- Overnight patient developed cough with dark sputum. Patient then developed significant hypoxia, saturation 87-90% on 15 L oxy mask. Patient placed on high flow nasal cannula with improvement in O2 saturation. Chest x-ray taken, showed worsening vascular congestion, fluid in bilateral lungs. Concern for aspiration event in setting of dysphagia, patient made NPO.?? 09-20-25- patient still 30L HFNC? 09-21-25- cocci serology negative? ? CXR 09/22 shows improved pneumonia in the right lung, however there remains significant perihilar bibasilar pneumonia? During this hospital admission, blood cultures are negative, ET secretion cultures grew proteus mirabilis, ESBL E. Coli and Klebsiella?Pneumonae?which has limited drug sensitivity.? - fosfomycin 3g x1?(09/23) for UTI - meropenem 1g IV Q12H?(09/20-09/22) [facility]L [facility] Plan:? - RT to try and wean down O2 requirements. - BiPAP/CPAP - DuoNebs Q4h - ID, Dr Oseguera, does not recommend any more ABx therapy. - Continue midodrine?with hold?parameters? - Bumex 2mg 1x daily started? - incentive spirometry with deep breathing emphasized to nurse. - PEEP 5 - Chest PhysioTherapy ? ? #Normocytic normochromic anemia? #Melena? Patient has chronic, stable anemia. Noted to have melena 09/19, FOBT positive. GI consulted.? ? Plan:? ? - Follow CBC, transfuse as needed? - GI consulted, will wait for upper GI until respiratory status improved? - IV Protonix? -?N.p.o.? ? 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 Patient's baseline creatinine 1.4?1.6? Patient is status post 5 L IV LR? Patient's underlying CHAR secondary to insult from distributive shock? ? Plan:? ? - Nephrology consulted, appreciate recommendations? - Avoid nephrotoxic agents? ? #NSTEMI type II? #Cardiac arrest, pulseless electrical activity, status post ROSC? In ER patient was found in PEA, CODE BLUE was called CPR performed with 2 rounds of epi and ROSC was achieved.? Echocardiogram obtained shows EF 60 to 65%, mild concentric hypertrophy normal diastolic dysfunction? EKG 09/16?sinus rhythm, EKG 09/15?sinus tachycardia no acute ST-T changes? Troponin on presentation 2.194 up trended to 3.4 and then down trended to 2.4? ? Plan:? ? - Cardiology is consulted, state that likely cause is due to hyperkalemia? ? #Type 2 diabetes mellitus, [id number]? Hemoglobin A1c 5.2? - Sliding scale insulin? ? #Dysphagia? Patient has NG tube intact, SBO was ruled out? Speech therapy recommended dysphagia 1 diet, patient was started on it, will keep NG tube for now, consider discontinuing in the morning.? Patient had possible aspiration event 09/19? Will keep?npo?for now? ? Plan:? ? - GI recommendations as above? -?N.p.o.? ? #History of developmental delay and muscular dystrophy? #History of depression? #History of TIA? Patient on gabapentin and baclofen at home, from [facility] has history of TIA? - Continue aspirin? - Hold home baclofen, duloxetine and gabapentin, monitor mentation? ? #History of hypertension? #History of hyperlipidemia? Currently blood pressure normotensive hold antihypertensives? ? #History of BPH and neurogenic bladder? #History of right inguinal hernia? - Consider starting patient on tamsulosin? ? #Anion gap metabolic acidosis, resolved? #Lactic acidosis resolved? #Hyponatremia? #Hypochloremia? #Hyperkalemia resolved? #Hypercalcemia resolved? - Follow CMP in a.m.? - KCl 20?mEq?given 1x? ? DVT prophylaxis: Heparin every 12 hour? GI prophylaxis: IV Protonix 40? Diet:?Dysphagia 1 -Pureed Lines: Peripheral IV? Code status: Full code This case was discussed with my attending physician, Dr. Mason, and senior resident, Dr Cali Even though this this note was carefully revised there may still be minor errors in procurement cost coordinator due to voice recognition software. Andrés Dia, DO PGY I Senior Resident Attestation: The patient reported mild improvement in his symptoms. He has been more vocal, and more alert than yesterday. Overnight patient had a tarry black stool. He continues to be on high flow nasal cannula with 30 L oxygen flow and 100% FiO2. He has been mildly tachycardic, with other vitals WNL. Renal function slowly improving, today it is creatinine of 1.8. Respiratory therapist was requested to work more on chest PT, optimize nebulization with DuoNeb, and if needed BiPAP. He will also be continued on intensive spirometry every hourly. Antibiotics course has been completed. I discussed with and supervised the chemist internship physician involved in the care of this patient. I personally saw and examined the patient and discussed the assessment and plan with the entire medicine team, including my attending. I agree with the assessment and plan as documented above. Tremaine Cali MD PGY3 Internal Medicine Attending Provider Attestation/Addendum I have discussed and was present for the essential components of the history, physical examination, diagnosis, and treatment plan with the resident. I agree with the patient's care as documented by the resident and amended herein by me. Elmo Mason DO. Although this document has been carefully reviewed, there may still be some phonetic and other typographical errors. These errors are purely grammatical due to imperfections in the software program and should not be construed in any way to compromise the substance of the patient's medical care during this visit.
--- NOTE | 2025-09-24 19:14 | ESPR_ITS ---
Documentation for date of: 09/24/25 Subjective Subjective Interval history: Hemoglobin hematocrit 8.7 and 28.7 Remains on high flow nasal cannula Exam Vital Signs Temp Pulse Resp BP Pulse Ox O2 Del Method O2 Flow Rate 97.7 F 91 24 H 111/64 99 High Flow Nasal Cannula 30 09/24/25 16:00 09/24/25 18:54 09/24/25 18:54 09/24/25 16:00 09/24/25 18:54 09/24/25 16:00 09/24/25 18:54 FiO2 90 09/24/25 18:54 Objective Labs 09/24/25 04:58 09/24/25 04:58 Labs: Laboratory Results - last 24 hr 09/24/25 04:58 WBC 11.4 H RBC 3.02 L Hgb 8.7 L Hct 28.0 L MCV 93 MCH 28.8 MCHC 31.1 RDW Std Deviation 45.1 H Plt Count 301 Neut % (Auto) 80 Lymph % (Auto) 10 [place] % (Auto) 7 Eos % (Auto) 3 Baso % (Auto) 0 Neut # (Auto) 9.1 H Lymph # (Auto) 1.1 [place] # (Auto) 0.8 Eos # (Auto) 0.3 Baso # (Auto) 0.0 Immature Gran # (Auto) 0.05 H Absolute Nucleated RBC 0.00 Immature Gran % 0 Nucleated RBC % 0 Sodium 138 Potassium 4.1 Chloride 93 L Carbon Dioxide 28.8 Anion Gap 16 BUN 36 H Creatinine 1.8 H Estim Creat Clear Calc 45.3 L eGFR 42 L BUN/Creatinine Ratio 20 Glucose 100 Calculated Osmolality 283 Calcium 8.0 L Corrected Calcium 8.4 L Magnesium 2.3 Total Bilirubin 0.3 AST 18 ALT 8 L Alkaline Phosphatase 76 Total Protein 7.0 Albumin 3.5 Globulin 3.5 Albumin/Globulin Ratio 1.0 L Impressions Impression: Anemia blood loss Acute hypoxic respiratory failure Continue to monitor CBC No plans for endoscopy at this time ABG Interpretation ABG results: 09/15/25 09/15/25 09/16/25 20:48 22:33 04:03 ABG pH 7.30 L 7.33 L 7.29 L ABG pCO2 57 H 49 H 51 H ABG pO2 167 H 154 H 118 H D ABG HCO3 28 H 26 25 ABG O2 Saturation 100 H 100 H 99 H ABG Base Excess 0 -1 -2 VBG pH VBG pCO2 VBG pO2 VBG Base Excess 09/17/25 09/19/25 03:40 08:35 ABG pH ABG pCO2 ABG pO2 ABG HCO3 ABG O2 Saturation ABG Base Excess VBG pH 7.43 7.39 VBG pCO2 41 52 D VBG pO2 139 H 80 H D VBG Base Excess 3 5 H Assessment & Plan A&P Narrative uti vs asb may have colonization of suprapubic cath too. bph mr/dd will give one dose fosfomycin and if off O2, then back to nh at your discretion will see again prn Time Spent With Patient Time: Total time spent is greater than 50% in coordination of care (as documented) at patient's floor/unit and/or counseling patient:
[2025-09-24] MEDS: MIDODRINE 5 MG TABLET 10 MG PO (21:44)
[2025-09-25] VITALS (17 sets, daily range): BP systolic 109–142; BP diastolic 59–69; PULSE 70–86; RESP 14–31; TEMP 35.9–36.6; O2SAT 92–99
[2025-09-25] MEDS: SODIUM CL RT SOL 3% 4 ML NEBU (NON-FORMULARY) INH ×4 (02:19→19:53)
[2025-09-25] MEDS: ALBUTEROL/IPRATROPIUM (Duoneb) RT SOL 3 ML NEBU INH ×6 (02:19→23:14)
[2025-09-25] MEDS: HEPARIN SOD INJ 5000 UNIT/ML VIAL SC ×3 (05:26→22:11)
[2025-09-25] MEDS: MIDODRINE 5 MG TABLET 10 MG PO ×3 (05:27→22:11)
[2025-09-25 05:42] LABS: Basophils # (Auto) 0.0 Thou/mm3 (0.0-0.2); Basophils % (Auto) 0 % (0-2.5); Eosinophils # (Auto) 0.1 Thou/mm3 (0.0-0.5); Eosinophils % (Auto) 1 % (0-10); Hematocrit 25.6 % (41.0-53.0); Immature Granulocytes Auto 0.04 Thou/mm3 (0.00-0.00); Lymphocytes # (Auto) 1.1 Thou/mm3 (1.0-4.8); Lymphocytes % (Auto) 12 % (10-50); Mean Corpuscular HGB Conc 30.9 g/dl (31.0-37.0); Mean Corpuscular Hemoglobin 28.2 pg (25.0-35.0); Mean Corpuscular Volume 91 fL (80-100); Monocytes # (Auto) 0.8 Thou/mm3 (0.0-0.8); Monocytes % (Auto) 8 % (0-12); Neutrophils # (Auto) 7.5 Thou/mm3 (1.8-7.7); Neutrophils % (Auto) 79 % (37-80); Nucleated Red Blood Cell # 0.00 Thou/mm3 (0.00-0.00); Nucleated Red Blood Cell % 0 /100 WBC (0); Platelet Count 331 Thou/mm3 (140-440); RDW Standard Deviation 44.6 fL (35.1-43.9); Red Blood Count 2.80 Miln/mm3 (4.50-5.90); White Blood Count 9.5 Thou/mm3 (3.8-10.6)
[2025-09-25 05:51] LABS: Hemoglobin 7.9 g/dL (13.5-16.0)
[2025-09-25] MEDS: ACETYLCYSTEINE RT SOL 10% 4 ML NEBU INH (06:03)
[2025-09-25 06:13] LABS: Alanine Aminotransferase < 7 U/L (10-49); Albumin, Serum 3.3 gm/dL (3.4-4.8); Albumin/Globulin Ratio 1.0 (1.2-2.2); Alkaline Phosphatase 75 U/L (46-116); Anion Gap 9 (7-16); Aspartate Amino Transferase 14 U/L (0-34); BUN/Creatinine Ratio 19 Ratio (12-20); Bilirubin,Total 0.3 mg/dL (0.3-1.2); Blood Urea Nitrogen 40 mg/dL (9-23); Calcium 7.9 mg/dL (8.3-10.6); Calcium (Corrected) 8.5 mg/dL (8.5-10.1); Carbon Dioxide 35.2 mMol/L (20.0-31.0); Chloride 92 mMol/L (98-107); Creatinine (Component) 2.1 mg/dL (0.6-1.3); Estimated Creatinine Clearance 38.8 mL/min (>60); Globulin 3.4 gm/dL (2.3-3.5); Glucose 170 mg/dL (74-106); Magnesium 2.3 mg/dL (1.6-2.6); Osmolality,Calculated 285 (275-295); Potassium 3.9 mMol/L (3.4-5.1); Sodium 136 mMol/L (136-145); Total Protein 6.7 gm/dL (5.7-8.2); eGFR 35 See Note
--- NOTE | 2025-09-25 07:38 | XR_ITS ---
EXAMINATION: AP chest single view TECHNIQUE: AP portable semiupright chest single view Date and time: September 25, 2025, 0807 hours, comparison September 22, 2025 INDICATIONS: Shortness of breath this week. FINDINGS: Mild enlargement cardiac contour Prominent vascular congestion Extensive perihilar edema and/or pneumonia, clinical correlation advised Possible significant right pleural effusion IMPRESSION: Extensive bilateral perihilar edema and/or pneumonia, clinical correlation advised
[2025-09-25] MEDS: INSULIN LISPRO (AdmeLOG) 1 UNIT/0.01 ML UNIT SC ×4 (08:04→22:12)
[2025-09-25] MEDS: CALCIUM CARBONATE 600 MG TABLET PO ×2 (09:45→22:11)
[2025-09-25] MEDS: ASPIRIN EC 81 MG TABEC PO (09:45)
--- NOTE | 2025-09-25 14:25 | ESPR_ITS ---
Documentation for date of: 09/25/25 Subjective Subjective Interval history: Patient was seen and examined at bedside. No acute events took place overnight. Patient demonstrates improved mentation, A&O x3. Respiratory therapy was able to wean down oxygen requirements to FiO2 85%, still on 30 L. According to nurse at bedside, patient had had black tarry stools which turned watery brown on 09/22. CXR ordered showed improvement in atelectasis. Will have the patient lie on his left side decubitus position, the side of his good lung, to try and expand the Rt lung. 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 He can verbalize his needs. He is bowel and bladder incontinent. Had suprapubic cath previously but due to recurrent infections it was discontinued and not renenwed by his urologist. On urinary cath at the facility. Exam Vital Signs Temp Pulse Resp BP Pulse Ox O2 Del Method O2 Flow Rate 97.3 F 72 26 H 109/65 99 High Flow Nasal Cannula 30 09/25/25 12:00 09/25/25 12:00 09/25/25 12:00 09/25/25 12:00 09/25/25 12:00 09/25/25 12:00 09/25/25 12:00 FiO2 85 09/25/25 12:00 Narrative Exam General: Patient demonstrates improved mentation, A&O x3. Eyes: PERRL, EOMI. Anicteric, vision grossly intact. Ears: No ear pain, no ear discharge, Hearing grossly intact. Nose: No nasal discharge. Mouth/Throat: Moist mucous membranes, no redness, no lesions. Neck: Neck supple, non-tender, no cervical lymphadenopathy. Lungs: bilateral wheezing, No accessory muscle use. Cardio: Normal S1/S2, regular rhythm, no murmurs, no JVD or carotid bruits. Abdomen: Soft, non-tender, no palpable masses, peristalsis present, no guarding or rebound. Extremities: Symmetrical, no significant deformities, bilateral pitting edema lower extremities, non-tender, peripheral pulses present. Skin: No rashes, no lesions, warm to touch. Neuro: No focal neurological deficits, at baseline Psych: Cooperative, appropriate mood and effect. Objective Labs 09/25/25 04:06 09/25/25 04:06 Labs: Laboratory Results - last 24 hr 09/25/25 04:06 WBC 9.5 RBC 2.80 L Hgb 7.9 L Hct 25.6 L MCV 91 MCH 28.2 MCHC 30.9 L RDW Std Deviation 44.6 H Plt Count 331 D Neut % (Auto) 79 Lymph % (Auto) 12 Marshall % (Auto) 8 Eos % (Auto) 1 Baso % (Auto) 0 Neut # (Auto) 7.5 Lymph # (Auto) 1.1 Marshall # (Auto) 0.8 Eos # (Auto) 0.1 Baso # (Auto) 0.0 Immature Gran # (Auto) 0.04 H Absolute Nucleated RBC 0.00 Immature Gran % 0 Nucleated RBC % 0 Sodium 136 Potassium 3.9 Chloride 92 L Carbon Dioxide 35.2 H Anion Gap 9 BUN 40 H Creatinine 2.1 H Estim Creat Clear Calc 38.8 L eGFR 35 L BUN/Creatinine Ratio 19 Glucose 170 H D Calculated Osmolality 285 Calcium 7.9 L Corrected Calcium 8.5 Magnesium 2.3 Total Bilirubin 0.3 AST 14 ALT < 7 L Alkaline Phosphatase 75 Total Protein 6.7 Albumin 3.3 L Globulin 3.4 Albumin/Globulin Ratio 1.0 L ABG Interpretation ABG results: 09/15/25 09/15/25 09/16/25 20:48 22:33 04:03 ABG pH 7.30 L 7.33 L 7.29 L ABG pCO2 57 H 49 H 51 H ABG pO2 167 H 154 H 118 H D ABG HCO3 28 H 26 25 ABG O2 Saturation 100 H 100 H 99 H ABG Base Excess 0 -1 -2 VBG pH VBG pCO2 VBG pO2 VBG Base Excess 09/17/25 09/19/25 03:40 08:35 ABG pH ABG pCO2 ABG pO2 ABG HCO3 ABG O2 Saturation ABG Base Excess VBG pH 7.43 7.39 VBG pCO2 41 52 D VBG pO2 139 H 80 H D VBG Base Excess 3 5 H Quality Measures Quality Measures VTE prophylaxis (Heparin SC ) Assessment & Plan Assessment Current Active Medications: Generic Name Dose Route Start Last Admin Trade Name Freq PRN Reason Stop Dose Admin Acetaminophen 650 mg 09/16/25 00:36 09/21/25 03:49 Acetaminophen 325 Mg Tablet PO 10/16/25 00:35 650 mg Q6H PRN Administration Fever >101.3 Acetylcysteine 4 ml 09/24/25 12:15 09/25/25 06:03 Acetylcysteine Rt Liset 10% 4 Ml Nebu INH 10/24/25 12:14 4 ml QDAYRT SHIVAM Administration Albuterol/Ipratropium 3 ml 09/24/25 15:00 09/25/25 10:08 Albuterol/Ipratropium (Duoneb) Rt Liset 3 Ml Nebu INH 10/24/25 14:59 3 ml Q4HRRT SHIVAM Administration Aspirin 81 mg 09/16/25 15:45 09/25/25 09:45 Aspirin Ec 81 Mg Tabec PO 10/16/25 15:44 81 mg QDAY SHIVAM Administration Bumetanide 2 mg 09/22/25 09:00 09/24/25 09:38 Bumetanide Inj 0.25 Mg/Ml Vial 4 Ml IVP 10/22/25 08:59 2 mg On Hold: 09/25/25 07:37 QDAY SHIVAM Administration Calcium Carbonate 600 mg 09/20/25 09:00 09/25/25 09:45 Calcium Carbonate 600 Mg Tablet PO 10/20/25 08:59 600 mg BID SHIVAM Administration Dextrose 25 ml 09/16/25 05:18 09/23/25 01:09 Dextrose 50%-Water Inj 50 Ml Syringe IV 10/16/25 05:17 25 ml Q15MIN PRN Administration BG 50-70 responsive npo pt Dextrose 50 ml 09/16/25 05:18 Dextrose 50%-Water Inj 50 Ml Syringe IV 10/16/25 05:17 Q15MIN PRN BG <50 OR BG <70 & pt unresponsive Glucagon 1 mg 09/16/25 05:18 Glucagon Inj 1 Mg Vial IM Q15MIN PRN BG <70, and no IV access Heparin Sodium (Porcine) 5,000 unit 09/24/25 14:00 09/25/25 05:26 Heparin Sod Inj 5000 Unit/Ml Vial SC 10/08/25 13:59 5,000 unit Q8HR SHIVAM Administration Insulin Human Lispro 0 unit 09/24/25 17:00 09/25/25 12:08 Insulin Lispro (Admelog) 1 Unit/0.01 Ml Unit SC 10/24/25 16:59 3 unit ACHS SHIVAM Administration Protocol Midodrine 10 mg 09/18/25 06:00 09/25/25 05:27 Midodrine 5 Mg Tablet PO 10/18/25 05:59 10 mg TID SHIVAM Administration Ondansetron HCl 4 mg 09/16/25 00:36 09/19/25 10:20 Ondansetron Inj 2 Mg/Ml Inj 2 Ml IVP 10/16/25 00:35 4 mg Q6H PRN Administration NAUSEA OR VOMITING Protocol Pantoprazole Sodium 40 mg 09/19/25 21:00 09/25/25 09:45 Pantoprazole Inj 40 Mg Vial IVP 10/19/25 20:59 40 mg BID SHIVAM Administration Pharmacy Consult 1 each 09/16/25 00:42 Pharmacy Renal Dose Adjustment 1 Ea XX 10/16/25 00:41 PRN PRN CONSULT Pyridostigmine Beccaria 30 mg 09/25/25 10:25 09/25/25 11:39 Pyridostigmine Beccaria 60 Mg Tablet PO 10/25/25 10:24 30 mg TID SHIVAM Administration Sennosides 1 tab 09/21/25 10:30 09/25/25 09:46 Senna Tablet PO 10/21/25 10:29 1 tab QDAY SHIVAM Administration Protocol Sodium Chloride 4 ml 09/24/25 09:30 09/25/25 10:08 Sodium Cl Rt Liset 3% 4 Ml Nebu (Non-Formulary) INH 10/24/25 09:29 4 ml Q4HRRT SHIVAM Administration Plan 65-year-old bedbound male with past medical history of?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 In ED he was resuscitated and ROSC was achieved. Patient was admitted to ICU for acute encephalopathy postcardiac arrest, distributive shock?septic secondary to UTI for management. Patient was extubated 09/16, weaned off of pressors and was downgraded to telemetry on 09/18.? ? #Acute hypoxic respiratory failure Secondary to underlying myasthenia gravis and hx of diffuse bilateral pneumonia? #Community-acquired pneumonia Secondary to?Proteus Mirabella's, Klebsiella pneumoniae and ESBL E. coli, completed treatment #Urinary tract infection Secondary to ESBL E. coli, completed treatment #Distributive shock, likely septic secondary to UTI, resolved? ? Patient presented with septic shock, weaned off of pressors. Currently on midodrine, blood pressure stable. Blood culture negative for 48 hours? Urine culture positive for ESBL, sputum culture positive for ESBL, Klebsiella, Proteus.? MRSA nares negative, vancomycin discontinued? 09-20-25-?zosyn?disconsitnued;?? 09-19-25- Overnight patient developed cough with dark sputum. Patient then developed significant hypoxia, saturation 87-90% on 15 L oxy mask. Patient placed on high flow nasal cannula with improvement in O2 saturation. Chest x-ray taken, showed worsening vascular congestion, fluid in bilateral lungs. Concern for aspiration event in setting of dysphagia, patient made NPO.?? 09-20-25- patient still 30L HFNC? 09-21-25- cocci serology negative? ? CXR 09/22 shows improved pneumonia in the right lung, however there remains significant perihilar bibasilar pneumonia? During this hospital admission, blood cultures are negative, ET secretion cultures grew proteus mirabilis, ESBL E. Coli and Klebsiella?Pneumonae?which has limited drug sensitivity.? - fosfomycin 3g x1?(09/23) for UTI - meropenem 1g IV Q12H?(09/20-09/22) Pt is on 2L via [facility] at [facility]. CXR (09/25) shows improvement in atelectasis. Plan:? - Pyridostigmine PO 30mg bid - Will have the patient by on left decubitus position, the side of the good lung to try and expand the right lung. - RT to try and wean down O2 requirements. - BiPAP/CPAP - DuoNebs Q4h - ID, Dr Oseguera, does not recommend any more ABx therapy. - Continue midodrine?with hold?parameters? - Bumex 2mg held - incentive spirometry with deep breathing emphasized to nurse. - PEEP 5 - Chest PhysioTherapy ? 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 Patient's baseline creatinine 1.4?1.6? Patient is status post 5 L IV LR? Patient's underlying CHAR secondary to insult from distributive shock? 09/25: Cr 2.1, elevated from baseline, likely 2/2 hypovolemia from diuresis ? Plan:? - Held Bumetanide IVP 2mg Qday - Nephrology consulted, appreciate recommendations? - Avoid nephrotoxic agents? #Normocytic normochromic anemia? #Melena? Patient has chronic, stable anemia. Noted to have melena 09/19, FOBT positive. GI consulted.? ? Plan:? ? - Follow CBC, transfuse as needed? - GI consulted, will wait for upper GI until respiratory status improved? - IV Protonix? -?N.p.o.? ? ? #NSTEMI type II, resolved? #Cardiac arrest, pulseless electrical activity, status post ROSC? In ER patient was found in PEA, CODE BLUE was called CPR performed with 2 rounds of epi and ROSC was achieved.? Echocardiogram obtained shows EF 60 to 65%, mild concentric hypertrophy normal diastolic dysfunction? EKG 09/16?sinus rhythm, EKG 09/15?sinus tachycardia no acute ST-T changes? Troponin on presentation 2.194 up trended to 3.4 and then down trended to 2.4? ? Plan:? ? - Cardiology is consulted, state that likely cause is due to hyperkalemia? ? #Type 2 diabetes mellitus, [id number]? Hemoglobin A1c 5.2? - Sliding scale insulin? ? #Dysphagia? Patient has NG tube intact, SBO was ruled out? Speech therapy recommended dysphagia 1 diet, patient was started on it, will keep NG tube for now, consider discontinuing in the morning.? Patient had possible aspiration event 09/19? Will keep?npo?for now? ? Plan:? ? - GI recommendations as above? -?N.p.o.? ? #History of developmental delay and muscular dystrophy? #History of depression? #History of TIA? Patient on gabapentin and baclofen at home, from [facility] has history of TIA? - Continue aspirin? - Hold home baclofen, duloxetine and gabapentin, monitor mentation? ? #History of hypertension? #History of hyperlipidemia? Currently blood pressure normotensive hold antihypertensives? ? #History of BPH and neurogenic bladder? #History of right inguinal hernia? - Consider starting patient on tamsulosin? ? #Anion gap metabolic acidosis, resolved? #Lactic acidosis resolved? #Hyponatremia? #Hypochloremia? #Hyperkalemia resolved? #Hypercalcemia resolved? - Follow CMP in a.m.? - KCl 20?mEq?given 1x? ? DVT prophylaxis: Heparin every 12 hour? GI prophylaxis: IV Protonix 40? Diet:?Dysphagia 1 -Pureed Lines: Peripheral IV? Code status: Full code This case was discussed with my attending physician, Dr. Mason, and senior resident, Dr Cali Even though this this note was carefully revised there may still be minor errors in senior consulting manager due to voice recognition software. Andrés Dia DO PGY I Senior Resident Attestation: The patient reported mild improvement in his symptoms. He has been more vocal, and more alert than yesterday. He continues to be on high flow nasal cannula with 30 L oxygen flow and 85 % FiO2. He has been mildly tachycardic, with other vitals WNL. Renal function mildly or send with creatinine of 2.1. Respiratory therapist was requested to work more on chest PT, optimize nebulization with DuoNeb, and if needed BiPAP. He will also be continued on intensive spirometry every hourly. Antibiotics course has been completed. Diuretics has been discontinued. I discussed with and supervised the manager of internal audit physician involved in the care of this patient. I personally saw and examined the patient and discussed the assessment and plan with the entire medicine team, including my attending. I agree with the assessment and plan as documented above. Tremaine Cali MD PGY3 Internal Medicine Attending Provider Attestation/Addendum I have discussed and was present for the essential components of the history, physical examination, diagnosis, and treatment plan with the resident. I agree with the patient's care as documented by the resident and amended herein by me. Elmo Mason DO. Although this document has been carefully reviewed, there may still be some phonetic and other typographical errors. These errors are purely grammatical due to imperfections in the software program and should not be construed in any way to compromise the substance of the patient's medical care during this visit.
--- NOTE | 2025-09-25 19:53 | ESPR_ITS ---
Documentation for date of: 09/25/25 Subjective Subjective Interval history: Remains on high flow nasal cannula Hemoglobin hematocrit 7.9 and 25.6 Exam Vital Signs Temp Pulse Resp BP Pulse Ox O2 Del Method O2 Flow Rate 97.2 F 75 14 124/59 L 96 High Flow Nasal Cannula 25 09/25/25 19:37 09/25/25 19:37 09/25/25 19:37 09/25/25 19:37 09/25/25 19:37 09/25/25 19:37 09/25/25 16:00 FiO2 80 09/25/25 16:00 Objective Labs 09/25/25 04:06 09/25/25 04:06 Labs: Laboratory Results - last 24 hr 09/25/25 04:06 WBC 9.5 RBC 2.80 L Hgb 7.9 L Hct 25.6 L MCV 91 MCH 28.2 MCHC 30.9 L RDW Std Deviation 44.6 H Plt Count 331 D Neut % (Auto) 79 Lymph % (Auto) 12 Spencer % (Auto) 8 Eos % (Auto) 1 Baso % (Auto) 0 Neut # (Auto) 7.5 Lymph # (Auto) 1.1 Spencer # (Auto) 0.8 Eos # (Auto) 0.1 Baso # (Auto) 0.0 Immature Gran # (Auto) 0.04 H Absolute Nucleated RBC 0.00 Immature Gran % 0 Nucleated RBC % 0 Sodium 136 Potassium 3.9 Chloride 92 L Carbon Dioxide 35.2 H Anion Gap 9 BUN 40 H Creatinine 2.1 H Estim Creat Clear Calc 38.8 L eGFR 35 L BUN/Creatinine Ratio 19 Glucose 170 H D Calculated Osmolality 285 Calcium 7.9 L Corrected Calcium 8.5 Magnesium 2.3 Total Bilirubin 0.3 AST 14 ALT < 7 L Alkaline Phosphatase 75 Total Protein 6.7 Albumin 3.3 L Globulin 3.4 Albumin/Globulin Ratio 1.0 L Impressions Impression: Anemia blood loss Acute hypoxic respiratory failure Continue conservative management ABG Interpretation ABG results: 09/15/25 09/15/25 09/16/25 20:48 22:33 04:03 ABG pH 7.30 L 7.33 L 7.29 L ABG pCO2 57 H 49 H 51 H ABG pO2 167 H 154 H 118 H D ABG HCO3 28 H 26 25 ABG O2 Saturation 100 H 100 H 99 H ABG Base Excess 0 -1 -2 VBG pH VBG pCO2 VBG pO2 VBG Base Excess 09/17/25 09/19/25 03:40 08:35 ABG pH ABG pCO2 ABG pO2 ABG HCO3 ABG O2 Saturation ABG Base Excess VBG pH 7.43 7.39 VBG pCO2 41 52 D VBG pO2 139 H 80 H D VBG Base Excess 3 5 H Assessment & Plan A&P Narrative uti vs asb may have colonization of suprapubic cath too. bph mr/dd will give one dose fosfomycin and if off O2, then back to nh at your discretion will see again prn Time Spent With Patient Time: Total time spent is greater than 50% in coordination of care (as documented) at patient's floor/unit and/or counseling patient:
[2025-09-26] VITALS (16 sets, daily range): BP systolic 133–145; BP diastolic 63–72; PULSE 75–90; RESP 13–26; TEMP 36.1–36.7; O2SAT 94–100
[2025-09-26] MEDS: ALBUTEROL/IPRATROPIUM (Duoneb) RT SOL 3 ML NEBU INH ×6 (02:48→23:12)
[2025-09-26] MEDS: SODIUM CL RT SOL 3% 4 ML NEBU (NON-FORMULARY) INH ×5 (02:49→18:39)
[2025-09-26] MEDS: HEPARIN SOD INJ 5000 UNIT/ML VIAL SC ×3 (05:32→21:08)
[2025-09-26] MEDS: ACETYLCYSTEINE RT SOL 10% 4 ML NEBU INH (07:50)
[2025-09-26] MEDS: ASPIRIN EC 81 MG TABEC PO (08:08)
[2025-09-26] MEDS: CALCIUM CARBONATE 600 MG TABLET PO ×2 (08:08→21:08)
[2025-09-26] MEDS: INSULIN LISPRO (AdmeLOG) 1 UNIT/0.01 ML UNIT SC ×4 (08:09→21:09)
--- NOTE | 2025-09-26 09:53 | ESPR_ITS ---
<Statement entered by Murphy Bonilla MD - 09/26/25 15:45> I saw and examined patient personally and supervised PGY 1 resident, Dr. Dia with formulating a management plan. I agree with the documentation with the exceptions as listed below. Patient continues to be on high flow oxygen saturating at 95% on 25 L 65% FiO2, improvement from yesterday. Started on pyridostigmine 30 mg p.o. 3 times daily on 09/25 for myasthenia gravis, still monitoring for improvement. Will continue chest physiotherapy and hypertonic saline nebs Q4 hourly for respiratory secretions. Plan of care discussed with Attending Dr. Marlon Bonilla MD PGY 2 Disclaimer: This note was dictated by speech recognition. Minor errors in shaker plate operator may be present due to voice recognition software. Documentation for date of: 09/26/25 Subjective Subjective Interval history: Patient was seen and examined at bedside. No acute events took place overnight. Patient demonstrates improved mentation, A&O x3. O2 requirements decreased to 25L and 65% this AM. Respiratory therapy was able to wean down oxygen requirements from FiO2 85%, 30 L yesterday. According to nurse at bedside, patient had had black tarry stools which turned watery brown on 09/22. Will have the patient lie on his left side decubitus position, the side of his good lung, to try and expand the Rt lung. This is done daily as part of a protocol to prevent pressure bed ulcers. Emphasized to switch positions between supine and Lt lat decubitus only. 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 He can verbalize his needs. He is bowel and bladder incontinent. Had suprapubic cath previously but due to recurrent infections it was discontinued and not renenwed by his urologist. On urinary cath at the facility. Exam Vital Signs Temp Pulse Resp BP Pulse Ox O2 Del Method O2 Flow Rate 98.0 F 89 25 H 140/68 H 94 L High Flow Nasal Cannula 25 09/26/25 07:39 09/26/25 07:51 09/26/25 07:51 09/26/25 07:39 09/26/25 07:51 09/26/25 07:39 09/26/25 07:51 FiO2 65 09/26/25 07:51 Narrative Exam General: Patient demonstrates improved mentation, A&O x3. Eyes: PERRL, EOMI. Anicteric, vision grossly intact. Ears: No ear pain, no ear discharge, Hearing grossly intact. Nose: No nasal discharge. Mouth/Throat: Moist mucous membranes, no redness, no lesions. Neck: Neck supple, non-tender, no cervical lymphadenopathy. Lungs: bilateral wheezing, No accessory muscle use. Cardio: Normal S1/S2, regular rhythm, no murmurs, no JVD or carotid bruits. Abdomen: Soft, non-tender, no palpable masses, peristalsis present, no guarding or rebound. Extremities: Symmetrical, no significant deformities, bilateral pitting edema lower extremities, non-tender, peripheral pulses present. Skin: No rashes, no lesions, warm to touch. Neuro: No focal neurological deficits, at baseline Psych: Cooperative, appropriate mood and effect. Objective Labs 09/26/25 10:24 09/26/25 10:24 Labs: Laboratory Results - last 24 hr 09/25/25 04:06 WBC 9.5 RBC 2.80 L Hgb 7.9 L Hct 25.6 L MCV 91 MCH 28.2 MCHC 30.9 L RDW Std Deviation 44.6 H Plt Count 331 D Neut % (Auto) 79 Lymph % (Auto) 12 Dawson % (Auto) 8 Eos % (Auto) 1 Baso % (Auto) 0 Neut # (Auto) 7.5 Lymph # (Auto) 1.1 Dawson # (Auto) 0.8 Eos # (Auto) 0.1 Baso # (Auto) 0.0 Immature Gran # (Auto) 0.04 H Absolute Nucleated RBC 0.00 Immature Gran % 0 Nucleated RBC % 0 Sodium 136 Potassium 3.9 Chloride 92 L Carbon Dioxide 35.2 H Anion Gap 9 BUN 40 H Creatinine 2.1 H Estim Creat Clear Calc 38.8 L eGFR 35 L BUN/Creatinine Ratio 19 Glucose 170 H D Calculated Osmolality 285 Calcium 7.9 L Corrected Calcium 8.5 Magnesium 2.3 Total Bilirubin 0.3 AST 14 ALT < 7 L Alkaline Phosphatase 75 Total Protein 6.7 Albumin 3.3 L Globulin 3.4 Albumin/Globulin Ratio 1.0 L ABG Interpretation ABG results: 09/15/25 09/15/25 09/16/25 20:48 22:33 04:03 ABG pH 7.30 L 7.33 L 7.29 L ABG pCO2 57 H 49 H 51 H ABG pO2 167 H 154 H 118 H D ABG HCO3 28 H 26 25 ABG O2 Saturation 100 H 100 H 99 H ABG Base Excess 0 -1 -2 VBG pH VBG pCO2 VBG pO2 VBG Base Excess 09/17/25 09/19/25 03:40 08:35 ABG pH ABG pCO2 ABG pO2 ABG HCO3 ABG O2 Saturation ABG Base Excess VBG pH 7.43 7.39 VBG pCO2 41 52 D VBG pO2 139 H 80 H D VBG Base Excess 3 5 H Quality Measures Quality Measures VTE prophylaxis (Heparin SC ) Assessment & Plan Assessment Current Active Medications: Generic Name Dose Route Start Last Admin Trade Name Freq PRN Reason Stop Dose Admin Acetaminophen 650 mg 09/16/25 00:36 09/21/25 03:49 Acetaminophen 325 Mg Tablet PO 10/16/25 00:35 650 mg Q6H PRN Administration Fever >101.3 Acetylcysteine 4 ml 09/24/25 12:15 09/26/25 07:50 Acetylcysteine Rt Liset 10% 4 Ml Nebu INH 10/24/25 12:14 4 ml QDAYRT SHIVAM Administration Albuterol/Ipratropium 3 ml 09/24/25 15:00 09/26/25 07:50 Albuterol/Ipratropium (Duoneb) Rt Liset 3 Ml Nebu INH 10/24/25 14:59 3 ml Q4HRRT SHIVAM Administration Aspirin 81 mg 09/16/25 15:45 09/26/25 08:08 Aspirin Ec 81 Mg Tabec PO 10/16/25 15:44 81 mg QDAY SHIVAM Administration Bumetanide 2 mg 09/22/25 09:00 09/24/25 09:38 Bumetanide Inj 0.25 Mg/Ml Vial 4 Ml IVP 10/22/25 08:59 2 mg On Hold: 09/25/25 07:37 QDAY SHIVAM Administration Calcium Carbonate 600 mg 09/20/25 09:00 09/26/25 08:08 Calcium Carbonate 600 Mg Tablet PO 10/20/25 08:59 600 mg BID SHIVAM Administration Dextrose 25 ml 09/16/25 05:18 09/23/25 01:09 Dextrose 50%-Water Inj 50 Ml Syringe IV 10/16/25 05:17 25 ml Q15MIN PRN Administration BG 50-70 responsive npo pt Dextrose 50 ml 09/16/25 05:18 Dextrose 50%-Water Inj 50 Ml Syringe IV 10/16/25 05:17 Q15MIN PRN BG <50 OR BG <70 & pt unresponsive Glucagon 1 mg 09/16/25 05:18 Glucagon Inj 1 Mg Vial IM Q15MIN PRN BG <70, and no IV access Heparin Sodium (Porcine) 5,000 unit 09/24/25 14:00 09/26/25 05:32 Heparin Sod Inj 5000 Unit/Ml Vial SC 10/08/25 13:59 5,000 unit Q8HR SHIVAM Administration Insulin Human Lispro 0 unit 09/24/25 17:00 09/26/25 08:09 Insulin Lispro (Admelog) 1 Unit/0.01 Ml Unit SC 10/24/25 16:59 4 unit ACHS SHIVAM Administration Protocol Midodrine 10 mg 09/18/25 06:00 09/26/25 05:26 Midodrine 5 Mg Tablet PO 10/18/25 05:59 Not Given TID [facility] Ondansetron HCl 4 mg 09/16/25 00:36 09/19/25 10:20 Ondansetron Inj 2 Mg/Ml Inj 2 Ml IVP 10/16/25 00:35 4 mg Q6H PRN Administration NAUSEA OR VOMITING Protocol Pantoprazole Sodium 40 mg 09/19/25 21:00 09/26/25 08:09 Pantoprazole Inj 40 Mg Vial IVP 10/19/25 20:59 40 mg BID [facility] Administration Pharmacy Consult 1 each 09/16/25 00:42 Pharmacy Renal Dose Adjustment 1 Ea XX 10/16/25 00:41 PRN PRN CONSULT Pyridostigmine [place] 30 mg 09/25/25 10:25 09/26/25 05:32 Pyridostigmine [place] 60 Mg Tablet PO 10/25/25 10:24 30 mg TID [facility] Administration Sennosides 1 tab 09/21/25 10:30 09/26/25 08:08 Senna Tablet PO 10/21/25 10:29 1 tab QDAY [facility] Administration Protocol Sodium Chloride 4 ml 09/24/25 09:30 09/26/25 07:51 Sodium Cl Rt Liset 3% 4 Ml Nebu (Non-Formulary) INH 10/24/25 09:29 4 ml Q4HRRT SHIVAM Administration Plan 65-year-old bedbound male with past medical history of?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 In ED he was resuscitated and ROSC was achieved. Patient was admitted to ICU for acute encephalopathy postcardiac arrest, distributive shock?septic secondary to UTI for management. Patient was extubated 09/16, weaned off of pressors and was downgraded to telemetry on 09/18.? ? #Acute hypoxic respiratory failure Secondary to underlying myasthenia gravis and hx of diffuse bilateral pneumonia? #Community-acquired pneumonia Secondary to?Proteus Mirabella's, Klebsiella pneumoniae and ESBL E. coli, completed treatment #Urinary tract infection Secondary to ESBL E. coli, completed treatment #Distributive shock, likely septic secondary to UTI, resolved? ? Patient presented with septic shock, weaned off of pressors. Currently on midodrine, blood pressure stable. Blood culture negative for 48 hours? Urine culture positive for ESBL, sputum culture positive for ESBL, Klebsiella, Proteus.? MRSA nares negative, vancomycin discontinued? 09-20-25-?zosyn?disconsitnued;?? 09-19-25- Overnight patient developed cough with dark sputum. Patient then developed significant hypoxia, saturation 87-90% on 15 L oxy mask. Patient placed on high flow nasal cannula with improvement in O2 saturation. Chest x-ray taken, showed worsening vascular congestion, fluid in bilateral lungs. Concern for aspiration event in setting of dysphagia, patient made NPO.?? 09-20-25- patient still 30L HFNC? 09-21-25- cocci serology negative? ? CXR 09/22 shows improved pneumonia in the right lung, however there remains significant perihilar bibasilar pneumonia? During this hospital admission, blood cultures are negative, ET secretion cultures grew proteus mirabilis, ESBL E. Coli and Klebsiella?Pneumonae?which has limited drug sensitivity.? - fosfomycin 3g x1?(09/23) for UTI - meropenem 1g IV Q12H?(09/20-09/22) Pt [facility] on 2L [facility] CXR (09/25) shows improvement in atelectasis. Plan:? - Pyridostigmine PO 30mg can to TID - Will have the patient by on left decubitus position, the side of the good lung to try and expand the right lung. - RT to try and wean down O2 requirements. - BiPAP/CPAP - DuoNebs Q4h - ID, Dr Oseguera, does not recommend any more ABx therapy. - Continue midodrine?with hold?parameters? - Bumex 2mg held - incentive spirometry with deep breathing emphasized to nurse. - PEEP 5 - Chest PhysioTherapy ? 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 Patient's baseline creatinine 1.4?1.6? Patient is status post 5 L IV LR? Patient's underlying CHAR secondary to insult from distributive shock? 09/25: Cr 2.1, elevated from baseline, likely 2/2 hypovolemia from diuresis CXR (09/25) read out extensive b/l perihilar edema and/or pneumonia Plan:? - Held Bumetanide IVP 2mg Qday - Nephrology consulted, appreciate recommendations? - Avoid nephrotoxic agents? #Normocytic normochromic anemia? #Melena? Patient has chronic, stable anemia. Noted to have melena 09/19, FOBT positive. GI consulted.? ? Plan:? ? - Follow CBC, transfuse as needed? - GI consulted, will wait for upper GI until respiratory status improved? - IV Protonix? -?N.p.o.? ? ? #NSTEMI type II, resolved? #Cardiac arrest, pulseless electrical activity, status post ROSC? In ER patient was found in PEA, CODE BLUE was called CPR performed with 2 rounds of epi and ROSC was achieved.? Echocardiogram obtained shows EF 60 to 65%, mild concentric hypertrophy normal diastolic dysfunction? EKG 09/16?sinus rhythm, EKG 09/15?sinus tachycardia no acute ST-T changes? Troponin on presentation 2.194 up trended to 3.4 and then down trended to 2.4? ? Plan:? ? - Cardiology is consulted, state that likely cause is due to hyperkalemia? ? #Type 2 diabetes mellitus, [id number]? Hemoglobin A1c 5.2? - Sliding scale insulin? ? #Dysphagia? Patient has NG tube intact, SBO was ruled out? Speech therapy recommended dysphagia 1 diet, patient was started on it, will keep NG tube for now, consider discontinuing in the morning.? Patient had possible aspiration event 09/19? Will keep?npo?for now? ? Plan:? ? - GI recommendations as above? -?N.p.o.? ? #History of developmental delay and muscular dystrophy? #History of depression? #History of TIA? Patient on gabapentin and baclofen at home, from [facility] has history of TIA? - Continue aspirin? - Hold home baclofen, duloxetine and gabapentin, monitor mentation? ? #History of hypertension? #History of hyperlipidemia? Currently blood pressure normotensive hold antihypertensives? ? #History of BPH and neurogenic bladder? #History of right inguinal hernia? - Consider starting patient on tamsulosin? ? #Anion gap metabolic acidosis, resolved? #Lactic acidosis resolved? #Hyponatremia? #Hypochloremia? #Hyperkalemia resolved? #Hypercalcemia resolved? - Follow CMP in a.m.? - KCl 20?mEq?given 1x? ? DVT prophylaxis: Heparin every 12 hour? GI prophylaxis: IV Protonix 40? Diet:?Dysphagia 1 -Pureed Lines: Peripheral IV? Code status: Full code This case was discussed with my attending physician, Dr. Mason, and senior resident, Dr Bonilla Even though this this note was carefully revised there may still be minor errors in shaker plate operator due to voice recognition software. Andrés Dia DO PGY I Attending Provider Attestation/Addendum I have discussed and was present for the essential components of the history, physical examination, diagnosis, and treatment plan with the resident. I agree with the patient's care as documented by the resident and amended herein by me. Elmo Mason DO. Although this document has been carefully reviewed, there may still be some phonetic and other typographical errors. These errors are purely grammatical due to imperfections in the software program and should not be construed in any way to compromise the substance of the patient's medical care during this visit.
[2025-09-26 10:54] LABS: Basophils # (Auto) 0.0 Thou/mm3 (0.0-0.2); Basophils % (Auto) 0 % (0-2.5); Eosinophils # (Auto) 0.3 Thou/mm3 (0.0-0.5); Eosinophils % (Auto) 3 % (0-10); Hematocrit 26.3 % (41.0-53.0); Immature Granulocytes Auto 0.07 Thou/mm3 (0.00-0.00); Lymphocytes # (Auto) 0.9 Thou/mm3 (1.0-4.8); Lymphocytes % (Auto) 9 % (10-50); Mean Corpuscular HGB Conc 30.8 g/dl (31.0-37.0); Mean Corpuscular Hemoglobin 28.6 pg (25.0-35.0); Mean Corpuscular Volume 93 fL (80-100); Monocytes # (Auto) 0.7 Thou/mm3 (0.0-0.8); Monocytes % (Auto) 7 % (0-12); Neutrophils # (Auto) 8.4 Thou/mm3 (1.8-7.7); Neutrophils % (Auto) 81 % (37-80); Nucleated Red Blood Cell # 0.00 Thou/mm3 (0.00-0.00); Nucleated Red Blood Cell % 0 /100 WBC (0); Platelet Count 225 Thou/mm3 (140-440); RDW Standard Deviation 45.4 fL (35.1-43.9); Red Blood Count 2.83 Miln/mm3 (4.50-5.90); White Blood Count 10.4 Thou/mm3 (3.8-10.6)
[2025-09-26 10:57] LABS: Hemoglobin 8.1 g/dL (13.5-16.0)
[2025-09-26 10:59] LABS: Alanine Aminotransferase 10 U/L (10-49); Albumin, Serum 3.0 gm/dL (3.4-4.8); Albumin/Globulin Ratio 0.8 (1.2-2.2); Alkaline Phosphatase 83 U/L (46-116); Anion Gap 7 (7-16); Aspartate Amino Transferase 28 U/L (0-34); BUN/Creatinine Ratio 24 Ratio (12-20); Bilirubin,Total 0.3 mg/dL (0.3-1.2); Blood Urea Nitrogen 43 mg/dL (9-23); Calcium 7.9 mg/dL (8.3-10.6); Calcium (Corrected) 8.7 mg/dL (8.5-10.1); Carbon Dioxide 36.4 mMol/L (20.0-31.0); Chloride 92 mMol/L (98-107); Creatinine (Component) 1.8 mg/dL (0.6-1.3); Estimated Creatinine Clearance 45.3 mL/min (>60); Globulin 3.8 gm/dL (2.3-3.5); Glucose 217 mg/dL (74-106); Magnesium 2.0 mg/dL (1.6-2.6); Osmolality,Calculated 287 (275-295); Potassium 4.6 mMol/L (3.4-5.1); Sodium 135 mMol/L (136-145); Total Protein 6.8 gm/dL (5.7-8.2); eGFR 42 See Note
--- NOTE | 2025-09-26 16:36 | ESPR_ITS ---
Documentation for date of: 09/26/25 Subjective Subjective Interval history: Hemoglobin hematocrit 8.1 and 26.3 Remains on high flow nasal cannula Exam Vital Signs Temp Pulse Resp BP Pulse Ox O2 Del Method O2 Flow Rate 97.3 F 81 26 H 137/71 H 98 High Flow Nasal Cannula 25 09/26/25 16:00 09/26/25 16:00 09/26/25 16:00 09/26/25 16:00 09/26/25 16:00 09/26/25 16:00 09/26/25 16:00 FiO2 65 09/26/25 16:00 Objective Objective Narrative Objective Narrative: Hemoglobin hematocrit 8.1 and 26.3 Patient remains on high flow nasal cannula Labs 09/26/25 10:24 09/26/25 10:24 Labs: Laboratory Results - last 24 hr 09/26/25 10:24 WBC 10.4 RBC 2.83 L Hgb 8.1 L Hct 26.3 L MCV 93 MCH 28.6 MCHC 30.8 L RDW Std Deviation 45.4 H Plt Count 225 D Neut % (Auto) 81 H Lymph % (Auto) 9 L Sunflower % (Auto) 7 Eos % (Auto) 3 Baso % (Auto) 0 Neut # (Auto) 8.4 H Lymph # (Auto) 0.9 L Sunflower # (Auto) 0.7 Eos # (Auto) 0.3 Baso # (Auto) 0.0 Immature Gran # (Auto) 0.07 H Absolute Nucleated RBC 0.00 Immature Gran % 1 H Nucleated RBC % 0 Sodium 135 L Potassium 4.6 D Chloride 92 L Carbon Dioxide 36.4 H Anion Gap 7 BUN 43 H Creatinine 1.8 H Estim Creat Clear Calc 45.3 L eGFR 42 L BUN/Creatinine Ratio 24 H Glucose 217 H Calculated Osmolality 287 Calcium 7.9 L Corrected Calcium 8.7 Magnesium 2.0 Total Bilirubin 0.3 AST 28 ALT 10 Alkaline Phosphatase 83 Total Protein 6.8 Albumin 3.0 L Globulin 3.8 H Albumin/Globulin Ratio 0.8 L Impressions Impression: Occult GI bleeding acute hypoxic respite failure Continue current management ABG Interpretation ABG results: 09/15/25 09/15/25 09/16/25 20:48 22:33 04:03 ABG pH 7.30 L 7.33 L 7.29 L ABG pCO2 57 H 49 H 51 H ABG pO2 167 H 154 H 118 H D ABG HCO3 28 H 26 25 ABG O2 Saturation 100 H 100 H 99 H ABG Base Excess 0 -1 -2 VBG pH VBG pCO2 VBG pO2 VBG Base Excess 09/17/25 09/19/25 03:40 08:35 ABG pH ABG pCO2 ABG pO2 ABG HCO3 ABG O2 Saturation ABG Base Excess VBG pH 7.43 7.39 VBG pCO2 41 52 D VBG pO2 139 H 80 H D VBG Base Excess 3 5 H Assessment & Plan A&P Narrative uti vs asb may have colonization of suprapubic cath too. bph mr/dd will give one dose fosfomycin and if off O2, then back to nh at your discretion will see again prn Time Spent With Patient Time: Total time spent is greater than 50% in coordination of care (as documented) at patient's floor/unit and/or counseling patient:
[2025-09-27] VITALS (14 sets, daily range): BP systolic 94–150; BP diastolic 53–70; PULSE 64–88; RESP 13–26; TEMP 36.1–36.6; O2SAT 92–100; BMI 33.5
[2025-09-27] MEDS: ALBUTEROL/IPRATROPIUM (Duoneb) RT SOL 3 ML NEBU INH ×5 (02:22→23:15)
[2025-09-27] MEDS: MIDODRINE 5 MG TABLET 10 MG PO (05:08)
[2025-09-27] MEDS: HEPARIN SOD INJ 5000 UNIT/ML VIAL SC ×3 (05:09→21:13)
[2025-09-27 06:17] LABS: Basophils # (Auto) 0.0 Thou/mm3 (0.0-0.2); Basophils % (Auto) 0 % (0-2.5); Eosinophils # (Auto) 0.3 Thou/mm3 (0.0-0.5); Eosinophils % (Auto) 4 % (0-10); Hematocrit 25.1 % (41.0-53.0); Immature Granulocytes Auto 0.03 Thou/mm3 (0.00-0.00); Lymphocytes # (Auto) 1.4 Thou/mm3 (1.0-4.8); Lymphocytes % (Auto) 16 % (10-50); Mean Corpuscular HGB Conc 29.9 g/dl (31.0-37.0); Mean Corpuscular Hemoglobin 28.1 pg (25.0-35.0); Mean Corpuscular Volume 94 fL (80-100); Monocytes # (Auto) 0.7 Thou/mm3 (0.0-0.8); Monocytes % (Auto) 8 % (0-12); Neutrophils # (Auto) 6.1 Thou/mm3 (1.8-7.7); Neutrophils % (Auto) 72 % (37-80); Nucleated Red Blood Cell # 0.00 Thou/mm3 (0.00-0.00); Nucleated Red Blood Cell % 0 /100 WBC (0); Platelet Count 345 Thou/mm3 (140-440); RDW Standard Deviation 45.8 fL (35.1-43.9); Red Blood Count 2.67 Miln/mm3 (4.50-5.90); White Blood Count 8.6 Thou/mm3 (3.8-10.6)
[2025-09-27 06:21] LABS: Hemoglobin 7.5 g/dL (13.5-16.0)
[2025-09-27 06:58] LABS: Alanine Aminotransferase 10 U/L (10-49); Albumin, Serum 3.1 gm/dL (3.4-4.8); Albumin/Globulin Ratio 0.9 (1.2-2.2); Alkaline Phosphatase 77 U/L (46-116); Anion Gap 6 (7-16); Aspartate Amino Transferase 18 U/L (0-34); BUN/Creatinine Ratio 25 Ratio (12-20); Bilirubin,Total 0.3 mg/dL (0.3-1.2); Blood Urea Nitrogen 43 mg/dL (9-23); Calcium 8.2 mg/dL (8.3-10.6); Calcium (Corrected) 8.9 mg/dL (8.5-10.1); Carbon Dioxide 36.9 mMol/L (20.0-31.0); Chloride 92 mMol/L (98-107); Creatinine (Component) 1.7 mg/dL (0.6-1.3); Estimated Creatinine Clearance 47.9 mL/min (>60); Globulin 3.4 gm/dL (2.3-3.5); Glucose 159 mg/dL (74-106); Magnesium 2.2 mg/dL (1.6-2.6); Osmolality,Calculated 283 (275-295); Potassium 4.0 mMol/L (3.4-5.1); Sodium 135 mMol/L (136-145); Total Protein 6.5 gm/dL (5.7-8.2); eGFR 45 See Note
[2025-09-27] MEDS: ACETYLCYSTEINE RT SOL 10% 4 ML NEBU INH (07:16)
[2025-09-27] MEDS: CALCIUM CARBONATE 600 MG TABLET PO ×2 (09:07→21:11)
[2025-09-27] MEDS: ASPIRIN 81 MG CHEW PO (09:16)
--- NOTE | 2025-09-27 09:50 | PD.RESPRO ---
Documentation for date of: 09/27/25 Subjective Subjective Interval history: Patient was seen and examined at bedside. No acute events took place overnight. Patient demonstrates improved mentation, A&O x3. O2 requirements decreased to 25L and 55% this AM. Patient had 1 large BM overnight. Noted to have anisocoria with shrunken pupil on the right side less reactive to light. Unknown for how long the patient has been in this situation. Will order a CT scan of the head and consult neurology. Will have the patient lie on his left side decubitus position, the side of his good lung, to try and expand the Rt lung. This is done daily as part of a protocol to prevent pressure bed ulcers. Emphasized to switch positions between supine and Lt lat decubitus only. Exam Vital Signs Temp Pulse Resp BP Pulse Ox O2 Del Method O2 Flow Rate 97.8 F 65 18 94/70 100 High Flow Nasal Cannula 25 09/27/25 08:00 09/27/25 08:00 09/27/25 08:00 09/27/25 08:00 09/27/25 08:00 09/27/25 08:00 09/27/25 08:00 FiO2 55 09/27/25 08:00 Narrative Exam General: Patient demonstrates improved mentation, A&O x3. Eyes: Rt pinpoint pupil, non reactive to light, EOMI. Anicteric, vision grossly intact. Ears: No ear pain, no ear discharge, Hearing grossly intact. Nose: No nasal discharge. Mouth/Throat: Moist mucous membranes, no redness, no lesions. Neck: Neck supple, non-tender, no cervical lymphadenopathy. Lungs: bilateral wheezing, No accessory muscle use. Cardio: Normal S1/S2, regular rhythm, no murmurs, no JVD or carotid bruits. Abdomen: Soft, non-tender, no palpable masses, peristalsis present, no guarding or rebound. Extremities: Symmetrical, no significant deformities, bilateral pitting edema lower extremities, non-tender, peripheral pulses present. Skin: No rashes, no lesions, warm to touch. Neuro: No focal neurological deficits, at baseline Psych: Cooperative, appropriate mood and effect. Objective Labs 09/27/25 04:25 09/27/25 04:25 Labs: Laboratory Results - last 24 hr 09/26/25 09/27/25 10:24 04:25 WBC 10.4 8.6 RBC 2.83 L 2.67 L Hgb 8.1 L 7.5 L Hct 26.3 L 25.1 L MCV 93 94 MCH 28.6 28.1 MCHC 30.8 L 29.9 L RDW Std Deviation 45.4 H 45.8 H Plt Count 225 D 345 D Neut % (Auto) 81 H 72 Lymph % (Auto) 9 L 16 [place] % (Auto) 7 8 Eos % (Auto) 3 4 Baso % (Auto) 0 0 Neut # (Auto) 8.4 H 6.1 Lymph # (Auto) 0.9 L 1.4 [place] # (Auto) 0.7 0.7 Eos # (Auto) 0.3 0.3 Baso # (Auto) 0.0 0.0 Immature Gran # (Auto) 0.07 H 0.03 H Absolute Nucleated RBC 0.00 0.00 Immature Gran % 1 H 0 Nucleated RBC % 0 0 Sodium 135 L 135 L Potassium 4.6 D 4.0 D Chloride 92 L 92 L Carbon Dioxide 36.4 H 36.9 H Anion Gap 7 6 L BUN 43 H 43 H Creatinine 1.8 H 1.7 H Estim Creat Clear Calc 45.3 L 47.9 L eGFR 42 L 45 L BUN/Creatinine Ratio 24 H 25 H Glucose 217 H 159 H D Calculated Osmolality 287 283 Calcium 7.9 L 8.2 L Corrected Calcium 8.7 8.9 Magnesium 2.0 2.2 Total Bilirubin 0.3 0.3 AST 28 18 ALT 10 10 Alkaline Phosphatase 83 77 Total Protein 6.8 6.5 Albumin 3.0 L 3.1 L Globulin 3.8 H 3.4 Albumin/Globulin Ratio 0.8 L 0.9 L ABG Interpretation ABG results: 09/15/25 09/15/25 09/16/25 20:48 22:33 04:03 ABG pH 7.30 L 7.33 L 7.29 L ABG pCO2 57 H 49 H 51 H ABG pO2 167 H 154 H 118 H D ABG HCO3 28 H 26 25 ABG O2 Saturation 100 H 100 H 99 H ABG Base Excess 0 -1 -2 VBG pH VBG pCO2 VBG pO2 VBG Base Excess 09/17/25 09/19/25 03:40 08:35 ABG pH ABG pCO2 ABG pO2 ABG HCO3 ABG O2 Saturation ABG Base Excess VBG pH 7.43 7.39 VBG pCO2 41 52 D VBG pO2 139 H 80 H D VBG Base Excess 3 5 H Quality Measures Quality Measures VTE prophylaxis (Heparin SC ) Assessment & Plan Assessment Current Active Medications: Generic Name Dose Route Start Last Admin Trade Name Freq PRN Reason Stop Dose Admin Acetaminophen 650 mg 09/16/25 00:36 09/21/25 03:49 Acetaminophen 325 Mg Tablet PO 10/16/25 00:35 650 mg Q6H PRN Administration Fever >101.3 Acetylcysteine 4 ml 09/24/25 12:15 09/27/25 07:16 Acetylcysteine Rt Liset 10% 4 Ml Nebu INH 10/24/25 12:14 4 ml QDAYRT SHIVAM Administration Albuterol/Ipratropium 3 ml 09/24/25 15:00 09/27/25 07:16 Albuterol/Ipratropium (Duoneb) Rt Liset 3 Ml Nebu INH 10/24/25 14:59 3 ml Q4HRRT SHIVAM Administration Aspirin 81 mg 09/27/25 09:15 09/27/25 09:16 Aspirin 81 Mg Chew PO 10/27/25 09:14 81 mg QDAY SHIVAM Administration Bumetanide 2 mg 09/22/25 09:00 09/24/25 09:38 Bumetanide Inj 0.25 Mg/Ml Vial 4 Ml IVP 10/22/25 08:59 2 mg On Hold: 09/25/25 07:37 QDAY SHIVAM Administration Calcium Carbonate 600 mg 09/20/25 09:00 09/27/25 09:07 Calcium Carbonate 600 Mg Tablet PO 10/20/25 08:59 600 mg BID SHIVAM Administration Dextrose 25 ml 09/16/25 05:18 09/23/25 01:09 Dextrose 50%-Water Inj 50 Ml Syringe IV 10/16/25 05:17 25 ml Q15MIN PRN Administration BG 50-70 responsive npo pt Dextrose 50 ml 09/16/25 05:18 Dextrose 50%-Water Inj 50 Ml Syringe IV 10/16/25 05:17 Q15MIN PRN BG <50 OR BG <70 & pt unresponsive Glucagon 1 mg 09/16/25 05:18 Glucagon Inj 1 Mg Vial IM Q15MIN PRN BG <70, and no IV access Heparin Sodium (Porcine) 5,000 unit 09/24/25 14:00 12/08/25 05:09 Heparin Sod Inj 5000 Unit/Ml Vial SC 10/08/25 13:59 5,000 unit Q8HR SHIVAM Administration Insulin Human Lispro 0 unit 09/24/25 17:00 09/27/25 09:07 Insulin Lispro (Admelog) 1 Unit/0.01 Ml Unit SC 10/24/25 16:59 Not Given ACHS SHIVAM Protocol Midodrine 10 mg 09/18/25 06:00 09/27/25 05:08 Midodrine 5 Mg Tablet PO 10/18/25 05:59 10 mg TID SHIVAM Administration Ondansetron HCl 4 mg 09/16/25 00:36 09/19/25 10:20 Ondansetron Inj 2 Mg/Ml Inj 2 Ml IVP 10/16/25 00:35 4 mg Q6H PRN Administration NAUSEA OR VOMITING Protocol Pantoprazole Sodium 40 mg 09/19/25 21:00 09/27/25 09:08 Pantoprazole Inj 40 Mg Vial IVP 10/19/25 20:59 40 mg BID SHIVAM Administration Pharmacy Consult 1 each 09/16/25 00:42 Pharmacy Renal Dose Adjustment 1 Ea XX 10/16/25 00:41 PRN PRN CONSULT Pyridostigmine [place] 30 mg 09/25/25 10:25 09/27/25 05:09 Pyridostigmine [place] 60 Mg Tablet PO 10/25/25 10:24 30 mg TID SHIVAM Administration Sennosides 1 tab 09/21/25 10:30 09/27/25 09:08 Senna Tablet PO 10/21/25 10:29 1 tab QDAY SHIVAM Administration Protocol Sodium Chloride 4 ml 09/24/25 09:30 09/27/25 02:22 Sodium Cl Rt Liset 3% 4 Ml Nebu (Non-Formulary) INH 10/24/25 09:29 Not Given Q4HRRT SHIVAM Plan 65-year-old bedbound male with past medical history of?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 In ED he was resuscitated and ROSC was achieved. Patient was admitted to ICU for acute encephalopathy postcardiac arrest, distributive shock?septic secondary to UTI for management. Patient was extubated 09/16, weaned off of pressors and was downgraded to telemetry on 09/18.? ? #Acute hypoxic respiratory failure Secondary to underlying myasthenia gravis and hx of diffuse bilateral pneumonia? #Community-acquired pneumonia Secondary to?Proteus Mirabella's, Klebsiella pneumoniae and ESBL E. coli, completed treatment #Urinary tract infection Secondary to ESBL E. coli, completed treatment #Distributive shock, likely septic secondary to UTI, resolved? ? Patient presented with septic shock, weaned off of pressors. Currently on midodrine, blood pressure stable. Blood culture negative for 48 hours? Urine culture positive for ESBL, sputum culture positive for ESBL, Klebsiella, Proteus.? MRSA nares negative, vancomycin discontinued? 09-20-25-?zosyn?disconsitnued;?? 09-19-25- Overnight patient developed cough with dark sputum. Patient then developed significant hypoxia, saturation 87-90% on 15 L oxy mask. Patient placed on high flow nasal cannula with improvement in O2 saturation. Chest x-ray taken, showed worsening vascular congestion, fluid in bilateral lungs. Concern for aspiration event in setting of dysphagia, patient made NPO.?? 09-20-25- patient still 30L HFNC? 09-21-25- cocci serology negative? ? CXR 09/22 shows improved pneumonia in the right lung, however there remains significant perihilar bibasilar pneumonia? During this hospital admission, blood cultures are negative, ET secretion cultures grew proteus mirabilis, ESBL E. Coli and Klebsiella?Pneumonae?which has limited drug sensitivity.? - fosfomycin 3g x1?(09/23) for UTI - meropenem 1g IV Q12H?(09/20-09/22) Pt is on 2L [facility] CXR (09/25) shows improvement in atelectasis. Plan:? - Pyridostigmine PO 30mg TID - Will have the patient by on left decubitus position, the side of the good lung to try and expand the right lung. - RT to try and wean down O2 requirements. - BiPAP/CPAP - DuoNebs Q4h - ID, Dr Oseguera, does not recommend any more ABx therapy. - Continue midodrine?with hold?parameters? - Bumex 2mg held - incentive spirometry with deep breathing emphasized to nurse. 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 He can verbalize his needs. He is bowel and bladder incontinent. Patient has marked weakness, unable to move any of his extremities. - Spoke to nursing about the patient condition and needs and to assist with feedings #Anisocoria Patient was noted to have pinpoint pupil unilaterally on the right side non-reactive to light this morning. Possible to be a chronic symptom. -Neurology was consulted; appreciate recommendations -will order CT scan of the head for stroke rule out protocol. -Stroke/Telemetry Floor -Bedside Swallow Eval /Aspiration precautions -Head of Bed 30 Degrees -Permissive hypertension ? #CHAR on CKD stage II, improving Patient's baseline creatinine 1.4?1.6? Patient is status post 5 L IV LR? Patient's underlying CHAR secondary to insult from distributive shock? 09/25: Cr 2.1, elevated from baseline, likely 2/2 hypovolemia from diuresis CXR (09/25) read out extensive b/l perihilar edema and/or pneumonia 09/27: Cr improved to 1.7, Plan:? - Held Bumetanide IVP 2mg Qday - Nephrology consulted, appreciate recommendations? - Avoid nephrotoxic agents? #Normocytic normochromic anemia? #Melena? Patient has chronic, stable anemia. Noted to have melena 09/19, FOBT positive. GI consulted.? ? Plan:? ? - Follow CBC, transfuse as needed? - GI consulted, will wait for upper GI until respiratory status improved? - IV Protonix? -?N.p.o.? ? ? #NSTEMI type II, resolved? #Cardiac arrest, pulseless electrical activity, status post ROSC? In ER patient was found in PEA, CODE BLUE was called CPR performed with 2 rounds of epi and ROSC was achieved.? Echocardiogram obtained shows EF 60 to 65%, mild concentric hypertrophy normal diastolic dysfunction? EKG 09/16?sinus rhythm, EKG 09/15?sinus tachycardia no acute ST-T changes? Troponin on presentation 2.194 up trended to 3.4 and then down trended to 2.4? ? Plan:? ? - Cardiology is consulted, state that likely cause is due to hyperkalemia? ? #Type 2 diabetes mellitus, [id number]? Hemoglobin A1c 5.2? - Sliding scale insulin? ? #Dysphagia? Patient has NG tube intact, SBO was ruled out? Speech therapy recommended dysphagia 1 diet, patient was started on it, will keep NG tube for now, consider discontinuing in the morning.? Patient had possible aspiration event 09/19? Will keep?npo?for now? ? Plan:? ? - GI recommendations as above? -?N.p.o.? ? #History of developmental delay and muscular dystrophy? #History of depression? #History of TIA? Patient on gabapentin and baclofen at home, [facility] has history of TIA? - Continue aspirin? - Hold home baclofen, duloxetine and gabapentin, monitor mentation? ? #History of hypertension? #History of hyperlipidemia? Currently blood pressure normotensive hold antihypertensives? ? #History of BPH and neurogenic bladder? #History of right inguinal hernia? - Consider starting patient on tamsulosin? ? #Anion gap metabolic acidosis, resolved? #Lactic acidosis resolved? #Hyponatremia? #Hypochloremia? #Hyperkalemia resolved? #Hypercalcemia resolved? - Follow CMP in a.m.? - KCl 20?mEq?given 1x? ? DVT prophylaxis: Heparin every 12 hour? GI prophylaxis: IV Protonix 40? Diet:?Dysphagia 1 -Pureed Lines: Peripheral IV? Code status: Full code This case was discussed with my attending physician, Dr. Mason, and senior resident, Dr Cali Even though this this note was carefully revised there may still be minor errors in ager tender due to voice recognition software. Andrés Dia, DO PGY I Senior Resident Attestation: The patient oxygen requirement has decreased to 25 L and 55% FiO2. He was found to have anisocoria with dilated left pupil and strong and right pupil. Head CT was done, was negative for acute hemorrhage, mass effect or midline shift. We will continue the patient on changing positions in his bed, and as he has not been feeding himself well, ordered miscellaneous nursing order that the patient would require assistance with feeding. Neurology consultation was done for anisocoria. We will continue to trend down his oxygen requirement. I discussed with and supervised the legal intern physician involved in the care of this patient. I personally saw and examined the patient and discussed the assessment and plan with the entire medicine team, including my attending. I agree with the assessment and plan as documented above. Tremaine Cali MD PGY3 Internal Medicine Attending Provider Attestation/Addendum I have discussed and was present for the essential components of the history, physical examination, diagnosis, and treatment plan with the resident. I agree with the patient's care as documented by the resident and amended herein by me. Elmo Mason DO. Although this document has been carefully reviewed, there may still be some phonetic and other typographical errors. These errors are purely grammatical due to imperfections in the software program and should not be construed in any way to compromise the substance of the patient's medical care during this visit.
--- NOTE | 2025-09-27 09:57 | PC.SS ---
Follow up note: Pt is currently on high flow O2, 25 liters. Pt will have Chest Physiotherapy Treatment. Pt will return to his [facility] upon dc.
--- NOTE | 2025-09-27 10:48 | XR_ITS ---
Examination: CT brain head without contrast. 2-D sagittal coronal reconstructions Date and time of exam: September 27, 2025, 1210 hours, comparison none September 15, 2025 INDICATIONS: Pinpoint right pupil today CTDI: vol (mGy): 52.6 DLP: (mGycm): 1051 Technique: Multiple CT axial sections of the brain have been obtained, 5 mm slice thickness. Contrast has not been administered. 2-D sagittal, coronal reconstructions have been obtained Low dose protocols were performed. One or more of the following dose reduction techniques were used; automated exposure control, adjustment of the mA and/or KV according to patient size, use of iterative reconstruction technique. Findings: Patient motion severely degrades image quality No gross hemorrhage mass effect or midline shift IMPRESSION: Patient motion severely degrades scan image quality No gross hemorrhage mass effect or midline shift Given the patient's presentation, consider brain MRI follow-up, stroke protocol
[2025-09-27] MEDS: INSULIN LISPRO (AdmeLOG) 1 UNIT/0.01 ML UNIT SC ×2 (11:33→21:12)
--- NOTE | 2025-09-27 11:52 | ESPR_ITS ---
Documentation for date of: 09/27/25 Subjective Subjective Interval history: Patient evaluated Hemoglobin hematocrit 7.5 and 25.1 Exam Vital Signs Temp Pulse Resp BP Pulse Ox O2 Del Method O2 Flow Rate 97.8 F 65 18 94/70 100 High Flow Nasal Cannula 25 09/27/25 08:00 09/27/25 08:00 09/27/25 08:00 09/27/25 08:00 09/27/25 08:00 09/27/25 08:00 09/27/25 08:00 FiO2 55 09/27/25 08:00 Objective Objective Narrative Objective Narrative: Patient evaluated Hemoglobin hematocrit 7.5 and 25.1 Remains on high flow nasal cannula Labs 09/27/25 04:25 09/27/25 04:25 Labs: Laboratory Results - last 24 hr 09/27/25 04:25 WBC 8.6 RBC 2.67 L Hgb 7.5 L Hct 25.1 L MCV 94 MCH 28.1 MCHC 29.9 L RDW Std Deviation 45.8 H Plt Count 345 D Neut % (Auto) 72 Lymph % (Auto) 16 [place] % (Auto) 8 Eos % (Auto) 4 Baso % (Auto) 0 Neut # (Auto) 6.1 Lymph # (Auto) 1.4 [place] # (Auto) 0.7 Eos # (Auto) 0.3 Baso # (Auto) 0.0 Immature Gran # (Auto) 0.03 H Absolute Nucleated RBC 0.00 Immature Gran % 0 Nucleated RBC % 0 Sodium 135 L Potassium 4.0 D Chloride 92 L Carbon Dioxide 36.9 H Anion Gap 6 L BUN 43 H Creatinine 1.7 H Estim Creat Clear Calc 47.9 L eGFR 45 L BUN/Creatinine Ratio 25 H Glucose 159 H D Calculated Osmolality 283 Calcium 8.2 L Corrected Calcium 8.9 Magnesium 2.2 Total Bilirubin 0.3 AST 18 ALT 10 Alkaline Phosphatase 77 Total Protein 6.5 Albumin 3.1 L Globulin 3.4 Albumin/Globulin Ratio 0.9 L Impressions Impression: Acute hypoxic respiratory failure Anemia blood loss Continue current management conservatively no endoscopy planned ABG Interpretation ABG results: 09/15/25 09/15/25 09/16/25 20:48 22:33 04:03 ABG pH 7.30 L 7.33 L 7.29 L ABG pCO2 57 H 49 H 51 H ABG pO2 167 H 154 H 118 H D ABG HCO3 28 H 26 25 ABG O2 Saturation 100 H 100 H 99 H ABG Base Excess 0 -1 -2 VBG pH VBG pCO2 VBG pO2 VBG Base Excess 09/17/25 09/19/25 03:40 08:35 ABG pH ABG pCO2 ABG pO2 ABG HCO3 ABG O2 Saturation ABG Base Excess VBG pH 7.43 7.39 VBG pCO2 41 52 D VBG pO2 139 H 80 H D VBG Base Excess 3 5 H Assessment & Plan A&P Narrative uti vs asb may have colonization of suprapubic cath too. bph mr/dd will give one dose fosfomycin and if off O2, then back to nh at your discretion will see again prn Time Spent With Patient Time: Total time spent is greater than 50% in coordination of care (as documented) at patient's floor/unit and/or counseling patient:
--- NOTE | 2025-09-27 17:01 | PD.RESCONSUL ---
HPI Data of Consult Requesting Physician: Yash Mason DO Admitting Provider: Yoon Allen MD Attending Provider: Yash Mason DO Primary Care Provider: Saray Benitez NP Consult Narrative Reason for consult: History of muscular dystrophy, questionable myasthenia gravis, coloboma History of present illness: Patient is a 65-year-old male with past medical history of developmental delay, muscular dystrophy, benign prostatic hyperplasia, history of neurogenic bladder, right inguinal hernia, CVA, CAD, hypertension, hyperlipidemia and diabetes was brought in to the ED on 09/15/2025 from [facility] with altered mental status. He had PEA cardiac arrest with downtime of 20 mins at the facility. In ED he was resuscitated and ROSC was achieved. Just prior to arrival patient stated he did not feel good and rolled his eyes back and became unresponsive per nursing staff. Patient was found in supine position with GCS of 3 and blood sugar of 121 mg/dL. Narcan 2 mg was administered which made patient more responsive with improvement in agonal respiration. Of note, patient was found to have labs done on 08/25/2025 at some clinic. Patient has a significant history of UTI with resistant organism including E. coli and Proteus. On 08/09/2025 patient was found to have E. coli ESBL type sensitive to Zosyn. Patient was admitted to ICU after the code, was extubated the next day and weaned off pressors. Patient has been downgraded to telemetry since 09/18/2025 and has been recovering from pneumonia, although continues to be hypoxic requiring Hi-Flow nasal cannula. He is currently on 25L and 55% FiO2 at the time of consultation. Patient is unable to give any meaningful history so history done from chart review. Neurology was consulted due to physical exam finding of uneven pupils, history of muscular dystrophy and recommendations. cc:: cc: Yash Mason DO Past Medical History Past Medical History NEUROLOGIC: Positive Neurological Disorders and Cerebrovascular Accident CARDIAC: Positive Cardiac Disorders, Coronary Artery Disease, Hypercholesterolemia and Hypertension RESPIRATORY: Positive Pneumonia GASTROINTESTINAL: Positive Gastrointestinal Disorders, Obstructive Bowel, Hiatal Hernia and Gastroesophageal Reflux Disease GENITOURINARY: Positive Renal Disease and Benign Prostatic Hyperplasia MUSCULOSKELETAL: Positive Musculoskeletal Disorders and Muscular Dystrophy ENDOCRINE: Positive Endocrine Disorders and Diabetes Mellitus Type 2 HEMATOLOGIC: Positive Anemia OTHER HISTORY: Positive Developmental Delay Surgical History SURGICAL: Positive Abdominal Surgery and Bowel Surgery Social History SECOND HAND EXPOSURE: Yes Exam Vital Signs Temp Pulse Resp BP Pulse Ox O2 Del Method O2 Flow Rate 97.0 F 67 22 H 121/52 L 96 High Flow Nasal Cannula 20 09/28/25 04:00 09/28/25 05:15 09/28/25 04:00 09/28/25 05:15 09/28/25 04:00 09/28/25 04:00 09/28/25 04:00 FiO2 40 09/28/25 04:00 Narrative Exam Physical Exam General: Awake and in no acute distress. Limited speech and non-toxic appearing. HEENT: Normocephalic, atraumatic, mucous membranes moist. Left eye coloboma, right eye pinpoint. Heart: Regular rate and rhythm, normal S1 and S2, no murmurs. Lungs: Clear to auscultation with no wheezing or crackles, however tachypneic and very short breaths. Abdomen: Soft, nondistended, nontender, positive bowel sounds. ?No guarding or rebound tenderness. Neurologic: Alert and oriented to self, limited motion of all 4 extremities, only 1/5 strength upper extremities bilaterally. Can follow commands Extremities: No edema. Skin: No rash or ecchymoses. Results Labs 09/29/25 06:10 09/28/25 04:25 Labs: Short CBC 09/28/25 Range/Units 04:25 WBC 6.2 (3.8-10.6) Thou/mm3 Hgb 7.5 L (13.5-16.0) g/dL Hct 24.9 L (41.0-53.0) % Plt Count 401 D (140-440) Thou/mm3 BMP 09/27/25 09/28/25 04:25 04:25 Sodium 135 L 138 Potassium 4.0 D 4.3 Chloride 92 L 94 L Carbon Dioxide 36.9 H 38.4 H BUN 43 H 47 H Creatinine 1.7 H 1.9 H Glucose 159 H D 204 H Calcium 8.2 L 8.3 Liver Function 09/27/25 09/28/25 Range/Units 04:25 04:25 Total Bilirubin 0.3 0.2 L (0.3-1.2) mg/dL AST 18 20 (0-34) U/L ALT 10 10 (10-49) U/L Alkaline Phosphatase 77 80 (46-116) U/L Albumin 3.1 L 3.0 L (3.4-4.8) gm/dL ABG Interpretation ABG results: 09/15/25 09/15/25 09/16/25 20:48 22:33 04:03 ABG pH 7.30 L 7.33 L 7.29 L ABG pCO2 57 H 49 H 51 H ABG pO2 167 H 154 H 118 H D ABG HCO3 28 H 26 25 ABG O2 Saturation 100 H 100 H 99 H ABG Base Excess 0 -1 -2 VBG pH VBG pCO2 VBG pO2 VBG Base Excess 09/17/25 09/19/25 03:40 08:35 ABG pH ABG pCO2 ABG pO2 ABG HCO3 ABG O2 Saturation ABG Base Excess VBG pH 7.43 7.39 VBG pCO2 41 52 D VBG pO2 139 H 80 H D VBG Base Excess 3 5 H Quality Measures Quality Measures VTE prophylaxis (Heparin SC ) Medications Home Medications and Allergies Home Medications ?Medication ?Instructions ?Recorded ?Confirmed ?Type duloxetine 20 mg capsule,delayed 20 mg PO BID 05/01/19 09/16/25 History release gabapentin 100 mg capsule 100 mg PO TID 05/01/19 09/16/25 History Held on 09/16/25. Instructions: Doctor's Order polyethylene glycol 3350 17 gram 17 g PO QPM 05/01/19 09/16/25 History oral powder packet (Miralax) baclofen 10 mg tablet 10 mg PO HS 03/01/20 09/16/25 History clopidogrel 75 mg tablet (Plavix) 75 mg PO QDAY 04/28/21 09/16/25 History metformin 500 mg tablet 500 mg PO BID 04/28/21 09/16/25 History Held on 09/16/25. Instructions: Doctor's Order tamsulosin 0.4 mg capsule 0.8 mg PO HS 02/12/22 09/16/25 History acetaminophen 500 mg capsule 500 mg PO Q6H PRN Pain (Scale 06/01/22 09/16/25 History Score 1-3) magnesium oxide 400 mg PO QDAY 06/01/22 09/16/25 History Held on 09/16/25. Instructions: Doctor's Order multivitamin 1 tab PO HS 06/01/22 09/16/25 History sennosides 8.6 mg-docusate sodium 1 tab-cap PO QHS PRN Constipation 06/01/22 09/16/25 History 50 mg tablet vitamin A 3,000 mcg (10,000 unit) 8,000 unit PO QDAY 07/23/22 09/16/25 History capsule aspirin 81 mg tablet,delayed 81 mg PO HS 02/11/23 09/16/25 History release methenamine hippurate 1 gram tablet 1 g PO DAILY 09/16/25 09/16/25 History Allergies Allergy/AdvReac Type Severity Reaction Status Date / Time No Known Drug Allergies Allergy Unknown Verified 12/17/22 12:45 Visit Medications Acetaminophen (Acetaminophen 325 Mg Tablet) 650 mg PO Q6H PRN PRN Reason: Fever >101.3 Stop: 10/16/25 00:35 Last Admin: 09/21/25 03:49 Dose: 650 mg Acetylcysteine (Acetylcysteine Rt Liset 10% 4 Ml Nebu) 4 ml INH QDAYRT [facility] Stop: 10/24/25 12:14 Last Admin: 09/27/25 07:16 Dose: 4 ml Albuterol/Ipratropium (Albuterol/Ipratropium (Duoneb) Rt Liset 3 Ml Nebu) 3 ml INH Q4HRRT [facility] Stop: 10/24/25 14:59 Last Admin: 09/28/25 03:14 Dose: 3 ml Aspirin (Aspirin 81 Mg Chew) 81 mg PO QDAY [facility] Stop: 10/27/25 09:14 Last Admin: 09/27/25 09:16 Dose: 81 mg Bumetanide (Bumetanide Inj 0.25 Mg/Ml Vial 4 Ml) 2 mg IVP QDAY [facility] On Hold: 09/25/25 07:37 Stop: 10/22/25 08:59 Last Admin: 09/24/25 09:38 Dose: 2 mg Calcium Carbonate (Calcium Carbonate 600 Mg Tablet) 600 mg PO BID [facility] Stop: 10/20/25 08:59 Last Admin: 09/27/25 21:11 Dose: 600 mg Dextrose (Dextrose 50%-Water Inj 50 Ml Syringe) 25 ml IV Q15MIN PRN PRN Reason: BG 50-70 responsive npo pt Stop: 10/16/25 05:17 Last Admin: 09/23/25 01:09 Dose: 25 ml Dextrose (Dextrose 50%-Water Inj 50 Ml Syringe) 50 ml IV Q15MIN PRN PRN Reason: BG <50 OR BG <70 & pt unresponsive Stop: 10/16/25 05:17 Glucagon (Glucagon Inj 1 Mg Vial) 1 mg IM Q15MIN PRN PRN Reason: BG <70, and no IV access Heparin Sodium (Porcine) (Heparin Sod Inj 5000 Unit/Ml Vial) 5,000 unit SC Q8HR [facility] Stop: 10/08/25 13:59 Last Admin: 09/28/25 05:16 Dose: 5,000 unit Insulin Human Lispro (Insulin Lispro (Admelog) 1 Unit/0.01 Ml Unit) 0 unit SC ACHS [facility]; Protocol Stop: 10/24/25 16:59 Last Admin: 09/27/25 21:12 Dose: 4 unit Midodrine (Midodrine 5 Mg Tablet) 10 mg PO TID [facility] Stop: 10/18/25 05:59 Last Admin: 09/28/25 05:15 Dose: 10 mg Ondansetron HCl (Ondansetron Inj 2 Mg/Ml Inj 2 Ml) 4 mg IVP Q6H PRN; Protocol PRN Reason: NAUSEA OR VOMITING Stop: 10/16/25 00:35 Last Admin: 09/19/25 10:20 Dose: 4 mg Pantoprazole Sodium (Pantoprazole Inj 40 Mg Vial) 40 mg IVP BID [facility] Stop: 10/19/25 20:59 Last Admin: 09/27/25 21:12 Dose: 40 mg Pharmacy Consult (Pharmacy Renal Dose Adjustment 1 Ea) 1 each XX PRN PRN PRN Reason: CONSULT Stop: 10/16/25 00:41 Pyridostigmine [place] (Pyridostigmine [place] 60 Mg Tablet) 30 mg PO TID [facility] Stop: 10/25/25 10:24 Last Admin: 09/28/25 05:14 Dose: 30 mg Sennosides (Senna Tablet) 1 tab PO QDAY [facility]; Protocol Stop: 10/21/25 10:29 Last Admin: 09/27/25 09:08 Dose: 1 tab Sodium Chloride (Sodium Cl Rt Liset 3% 4 Ml Nebu (Non-Formulary)) 4 ml INH Q4HRRT [facility] Stop: 10/24/25 09:29 Last Admin: 09/28/25 03:14 Dose: 4 ml Discontinued Medications Albuterol/Ipratropium (Albuterol/Ipratropium (Duoneb) Rt Liset 3 Ml Nebu) 3 ml INH X1 ONE Stop: 09/19/25 07:53 Last Admin: 09/19/25 08:35 Dose: 3 ml Albuterol/Ipratropium (Albuterol/Ipratropium (Duoneb) Rt Liset 3 Ml Nebu) 3 ml INH Q6HRRT SHIVAM Stop: 10/21/25 08:14 Last Admin: 09/24/25 07:07 Dose: 3 ml Aspirin (Aspirin 300 Mg Supp) 300 mg IA X1 ONE Stop: 09/16/25 09:49 Last Admin: 09/16/25 15:37 Dose: Not Given Aspirin (Aspirin Ec 81 Mg Tabec) 81 mg PO QDAY SHIVAM Stop: 10/16/25 15:44 Last Admin: 09/27/25 09:16 Dose: Not Given Bumetanide (Bumetanide Inj 0.25 Mg/Ml Vial 4 Ml) 2 mg IVP X1 ONE Stop: 09/20/25 10:56 Last Admin: 09/20/25 15:07 Dose: 2 mg Bumetanide (Bumetanide Inj 0.25 Mg/Ml Vial 4 Ml) 2 mg IVP X1 ONE Stop: 09/21/25 08:09 Last Admin: 09/21/25 09:45 Dose: 2 mg Calcium Carbonate (Calcium Carbonate 600 Mg Tablet) 600 mg PO X1 ONE Stop: 09/24/25 08:27 Last Admin: 09/24/25 09:35 Dose: Not Given Dextrose (Dextrose 50%-Water Inj 50 Ml Syringe) 50 ml IVP X1 ONE Stop: 09/17/25 07:16 Last Admin: 09/17/25 08:15 Dose: 50 ml Etomidate (Etomidate Inj 2 Mg/Ml Vial 10 Ml) 40 mg IVP X1 ONE Stop: 09/15/25 20:11 Last Admin: 09/15/25 20:18 Dose: 40 mg Etomidate (Etomidate Inj 2 Mg/Ml Vial 10 Ml) 40 mg IVP X1 ONE Stop: 09/15/25 20:35 Last Admin: 09/15/25 20:38 Dose: 40 mg Fosfomycin Tromethamine (Fosfomycin Pwd 3 Gm Packet (Non-Formulary)) 3 gm PO DAILY [facility] Stop: 09/30/25 08:59 Fosfomycin Tromethamine (Fosfomycin Pwd 3 Gm Packet (Non-Formulary)) 3 gm PO X1 ONE Stop: 09/23/25 09:01 Last Admin: 09/23/25 09:00 Dose: 3 gm Furosemide (Furosemide Inj 10 Mg/Ml 4ml Vial) 40 mg IVP X1 ONE Stop: 09/19/25 09:11 Last Admin: 09/19/25 10:11 Dose: 40 mg Furosemide (Furosemide Inj 10 Mg/Ml 4ml Vial) 40 mg IVP X1 ONE Stop: 09/19/25 10:19 Last Admin: 09/19/25 10:33 Dose: Not Given Heparin Sodium (Porcine) (Heparin Sod Inj 5000 Unit/Ml Vial) 5,000 unit SC Q8HR [facility] Stop: 09/30/25 05:59 Last Admin: 09/18/25 05:18 Dose: 5,000 unit Heparin Sodium (Porcine) (Heparin Sod Inj 5000 Unit/Ml Vial) 5,000 unit SC Q12HR SHIVAM Stop: 10/02/25 17:59 Last Admin: 09/24/25 09:29 Dose: Not Given Propofol (Diprivan Ivpb) 1,000 mg in 100 mls @ 3.81 mls/hr IV .Q24H PRN; Protocol PRN Reason: PER PROTOCOL Stop: 10/15/25 20:20 Last Titration: 09/16/25 04:00 Dose: 40 mcg/kg/min, 30.481 mls/hr Sodium Chloride (Ns) 1,000 mls @ 999 mls/hr IV .Q1H1M ONE Stop: 09/15/25 21:24 Last Infusion: 09/15/25 21:41 Dose: Infused Epinephrine/Sodium Chloride (Adrenalin/Ns 16 Mg Ivpb) 16 mg in 250 mls @ 5.953 mls/hr IV .Q24H PRN; Protocol PRN Reason: Per Protocol Stop: 10/15/25 20:34 Last Titration: 09/16/25 04:53 Dose: 0 mcg/kg/min, 0 mls/hr Dopamine HCl/Dextrose (Intropin In D5w Ivpb) 400 mg in 250 mls @ 23.814 mls/hr IV .[id number] SHIVAM; Protocol Stop: 10/15/25 20:34 Last Titration: 09/16/25 01:34 Dose: Infused Sodium Chloride (Ns) 1,000 mls @ 999 mls/hr IV .Q1H1M ONE Stop: 09/15/25 23:40 Last Infusion: 09/16/25 00:16 Dose: Infused Norepinephrine/Dextrose (Levophed In D5w 8mg/250ml) 8 mg in 250 mls @ 11.907 mls/hr IV .Q21H PRN; Protocol PRN Reason: PER PROTOCOL Stop: 10/16/25 00:39 Last Titration: 09/16/25 08:00 Dose: Infused Vasopressin/Sodium Chloride (Vasostrict/Ns Ivpb) 20 unit in 100 mls @ 9 mls/hr IV .Q11H7M PRN; Protocol PRN Reason: PER PROTOCOL Stop: 10/16/25 00:41 Last Titration: 09/17/25 18:30 Dose: 0 unit/min, 0 mls/hr Piperacillin/Tazobactam/Dextrose (Zosyn) 3.375 gm in 50 mls @ 100 mls/hr IV Q8HR [facility]; Protocol Stop: 09/23/25 13:59 Last Admin: 09/20/25 05:22 Dose: 100 mls/hr Lactated Ringer's (Lactated Ringers) 1,000 mls @ 999 mls/hr IV .Q1H1M ONE Stop: 09/16/25 01:46 Last Admin: 09/16/25 04:35 Dose: 999 mls/hr Piperacillin/Tazobactam/Dextrose (Zosyn) 3.375 g in 50 mls @ 100 mls/hr IV X1 ONE; Protocol Stop: 09/16/25 01:29 Last Admin: 09/16/25 01:11 Dose: 100 mls/hr Propofol (Diprivan Ivpb) 1,000 mg in 100 mls @ 2.919 mls/hr IV .Q24H PRN; Protocol PRN Reason: PER PROTOCOL Stop: 10/15/25 20:20 Last Titration: 09/16/25 09:45 Dose: 0 mcg/kg/min, 0 mls/hr Norepinephrine/Dextrose (Levophed In D5w 8mg/250ml) 8 mg in 250 mls @ 9.122 mls/hr IV .Q24H PRN; Protocol PRN Reason: PER PROTOCOL Stop: 10/16/25 00:39 Norepinephrine Bitartrate (Levophed In Ns 16mg/250ml) 16 mg in 250 mls @ 15.507 mls/hr IV .Q16H8M PRN; Protocol PRN Reason: PER PROTOCOL Stop: 10/16/25 02:44 Fentanyl Citrate (Sublimaze Inj 2,500 Mcg/250 Ml Bag) 2,500 mcg in 250 mls @ 2.5 mls/hr IV .Q24H PRN; Protocol PRN Reason: PER PROTOCOL Stop: 09/21/25 03:50 Last Titration: 09/16/25 09:45 Dose: 0 mcg/hr, 0 mls/hr Norepinephrine/Dextrose (Levophed In D5w 8mg/250ml) 8 mg in 250 mls @ 31.014 mls/hr IV .Q8H4M PRN; Protocol PRN Reason: PER PROTOCOL Stop: 10/16/25 04:02 Last Titration: 09/17/25 12:00 Dose: 0 mcg/kg/min, 0 mls/hr Lactated Ringer's (Lactated Ringers) 1,000 mls @ 999 mls/hr IV .Q1H1M ONE Stop: 09/16/25 05:40 Last Admin: 09/16/25 04:51 Dose: 999 mls/hr Lactated Ringer's (Lactated Ringers) 1,000 mls @ 999 mls/hr IV .Q1H1M ONE Stop: 09/16/25 06:31 Last Admin: 09/16/25 07:04 Dose: 999 mls/hr Vancomycin/Sodium Chloride (Vancomycin/Ns 1 Gm Ivpb) 200 mls @ 120 mls/hr IV Q2H SHIVAM Stop: 09/16/25 10:24 Last Admin: 09/16/25 09:31 Dose: 120 mls/hr Vancomycin HCl/Dextrose (Vancomycin/D5w 1,250 Mg Ivpb) 250 mls @ 120 mls/hr IV Q24H SHIVAM; Protocol Stop: 09/24/25 09:59 Last Admin: 09/18/25 09:23 Dose: 120 mls/hr Calcium Chloride 10 ml/ (Dextrose) 110 mls @ 110 mls/hr IV X1 ONE Stop: 09/20/25 08:52 Calcium Gluconate/Sodium Chloride (Calcium Gluc/Ns 1000mg Ivpb) 1,000 mg in 50 mls @ 50 mls/hr IV X1 ONE Stop: 09/20/25 08:59 Last Admin: 09/20/25 08:29 Dose: 50 mls/hr Meropenem 1,000 mg/ Sodium (Chloride) 50 mls @ 100 mls/hr IV Q12HR [facility] Stop: 09/27/25 20:59 Last Admin: 09/22/25 08:53 Dose: 100 mls/hr Potassium Chloride (Kcl Ivpb) 10 meq in 100 mls @ 100 mls/hr IV Q1H [facility] Stop: 09/20/25 17:31 Last Admin: 09/20/25 18:28 Dose: 100 mls/hr Calcium Gluconate/Sodium Chloride (Calcium Gluc/Ns 1000mg Ivpb) 1,000 mg in 50 mls @ 50 mls/hr IV X1 ONE Stop: 09/21/25 08:40 Last Admin: 09/21/25 09:52 Dose: 50 mls/hr Magnesium Sulfate/Dextrose (Magnesium Sulfate Ivpb) 1 gm in 100 mls @ 100 mls/hr IV X1 ONE Stop: 09/22/25 09:34 Last Admin: 09/24/25 07:03 Dose: Not Given Magnesium Sulfate (Magnesium Sulfate Ivpb) 2 gm in 50 mls @ 25 mls/hr IV X1 ONE Stop: 09/22/25 10:37 Last Admin: 09/22/25 09:09 Dose: 25 mls/hr Insulin Degludec (Insulin Degludec 5 Unit/0.05 Ml (Per 5 Units)) 6 unit SC X1 ONE Stop: 09/16/25 08:10 Last Admin: 09/16/25 08:24 Dose: 6 unit Insulin Human Lispro (Insulin Lispro (Admelog) 1 Unit/0.01 Ml Unit) 0 unit SC Q4HR [facility]; Protocol Stop: 10/16/25 05:59 Last Admin: 09/16/25 06:14 Dose: 4 unit Insulin Human Lispro (Insulin Lispro (Admelog) 1 Unit/0.01 Ml Unit) 6 unit SC X1 ONE Stop: 09/16/25 08:10 Last Admin: 09/16/25 08:25 Dose: 6 unit Insulin Human Lispro (Insulin Lispro (Admelog) 1 Unit/0.01 Ml Unit) 0 unit SC Q4HR SHIVAM; Protocol Stop: 10/16/25 08:59 Last Admin: 09/16/25 15:42 Dose: Not Given Insulin Human Lispro (Insulin Lispro (Admelog) 1 Unit/0.01 Ml Unit) 0 unit SC Q6HR SHIVAM; Protocol Stop: 10/16/25 17:59 Last Admin: 09/18/25 12:10 Dose: Not Given Insulin Human Lispro (Insulin Lispro (Admelog) 1 Unit/0.01 Ml Unit) 0 unit SC ACHS SHIVAM; Protocol Stop: 10/18/25 16:59 Last Admin: 09/24/25 07:04 Dose: Not Given Insulin Human Lispro (Insulin Lispro (Admelog) 1 Unit/0.01 Ml Unit) 0 unit SC Q6HR SHIVAM; Protocol Stop: 10/20/25 00:00 Last Admin: 09/24/25 11:26 Dose: Not Given Insulin Human Regular (Insulin Hum Regular 1 Unit/0.01 Ml (Per Unit)) 5 unit IV X1 ONE Stop: 09/17/25 07:16 Last Admin: 09/17/25 08:15 Dose: 5 unit Lactulose (Lactulose Syrup 20 Gm/30 Ml Udc) 30 gm NG X1 ONE; Protocol Stop: 09/16/25 14:14 Last Admin: 09/16/25 15:37 Dose: 30 gm Lactulose (Lactulose Syrup 20 Gm/30 Ml Udc) 20 gm PO X1 ONE; Protocol Stop: 09/20/25 16:28 Last Admin: 09/20/25 17:32 Dose: 20 gm Metoprolol Tartrate (Metoprolol Tartrate Inj 1 Mg/Ml Vial 5 Ml) 2.5 mg IVP X1 ONE Stop: 09/15/25 20:46 Last Admin: 09/15/25 23:45 Dose: Not Given Midodrine (Midodrine 5 Mg Tablet) 5 mg PO TID SHIVAM Stop: 10/17/25 16:14 Last Admin: 09/17/25 20:55 Dose: 5 mg Midodrine (Midodrine 5 Mg Tablet) 5 mg PO X1 ONE Stop: 09/18/25 00:23 Last Admin: 09/18/25 00:42 Dose: 5 mg Ondansetron HCl (Ondansetron Inj 2 Mg/Ml Inj 2 Ml) 4 mg IVP X1 ONE; Protocol Stop: 09/15/25 20:25 Last Admin: 09/15/25 23:15 Dose: 4 mg Pantoprazole Sodium (Pantoprazole Inj 40 Mg Vial) 40 mg IVP QDAY [facility] Stop: 10/16/25 08:59 Last Admin: 09/17/25 08:16 Dose: 40 mg Pantoprazole Sodium (Pantoprazole Inj 40 Mg Vial) 40 mg IVP QDAY [facility] Stop: 10/19/25 08:59 Last Admin: 09/19/25 08:14 Dose: 40 mg Pharmacy Consult (Vancomycin Pharmacy To Dose 1 Each Each) 1 each IV QDAY PRN PRN Reason: PROTOCOL Stop: 10/16/25 08:59 Polyethylene Glycol (Polyethylene Glycol 17 Gm Packet) 17 gm NG X1 ONE Stop: 09/16/25 18:27 Last Admin: 09/16/25 19:57 Dose: 17 gm Potassium Chloride (Potassium Chloride 20 Meq Tabcr) 20 meq PO X1 ONE Stop: 09/21/25 07:43 Last Admin: 09/21/25 09:46 Dose: Not Given Potassium Chloride (Potassium Chloride 10% 20 Meq/15 Ml Udc) 40 meq PO X1 ONE Stop: 09/21/25 08:07 Last Admin: 09/21/25 09:46 Dose: 40 meq Potassium Chloride (Potassium Chloride 20 Meq Tabcr) 40 meq PO X1 ONE Stop: 09/22/25 08:39 Last Admin: 09/22/25 09:07 Dose: 40 meq Rocuronium [place] (Rocuronium Inj 10 Mg/Ml Vial 10 Ml) 100 mg IVP X1 ONE Stop: 09/15/25 20:25 Last Admin: 09/15/25 20:40 Dose: 100 mg Rocuronium [place] (Rocuronium Inj 10 Mg/Ml Vial 10 Ml) 100 mg IVP X1 ONE Stop: 09/15/25 20:35 Last Admin: 09/15/25 20:43 Dose: Not Given Sennosides (Senna Tablet) 1 tab NG X1 ONE; Protocol Stop: 09/16/25 18:27 Last Admin: 09/16/25 19:57 Dose: 1 tab Sodium Chloride (Sodium Chloride Rt 10% 15 Ml Nebu) 5 ml INH X1 ONE Stop: 09/15/25 20:38 Last Admin: 09/15/25 23:19 Dose: Not Given Sodium Chloride (Sodium Cl Rt Liset 3% 4 Ml Nebu (Non-Formulary)) 4 ml INH BID SHIVAM Stop: 10/24/25 09:29 Succinylcholine Chloride (Succinylcholine Inj 20 Mg/Ml Vial 10 Ml) 200 mg IV X1 ONE Stop: 09/15/25 20:11 Last Admin: 09/15/25 20:18 Dose: 200 mg Assessment & Plan Plan 65-year-old bedbound male with past medical history of?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 In ED he was resuscitated and ROSC was achieved. Patient was admitted to ICU for acute encephalopathy postcardiac arrest, distributive shock?septic secondary to UTI for management. Patient was extubated 09/16, weaned off of pressors and was downgraded to telemetry on 09/18.?Neurology was consulted due to physical exam finding of uneven pupils, history of muscular dystrophy and recommendations. #?History of myasthenia gravis #History of muscular dystrophy Patient history and known to Dr. Patterson's office. Patient has been recovering from pneumonia after cardiac arrest, completed the antibiotic course, but having difficulty weaning off oxygen. -Continue the incentive spirometry (if patient able), chest physiotherapy, acetylcysteine, repositioning techniques, and aggressive pulmonary toilet -Patient's neurology chart will be reviewed and will give recommendations whether to continue or discontinue the pyridostigmine #Left coloboma Uneven pupils. Left resembles a keyhole facing up, right pupil is pinpoint. Patient likely has some level of vision impairment. Unlikely new finding, patient has most likely had this since either or young age. -Continue to monitor Rest of conditions to continue current management per primary team: #Acute hypoxic respiratory failure secondary to underlying myasthenia gravis and hx of diffuse bilateral pneumonia #Failure to thrive #CHAR on CKD stage II, improving #Normocytic normochromic anemia #NSTEMI type II, resolved? #Cardiac arrest, pulseless electrical activity, status post ROSC #Type 2 diabetes mellitus, [id number] #Dysphagia? #History of depression? #History of TIA #History of hypertension? #History of hyperlipidemia #History of BPH and neurogenic bladder Patient was discussed with the Neurology attending, Dr. Patterson. Thank you for allowing us to participate in the care of this patient. Isi Dao, PGY-3 Attending Provider Attestation/Addendum I personally have seen and examined the patient at the bedside and I agreed with resident's findings, assessment and plan of care. Patient with chronic spastic quadriparesis and hyperreflexia for years, deemed not a surgical candidate. I do not think that his bulbar weakness is from MG. Consider doing MRI cervical spine to assess for comparison from 2020 study. .
[2025-09-27] MEDS: SODIUM CL RT SOL 3% 4 ML NEBU (NON-FORMULARY) INH ×2 (19:29→23:15)
[2025-09-28] VITALS (15 sets, daily range): BP systolic 121–144; BP diastolic 52–90; PULSE 65–78; RESP 13–27; TEMP 36.1–36.8; O2SAT 92–99; BMI 33.3
[2025-09-28] MEDS: ALBUTEROL/IPRATROPIUM (Duoneb) RT SOL 3 ML NEBU INH ×6 (03:14→22:40)
[2025-09-28] MEDS: SODIUM CL RT SOL 3% 4 ML NEBU (NON-FORMULARY) INH ×3 (03:14→22:40)
[2025-09-28] MEDS: MIDODRINE 5 MG TABLET 10 MG PO ×2 (05:15→21:31)
[2025-09-28] MEDS: HEPARIN SOD INJ 5000 UNIT/ML VIAL SC ×3 (05:16→21:34)
[2025-09-28 05:54] LABS: Basophils # (Auto) 0.0 Thou/mm3 (0.0-0.2); Basophils % (Auto) 0 % (0-2.5); Eosinophils # (Auto) 0.4 Thou/mm3 (0.0-0.5); Eosinophils % (Auto) 6 % (0-10); Hematocrit 24.9 % (41.0-53.0); Immature Granulocytes Auto 0.03 Thou/mm3 (0.00-0.00); Lymphocytes # (Auto) 1.3 Thou/mm3 (1.0-4.8); Lymphocytes % (Auto) 21 % (10-50); Mean Corpuscular HGB Conc 30.1 g/dl (31.0-37.0); Mean Corpuscular Hemoglobin 28.7 pg (25.0-35.0); Mean Corpuscular Volume 95 fL (80-100); Monocytes # (Auto) 0.7 Thou/mm3 (0.0-0.8); Monocytes % (Auto) 11 % (0-12); Neutrophils # (Auto) 3.9 Thou/mm3 (1.8-7.7); Neutrophils % (Auto) 62 % (37-80); Nucleated Red Blood Cell # 0.00 Thou/mm3 (0.00-0.00); Nucleated Red Blood Cell % 0 /100 WBC (0); Platelet Count 401 Thou/mm3 (140-440); RDW Standard Deviation 46.5 fL (35.1-43.9); Red Blood Count 2.61 Miln/mm3 (4.50-5.90); White Blood Count 6.2 Thou/mm3 (3.8-10.6)
[2025-09-28 05:59] LABS: Hemoglobin 7.5 g/dL (13.5-16.0)
[2025-09-28 06:09] LABS: Alanine Aminotransferase 10 U/L (10-49); Albumin, Serum 3.0 gm/dL (3.4-4.8); Albumin/Globulin Ratio 0.8 (1.2-2.2); Alkaline Phosphatase 80 U/L (46-116); Anion Gap 6 (7-16); Aspartate Amino Transferase 20 U/L (0-34); BUN/Creatinine Ratio 25 Ratio (12-20); Bilirubin,Total 0.2 mg/dL (0.3-1.2); Blood Urea Nitrogen 47 mg/dL (9-23); Calcium 8.3 mg/dL (8.3-10.6); Calcium (Corrected) 9.1 mg/dL (8.5-10.1); Carbon Dioxide 38.4 mMol/L (20.0-31.0); Chloride 94 mMol/L (98-107); Creatinine (Component) 1.9 mg/dL (0.6-1.3); Estimated Creatinine Clearance 42.7 mL/min (>60); Globulin 3.7 gm/dL (2.3-3.5); Glucose 204 mg/dL (74-106); Magnesium 2.4 mg/dL (1.6-2.6); Osmolality,Calculated 293 (275-295); Potassium 4.3 mMol/L (3.4-5.1); Sodium 138 mMol/L (136-145); Total Protein 6.7 gm/dL (5.7-8.2); eGFR 39 See Note
[2025-09-28] MEDS: ACETYLCYSTEINE RT SOL 10% 4 ML NEBU INH ×2 (07:25→22:40)
[2025-09-28] MEDS: CALCIUM CARBONATE 600 MG TABLET PO ×2 (08:03→21:32)
[2025-09-28] MEDS: INSULIN LISPRO (AdmeLOG) 1 UNIT/0.01 ML UNIT SC ×4 (08:03→21:34)
[2025-09-28] MEDS: ASPIRIN 81 MG CHEW PO (08:03)
--- NOTE | 2025-09-28 08:21 | PC.IP ---
Notified Vera Juan RN that pt. may be removed from [facility]. Pt.'s v/s WNL, WBC 6.2, has completed antibiotic tx for ESBL.
--- NOTE | 2025-09-28 08:40 | XR_ITS ---
EXAMINATION: AP chest single view TECHNIQUE: AP portable upright chest single view Date and time: September 28, 2025, 0924 hours, comparison September 25, 2025 INDICATIONS: Difficulty breathing this week, extensive bilateral edema and/or pneumonia on chest film September 25, 2025 FINDINGS: No change in cardiomegaly and extensive bilateral edema and/or pneumonia, favor pneumonia Osseous structures are demineralized IMPRESSION: No change in extensive bilateral lung opacity, most consistent with pneumonia
[2025-09-28] MEDS: SODIUM CHLORIDE 0.9% 500 ML 500 ML 200 ML IV (09:45)
--- NOTE | 2025-09-28 12:03 | PC.SS ---
Follow up note: Pt is on high flow O2, 20 liters 40% FIO2. Continue to wean down O2 and breathing treatments. Pt will return to shelter upon dc.
[2025-09-28] MEDS: ALBUMIN HUMAN-KJDA 25% IVPB 25 GM/100 ML BTL IV (12:38)
--- NOTE | 2025-09-28 14:39 | ESPR_ITS ---
Documentation for date of: 09/28/25 Subjective Subjective Interval history: Patient was seen and examined at bedside. No acute events took place overnight. Patient demonstrates improved mentation, A&O x3. O2 requirements decreased to 20L and 40% this AM. Patient had 1 large BM overnight. Noted to have anisocoria with shrunken pupil on the right side less reactive to light. Unknown for how long the patient has been in this situation. Neurology consulted, who stated the pupil asymmetry to be likely chronic in the setting of progressive motor impairment from advanced cervical spinal stenosis. MR c-spine ordered. Will have the patient lie on his left side decubitus position, the side of his good lung, to try and expand the Rt lung. This is done daily as part of a protocol to prevent pressure bed ulcers. Emphasized to switch positions between supine and Lt lat decubitus only. Exam Vital Signs Temp Pulse Resp BP Pulse Ox O2 Del Method O2 Flow Rate 97.8 F 67 17 144/68 H 92 L High Flow Nasal Cannula 20 09/28/25 12:00 09/28/25 12:00 09/28/25 12:00 09/28/25 13:34 09/28/25 12:00 09/28/25 12:00 09/28/25 12:00 FiO2 40 09/28/25 12:00 Narrative Exam General: Patient demonstrates improved mentation, A&O x3. Eyes: Rt pinpoint pupil, non reactive to light, EOMI. Anicteric, vision grossly intact. Ears: No ear pain, no ear discharge, Hearing grossly intact. Nose: No nasal discharge. Mouth/Throat: Moist mucous membranes, no redness, no lesions. Neck: Neck supple, non-tender, no cervical lymphadenopathy. Lungs: bilateral wheezing, No accessory muscle use. Cardio: Normal S1/S2, regular rhythm, no murmurs, no JVD or carotid bruits. Abdomen: Soft, non-tender, no palpable masses, peristalsis present, no guarding or rebound. Extremities: Symmetrical, no significant deformities, bilateral pitting edema lower extremities, non-tender, peripheral pulses present. Skin: No rashes, no lesions, warm to touch. Neuro: No focal neurological deficits, at baseline Psych: Cooperative, appropriate mood and effect. Objective Labs 09/28/25 04:25 09/28/25 04:25 Labs: Laboratory Results - last 24 hr 09/28/25 04:25 WBC 6.2 RBC 2.61 L Hgb 7.5 L Hct 24.9 L MCV 95 MCH 28.7 MCHC 30.1 L RDW Std Deviation 46.5 H Plt Count 401 D Neut % (Auto) 62 Lymph % (Auto) 21 [place] % (Auto) 11 Eos % (Auto) 6 Baso % (Auto) 0 Neut # (Auto) 3.9 Lymph # (Auto) 1.3 [place] # (Auto) 0.7 Eos # (Auto) 0.4 Baso # (Auto) 0.0 Immature Gran # (Auto) 0.03 H Absolute Nucleated RBC 0.00 Immature Gran % 1 H Nucleated RBC % 0 Sodium 138 Potassium 4.3 Chloride 94 L Carbon Dioxide 38.4 H Anion Gap 6 L BUN 47 H Creatinine 1.9 H Estim Creat Clear Calc 42.7 L eGFR 39 L BUN/Creatinine Ratio 25 H Glucose 204 H Calculated Osmolality 293 Calcium 8.3 Corrected Calcium 9.1 Magnesium 2.4 Total Bilirubin 0.2 L AST 20 ALT 10 Alkaline Phosphatase 80 Total Protein 6.7 Albumin 3.0 L Globulin 3.7 H Albumin/Globulin Ratio 0.8 L ABG Interpretation ABG results: 09/15/25 09/15/25 09/16/25 20:48 22:33 04:03 ABG pH 7.30 L 7.33 L 7.29 L ABG pCO2 57 H 49 H 51 H ABG pO2 167 H 154 H 118 H D ABG HCO3 28 H 26 25 ABG O2 Saturation 100 H 100 H 99 H ABG Base Excess 0 -1 -2 VBG pH VBG pCO2 VBG pO2 VBG Base Excess 09/17/25 09/19/25 03:40 08:35 ABG pH ABG pCO2 ABG pO2 ABG HCO3 ABG O2 Saturation ABG Base Excess VBG pH 7.43 7.39 VBG pCO2 41 52 D VBG pO2 139 H 80 H D VBG Base Excess 3 5 H Quality Measures Quality Measures VTE prophylaxis (Heparin SC ) Assessment & Plan Assessment Current Active Medications: Generic Name Dose Route Start Last Admin Trade Name Freq PRN Reason Stop Dose Admin Acetaminophen 650 mg 09/16/25 00:36 09/21/25 03:49 Acetaminophen 325 Mg Tablet PO 10/16/25 00:35 650 mg Q6H PRN Administration Fever >101.3 Acetylcysteine 4 ml 09/28/25 09:00 Acetylcysteine Rt Liset 10% 4 Ml Nebu INH 10/28/25 08:59 BID SHIVAM Albuterol/Ipratropium 3 ml 09/24/25 15:00 09/28/25 11:05 Albuterol/Ipratropium (Duoneb) Rt Liset 3 Ml Nebu INH 10/24/25 14:59 3 ml Q4HRRT SHIVAM Administration Aspirin 81 mg 09/27/25 09:15 09/28/25 08:03 Aspirin 81 Mg Chew PO 10/27/25 09:14 81 mg QDAY SHIVAM Administration Balsam [place] Oil 0 gm 09/28/25 21:00 Balsam [place] Oil (Venelex) 60 Gm Tube TOP 10/28/25 20:59 BID SHIVAM Calcium Carbonate 600 mg 09/20/25 09:00 09/28/25 08:03 Calcium Carbonate 600 Mg Tablet PO 10/20/25 08:59 600 mg BID SHIVAM Administration Dextrose 25 ml 09/16/25 05:18 09/23/25 01:09 Dextrose 50%-Water Inj 50 Ml Syringe IV 10/16/25 05:17 25 ml Q15MIN PRN Administration BG 50-70 responsive npo pt Dextrose 50 ml 09/16/25 05:18 Dextrose 50%-Water Inj 50 Ml Syringe IV 10/16/25 05:17 Q15MIN PRN BG <50 OR BG <70 & pt unresponsive Glucagon 1 mg 09/16/25 05:18 Glucagon Inj 1 Mg Vial IM Q15MIN PRN BG <70, and no IV access Heparin Sodium (Porcine) 5,000 unit 09/24/25 14:00 09/28/25 13:35 Heparin Sod Inj 5000 Unit/Ml Vial SC 10/08/25 13:59 5,000 unit Q8HR SHIVAM Administration Insulin Human Lispro 0 unit 09/24/25 17:00 09/28/25 11:34 Insulin Lispro (Admelog) 1 Unit/0.01 Ml Unit SC 10/24/25 16:59 4 unit ACHS SHIVAM Administration Protocol Midodrine 10 mg 09/18/25 06:00 09/28/25 13:34 Midodrine 5 Mg Tablet PO 10/18/25 05:59 Not Given TID SHIVAM Ondansetron HCl 4 mg 09/16/25 00:36 11/30/25 10:20 Ondansetron Inj 2 Mg/Ml Inj 2 Ml IVP 10/16/25 00:35 4 mg Q6H PRN Administration NAUSEA OR VOMITING Protocol Pantoprazole Sodium 40 mg 09/19/25 21:00 09/28/25 08:03 Pantoprazole Inj 40 Mg Vial IVP 10/19/25 20:59 40 mg BID SHIVAM Administration Pharmacy Consult 1 each 09/16/25 00:42 Pharmacy Renal Dose Adjustment 1 Ea XX 10/16/25 00:41 PRN PRN CONSULT Pyridostigmine [place] 30 mg 09/25/25 10:25 09/28/25 13:33 Pyridostigmine [place] 60 Mg Tablet PO 10/25/25 10:24 30 mg TID SHIVAM Administration Sennosides 1 tab 09/21/25 10:30 09/28/25 08:03 Senna Tablet PO 10/21/25 10:29 1 tab QDAY SHIVAM Administration Protocol Sodium Chloride 4 ml 09/24/25 09:30 09/28/25 03:14 Sodium Cl Rt Liset 3% 4 Ml Nebu (Non-Formulary) INH 10/24/25 09:29 4 ml Q4HRRT SHIVAM Administration Plan 65-year-old bedbound male with past medical history of?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 and had cardiac arrest with downtime of 20 mins at the facility. In ED he was resuscitated and ROSC was achieved. Patient was admitted to ICU for acute encephalopathy postcardiac arrest, distributive shock?septic secondary to UTI for management. Patient was extubated 09/16, weaned off of pressors and was downgraded to telemetry on 09/18.? ? #Acute hypoxic respiratory failure Secondary to underlying myasthenia gravis and hx of diffuse bilateral pneumonia? #Community-acquired pneumonia Secondary to?Proteus Mirabella's, Klebsiella pneumoniae and ESBL E. coli, completed treatment #Urinary tract infection Secondary to ESBL E. coli, completed treatment #Distributive shock, likely septic secondary to UTI, resolved? ? Patient presented with septic shock, weaned off of pressors. Currently on midodrine, blood pressure stable. Blood culture negative for 48 hours? Urine culture positive for ESBL, sputum culture positive for ESBL, Klebsiella, Proteus.? MRSA nares negative, vancomycin discontinued? 09-20-25-?zosyn?disconsitnued;?? 09-19-25- Overnight patient developed cough with dark sputum. Patient then developed significant hypoxia, saturation 87-90% on 15 L oxy mask. Patient placed on high flow nasal cannula with improvement in O2 saturation. Chest x-ray taken, showed worsening vascular congestion, fluid in bilateral lungs. Concern for aspiration event in setting of dysphagia, patient made NPO.?? 09-20-25- patient still 30L HFNC? 09-21-25- cocci serology negative? ? CXR 09/22 shows improved pneumonia in the right lung, however there remains significant perihilar bibasilar pneumonia? During this hospital admission, blood cultures are negative, ET secretion cultures grew proteus mirabilis, ESBL E. Coli and Klebsiella?Pneumonae?which has limited drug sensitivity.? - fosfomycin 3g x1?(09/23) for UTI - meropenem 1g IV Q12H?(09/20-09/22) [facility] CXR (09/25) shows improvement in atelectasis. CXR (09/28) No change in cardiomegaly and extensive bilateral edema and/or pneumonia Plan:? - Pyridostigmine PO 30mg TID - Will have the patient by on left decubitus position, the side of the good lung to try and expand the right lung. - RT to try and wean down O2 requirements. - BiPAP/CPAP - DuoNebs Q4h - ID, Dr Oseguera, does not recommend any more ABx therapy. - Continue midodrine?with hold?parameters? - Bumex 2mg held - incentive spirometry with deep breathing emphasized to nurse. - PEEP 5 - Chest PhysioTherapy #Anisocoria Patient was noted to have pinpoint pupil unilaterally on the right side non- reactive to light this morning. Possible to be a chronic symptom. CT head was negative for gross hemorrhage, mass effect, or midline shift. 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 He can verbalize his needs. He is bowel and bladder incontinent. Patient has marked weakness, unable to move any of his extremities. - Spoke to nursing about the patient condition and needs and to assist with feedings #CHAR on CKD stage II, improving Patient's baseline creatinine 1.4?1.6? Patient is status post 5 L IV LR? Patient's underlying CHAR secondary to insult from distributive shock? 09/25: Cr 2.1, elevated from baseline, likely 2/2 hypovolemia from diuresis CXR (09/25) read out extensive b/l perihilar edema and/or pneumonia 09/27: Cr improved to 1.7, Plan:? - Held Bumetanide IVP 2mg Qday - Nephrology consulted, appreciate recommendations? - Avoid nephrotoxic agents? #Normocytic normochromic anemia? #Melena? Patient has chronic, stable anemia. Noted to have melena 09/19, FOBT positive. GI consulted.? ? Plan:? ? - Follow CBC, transfuse as needed? - GI consulted, will wait for upper GI until respiratory status improved? - IV Protonix? -?N.p.o.? ? ? #NSTEMI type II, resolved? #Cardiac arrest, pulseless electrical activity, status post ROSC? In ER patient was found in PEA, CODE BLUE was called CPR performed with 2 rounds of epi and ROSC was achieved.? Echocardiogram obtained shows EF 60 to 65%, mild concentric hypertrophy normal diastolic dysfunction? EKG 09/16?sinus rhythm, EKG 09/15?sinus tachycardia no acute ST-T changes? Troponin on presentation 2.194 up trended to 3.4 and then down trended to 2.4? ? Plan:? ? - Cardiology is consulted, state that likely cause is due to hyperkalemia? ? #Type 2 diabetes mellitus, [id number]? Hemoglobin A1c 5.2? - Sliding scale insulin? ? #Dysphagia? Patient has NG tube intact, SBO was ruled out? Speech therapy recommended dysphagia 1 diet, patient was started on it, will keep NG tube for now, consider discontinuing in the morning.? Patient had possible aspiration event 09/19? Will keep?npo?for now? ? Plan:? ? - GI recommendations as above? -?N.p.o.? ? #History of developmental delay and muscular dystrophy? #History of depression? #History of TIA? Patient on gabapentin and baclofen at home, from graders retirement has history of TIA? - Continue aspirin? - Hold home baclofen, duloxetine and gabapentin, monitor mentation? ? #History of hypertension? #History of hyperlipidemia? Currently blood pressure normotensive hold antihypertensives? ? #History of BPH and neurogenic bladder? #History of right inguinal hernia? - Consider starting patient on tamsulosin? ? #Anion gap metabolic acidosis, resolved? #Lactic acidosis resolved? #Hyponatremia? #Hypochloremia? #Hyperkalemia resolved? #Hypercalcemia resolved? - Follow CMP in a.m.? - KCl 20?mEq?given 1x? ? DVT prophylaxis: Heparin every 12 hour? GI prophylaxis: IV Protonix 40? Diet:?Dysphagia 1 -Pureed Lines: Peripheral IV? Code status: Full code This case was discussed with my attending physician, Dr. Willingham, and senior resident, Dr Cali Even though this this note was carefully revised there may still be minor errors in film sound coordinator due to voice recognition software. Andrés Dia, DO PGY I Senior Resident Attestation: The patient's oxygen requirement has been improving slightly, and he is more alert and oriented. Nurse was requested to continue with regular oral rehydration. Received 500 cc of bolus IV fluid for possible CHAR due to dehydration. I discussed with and supervised the director internal audit physician involved in the care of this patient. I personally saw and examined the patient and discussed the assessment and plan with the entire medicine team, including my attending. I agree with the assessment and plan as documented above. Tremaine Cali MD PGY3 Internal Medicine Attending Provider Attestation/Addendum 64-year-old male patient with myasthenia gravis admitted for pneumonia respiratory failure still on high flow. The patient was noted to be anisocoric yesterday. CT of the head is negative. The patient is currently on pyridostigmine. Will try to wean off high flow. Continue current medications and treatment. Patient is actually more alert at this time. Hemoglobin is 7.5. No reported bleeding. Continue to monitor hemoglobin and hematocrit. I discussed with and supervised the resident physician who took care of this patient. I agree with the assessment and plan as above.
--- NOTE | 2025-09-28 14:57 | ESPR_ITS ---
Documentation for date of: 09/28/25 Subjective Subjective Interval history: Patient seen at bedside, appeared at baseline mental status. Patient reported doing well and denied any pain, he does continue to have cough however. He was able to be weaned down to 20L and 40% FiO2 today. Upon review of patient's neuro chart he does not have a history of myasthenia gravis therefore pyridostigmine will be discontinued. However he does have history of severe spinal stenosis causing profound weakness which is why he is wheelchair bound. Will order MRI cervical spine to assess for any sort of progression. Exam Vital Signs Temp Pulse Resp BP Pulse Ox O2 Del Method O2 Flow Rate 97.8 F 67 17 144/68 H 92 L High Flow Nasal Cannula 20 09/28/25 12:00 09/28/25 12:00 09/28/25 12:00 09/28/25 13:34 09/28/25 12:00 09/28/25 12:00 09/28/25 12:00 FiO2 40 09/28/25 12:00 Narrative Exam Physical Exam General: Awake and in no acute distress. Patient communicates well and answers questions appropriately. HEENT: Normocephalic, atraumatic, mucous membranes moist. Left eye coloboma, right eye pinpoint. On Hi-flow nasal cannula. Heart: Regular rate and rhythm, normal S1 and S2, no murmurs. Lungs: Clear to auscultation with no wheezing or crackles, however tachypneic and very short breaths. Abdomen: Soft, nondistended, nontender, positive bowel sounds. ?No guarding or rebound tenderness. Neurologic: Alert and oriented x4, limited motion of all 4 extremities, only 1/5 strength upper extremities bilaterally. Follows commands Extremities: No edema. Skin: No rash or ecchymoses. Objective Labs 09/28/25 04:25 09/28/25 04:25 Labs: Laboratory Results - last 24 hr 09/28/25 04:25 WBC 6.2 RBC 2.61 L Hgb 7.5 L Hct 24.9 L MCV 95 MCH 28.7 MCHC 30.1 L RDW Std Deviation 46.5 H Plt Count 401 D Neut % (Auto) 62 Lymph % (Auto) 21 [place] % (Auto) 11 Eos % (Auto) 6 Baso % (Auto) 0 Neut # (Auto) 3.9 Lymph # (Auto) 1.3 [place] # (Auto) 0.7 Eos # (Auto) 0.4 Baso # (Auto) 0.0 Immature Gran # (Auto) 0.03 H Absolute Nucleated RBC 0.00 Immature Gran % 1 H Nucleated RBC % 0 Sodium 138 Potassium 4.3 Chloride 94 L Carbon Dioxide 38.4 H Anion Gap 6 L BUN 47 H Creatinine 1.9 H Estim Creat Clear Calc 42.7 L eGFR 39 L BUN/Creatinine Ratio 25 H Glucose 204 H Calculated Osmolality 293 Calcium 8.3 Corrected Calcium 9.1 Magnesium 2.4 Total Bilirubin 0.2 L AST 20 ALT 10 Alkaline Phosphatase 80 Total Protein 6.7 Albumin 3.0 L Globulin 3.7 H Albumin/Globulin Ratio 0.8 L ABG Interpretation ABG results: 09/15/25 09/15/25 09/16/25 20:48 22:33 04:03 ABG pH 7.30 L 7.33 L 7.29 L ABG pCO2 57 H 49 H 51 H ABG pO2 167 H 154 H 118 H D ABG HCO3 28 H 26 25 ABG O2 Saturation 100 H 100 H 99 H ABG Base Excess 0 -1 -2 VBG pH VBG pCO2 VBG pO2 VBG Base Excess 09/17/25 09/19/25 03:40 08:35 ABG pH ABG pCO2 ABG pO2 ABG HCO3 ABG O2 Saturation ABG Base Excess VBG pH 7.43 7.39 VBG pCO2 41 52 D VBG pO2 139 H 80 H D VBG Base Excess 3 5 H Quality Measures Quality Measures VTE prophylaxis (Heparin SC ) Assessment & Plan Assessment Current Active Medications: Generic Name Dose Route Start Last Admin Trade Name [place] PRN Reason Stop Dose Admin Acetaminophen 650 mg 09/16/25 00:36 09/21/25 03:49 Acetaminophen 325 Mg Tablet PO 10/16/25 00:35 650 mg Q6H PRN Administration Fever >101.3 Acetylcysteine 4 ml 09/28/25 09:00 Acetylcysteine Rt Liset 10% 4 Ml Nebu INH 10/28/25 08:59 BID SHIVAM Albuterol/Ipratropium 3 ml 09/24/25 15:00 09/28/25 11:05 Albuterol/Ipratropium (Duoneb) Rt Liset 3 Ml Nebu INH 10/24/25 14:59 3 ml Q4HRRT SHIVAM Administration Aspirin 81 mg 09/27/25 09:15 09/28/25 08:03 Aspirin 81 Mg Chew PO 10/27/25 09:14 81 mg QDAY SHIVAM Administration Balsam [place] Oil 0 gm 09/28/25 21:00 Balsam [place] Oil (Venelex) 60 Gm Tube TOP 10/28/25 20:59 BID SHIVAM Calcium Carbonate 600 mg 09/20/25 09:00 09/28/25 08:03 Calcium Carbonate 600 Mg Tablet PO 10/20/25 08:59 600 mg BID SHIVAM Administration Dextrose 25 ml 09/16/25 05:18 09/23/25 01:09 Dextrose 50%-Water Inj 50 Ml Syringe IV 10/16/25 05:17 25 ml Q15MIN PRN Administration BG 50-70 responsive npo pt Dextrose 50 ml 09/16/25 05:18 Dextrose 50%-Water Inj 50 Ml Syringe IV 10/16/25 05:17 Q15MIN PRN BG <50 OR BG <70 & pt unresponsive Glucagon 1 mg 09/16/25 05:18 Glucagon Inj 1 Mg Vial IM Q15MIN PRN BG <70, and no IV access Heparin Sodium (Porcine) 5,000 unit 09/24/25 14:00 09/28/25 13:35 Heparin Sod Inj 5000 Unit/Ml Vial SC 10/08/25 13:59 5,000 unit Q8HR SHIVAM Administration Insulin Human Lispro 0 unit 09/24/25 17:00 09/28/25 11:34 Insulin Lispro (Admelog) 1 Unit/0.01 Ml Unit SC 10/24/25 16:59 4 unit ACHS [facility] Administration Protocol Midodrine 10 mg 09/18/25 06:00 09/28/25 13:34 Midodrine 5 Mg Tablet PO 10/18/25 05:59 Not Given TID [facility] Ondansetron HCl 4 mg 09/16/25 00:36 09/19/25 10:20 Ondansetron Inj 2 Mg/Ml Inj 2 Ml IVP 10/16/25 00:35 4 mg Q6H PRN Administration NAUSEA OR VOMITING Protocol Pantoprazole Sodium 40 mg 09/19/25 21:00 09/28/25 08:03 Pantoprazole Inj 40 Mg Vial IVP 10/19/25 20:59 40 mg BID SHIVAM Administration Pharmacy Consult 1 each 09/16/25 00:42 Pharmacy Renal Dose Adjustment 1 Ea XX 10/16/25 00:41 PRN PRN CONSULT Pyridostigmine [place] 30 mg 09/25/25 10:25 09/28/25 13:33 Pyridostigmine [place] 60 Mg Tablet PO 10/25/25 10:24 30 mg TID SHIVAM Administration Sennosides 1 tab 09/21/25 10:30 09/28/25 08:03 Senna Tablet PO 10/21/25 10:29 1 tab QDAY SHIVAM Administration Protocol Sodium Chloride 4 ml 09/24/25 09:30 09/28/25 03:14 Sodium Cl Rt Liset 3% 4 Ml Nebu (Non-Formulary) INH 10/24/25 09:29 4 ml Q4HRRT SHIVAM Administration Plan 65-year-old bedbound male with past medical history of?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 In ED he was resuscitated and ROSC was achieved. Patient was admitted to ICU for acute encephalopathy postcardiac arrest, distributive shock?septic secondary to UTI for management. Patient was extubated 09/16, weaned off of pressors and was downgraded to telemetry on 09/18.?Neurology was consulted due to physical exam finding of uneven pupils, history of muscular dystrophy and recommendations. #History of severe cervical spinal stenosis resulting in weakness #History of muscular dystrophy Patient history and known to Dr. Patterson's office. Patient has been recovering from pneumonia after cardiac arrest, completed the antibiotic course, but having difficulty weaning off oxygen. Patient does not have any history of myasthenia gravis. But does have history of severe cervical spine stenosis leading him to be wheelchair bound. -Continue the incentive spirometry (if patient able), chest physiotherapy, acetylcysteine, repositioning techniques, and aggressive pulmonary toilet -Discontinued the pyridostigmine -Ordered MRI without contrast cervical spine to assess for progression #Left coloboma Uneven pupils. Left resembles a keyhole facing up, right pupil is pinpoint. Patient likely has some level of vision impairment. Unlikely new finding, patient has most likely had this since either or young age. -Continue to monitor Rest of conditions to continue current management per primary team: #Acute hypoxic respiratory failure secondary to underlying myasthenia gravis and hx of diffuse bilateral pneumonia #Failure to thrive #CHAR on CKD stage II, improving #Normocytic normochromic anemia #NSTEMI type II, resolved? #Cardiac arrest, pulseless electrical activity, status post ROSC #Type 2 diabetes mellitus, [id number] #Dysphagia? #History of depression? #History of TIA #History of hypertension? #History of hyperlipidemia #History of BPH and neurogenic bladder Patient was discussed with the Neurology attending, Dr. Patterson. Thank you for allowing us to participate in the care of this patient. Isi Dao, PGY-3 Attending Provider Attestation/Addendum I personally have seen and examined the patient at the bedside and I agreed with resident's findings, assessment and plan of care. Patient with chronic spastic quadriparesis and hyperreflexia for years, deemed not a surgical candidate. His swallowing function needs to be monitored closely to prevent aspiration. FU with MRI cervical spine to assess for comparison from 2020 study. Will consider increasing Baclofen to 10 mg tid to help with spasticity and facilitate better ROM.
--- NOTE | 2025-09-28 20:21 | ESPR_ITS ---
Documentation for date of: 09/28/25 Subjective Subjective Interval history: Hemoglobin hematocrit 7.5 and 24.9 Patient remains on high flow nasal cannula Exam Vital Signs Temp Pulse Resp BP Pulse Ox O2 Del Method O2 Flow Rate 97.2 F 71 27 H 132/63 H 99 High Flow Nasal Cannula 15 09/28/25 16:00 09/28/25 19:15 09/28/25 19:15 09/28/25 16:00 09/28/25 19:15 09/28/25 16:00 09/28/25 19:15 FiO2 35 09/28/25 19:15 Objective Labs 09/28/25 04:25 09/28/25 04:25 Labs: Laboratory Results - last 24 hr 09/28/25 04:25 WBC 6.2 RBC 2.61 L Hgb 7.5 L Hct 24.9 L MCV 95 MCH 28.7 MCHC 30.1 L RDW Std Deviation 46.5 H Plt Count 401 D Neut % (Auto) 62 Lymph % (Auto) 21 [place] % (Auto) 11 Eos % (Auto) 6 Baso % (Auto) 0 Neut # (Auto) 3.9 Lymph # (Auto) 1.3 Grimes # (Auto) 0.7 Eos # (Auto) 0.4 Baso # (Auto) 0.0 Immature Gran # (Auto) 0.03 H Absolute Nucleated RBC 0.00 Immature Gran % 1 H Nucleated RBC % 0 Sodium 138 Potassium 4.3 Chloride 94 L Carbon Dioxide 38.4 H Anion Gap 6 L BUN 47 H Creatinine 1.9 H Estim Creat Clear Calc 42.7 L eGFR 39 L BUN/Creatinine Ratio 25 H Glucose 204 H Calculated Osmolality 293 Calcium 8.3 Corrected Calcium 9.1 Magnesium 2.4 Total Bilirubin 0.2 L AST 20 ALT 10 Alkaline Phosphatase 80 Total Protein 6.7 Albumin 3.0 L Globulin 3.7 H Albumin/Globulin Ratio 0.8 L Impressions Impression: Anemia of blood loss acute Acute hypoxic respiratory failure on high flow nasal cannula ABG Interpretation ABG results: 09/15/25 09/15/25 09/16/25 20:48 22:33 04:03 ABG pH 7.30 L 7.33 L 7.29 L ABG pCO2 57 H 49 H 51 H ABG pO2 167 H 154 H 118 H D ABG HCO3 28 H 26 25 ABG O2 Saturation 100 H 100 H 99 H ABG Base Excess 0 -1 -2 VBG pH VBG pCO2 VBG pO2 VBG Base Excess 09/17/25 09/19/25 03:40 08:35 ABG pH ABG pCO2 ABG pO2 ABG HCO3 ABG O2 Saturation ABG Base Excess VBG pH 7.43 7.39 VBG pCO2 41 52 D VBG pO2 139 H 80 H D VBG Base Excess 3 5 H Assessment & Plan A&P Narrative uti vs asb may have colonization of suprapubic cath too. bph mr/dd will give one dose fosfomycin and if off O2, then back to nh at your discretion will see again prn Time Spent With Patient Time: Total time spent is greater than 50% in coordination of care (as documented) at patient's floor/unit and/or counseling patient:
[2025-09-28] MEDS: BALSAM PERU/CASTOR OIL (Venelex) 60 GM TUBE TOP (21:32)
[2025-09-29] VITALS (15 sets, daily range): BP systolic 126–157; BP diastolic 60–88; PULSE 60–695; RESP 14–27; TEMP 36.1–36.8; O2SAT 90–100
[2025-09-29] MEDS: SODIUM CL RT SOL 3% 4 ML NEBU (NON-FORMULARY) INH ×4 (03:00→14:14)
[2025-09-29] MEDS: ALBUTEROL/IPRATROPIUM (Duoneb) RT SOL 3 ML NEBU INH ×6 (03:00→23:35)
--- NOTE | 2025-09-29 04:24 | PC.RT ---
per nurse pt desatting went to assess pt spo2 in the 80s, increased 25L 45% sats improved to 96%.
[2025-09-29] MEDS: HEPARIN SOD INJ 5000 UNIT/ML VIAL SC ×3 (05:55→21:53)
--- NOTE | 2025-09-29 06:21 | XR_ITS ---
Examination: MRI cervical spine without intravenous contrast Date and time of exam: September 29, 2025, 1718 hours INDICATIONS: Neck pain altered mental status, history cardiac arrest, hypoxic, patient on O2 Technique: Multiple axial and sagittal sections of the cervical spine to been obtained. T2 weighted sagittal sections, TR 3, 270, TE 117 T1-weighted sagittal sections, TR 500, TE 11 T1-weighted axial sections, TR 607, TE 12, axial sections TR 18, TE 27 and T2 weighted transverse sections, TR 3920, TE 122. Findings: Continued patient motion severely degrades scan image quality No gross fracture Advanced disc narrowing C5-C6 The axial images are severely degraded Cervical cord appears atrophic IMPRESSION: Severely limited study secondary to patient motion Advanced degenerative disc disease C5-C6 No focal cervical disc protrusion noted
[2025-09-29 06:40] LABS: Basophils # (Auto) 0.0 Thou/mm3 (0.0-0.2); Basophils % (Auto) 0 % (0-2.5); Eosinophils # (Auto) 0.4 Thou/mm3 (0.0-0.5); Eosinophils % (Auto) 7 % (0-10); Hematocrit 23.7 % (41.0-53.0); Immature Granulocytes Auto 0.01 Thou/mm3 (0.00-0.00); Lymphocytes # (Auto) 1.4 Thou/mm3 (1.0-4.8); Lymphocytes % (Auto) 26 % (10-50); Mean Corpuscular HGB Conc 30.4 g/dl (31.0-37.0); Mean Corpuscular Hemoglobin 28.2 pg (25.0-35.0); Mean Corpuscular Volume 93 fL (80-100); Monocytes # (Auto) 0.6 Thou/mm3 (0.0-0.8); Monocytes % (Auto) 10 % (0-12); Neutrophils # (Auto) 3.0 Thou/mm3 (1.8-7.7); Neutrophils % (Auto) 57 % (37-80); Nucleated Red Blood Cell # 0.00 Thou/mm3 (0.00-0.00); Nucleated Red Blood Cell % 0 /100 WBC (0); Platelet Count 418 Thou/mm3 (140-440); RDW Standard Deviation 45.1 fL (35.1-43.9); Red Blood Count 2.55 Miln/mm3 (4.50-5.90); White Blood Count 5.3 Thou/mm3 (3.8-10.6)
[2025-09-29 07:13] LABS: Hemoglobin 7.2 g/dL (13.5-16.0)
[2025-09-29 07:20] LABS: Alanine Aminotransferase 9 U/L (10-49); Albumin, Serum 3.4 gm/dL (3.4-4.8); Albumin/Globulin Ratio 1.0 (1.2-2.2); Alkaline Phosphatase 73 U/L (46-116); Anion Gap 5 (7-16); Aspartate Amino Transferase 18 U/L (0-34); BUN/Creatinine Ratio 23 Ratio (12-20); Bilirubin,Total 0.3 mg/dL (0.3-1.2); Blood Urea Nitrogen 39 mg/dL (9-23); Calcium 8.7 mg/dL (8.3-10.6); Calcium (Corrected) 9.2 mg/dL (8.5-10.1); Carbon Dioxide 37.0 mMol/L (20.0-31.0); Chloride 97 mMol/L (98-107); Creatinine (Component) 1.7 mg/dL (0.6-1.3); Estimated Creatinine Clearance 48.3 mL/min (>60); Globulin 3.4 gm/dL (2.3-3.5); Glucose 187 mg/dL (74-106); Magnesium 2.1 mg/dL (1.6-2.6); Osmolality,Calculated 291 (275-295); Potassium 4.3 mMol/L (3.4-5.1); Sodium 139 mMol/L (136-145); Total Protein 6.8 gm/dL (5.7-8.2); eGFR 45 See Note
[2025-09-29] MEDS: ASPIRIN 81 MG CHEW PO (08:16)
[2025-09-29] MEDS: BACLOFEN 10 MG TABLET PO ×3 (08:17→21:46)
[2025-09-29] MEDS: CALCIUM CARBONATE 600 MG TABLET PO ×2 (08:17→21:46)
[2025-09-29] MEDS: BALSAM PERU/CASTOR OIL (Venelex) 60 GM TUBE TOP ×2 (08:17→21:47)
--- NOTE | 2025-09-29 09:31 | PC.SS ---
Follow up note: Pt is on high flow O2, 25 liters 45% FIO2. Having breathing treatments. Wean down O2. Pt will return to half-way upon dc.
[2025-09-29] MEDS: ACETYLCYSTEINE RT SOL 10% 4 ML NEBU INH ×2 (10:21→19:01)
[2025-09-29] MEDS: BUMETANIDE INJ 0.25 MG/ML VIAL 4 ML 1 MG IVP (10:59)
[2025-09-29] MEDS: INSULIN LISPRO (AdmeLOG) 1 UNIT/0.01 ML UNIT SC ×3 (11:52→21:58)
[2025-09-29 11:57] LABS: Ferritin 400 ng/mL (10.5-307.3); Iron 22 mcg/dL (65-175); Percent Iron Saturation 11 % (20-55); Total Iron Binding Capacity 188 mcg/dL (250-425); Unsaturated Iron Binding 166 (225-295)
--- NOTE | 2025-09-29 12:02 | PD.RESPRO ---
Documentation for date of: 09/29/25 Subjective Subjective Interval history: Patient was seen and examined at bedside. No acute events took place overnight. Patient demonstrates improved mentation, A&O x3. O2 requirements decreased to 25L and 45% this AM. Patient had 1 large BM overnight. Noted to have anisocoria with shrunken pupil on the right side less reactive to light. Unknown for how long the patient has been in this situation. Neurology consulted, who stated the pupil asymmetry to be likely chronic in the setting of progressive motor impairment from advanced cervical spinal stenosis. MR c-spine ordered, for which the patient will be transitioned to nasal canulla. Will have the patient lie on his left side decubitus position, the side of his good lung, to try and expand the Rt lung. This is done daily as part of a protocol to prevent pressure bed ulcers. Emphasized to switch positions between supine and Lt lat decubitus only. Exam Vital Signs Temp Pulse Resp BP Pulse Ox O2 Del Method O2 Flow Rate 98.3 F 68 20 126/60 96 High Flow Nasal Cannula 25 09/29/25 08:00 09/29/25 10:59 09/29/25 10:20 09/29/25 10:59 09/29/25 10:20 09/29/25 08:00 09/29/25 10:20 FiO2 30 09/29/25 10:20 Narrative Exam General: Patient demonstrates improved mentation, A&O x3. Eyes: Rt pinpoint pupil, non reactive to light, EOMI. Anicteric, vision grossly intact. Ears: No ear pain, no ear discharge, Hearing grossly intact. Nose: No nasal discharge. Mouth/Throat: Moist mucous membranes, no redness, no lesions. Neck: Neck supple, non-tender, no cervical lymphadenopathy. Lungs: bilateral wheezing, No accessory muscle use. Cardio: Normal S1/S2, regular rhythm, no murmurs, no JVD or carotid bruits. Abdomen: Soft, non-tender, no palpable masses, peristalsis present, no guarding or rebound. Extremities: Symmetrical, no significant deformities, bilateral pitting edema lower extremities, non-tender, peripheral pulses present. Skin: No rashes, no lesions, warm to touch. Neuro: No focal neurological deficits, at baseline Psych: Cooperative, appropriate mood and effect. Objective Labs 09/30/25 05:00 09/30/25 05:00 Labs: Laboratory Results - last 24 hr 09/29/25 06:10 WBC 5.3 RBC 2.55 L Hgb 7.2 L Hct 23.7 L MCV 93 MCH 28.2 MCHC 30.4 L RDW Std Deviation 45.1 H Plt Count 418 Neut % (Auto) 57 Lymph % (Auto) 26 Lyon % (Auto) 10 Eos % (Auto) 7 Baso % (Auto) 0 Neut # (Auto) 3.0 Lymph # (Auto) 1.4 Lyon # (Auto) 0.6 Eos # (Auto) 0.4 Baso # (Auto) 0.0 Immature Gran # (Auto) 0.01 H Absolute Nucleated RBC 0.00 Immature Gran % 0 Nucleated RBC % 0 Sodium 139 Potassium 4.3 Chloride 97 L Carbon Dioxide 37.0 H Anion Gap 5 L BUN 39 H Creatinine 1.7 H Estim Creat Clear Calc 48.3 L eGFR 45 L BUN/Creatinine Ratio 23 H Glucose 187 H Calculated Osmolality 291 Calcium 8.7 Corrected Calcium 9.2 Magnesium 2.1 Iron 22 L TIBC 188 L Iron Saturation 11 L Unsat Iron Binding 166 L Ferritin 400 H Total Bilirubin 0.3 AST 18 ALT 9 L Alkaline Phosphatase 73 Total Protein 6.8 Albumin 3.4 Globulin 3.4 Albumin/Globulin Ratio 1.0 L ABG Interpretation ABG results: 09/15/25 09/15/25 09/16/25 20:48 22:33 04:03 ABG pH 7.30 L 7.33 L 7.29 L ABG pCO2 57 H 49 H 51 H ABG pO2 167 H 154 H 118 H D ABG HCO3 28 H 26 25 ABG O2 Saturation 100 H 100 H 99 H ABG Base Excess 0 -1 -2 VBG pH VBG pCO2 VBG pO2 VBG Base Excess 09/17/25 09/19/25 03:40 08:35 ABG pH ABG pCO2 ABG pO2 ABG HCO3 ABG O2 Saturation ABG Base Excess VBG pH 7.43 7.39 VBG pCO2 41 52 D VBG pO2 139 H 80 H D VBG Base Excess 3 5 H Quality Measures Quality Measures VTE prophylaxis (Heparin SC ) Assessment & Plan Assessment Current Active Medications: Generic Name Dose Route Start Last Admin Trade Name Freq PRN Reason Stop Dose Admin Acetaminophen 650 mg 09/16/25 00:36 09/21/25 03:49 Acetaminophen 325 Mg Tablet PO 10/16/25 00:35 650 mg Q6H PRN Administration Fever >101.3 Acetylcysteine 4 ml 09/28/25 09:00 09/29/25 10:21 Acetylcysteine Rt Liset 10% 4 Ml Nebu INH 10/28/25 08:59 4 ml BID SHIVAM Administration Albuterol/Ipratropium 3 ml 09/24/25 15:00 09/29/25 10:21 Albuterol/Ipratropium (Duoneb) Rt Liset 3 Ml Nebu INH 10/24/25 14:59 3 ml Q4HRRT SHIVAM Administration Aspirin 81 mg 09/27/25 09:15 09/29/25 08:16 Aspirin 81 Mg Chew PO 10/27/25 09:14 81 mg QDAY SHIVAM Administration Baclofen 10 mg 09/29/25 08:15 09/29/25 08:17 Baclofen 10 Mg Tablet PO 10/29/25 08:14 10 mg TID SHIVAM Administration Balsam [place] Oil 0 gm 09/28/25 21:00 09/29/25 08:17 Balsam [place] Oil (Venelex) 60 Gm Tube TOP 10/28/25 20:59 60 gm BID SHIVAM Administration Calcium Carbonate 600 mg 09/20/25 09:00 09/29/25 08:17 Calcium Carbonate 600 Mg Tablet PO 10/20/25 08:59 600 mg BID SHIVAM Administration Dextrose 25 ml 09/16/25 05:18 09/23/25 01:09 Dextrose 50%-Water Inj 50 Ml Syringe IV 10/16/25 05:17 25 ml Q15MIN PRN Administration BG 50-70 responsive npo pt Dextrose 50 ml 09/16/25 05:18 Dextrose 50%-Water Inj 50 Ml Syringe IV 10/16/25 05:17 Q15MIN PRN BG <50 OR BG <70 & pt unresponsive Glucagon 1 mg 09/16/25 05:18 Glucagon Inj 1 Mg Vial IM Q15MIN PRN BG <70, and no IV access Heparin Sodium (Porcine) 5,000 unit 09/24/25 14:00 09/29/25 05:55 Heparin Sod Inj 5000 Unit/Ml Vial SC 10/08/25 13:59 5,000 unit Q8HR SHIVAM Administration Insulin Human Lispro 0 unit 09/24/25 17:00 09/29/25 11:52 Insulin Lispro (Admelog) 1 Unit/0.01 Ml Unit SC 10/24/25 16:59 4 unit A[facility]S [facility] Administration Protocol Midodrine 10 mg 09/18/25 06:00 09/29/25 05:51 Midodrine 5 Mg Tablet PO 10/18/25 05:59 Not Given TID [facility] Ondansetron HCl 4 mg 09/16/25 00:36 09/19/25 10:20 Ondansetron Inj 2 Mg/Ml Inj 2 Ml IVP 10/16/25 00:35 4 mg Q6H PRN Administration NAUSEA OR VOMITING Protocol Pantoprazole Sodium 40 mg 09/19/25 21:00 09/29/25 08:16 Pantoprazole Inj 40 Mg Vial IVP 10/19/25 20:59 40 mg BID SHIVAM Administration Pharmacy Consult 1 each 09/16/25 00:42 Pharmacy Renal Dose Adjustment 1 Ea XX 10/16/25 00:41 PRN PRN CONSULT Sennosides 1 tab 09/21/25 10:30 09/29/25 08:17 Senna Tablet PO 10/21/25 10:29 1 tab QDAY [facility] Administration Protocol Sodium Chloride 4 ml 09/24/25 09:30 09/29/25 10:46 Sodium Cl Rt Liset 3% 4 Ml Nebu (Non-Formulary) INH 10/24/25 09:29 Not Given Q4HRRT SHIVAM Plan 65-year-old bedbound male with past medical history of?evelopmental?delay, muscular dystrophy, benign prostatic hyperplasia, history of neurogenic bladder, right inguinal hernia, CVA, CAD, hypertension, hyperlipidemia and diabetes was brought in to the ED on 09/15/2025 from[facility] with altered mental status and had cardiac arrest with downtime of 20 mins at the facility. In ED he was resuscitated and ROSC was achieved. Patient was admitted to ICU for acute encephalopathy postcardiac arrest, distributive shock?septic secondary to UTI for management. Patient was extubated 09/16, weaned off of pressors and was downgraded to telemetry on 09/18.? ? #Acute hypoxic respiratory failure due to hx of diffuse bilateral pneumonia?and skeletal muscle weakness #Hx of Severe Cervical Spinal Stenosis #Hx of Muscular Dystrophy ? Patient presented with septic shock, weaned off of pressors. Currently on midodrine, blood pressure stable. Blood culture negative for 48 hours? Urine culture positive for ESBL, sputum culture positive for ESBL, Klebsiella, Proteus.? MRSA nares negative, vancomycin discontinued? 09-20-25-?zosyn?disconsitnued;?? 09-19-25- Overnight patient developed cough with dark sputum. Patient then developed significant hypoxia, saturation 87-90% on 15 L oxy mask. Patient placed on high flow nasal cannula with improvement in O2 saturation. Chest x-ray taken, showed worsening vascular congestion, fluid in bilateral lungs. Concern for aspiration event in setting of dysphagia, patient made NPO.?? 09-20-25- patient still 30L HFNC? 09-21-25- cocci serology negative? ? CXR 09/22 shows improved pneumonia in the right lung, however there remains significant perihilar bibasilar pneumonia? During this hospital admission, blood cultures are negative, ET secretion cultures grew proteus mirabilis, ESBL E. Coli and Klebsiella?Pneumonae?which has limited drug sensitivity.? - fosfomycin 3g x1?(09/23) for UTI - meropenem 1g IV Q12H?(09/20-09/22) Pt is on 2L via NC at [facility]. CXR (09/25) shows improvement in atelectasis. CXR (09/28) No change in cardiomegaly and extensive bilateral edema and/or pneumonia 09/29 according to Reggie Patterson and Feliberto, Neurology, patient does not have any history of myasthenia gravis. However, he does have history of severe cervical spine stenosis leading to skeletal muscle weakness. Plan:? - DC'ed Pyridostigmine PO 30mg TID in the confirmed absence of myasthenia gravis - Will have the patient by on left decubitus position, the side of the good lung to try and expand the right lung. - RT to try and wean down O2 requirements. - BiPAP/CPAP - DuoNebs Q4h - acetylcysteine RT - ID, Dr Oseguera, does not recommend any more ABx therapy. - Continue midodrine?with hold?parameters? - Bumex 2mg held - incentive spirometry with deep breathing emphasized to nurse. - PEEP 5 - Chest PhysioTherapy #Anisocoria #Left coloboma Patient was noted to have pinpoint pupil unilaterally on the right side non-reactive to light this morning. Possible to be a chronic symptom. CT head was negative for gross hemorrhage, mass effect, or midline shift. 09/29: Neurology states that the uneven size yvon the pupils has probably been present since his youth or even a congenital condition. 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 Patient likely has some level of visual impairment. 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 He can verbalize his needs. He is bowel and bladder incontinent. Patient has marked weakness, unable to move any of his extremities. - Spoke to nursing about the patient condition and needs and to assist with feedings #CHAR on CKD stage II, improving Patient's baseline creatinine 1.4?1.6? Patient is status post 5 L IV LR? Patient's underlying CHAR secondary to insult from distributive shock? 09/25: Cr 2.1, elevated from baseline, likely 2/2 hypovolemia from diuresis CXR (09/25) read out extensive b/l perihilar edema and/or pneumonia 09/27: Cr improved to 1.7, Plan:? - Held Bumetanide IVP 2mg Qday - Nephrology consulted, appreciate recommendations? - Avoid nephrotoxic agents? #Normocytic normochromic anemia? #Melena? Patient has chronic, stable anemia. Noted to have melena 09/19, FOBT positive. GI consulted.? ? Plan:? ? - Follow CBC, transfuse as needed? - GI consulted, will wait for upper GI until respiratory status improved? - IV Protonix? -?N.p.o.? ? ? #NSTEMI type II, resolved? #Cardiac arrest, pulseless electrical activity, status post ROSC? In ER patient was found in PEA, CODE BLUE was called CPR performed with 2 rounds of epi and ROSC was achieved.? Echocardiogram obtained shows EF 60 to 65%, mild concentric hypertrophy normal diastolic dysfunction? EKG 09/16?sinus rhythm, EKG 11/26?sinus tachycardia no acute ST-T changes? Troponin on presentation 2.194 up trended to 3.4 and then down trended to 2.4? ? Plan:? ? - Cardiology is consulted, state that likely cause is due to hyperkalemia? ? #Type 2 diabetes mellitus, [id number]? Hemoglobin A1c 5.2? - Sliding scale insulin? ? #Dysphagia? Patient has NG tube intact, SBO was ruled out? Speech therapy recommended dysphagia 1 diet, patient was started on it, will keep NG tube for now, consider discontinuing in the morning.? Patient had possible aspiration event 09/19? Will keep?npo?for now? ? Plan:? ? - GI recommendations as above? -?N.p.o.? ? #History of developmental delay and muscular dystrophy? #History of depression? #History of TIA? Patient on gabapentin and baclofen at home, from [email or web address] home has history of TIA? - Continue aspirin? - Hold home baclofen, duloxetine and gabapentin, monitor mentation? ? #History of hypertension? #History of hyperlipidemia? Currently blood pressure normotensive hold antihypertensives? ? #History of BPH and neurogenic bladder? #History of right inguinal hernia? - Consider starting patient on tamsulosin? ? #Anion gap metabolic acidosis, resolved? #Lactic acidosis resolved? #Hyponatremia? #Hypochloremia? #Hyperkalemia resolved? #Hypercalcemia resolved? - Follow CMP in a.m.? - KCl 20?mEq?given 1x? ? #Community-acquired pneumonia Secondary to?Proteus Mirabella's, Klebsiella pneumoniae and ESBL E. coli, completed treatment #Urinary tract infection Secondary to ESBL E. coli, completed treatment #Distributive shock, likely septic secondary to UTI, resolved? DVT prophylaxis: Heparin every 12 hour? GI prophylaxis: IV Protonix 40? Diet:?Dysphagia 1 -Pureed Lines: Peripheral IV? Code status: Full code This case was discussed with my attending physician, Dr. Block, and senior resident, Dr Cali Even though this this note was carefully revised there may still be minor errors in locum tenens due to voice recognition software. Andrés Dia, DO PGY I Senior Resident Attestation: The patient 1 dose of diuretics trial and we will see how his respiratory status is tomorrow. I discussed with and supervised the internet marketing consultant physician involved in the care of this patient. I personally saw and examined the patient and discussed the assessment and plan with the entire medicine team, including my attending. I agree with the assessment and plan as documented above. Tremaine Cali MD PGY3 Internal Medicine Attending Provider Attestation/Addendum I reviewed labs, imaging, EKG, home medications and prior available records. Face to face evaluation was performed by me. I have personally examined the patient and discussed assessment and plan with the IM team. I reviewed the resident note and agree with the plan with exceptions as below. Acute encephalopathy, resolved Cardiac arrest status post ROSC Septic shock Acute hypoxic respiratory failure in setting of bilateral pneumonia versus vascular congestion versus atelectasis CHAR, likely in setting of ATN, improved Spinal stenosis Gave IV Bumex Completed course of pneumonia treatment Monitor kidney function. Avoid nephrotoxins. Renally dose medications Chest physiotherapy
--- NOTE | 2025-09-29 15:47 | PD.RESPRO ---
Documentation for date of: 09/29/25 Subjective Subjective Interval history: Patient is awake, reports no new complaints today. MRI of the cervical spine is planned today. His O2 requirements continue to be weaned down, on Hi-Flow nasal cannula. Exam Vital Signs Temp Pulse Resp BP Pulse Ox O2 Del Method O2 Flow Rate 96.9 F 78 20 135/87 H 95 High Flow Nasal Cannula 09/29/25 12:00 09/29/25 14:17 09/29/25 14:17 09/29/25 13:51 09/29/25 14:17 09/29/25 12:00 09/29/25 14:17 FiO2 30 09/29/25 14:17 Narrative Exam Physical Exam General: Awake and in no acute distress. Patient communicates well and answers questions appropriately. HEENT: Normocephalic, atraumatic, mucous membranes moist. Left eye coloboma, right eye pinpoint. On Hi-flow nasal cannula. Heart: Regular rate and rhythm, normal S1 and S2, no murmurs. Lungs: Clear to auscultation with no wheezing or crackles, however tachypneic and very short breaths. Abdomen: Soft, nondistended, nontender, positive bowel sounds. ?No guarding or rebound tenderness. Neurologic: Alert and oriented x4, limited motion of all 4 extremities, only 1/5 strength upper extremities bilaterally. Follows commands Extremities: No edema. Skin: No rash or ecchymoses. Objective Labs 09/30/25 21:40 09/30/25 05:00 Labs: Laboratory Results - last 24 hr 09/29/25 06:10 WBC 5.3 RBC 2.55 L Hgb 7.2 L Hct 23.7 L MCV 93 MCH 28.2 MCHC 30.4 L RDW Std Deviation 45.1 H Plt Count 418 Neut % (Auto) 57 Lymph % (Auto) 26 [place] % (Auto) 10 Eos % (Auto) 7 Baso % (Auto) 0 Neut # (Auto) 3.0 Lymph # (Auto) 1.4 [place] # (Auto) 0.6 Eos # (Auto) 0.4 Baso # (Auto) 0.0 Immature Gran # (Auto) 0.01 H Absolute Nucleated RBC 0.00 Immature Gran % 0 Nucleated RBC % 0 Sodium 139 Potassium 4.3 Chloride 97 L Carbon Dioxide 37.0 H Anion Gap 5 L BUN 39 H Creatinine 1.7 H Estim Creat Clear Calc 48.3 L eGFR 45 L BUN/Creatinine Ratio 23 H Glucose 187 H Calculated Osmolality 291 Calcium 8.7 Corrected Calcium 9.2 Magnesium 2.1 Iron 22 L TIBC 188 L Iron Saturation 11 L Unsat Iron Binding 166 L Ferritin 400 H Total Bilirubin 0.3 AST 18 ALT 9 L Alkaline Phosphatase 73 Total Protein 6.8 Albumin 3.4 Globulin 3.4 Albumin/Globulin Ratio 1.0 L ABG Interpretation ABG results: 09/15/25 09/15/25 09/16/25 20:48 22:33 04:03 ABG pH 7.30 L 7.33 L 7.29 L ABG pCO2 57 H 49 H 51 H ABG pO2 167 H 154 H 118 H D ABG HCO3 28 H 26 25 ABG O2 Saturation 100 H 100 H 99 H ABG Base Excess 0 -1 -2 VBG pH VBG pCO2 VBG pO2 VBG Base Excess 09/17/25 09/19/25 03:40 08:35 ABG pH ABG pCO2 ABG pO2 ABG HCO3 ABG O2 Saturation ABG Base Excess VBG pH 7.43 7.39 VBG pCO2 41 52 D VBG pO2 139 H 80 H D VBG Base Excess 3 5 H Quality Measures Quality Measures VTE prophylaxis (Heparin SC ) Assessment & Plan Assessment Current Active Medications: Generic Name Dose Route Start Last Admin Trade Name Freq PRN Reason Stop Dose Admin Acetaminophen 650 mg 09/16/25 00:36 09/21/25 03:49 Acetaminophen 325 Mg Tablet PO 10/16/25 00:35 650 mg Q6H PRN Administration Fever >101.3 Acetylcysteine 4 ml 09/29/25 19:00 Acetylcysteine Rt Liset 10% 4 Ml Nebu INH 10/29/25 18:59 BIDRT SHIVAM Albuterol/Ipratropium 3 ml 09/24/25 15:00 09/29/25 14:14 Albuterol/Ipratropium (Duoneb) Rt Liset 3 Ml Nebu INH 10/24/25 14:59 3 ml Q4HRRT SHIVAM Administration Aspirin 81 mg 09/27/25 09:15 09/29/25 08:16 Aspirin 81 Mg Chew PO 10/27/25 09:14 81 mg QDAY SHIVAM Administration Baclofen 10 mg 09/29/25 08:15 09/29/25 13:51 Baclofen 10 Mg Tablet PO 10/29/25 08:14 10 mg TID SHIVAM Administration Balsam [place] Oil 0 gm 09/28/25 21:00 09/29/25 08:17 Balsam [place] Oil (Venelex) 60 Gm Tube TOP 10/28/25 20:59 60 gm BID SHIVAM Administration Calcium Carbonate 600 mg 09/20/25 09:00 09/29/25 08:17 Calcium Carbonate 600 Mg Tablet PO 10/20/25 08:59 600 mg BID SHIVAM Administration Dextrose 25 ml 09/16/25 05:18 09/23/25 01:09 Dextrose 50%-Water Inj 50 Ml Syringe IV 10/16/25 05:17 25 ml Q15MIN PRN Administration BG 50-70 responsive npo pt Dextrose 50 ml 09/16/25 05:18 Dextrose 50%-Water Inj 50 Ml Syringe IV 10/16/25 05:17 Q15MIN PRN BG <50 OR BG <70 & pt unresponsive Glucagon 1 mg 09/16/25 05:18 Glucagon Inj 1 Mg Vial IM Q15MIN PRN BG <70, and no IV access Heparin Sodium (Porcine) 5,000 unit 09/24/25 14:00 09/29/25 13:50 Heparin Sod Inj 5000 Unit/Ml Vial SC 10/08/25 13:59 5,000 unit Q8HR SHIVAM Administration Insulin Human Lispro 0 unit 09/24/25 17:00 09/29/25 11:52 Insulin Lispro (Admelog) 1 Unit/0.01 Ml Unit SC 10/24/25 16:59 4 unit ACHS [facility] Administration Protocol Midodrine 10 mg 09/18/25 06:00 09/29/25 13:51 Midodrine 5 Mg Tablet PO 10/18/25 05:59 Not Given TID [facility] Ondansetron HCl 4 mg 09/16/25 00:36 09/19/25 10:20 Ondansetron Inj 2 Mg/Ml Inj 2 Ml IVP 10/16/25 00:35 4 mg Q6H PRN Administration NAUSEA OR VOMITING Protocol Pantoprazole Sodium 40 mg 09/19/25 21:00 09/29/25 08:16 Pantoprazole Inj 40 Mg Vial IVP 10/19/25 20:59 40 mg BID SHIVAM Administration Pharmacy Consult 1 each 09/16/25 00:42 Pharmacy Renal Dose Adjustment 1 Ea XX 10/16/25 00:41 PRN PRN CONSULT Sennosides 1 tab 09/21/25 10:30 09/29/25 08:17 Senna Tablet PO 10/21/25 10:29 1 tab QDAY SHIVAM Administration Protocol Sodium Chloride 4 ml 09/24/25 09:30 09/29/25 14:14 Sodium Cl Rt Liset 3% 4 Ml Nebu (Non-Formulary) INH 10/24/25 09:29 4 ml Q4HRRT SHIVAM Administration Plan 65-year-old bedbound male with past medical history of?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 In ED he was resuscitated and ROSC was achieved. Patient was admitted to ICU for acute encephalopathy postcardiac arrest, distributive shock?septic secondary to UTI for management. Patient was extubated 09/16, weaned off of pressors and was downgraded to telemetry on 09/18.?Neurology was consulted due to physical exam finding of uneven pupils, history of muscular dystrophy and recommendations. 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 Patterson's office. Patient has been recovering from pneumonia after cardiac arrest, completed the antibiotic course, but having difficulty weaning off oxygen. Patient does not have any history of myasthenia gravis. But does have history of severe cervical spine stenosis leading him to be wheelchair bound. -Continue the incentive spirometry (if patient able), chest physiotherapy, acetylcysteine, repositioning techniques, and aggressive pulmonary toilet -Closely monitor swallowing function, aspiration precautions -Pending MRI without contrast cervical spine to assess for progression #Left coloboma Uneven pupils. Left resembles a keyhole facing up, right pupil is pinpoint. Patient likely has some level of vision impairment. Unlikely new finding, patient has most likely had this since either or young age. -Continue to monitor Rest of conditions to continue current management per primary team: #Acute hypoxic respiratory failure secondary to underlying myasthenia gravis and hx of diffuse bilateral pneumonia #Failure to thrive #CHAR on CKD stage II, improving #Normocytic normochromic anemia #NSTEMI type II, resolved? #Cardiac arrest, pulseless electrical activity, status post ROSC #Type 2 diabetes mellitus, [id number] #Dysphagia? #History of depression? #History of TIA #History of hypertension? #History of hyperlipidemia #History of BPH and neurogenic bladder Patient was discussed with the Neurology attending, Dr. Patterson. Thank you for allowing us to participate in the care of this patient. Isi Dao, PGY-3 Attending Provider Attestation/Addendum I personally have seen and examined the patient at the bedside and agreed with resident's findings, assessment and plan of care patient had the MRI of the cervical spine that showed advanced degenerative disc disease with the moderate spinal cord atrophy in the cervical region. Upper GI endoscopy showed gastritis and esophagitis. Continue with the pur?ed diet.
--- NOTE | 2025-09-29 18:42 | PD.RESPRO ---
Documentation for date of: 09/29/25 Subjective Subjective Interval history: Patient was seen and examined at bedside. No acute events took place overnight. Patient denies any shortness of breath after oxygen requirement downgraded to nasal cannula and titrated down to 3 L which is only 1 L above his baseline at intermediate he used to stayed. Dr. Cristobal agreed to performing the EGD on the lower oxygen requirements. Noted to have anisocoria with shrunken pupil on the right side less reactive to light. Unknown for how long the patient has been in this situation. Neurology consulted, who stated the pupil asymmetry to be likely chronic in the setting of progressive motor impairment from advanced cervical spinal stenosis. MR c-spine ordered, and completed, which was remarkable for degenerative disc disease C5-C6. No focal cervical disc protrusion noted. Will have the patient lie on his left side decubitus position, the side of his good lung, to try and expand the Rt lung. This is done daily as part of a protocol to prevent pressure bed ulcers. Emphasized to switch positions between supine and Lt lat decubitus only. Exam Vital Signs Temp Pulse Resp BP Pulse Ox O2 Del Method O2 Flow Rate 97.1 F 75 14 134/64 H 95 Nasal Cannula 3 09/29/25 16:00 09/29/25 16:00 09/29/25 16:00 09/29/25 16:00 09/29/25 16:00 09/29/25 16:00 09/29/25 16:00 FiO2 30 09/29/25 14:17 Narrative Exam General: Patient demonstrates improved mentation, A&O x3. Eyes: Rt pinpoint pupil, non reactive to light, EOMI. Anicteric, vision grossly intact. Ears: No ear pain, no ear discharge, Hearing grossly intact. Nose: No nasal discharge. Mouth/Throat: Moist mucous membranes, no redness, no lesions. Neck: Neck supple, non-tender, no cervical lymphadenopathy. Lungs: bilateral wheezing, No accessory muscle use. Cardio: Normal S1/S2, regular rhythm, no murmurs, no JVD or carotid bruits. Abdomen: Soft, non-tender, no palpable masses, peristalsis present, no guarding or rebound. Extremities: Symmetrical, no significant deformities, bilateral pitting edema lower extremities, non-tender, peripheral pulses present. Skin: No rashes, no lesions, warm to touch. Neuro: No focal neurological deficits, at baseline Psych: Cooperative, appropriate mood and effect. Objective Labs 09/30/25 05:00 09/30/25 05:00 Labs: Laboratory Results - last 24 hr 09/29/25 06:10 WBC 5.3 RBC 2.55 L Hgb 7.2 L Hct 23.7 L MCV 93 MCH 28.2 MCHC 30.4 L RDW Std Deviation 45.1 H Plt Count 418 Neut % (Auto) 57 Lymph % (Auto) 26 [place] % (Auto) 10 Eos % (Auto) 7 Baso % (Auto) 0 Neut # (Auto) 3.0 Lymph # (Auto) 1.4 [place] # (Auto) 0.6 Eos # (Auto) 0.4 Baso # (Auto) 0.0 Immature Gran # (Auto) 0.01 H Absolute Nucleated RBC 0.00 Immature Gran % 0 Nucleated RBC % 0 Sodium 139 Potassium 4.3 Chloride 97 L Carbon Dioxide 37.0 H Anion Gap 5 L BUN 39 H Creatinine 1.7 H Estim Creat Clear Calc 48.3 L eGFR 45 L BUN/Creatinine Ratio 23 H Glucose 187 H Calculated Osmolality 291 Calcium 8.7 Corrected Calcium 9.2 Magnesium 2.1 Iron 22 L TIBC 188 L Iron Saturation 11 L Unsat Iron Binding 166 L Ferritin 400 H Total Bilirubin 0.3 AST 18 ALT 9 L Alkaline Phosphatase 73 Total Protein 6.8 Albumin 3.4 Globulin 3.4 Albumin/Globulin Ratio 1.0 L ABG Interpretation ABG results: 09/15/25 09/15/25 09/16/25 20:48 22:33 04:03 ABG pH 7.30 L 7.33 L 7.29 L ABG pCO2 57 H 49 H 51 H ABG pO2 167 H 154 H 118 H D ABG HCO3 28 H 26 25 ABG O2 Saturation 100 H 100 H 99 H ABG Base Excess 0 -1 -2 VBG pH VBG pCO2 VBG pO2 VBG Base Excess 09/17/25 09/19/25 03:40 08:35 ABG pH ABG pCO2 ABG pO2 ABG HCO3 ABG O2 Saturation ABG Base Excess VBG pH 7.43 7.39 VBG pCO2 41 52 D VBG pO2 139 H 80 H D VBG Base Excess 3 5 H Quality Measures Quality Measures VTE prophylaxis (Heparin SC ) Assessment & Plan Assessment Current Active Medications: Generic Name Dose Route Start Last Admin Trade Name Freq PRN Reason Stop Dose Admin Acetaminophen 650 mg 09/16/25 00:36 09/21/25 03:49 Acetaminophen 325 Mg Tablet PO 10/16/25 00:35 650 mg Q6H PRN Administration Fever >101.3 Acetylcysteine 4 ml 09/29/25 19:00 Acetylcysteine Rt Liset 10% 4 Ml Nebu INH 10/29/25 18:59 BIDRT SHIVAM Albuterol/Ipratropium 3 ml 09/24/25 15:00 09/29/25 14:14 Albuterol/Ipratropium (Duoneb) Rt Liset 3 Ml Nebu INH 10/24/25 14:59 3 ml Q4HRRT SHIVAM Administration Aspirin 81 mg 09/27/25 09:15 09/29/25 08:16 Aspirin 81 Mg Chew PO 10/27/25 09:14 81 mg QDAY SHIVAM Administration Baclofen 10 mg 09/29/25 08:15 09/29/25 13:51 Baclofen 10 Mg Tablet PO 10/29/25 08:14 10 mg TID SHIVAM Administration Balsam [place] Oil 0 gm 09/28/25 21:00 09/29/25 08:17 Balsam [place] Oil (Venelex) 60 Gm Tube TOP 10/28/25 20:59 60 gm BID SHIVAM Administration Calcium Carbonate 600 mg 09/20/25 09:00 09/29/25 08:17 Calcium Carbonate 600 Mg Tablet PO 10/20/25 08:59 600 mg BID SHIVAM Administration Dextrose 25 ml 09/16/25 05:18 09/23/25 01:09 Dextrose 50%-Water Inj 50 Ml Syringe IV 10/16/25 05:17 25 ml Q15MIN PRN Administration BG 50-70 responsive npo pt Dextrose 50 ml 09/16/25 05:18 Dextrose 50%-Water Inj 50 Ml Syringe IV 10/16/25 05:17 Q15MIN PRN BG <50 OR BG <70 & pt unresponsive Glucagon 1 mg 09/16/25 05:18 Glucagon Inj 1 Mg Vial IM Q15MIN PRN BG <70, and no IV access Heparin Sodium (Porcine) 5,000 unit 09/24/25 14:00 09/29/25 13:50 Heparin Sod Inj 5000 Unit/Ml Vial SC 10/08/25 13:59 5,000 unit Q8HR SHIVAM Administration Insulin Human Lispro 0 unit 09/24/25 17:00 09/29/25 17:20 Insulin Lispro (Admelog) 1 Unit/0.01 Ml Unit SC 10/24/25 16:59 3 unit ACHS SHIVAM Administration Protocol Midodrine 10 mg 09/18/25 06:00 09/29/25 13:51 Midodrine 5 Mg Tablet PO 10/18/25 05:59 Not Given TID [facility] Ondansetron HCl 4 mg 09/16/25 00:36 09/19/25 10:20 Ondansetron Inj 2 Mg/Ml Inj 2 Ml IVP 10/16/25 00:35 4 mg Q6H PRN Administration NAUSEA OR VOMITING Protocol Pantoprazole Sodium 40 mg 09/19/25 21:00 09/29/25 08:16 Pantoprazole Inj 40 Mg Vial IVP 10/19/25 20:59 40 mg BID SHIVAM Administration Pharmacy Consult 1 each 09/16/25 00:42 Pharmacy Renal Dose Adjustment 1 Ea XX 10/16/25 00:41 PRN PRN CONSULT Sennosides 1 tab 09/21/25 10:30 09/29/25 08:17 Senna Tablet PO 10/21/25 10:29 1 tab QDAY [facility] Administration Protocol Sodium Chloride 4 ml 09/24/25 09:30 09/29/25 14:14 Sodium Cl Rt Liset 3% 4 Ml Nebu (Non-Formulary) INH 10/24/25 09:29 4 ml Q4HRRT SHIVAM Administration Plan 65-year-old bedbound male with past medical history of?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 In ED he was resuscitated and ROSC was achieved. Patient was admitted to ICU for acute encephalopathy postcardiac arrest, distributive shock?septic secondary to UTI for management. Patient was extubated 09/16, weaned off of pressors and was downgraded to telemetry on 09/18.? ? #Acute hypoxic respiratory failure due to hx of diffuse bilateral pneumonia?and skeletal muscle weakness #Hx of Severe Cervical Spinal Stenosis #Hx of Muscular Dystrophy ? Patient presented with septic shock, weaned off of pressors. Currently on midodrine, blood pressure stable. Blood culture negative for 48 hours? Urine culture positive for ESBL, sputum culture positive for ESBL, Klebsiella, Proteus.? MRSA nares negative, vancomycin discontinued? 09-20-25-?zosyn?disconsitnued;?? 09-19-25- Overnight patient developed cough with dark sputum. Patient then developed significant hypoxia, saturation 87-90% on 15 L oxy mask. Patient placed on high flow nasal cannula with improvement in O2 saturation. Chest x-ray taken, showed worsening vascular congestion, fluid in bilateral lungs. Concern for aspiration event in setting of dysphagia, patient made NPO.?? 09-20-25- patient still 30L HFNC? 09-21-25- cocci serology negative? ? CXR 09/22 shows improved pneumonia in the right lung, however there remains significant perihilar bibasilar pneumonia? During this hospital admission, blood cultures are negative, ET secretion cultures grew proteus mirabilis, ESBL E. Coli and Klebsiella?Pneumonae?which has limited drug sensitivity.? - fosfomycin 3g x1?(09/23) for UTI - meropenem 1g IV Q12H?(09/20-09/22) Pt [facility] on 2L [facility] CXR (09/25) shows improvement in atelectasis. CXR (09/28) No change in cardiomegaly and extensive bilateral edema and/or pneumonia 09/29 according to Reggie Patterson and Feliberto, Neurology, patient does not have any history of myasthenia gravis. However, he does have history of severe cervical spine stenosis leading to skeletal muscle weakness. Plan:? - Will have the patient by on left decubitus position, the side of the good lung to try and expand the right lung. - RT to try and wean down O2 requirements. - BiPAP/CPAP - DuoNebs Q4h - acetylcysteine RT - DC'ed Pyridostigmine PO 30mg TID in the confirmed absence of myasthenia gravis - ID, Dr Oseguera, does not recommend any more ABx therapy. - Continue midodrine?with hold?parameters? - Bumex 2mg held - incentive spirometry with deep breathing emphasized to nurse. - PEEP 5 - Chest PhysioTherapy #Anisocoria #Left coloboma Patient was noted to have pinpoint pupil unilaterally on the right side non-reactive to light this morning. Possible to be a chronic symptom. CT head was negative for gross hemorrhage, mass effect, or midline shift. 09/29: Neurology states that the uneven size yvon the pupils has probably been present since his youth or even a congenital condition. 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 Patient likely has some level of visual impairment. MRI of c-spine significant for degenerative disc disease C5-C6. No focal cervical disc protrusion noted. Plan: -continue to monitor -Neurology was consulted; appreciate recommendations -Stroke/Telemetry Floor -Bedside Swallow Eval /Aspiration precautions -Head of Bed 30 Degrees -Permissive hypertension #Normocytic normochromic anemia? #Melena? Patient has chronic, stable anemia. Noted to have melena 09/19, FOBT positive. GI consulted.? Hgb 7.0 on 09/30 and trending down. Plan:? - Transfused 1u pRBC after type & screen +Lasix IV 40mg x1 half an hour before - Follow CBC, transfuse as needed? - GI consulted, Dr Cristobal planning on EGD tongiht. ? - IV Protonix? -?N.p.o.? 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 He can verbalize his needs. He is bowel and bladder incontinent. Patient has marked weakness, unable to move any of his extremities. - Spoke to nursing about the patient condition and needs and to assist with feedings #CHAR on CKD stage II, improving Patient's baseline creatinine 1.4?1.6? Patient is status post 5 L IV LR? Patient's underlying CHAR secondary to insult from distributive shock? 09/25: Cr 2.1, elevated from baseline, likely 2/2 hypovolemia from diuresis CXR (09/25) read out extensive b/l perihilar edema and/or pneumonia 09/27: Cr improved to 1.7, Plan:? - Held Bumetanide IVP 2mg Qday - Nephrology consulted, appreciate recommendations? - Avoid nephrotoxic agents? ? #NSTEMI type II, resolved? #Cardiac arrest, pulseless electrical activity, status post ROSC? In ER patient was found in PEA, CODE BLUE was called CPR performed with 2 rounds of epi and ROSC was achieved.? Echocardiogram obtained shows EF 60 to 65%, mild concentric hypertrophy normal diastolic dysfunction? EKG 09/16?sinus rhythm, EKG 09/15?sinus tachycardia no acute ST-T changes? Troponin on presentation 2.194 up trended to 3.4 and then down trended to 2.4? ? Plan:? ? - Cardiology is consulted, state that likely cause is due to hyperkalemia? ? #Type 2 diabetes mellitus, [id number]? Hemoglobin A1c 5.2? - Sliding scale insulin? ? #Dysphagia? Patient has NG tube intact, SBO was ruled out? Speech therapy recommended dysphagia 1 diet, patient was started on it, will keep NG tube for now, consider discontinuing in the morning.? Patient had possible aspiration event 09/19? Will keep?npo?for now? ? Plan:? ? - GI recommendations as above? -?N.p.o.? ? #History of developmental delay and muscular dystrophy? #History of depression? #History of TIA? Patient on gabapentin and baclofen at home, from [employer] intermediate has history of TIA? - Continue aspirin? - Hold home baclofen, duloxetine and gabapentin, monitor mentation? ? #History of hypertension? #History of hyperlipidemia? Currently blood pressure normotensive hold antihypertensives? ? #History of BPH and neurogenic bladder? #History of right inguinal hernia? - Consider starting patient on tamsulosin? ? #Anion gap metabolic acidosis, resolved? #Lactic acidosis resolved? #Hyponatremia? #Hypochloremia? #Hyperkalemia resolved? #Hypercalcemia resolved? - Follow CMP in a.m.? - KCl 20?mEq?given 1x? ? #Community-acquired pneumonia Secondary to?Proteus Mirabella's, Klebsiella pneumoniae and ESBL E. coli, completed treatment #Urinary tract infection Secondary to ESBL E. coli, completed treatment #Distributive shock, likely septic secondary to UTI, resolved? DVT prophylaxis: Heparin every 12 hour? GI prophylaxis: IV Protonix 40? Diet:?Dysphagia 1 -Pureed Lines: Peripheral IV? Code status: Full code This case was discussed with my attending physician, Dr. Block, and senior resident, Dr Cali Even though this this note was carefully revised there may still be minor errors in filer repairer due to voice recognition software. Andrés Dia, DO PGY I Senior Resident Attestation: The patient's oxygen requirement significantly improved, and currently requiring only 3 L oxygen via nasal cannula, and he is at baseline 2 L nasal cannula at his facility. His hemoglobin was 7.0, and 1 unit PRBC was transfused. The patient will undergo EGD this evening. If the patient is stable, will be likely discharged to his SNF tomorrow morning. I discussed with and supervised the nurse intern physician involved in the care of this patient. I personally saw and examined the patient and discussed the assessment and plan with the entire medicine team, including my attending. I agree with the assessment and plan as documented above. Tremaine Cali MD PGY3 Internal Medicine Attending Provider Attestation/Addendum I reviewed labs, imaging, EKG, home medications and prior available records. Face to face evaluation was performed by me. I have personally examined the patient and discussed assessment and plan with the IM team. I reviewed the resident note and agree with the plan with exceptions as below. Acute encephalopathy, resolved Cardiac arrest status post ROSC Septic shock Acute hypoxic respiratory failure in setting of bilateral pneumonia versus vascular congestion versus atelectasis CHAR, likely in setting of ATN, improved Spinal stenosis Gave IV Bumex Completed course of pneumonia treatment Monitor kidney function. Avoid nephrotoxins. Renally dose medications Chest physiotherapy
--- NOTE | 2025-09-29 20:12 | ESPR_ITS ---
Documentation for date of: 09/29/25 Subjective Subjective Interval history: Patient on 3 L nasal cannula hemoglobin hematocrit 7.2 and 23.7 Exam Vital Signs Temp Pulse Resp BP Pulse Ox O2 Del Method O2 Flow Rate 97.1 F 75 20 134/64 H 96 Nasal Cannula 5 09/29/25 16:00 09/29/25 19:04 09/29/25 19:04 09/29/25 16:00 09/29/25 19:04 09/29/25 16:00 09/29/25 19:04 FiO2 30 09/29/25 14:17 Objective Labs 09/29/25 06:10 09/29/25 06:10 Labs: Laboratory Results - last 24 hr 09/29/25 06:10 WBC 5.3 RBC 2.55 L Hgb 7.2 L Hct 23.7 L MCV 93 MCH 28.2 MCHC 30.4 L RDW Std Deviation 45.1 H Plt Count 418 Neut % (Auto) 57 Lymph % (Auto) 26 Chicot % (Auto) 10 Eos % (Auto) 7 Baso % (Auto) 0 Neut # (Auto) 3.0 Lymph # (Auto) 1.4 Chicot # (Auto) 0.6 Eos # (Auto) 0.4 Baso # (Auto) 0.0 Immature Gran # (Auto) 0.01 H Absolute Nucleated RBC 0.00 Immature Gran % 0 Nucleated RBC % 0 Sodium 139 Potassium 4.3 Chloride 97 L Carbon Dioxide 37.0 H Anion Gap 5 L BUN 39 H Creatinine 1.7 H Estim Creat Clear Calc 48.3 L eGFR 45 L BUN/Creatinine Ratio 23 H Glucose 187 H Calculated Osmolality 291 Calcium 8.7 Corrected Calcium 9.2 Magnesium 2.1 Iron 22 L TIBC 188 L Iron Saturation 11 L Unsat Iron Binding 166 L Ferritin 400 H Total Bilirubin 0.3 AST 18 ALT 9 L Alkaline Phosphatase 73 Total Protein 6.8 Albumin 3.4 Globulin 3.4 Albumin/Globulin Ratio 1.0 L Impressions Impression: Occult GI bleeding Improving respiratory failure Continue current management ABG Interpretation ABG results: 09/15/25 09/15/25 09/16/25 20:48 22:33 04:03 ABG pH 7.30 L 7.33 L 7.29 L ABG pCO2 57 H 49 H 51 H ABG pO2 167 H 154 H 118 H D ABG HCO3 28 H 26 25 ABG O2 Saturation 100 H 100 H 99 H ABG Base Excess 0 -1 -2 VBG pH VBG pCO2 VBG pO2 VBG Base Excess 09/17/25 09/19/25 03:40 08:35 ABG pH ABG pCO2 ABG pO2 ABG HCO3 ABG O2 Saturation ABG Base Excess VBG pH 7.43 7.39 VBG pCO2 41 52 D VBG pO2 139 H 80 H D VBG Base Excess 3 5 H Assessment & Plan A&P Narrative uti vs asb may have colonization of suprapubic cath too. bph mr/dd will give one dose fosfomycin and if off O2, then back to nh at your discretion will see again prn Time Spent With Patient Time: Total time spent is greater than 50% in coordination of care (as documented) at patient's floor/unit and/or counseling patient:
[2025-09-30] VITALS (27 sets, daily range): BP systolic 107–152; BP diastolic 53–86; PULSE 56–88; RESP 14–27; TEMP 36.1–36.6; O2SAT 92–99
[2025-09-30] MEDS: ALBUTEROL/IPRATROPIUM (Duoneb) RT SOL 3 ML NEBU INH ×6 (02:59→22:38)
[2025-09-30] MEDS: MIDODRINE 5 MG TABLET 10 MG PO (05:22)
[2025-09-30] MEDS: BACLOFEN 10 MG TABLET PO ×2 (05:26→13:16)
[2025-09-30] MEDS: HEPARIN SOD INJ 5000 UNIT/ML VIAL SC ×3 (05:26→21:08)
[2025-09-30 05:37] LABS: Basophils # (Auto) 0.0 Thou/mm3 (0.0-0.2); Basophils % (Auto) 0 % (0-2.5); Eosinophils # (Auto) 0.3 Thou/mm3 (0.0-0.5); Eosinophils % (Auto) 7 % (0-10); Hematocrit 23.4 % (41.0-53.0); Immature Granulocytes Auto 0.03 Thou/mm3 (0.00-0.00); Lymphocytes # (Auto) 1.5 Thou/mm3 (1.0-4.8); Lymphocytes % (Auto) 31 % (10-50); Mean Corpuscular HGB Conc 29.9 g/dl (31.0-37.0); Mean Corpuscular Hemoglobin 28.0 pg (25.0-35.0); Mean Corpuscular Volume 94 fL (80-100); Monocytes # (Auto) 0.5 Thou/mm3 (0.0-0.8); Monocytes % (Auto) 10 % (0-12); Neutrophils # (Auto) 2.5 Thou/mm3 (1.8-7.7); Neutrophils % (Auto) 51 % (37-80); Nucleated Red Blood Cell # 0.00 Thou/mm3 (0.00-0.00); Nucleated Red Blood Cell % 0 /100 WBC (0); Platelet Count 422 Thou/mm3 (140-440); RDW Standard Deviation 46.0 fL (35.1-43.9); Red Blood Count 2.50 Miln/mm3 (4.50-5.90); White Blood Count 4.9 Thou/mm3 (3.8-10.6)
[2025-09-30 05:48] LABS: Hemoglobin 7.0 g/dL (13.5-16.0)
[2025-09-30 06:16] LABS: Alanine Aminotransferase 10 U/L (10-49); Albumin, Serum 3.1 gm/dL (3.4-4.8); Albumin/Globulin Ratio 0.9 (1.2-2.2); Alkaline Phosphatase 72 U/L (46-116); Anion Gap 7 (7-16); Aspartate Amino Transferase 18 U/L (0-34); BUN/Creatinine Ratio 21 Ratio (12-20); Bilirubin,Total 0.3 mg/dL (0.3-1.2); Blood Urea Nitrogen 39 mg/dL (9-23); Calcium 8.5 mg/dL (8.3-10.6); Calcium (Corrected) 9.2 mg/dL (8.5-10.1); Carbon Dioxide 37.0 mMol/L (20.0-31.0); Chloride 98 mMol/L (98-107); Creatinine (Component) 1.9 mg/dL (0.6-1.3); Estimated Creatinine Clearance 42.9 mL/min (>60); Globulin 3.5 gm/dL (2.3-3.5); Glucose 197 mg/dL (74-106); Magnesium 1.8 mg/dL (1.6-2.6); Osmolality,Calculated 297 (275-295); Potassium 4.8 mMol/L (3.4-5.1); Sodium 142 mMol/L (136-145); Total Protein 6.6 gm/dL (5.7-8.2); eGFR 39 See Note
[2025-09-30] MEDS: SODIUM CL RT SOL 3% 4 ML NEBU (NON-FORMULARY) INH ×5 (06:27→22:37)
[2025-09-30] MEDS: ACETYLCYSTEINE RT SOL 10% 4 ML NEBU INH ×2 (06:27→19:25)
[2025-09-30] MEDS: BALSAM PERU/CASTOR OIL (Venelex) 60 GM TUBE TOP ×2 (08:15→21:07)
[2025-09-30] MEDS: CALCIUM CARBONATE 600 MG TABLET PO ×2 (08:15→21:07)
[2025-09-30] MEDS: ASPIRIN 81 MG CHEW PO (08:15)
[2025-09-30] MEDS: INSULIN LISPRO (AdmeLOG) 1 UNIT/0.01 ML UNIT SC ×3 (08:15→17:55)
[2025-09-30] MEDS: Magnesium Sulfate 2 GM Ivpb 2 GM/50 ML BAG IV (09:17)
--- NOTE | 2025-09-30 14:46 | PD.RESPRO ---
Documentation for date of: 09/30/25 Subjective Subjective Interval history: Patient seen at bedside deeply asleep. However, he is now saturating quite well 98% on only 3L nasal cannula, completely weaned off the Hi-Flow. The MRI of the cervical spine was severely limited secondary to patient motion but showed advanced degenerative disc disease C5-C6 which the patient is known to have, and no focal cervical disc protrusion. Exam Vital Signs Temp Pulse Resp BP Pulse Ox O2 Del Method O2 Flow Rate 97.5 F 80 19 141/60 H 98 Nasal Cannula 3 09/30/25 13:13 09/30/25 13:16 09/30/25 13:13 09/30/25 13:16 09/30/25 13:13 09/30/25 12:00 09/30/25 13:13 FiO2 30 09/29/25 14:17 Narrative Exam Physical Exam General: Asleep today, difficult to wake through voice. HEENT: Normocephalic, atraumatic, mucous membranes moist. Left eye coloboma, right eye pinpoint. On regular nasal cannula. Heart: Regular rate and rhythm, normal S1 and S2, no murmurs. Lungs: Clear to auscultation with no wheezing or crackles. Abdomen: Soft, nondistended, nontender, positive bowel sounds. ?No guarding or rebound tenderness. Neurologic: Limited exam today. No new focal deficits observed. Extremities: No edema. Skin: No rash or ecchymoses. Objective Labs 10/02/25 06:40 10/02/25 06:40 Labs: Laboratory Results - last 24 hr 09/30/25 09/30/25 05:00 10:05 WBC 4.9 RBC 2.50 L Hgb 7.0 L Hct 23.4 L MCV 94 MCH 28.0 MCHC 29.9 L RDW Std Deviation 46.0 H Plt Count 422 Neut % (Auto) 51 Lymph % (Auto) 31 Bell % (Auto) 10 Eos % (Auto) 7 Baso % (Auto) 0 Neut # (Auto) 2.5 Lymph # (Auto) 1.5 Bell # (Auto) 0.5 Eos # (Auto) 0.3 Baso # (Auto) 0.0 Immature Gran # (Auto) 0.03 H Absolute Nucleated RBC 0.00 Immature Gran % 1 H Nucleated RBC % 0 Sodium 142 Potassium 4.8 D Chloride 98 Carbon Dioxide 37.0 H Anion Gap 7 BUN 39 H Creatinine 1.9 H Estim Creat Clear Calc 42.9 L eGFR 39 L BUN/Creatinine Ratio 21 H Glucose 197 H Calculated Osmolality 297 H Calcium 8.5 Corrected Calcium 9.2 Magnesium 1.8 Total Bilirubin 0.3 AST 18 ALT 10 Alkaline Phosphatase 72 Total Protein 6.6 Albumin 3.1 L Globulin 3.5 Albumin/Globulin Ratio 0.9 L Blood Type B Positive Antibody Screen NEGATIVE Crossmatch See Detail Blood Bank Wristband ID Yes ABG Interpretation ABG results: 09/15/25 09/15/25 09/16/25 20:48 22:33 04:03 ABG pH 7.30 L 7.33 L 7.29 L ABG pCO2 57 H 49 H 51 H ABG pO2 167 H 154 H 118 H D ABG HCO3 28 H 26 25 ABG O2 Saturation 100 H 100 H 99 H ABG Base Excess 0 -1 -2 VBG pH VBG pCO2 VBG pO2 VBG Base Excess 09/17/25 09/19/25 03:40 08:35 ABG pH ABG pCO2 ABG pO2 ABG HCO3 ABG O2 Saturation ABG Base Excess VBG pH 7.43 7.39 VBG pCO2 41 52 D VBG pO2 139 H 80 H D VBG Base Excess 3 5 H Quality Measures Quality Measures VTE prophylaxis (Heparin SC ) Assessment & Plan Assessment Current Active Medications: Generic Name Dose Route Start Last Admin Trade Name Freq PRN Reason Stop Dose Admin Acetaminophen 650 mg 09/16/25 00:36 09/21/25 03:49 Acetaminophen 325 Mg Tablet PO 10/16/25 00:35 650 mg Q6H PRN Administration Fever >101.3 Acetylcysteine 4 ml 09/29/25 19:00 09/30/25 06:27 Acetylcysteine Rt Liset 10% 4 Ml Nebu INH 10/29/25 18:59 4 ml BIDRT SHIVAM Administration Albuterol/Ipratropium 3 ml 09/24/25 15:00 09/30/25 11:37 Albuterol/Ipratropium (Duoneb) Rt Liset 3 Ml Nebu INH 10/24/25 14:59 3 ml Q4HRRT SHIVAM Administration Aspirin 81 mg 09/27/25 09:15 09/30/25 08:15 Aspirin 81 Mg Chew PO 10/27/25 09:14 81 mg QDAY SHIVAM Administration Baclofen 10 mg 09/29/25 08:15 09/30/25 13:16 Baclofen 10 Mg Tablet PO 10/29/25 08:14 10 mg On Hold: 09/30/25 14:26 TID SHIVAM Administration Balsam Victoriano/[place]my[place] Oil 0 gm 09/28/25 21:00 09/30/25 08:15 Balsam Victoriano/[place] Oil (Venelex) 60 Gm Tube TOP 10/28/25 20:59 1 applicatio BID SHIVAM Administration Calcium Carbonate 600 mg 09/20/25 09:00 09/30/25 08:15 Calcium Carbonate 600 Mg Tablet PO 10/20/25 08:59 600 mg BID SHIVAM Administration Dextrose 25 ml 09/16/25 05:18 09/23/25 01:09 Dextrose 50%-Water Inj 50 Ml Syringe IV 10/16/25 05:17 25 ml Q15MIN PRN Administration BG 50-70 responsive npo pt Dextrose 50 ml 09/16/25 05:18 Dextrose 50%-Water Inj 50 Ml Syringe IV 10/16/25 05:17 Q15MIN PRN BG <50 OR BG <70 & pt unresponsive Furosemide 40 mg 09/30/25 08:54 Furosemide Inj 10 Mg/Ml 4ml Vial IVP X1 PRN give 0.5h before pRBC transfus Glucagon 1 mg 09/16/25 05:18 Glucagon Inj 1 Mg Vial IM Q15MIN PRN BG <70, and no IV access Heparin Sodium (Porcine) 5,000 unit 09/24/25 14:00 09/30/25 13:17 Heparin Sod Inj 5000 Unit/Ml Vial SC 10/08/25 13:59 5,000 unit Q8HR SHIVAM Administration Insulin Human Lispro 0 unit 09/24/25 17:00 09/30/25 12:18 Insulin Lispro (Admelog) 1 Unit/0.01 Ml Unit SC 10/24/25 16:59 4 unit ACHS [facility] Administration Protocol Midodrine 10 mg 09/18/25 06:00 09/30/25 13:16 Midodrine 5 Mg Tablet PO 10/18/25 05:59 Not Given TID [facility] Ondansetron HCl 4 mg 09/16/25 00:36 09/19/25 10:20 Ondansetron Inj 2 Mg/Ml Inj 2 Ml IVP 10/16/25 00:35 4 mg Q6H PRN Administration NAUSEA OR VOMITING Protocol Pantoprazole Sodium 40 mg 09/19/25 21:00 09/30/25 08:15 Pantoprazole Inj 40 Mg Vial IVP 10/19/25 20:59 40 mg BID SHIVAM Administration Pharmacy Consult 1 each 09/16/25 00:42 Pharmacy Renal Dose Adjustment 1 Ea XX 10/16/25 00:41 PRN PRN CONSULT Sennosides 1 tab 09/21/25 10:30 09/30/25 08:15 Senna Tablet PO 10/21/25 10:29 1 tab QDAY SHIVAM Administration Protocol Sodium Chloride 4 ml 09/24/25 09:30 09/30/25 11:38 Sodium Cl Rt Liset 3% 4 Ml Nebu (Non-Formulary) INH 10/24/25 09:29 4 ml Q4HRRT SHIVAM Administration Plan 65-year-old bedbound male with past medical history of?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 family home with altered mental status and had cardiac arrest with downtime of 20 mins at the facility. In ED he was resuscitated and ROSC was achieved. Patient was admitted to ICU for acute encephalopathy postcardiac arrest, distributive shock?septic secondary to UTI for management. Patient was extubated 09/16, weaned off of pressors and was downgraded to telemetry on 09/18.?Neurology was consulted due to physical exam finding of uneven pupils, history of muscular dystrophy and recommendations. 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 Patterson's office. Patient has been recovering from pneumonia after cardiac arrest, completed the antibiotic course, but having difficulty weaning off oxygen. Patient does not have any history of myasthenia gravis. But does have history of severe cervical spine stenosis leading him to be wheelchair bound. Patient likely has chronic aspiration so swallow functioning should be closely monitored. 09/29/2025 MRI of the cervical spine was severely limited secondary to patient motion but showed advanced degenerative disc disease C5-C6 which the patient is known to have, and no focal cervical disc protrusion -Continue the incentive spirometry (if patient able), chest physiotherapy, acetylcysteine, repositioning techniques, and aggressive pulmonary toilet -Closely monitor swallowing function, aspiration precautions #Left coloboma Uneven pupils. Left resembles a keyhole facing up, right pupil is pinpoint. Patient likely has some level of vision impairment. Unlikely new finding, patient has most likely had this since either or young age. -Continue to monitor Rest of conditions to continue current management per primary team: #Acute hypoxic respiratory failure secondary to underlying myasthenia gravis and hx of diffuse bilateral pneumonia #Failure to thrive #CHAR on CKD stage II, improving #Normocytic normochromic anemia #NSTEMI type II, resolved? #Cardiac arrest, pulseless electrical activity, status post ROSC #Type 2 diabetes mellitus, [id number] #Dysphagia? #History of depression? #History of TIA #History of hypertension? #History of hyperlipidemia #History of BPH and neurogenic bladder Patient was discussed with the Neurology attending, Dr. Patterson. Thank you for allowing us to participate in the care of this patient. Isi Dao, PGY-3 Attending Provider Attestation/Addendum I personally have seen and examined the patient at the bedside and I agreed with the resident's findings assessment and plan of care. I do not think patient has myasthenia gravis His bulbar weakness is secondary to cervical degenerative disc changes.
--- NOTE | 2025-09-30 16:24 | PD.ADDPROG ---
Addendum Progress Note Addendum Date of report being addended: 09/30/25 Narrative: I reviewed labs, imaging, EKG, home medications and prior available records. Face to face evaluation was performed by me. I have personally examined the patient and discussed assessment and plan with the IM team. I reviewed the resident note and agree with the plan with exceptions as below. Acute encephalopathy, acute on chronic Cardiac arrest status post ROSC Septic shock, resolved Acute hypoxic respiratory failure in setting of bilateral pneumonia versus vascular congestion versus atelectasis CHAR, likely in setting of ATN, improved Spinal stenosis At baseline, he is dependent on 3 L home oxygen and minimally active Gave IV diuretics Completed course of pneumonia treatment Monitor kidney function. Avoid nephrotoxins. Renally dose medications Chest physiotherapy Ordered MRI however there were technical difficult. Neurology was consulted Hemoglobin is borderline. Ordered 1 PRBC. Consulted GI for EGD
--- NOTE | 2025-09-30 18:45 | SUR.PHASEI ---
Pt. arrived to recovery via gurphi, eyes open, VSS, lung sounds clear, pt. receiving 3 liters 02 via [place], report received from Jo AYALA.
--- NOTE | 2025-09-30 18:55 | SUR.PHASEI ---
Pt. transferred to room 271 via gurney, no c/o pain or nausea at this time, Rosana JACKMAN RN assumed care of pt.
[2025-09-30 21:47] LABS: Hematocrit 30.0 % (41.0-53.0); Hemoglobin 9.2 g/dL (13.5-16.0)
[2025-10-01] VITALS (16 sets, daily range): BP systolic 132–158; BP diastolic 66–85; PULSE 68–97; RESP 16–28; TEMP 36.3–36.6; O2SAT 94–98; BMI 33.5
[2025-10-01] MEDS: SODIUM CL RT SOL 3% 4 ML NEBU (NON-FORMULARY) INH ×5 (02:31→21:59)
[2025-10-01] MEDS: ALBUTEROL/IPRATROPIUM (Duoneb) RT SOL 3 ML NEBU INH ×6 (02:31→21:59)
[2025-10-01 05:19] LABS: Basophils # (Auto) 0.0 Thou/mm3 (0.0-0.2); Basophils % (Auto) 1 % (0-2.5); Eosinophils # (Auto) 0.3 Thou/mm3 (0.0-0.5); Eosinophils % (Auto) 5 % (0-10); Hematocrit 30.6 % (41.0-53.0); Hemoglobin 9.6 g/dL (13.5-16.0); Immature Granulocytes Auto 0.05 Thou/mm3 (0.00-0.00); Lymphocytes # (Auto) 1.2 Thou/mm3 (1.0-4.8); Lymphocytes % (Auto) 21 % (10-50); Mean Corpuscular HGB Conc 31.4 g/dl (31.0-37.0); Mean Corpuscular Hemoglobin 28.9 pg (25.0-35.0); Mean Corpuscular Volume 92 fL (80-100); Monocytes # (Auto) 0.5 Thou/mm3 (0.0-0.8); Monocytes % (Auto) 8 % (0-12); Neutrophils # (Auto) 3.6 Thou/mm3 (1.8-7.7); Neutrophils % (Auto) 64 % (37-80); Nucleated Red Blood Cell # 0.00 Thou/mm3 (0.00-0.00); Nucleated Red Blood Cell % 0 /100 WBC (0); Platelet Count 420 Thou/mm3 (140-440); RDW Standard Deviation 45.2 fL (35.1-43.9); Red Blood Count 3.32 Miln/mm3 (4.50-5.90); White Blood Count 5.7 Thou/mm3 (3.8-10.6)
[2025-10-01] MEDS: HEPARIN SOD INJ 5000 UNIT/ML VIAL SC ×3 (05:20→21:40)
[2025-10-01 05:46] LABS: Alanine Aminotransferase 15 U/L (10-49); Albumin, Serum 3.6 gm/dL (3.4-4.8); Albumin/Globulin Ratio 0.9 (1.2-2.2); Alkaline Phosphatase 76 U/L (46-116); Anion Gap 8 (7-16); Aspartate Amino Transferase 27 U/L (0-34); BUN/Creatinine Ratio 21 Ratio (12-20); Bilirubin,Total 0.4 mg/dL (0.3-1.2); Blood Urea Nitrogen 34 mg/dL (9-23); Calcium 9.6 mg/dL (8.3-10.6); Calcium (Corrected) 9.9 mg/dL (8.5-10.1); Carbon Dioxide 34.8 mMol/L (20.0-31.0); Chloride 97 mMol/L (98-107); Creatinine (Component) 1.6 mg/dL (0.6-1.3); Estimated Creatinine Clearance 50.9 mL/min (>60); Globulin 4.0 gm/dL (2.3-3.5); Glucose 189 mg/dL (74-106); Magnesium 2.3 mg/dL (1.6-2.6); Osmolality,Calculated 292 (275-295); Potassium 4.9 mMol/L (3.4-5.1); Sodium 140 mMol/L (136-145); Total Protein 7.6 gm/dL (5.7-8.2); eGFR 48 See Note
[2025-10-01] MEDS: ACETYLCYSTEINE RT SOL 10% 4 ML NEBU INH ×2 (06:22→19:17)
[2025-10-01] MEDS: INSULIN LISPRO (AdmeLOG) 1 UNIT/0.01 ML UNIT SC ×4 (08:16→21:41)
[2025-10-01] MEDS: ASPIRIN 81 MG CHEW PO (08:16)
[2025-10-01] MEDS: CALCIUM CARBONATE 600 MG TABLET PO ×2 (08:16→21:41)
[2025-10-01] MEDS: BALSAM PERU/CASTOR OIL (Venelex) 60 GM TUBE TOP ×2 (08:17→21:40)
--- NOTE | 2025-10-01 08:29 | PD.HHPROG ---
Documentation for date of: 10/01/25 Subjective - Hospitalist Subjective Interval history: Patient was seen and examined at the bedside. He appears more awake to me although the family said that he does not look himself. Family at the bedside. Had concerns about change in mental status. Discussed with RN: He was shaking overnight and this a.m. Resumed his baclofen at 10 mg twice daily Creatinine slightly improved to 1.6 Hemoglobin improved to 9.6 Status post EGD. Diet was advanced Review of Systems Review of Systems Narrative Review of Systems: 12 point of system reviewed. All negative except as mentioned in the HPI Exam Vital Signs Temp Pulse Resp BP Pulse Ox O2 Del Method O2 Flow Rate 97.6 F 74 16 132/85 H 98 Nasal Cannula 3 10/01/25 03:56 10/01/25 06:25 10/01/25 06:25 10/01/25 05:17 10/01/25 06:25 10/01/25 03:56 10/01/25 06:25 FiO2 30 09/29/25 14:17 Narrative General: Alert and oriented x1. In no acute distress. Eyes: uneven signs of pupils, reactive to light bilaterally. HEENT: Atraumatic, normocephalic. No JVD noted. Cardiovascular: Normal S1 and S2. Normal rate and regular rhythm. No murmurs appreciated. No peripheral pitting edema noted. No JVD noted. Respiratory: No respiratory distress. Lungs are clear to auscultation bilaterally. No wheezing or crackles heard. Abdomen: Soft, nontender, nondistended. Skin: No rash. Musculoskeletal: No gross injuries. Able to move all 4 extremities. Neuro: Alert and oriented x1. Does not follow all my commands Psych: Calm. Cooperative. No agitation Objective - Hospitalist Labs Diagram: 10/01/25 04:50 10/01/25 04:50 Labs: Laboratory Results - last 24 hr 09/30/25 09/30/25 10/01/25 10:05 21:40 04:50 WBC 5.7 RBC 3.32 L Hgb 9.2 L D 9.6 L Hct 30.0 L 30.6 L MCV 92 MCH 28.9 MCHC 31.4 RDW Std Deviation 45.2 H Plt Count 420 Neut % (Auto) 64 Lymph % (Auto) 21 Angelina % (Auto) 8 Eos % (Auto) 5 Baso % (Auto) 1 Neut # (Auto) 3.6 Lymph # (Auto) 1.2 Angelina # (Auto) 0.5 Eos # (Auto) 0.3 Baso # (Auto) 0.0 Immature Gran # (Auto) 0.05 H Absolute Nucleated RBC 0.00 Immature Gran % 1 H Nucleated RBC % 0 Sodium 140 Potassium 4.9 Chloride 97 L Carbon Dioxide 34.8 H Anion Gap 8 BUN 34 H Creatinine 1.6 H Estim Creat Clear Calc 50.9 L eGFR 48 L BUN/Creatinine Ratio 21 H Glucose 189 H Calculated Osmolality 292 Calcium 9.6 Corrected Calcium 9.9 Magnesium 2.3 Total Bilirubin 0.4 AST 27 ALT 15 Alkaline Phosphatase 76 Total Protein 7.6 Albumin 3.6 D Globulin 4.0 H Albumin/Globulin Ratio 0.9 L Blood Type B Positive Antibody Screen NEGATIVE Crossmatch See Detail Blood Bank Wristband ID Yes ABG Interpretation ABG results: 09/15/25 09/15/25 09/16/25 20:48 22:33 04:03 ABG pH 7.30 L 7.33 L 7.29 L ABG pCO2 57 H 49 H 51 H ABG pO2 167 H 154 H 118 H D ABG HCO3 28 H 26 25 ABG O2 Saturation 100 H 100 H 99 H ABG Base Excess 0 -1 -2 VBG pH VBG pCO2 VBG pO2 VBG Base Excess 09/17/25 09/19/25 03:40 08:35 ABG pH ABG pCO2 ABG pO2 ABG HCO3 ABG O2 Saturation ABG Base Excess VBG pH 7.43 7.39 VBG pCO2 41 52 D VBG pO2 139 H 80 H D VBG Base Excess 3 5 H Assessment & Plan Patient Synopsis 65-year-old bedbound male with past medical history of?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 In ED he was resuscitated and ROSC was achieved. Patient was admitted to ICU for acute encephalopathy postcardiac arrest, distributive shock?septic secondary to UTI for management. Patient was extubated 09/16, weaned off of pressors and was downgraded to telemetry on 09/18.? ? #Acute hypoxic respiratory failure due to hx of diffuse bilateral pneumonia?and skeletal muscle weakness #Hx of Severe Cervical Spinal Stenosis #Hx of Muscular Dystrophy ? Patient presented with septic shock, weaned off of pressors. Currently on midodrine, blood pressure stable. Blood culture negative for 48 hours? Urine culture positive for ESBL, sputum culture positive for ESBL, Klebsiella, Proteus.? MRSA nares negative, vancomycin discontinued? 09-20-25-?zosyn?disconsitnued;?? 09-19-25- Overnight patient developed cough with dark sputum. Patient then developed significant hypoxia, saturation 87-90% on 15 L oxy mask. Patient placed on high flow nasal cannula with improvement in O2 saturation. Chest x-ray taken, showed worsening vascular congestion, fluid in bilateral lungs. Concern for aspiration event in setting of dysphagia, patient made NPO.?? 09-20-25- patient still 30L HFNC? 09-21-25- cocci serology negative? ? CXR 09/22 shows improved pneumonia in the right lung, however there remains significant perihilar bibasilar pneumonia? During this hospital admission, blood cultures are negative, ET secretion cultures grew proteus mirabilis, ESBL E. Coli and Klebsiella?Pneumonae?which has limited drug sensitivity.? - fosfomycin 3g x1?(09/23) for UTI - meropenem 1g IV Q12H?(09/20-09/22) Pt is on 2L via NC at [facility] care. CXR (09/25) shows improvement in atelectasis. CXR (09/28) No change in cardiomegaly and extensive bilateral edema and/or pneumonia 09/29 according to Reggie Patterson and Feliberto, Neurology, patient does not have any history of myasthenia gravis. However, he does have history of severe cervical spine stenosis leading to skeletal muscle weakness. 10/01: Patient is on nasal cannula at 3 L Plan:? - Will have the patient by on left decubitus position, the side of the good lung to try and expand the right lung. - RT to try and wean down O2 requirements. - BiPAP/CPAP - DuoNebs Q4h - acetylcysteine RT - DC'ed Pyridostigmine PO 30mg TID in the confirmed absence of myasthenia gravis - ID, Dr Oseguera, does not recommend any more ABx therapy. - Continue midodrine?with hold?parameters? - Bumex 2mg held - incentive spirometry with deep breathing emphasized to nurse. - PEEP 5 - Chest PhysioTherapy #Anisocoria #Left coloboma Patient was noted to have pinpoint pupil unilaterally on the right side non-reactive to light this morning. Possible to be a chronic symptom. CT head was negative for gross hemorrhage, mass effect, or midline shift. 09/29: Neurology states that the uneven size of the pupils has probably been present since his youth or even a congenital condition. 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 Patient likely has some level of visual impairment. MRI of c-spine significant for degenerative disc disease C5-C6. No focal cervical disc protrusion noted. Plan: -continue to monitor -Neurology was consulted; appreciate recommendations -Stroke/Telemetry Floor -Bedside Swallow Eval /Aspiration precautions -Head of Bed 30 Degrees -Permissive hypertension #Normocytic normochromic anemia? #Melena? Patient has chronic, stable anemia. Noted to have melena 09/19, FOBT positive. GI consulted.? Hgb 7.0 on 09/30 and trending down. Hemoglobin improved to 9.6 on 10/01 Plan:? - Transfused 1u pRBC after type & screen +Lasix IV 40mg x1 half an hour before - Follow CBC, transfuse as needed? - GI consulted, Dr Cristobal. Status post EGD. Report is pending - IV Protonix? -?Diet was advanced by Dr. Cristobal #Failure to thrive [facility] at senior living stated that the patient is wheelchair bound, cannot propel himself, has issues with space officer strength, and therfore has recently lost ability to feed self. He can verbalize his needs. He is bowel and bladder incontinent. Patient has marked weakness, unable to move any of his extremities. - Spoke to nursing about the patient condition and needs and to assist with feedings #CHAR on CKD stage II, improving Patient's baseline creatinine 1.4?1.6? Patient is status post 5 L IV LR? Patient's underlying CHAR secondary to insult from distributive shock? 09/25: Cr 2.1, elevated from baseline, likely 2/2 hypovolemia from diuresis CXR (09/25) read out extensive b/l perihilar edema and/or pneumonia 09/27: Cr improved to 1.7 10/01: Creatinine improved to 1.6 Plan:? - Held Bumetanide IVP 2mg Qday - Nephrology consulted, appreciate recommendations? - Avoid nephrotoxic agents? ? #NSTEMI type II, resolved? #Cardiac arrest, pulseless electrical activity, status post ROSC? In ER patient was found in PEA, CODE BLUE was called CPR performed with 2 rounds of epi and ROSC was achieved.? Echocardiogram obtained shows EF 60 to 65%, mild concentric hypertrophy normal diastolic dysfunction? EKG 09/16?sinus rhythm, EKG 09/15?sinus tachycardia no acute ST-T changes? Troponin on presentation 2.194 up trended to 3.4 and then down trended to 2.4? ? Plan:? ? - Cardiology is consulted, state that likely cause is due to hyperkalemia? ? #Type 2 diabetes mellitus, [id number]? Hemoglobin A1c 5.2? - Sliding scale insulin? ? #Dysphagia? Patient has NG tube intact, SBO was ruled out? Speech therapy recommended dysphagia 1 diet, patient was started on it, will keep NG tube for now, consider discontinuing in the morning.? Patient had possible aspiration event 09/19? Will keep?npo?for now? ? Plan:? ? - GI recommendations as above? -?N.p.o.? ? #History of developmental delay and muscular dystrophy? #History of depression? #History of TIA? Patient on gabapentin and baclofen at home, [facility] has history of TIA? - Continue aspirin? - Hold home baclofen, duloxetine and gabapentin, monitor mentation? ? #History of hypertension? #History of hyperlipidemia? Currently blood pressure normotensive hold antihypertensives? ? #History of BPH and neurogenic bladder? #History of right inguinal hernia? - Consider starting patient on tamsulosin? ? #Anion gap metabolic acidosis, resolved? #Lactic acidosis resolved? #Hyponatremia? #Hypochloremia? #Hyperkalemia resolved? #Hypercalcemia resolved? - Follow CMP in a.m.? - KCl 20?mEq?given 1x? ? #Community-acquired pneumonia Secondary to?Proteus Mirabella's, Klebsiella pneumoniae and ESBL E. coli, completed treatment #Urinary tract infection Secondary to ESBL E. coli, completed treatment #Distributive shock, likely septic secondary to UTI, resolved? DVT prophylaxis: Heparin every 12 hour? GI prophylaxis: IV Protonix 40? Diet:?Dysphagia 1 -Pureed Lines: Peripheral IV? Code status: Full code Time Spent with Patient Time: Total time spent is greater than 50% in coordination of care (as documented) at patient's floor/unit and/or counseling patient: Time with patient: 25 - 35 minutes Reason for Continued Stay Reason for continued stay: other Quality Measures Quality Measures VTE prophylaxis (Heparin SC )
--- NOTE | 2025-10-01 08:57 | PC.SS ---
Follow up note: Pt is weak. Possible CT of head. Pt will return to his correction upon dc and he O2 at home.
[2025-10-01] MEDS: BACLOFEN 10 MG TABLET PO ×2 (12:44→21:41)
--- NOTE | 2025-10-01 12:53 | PC.NURSE ---
Dr. Nehemias Block was notified that Nancie from [facility] wanted to speak to him regarding patient. She stated patient is more lethargic and not as alert as he usually is. Patient also has been shaking more frequently. Dr. Anna Block was made aware of these concerns. Dr. Nehemias Block will come to bedside to speak with Nancie from [facility]. No new orders were received.
--- NOTE | 2025-10-01 17:07 | ESPR_ITS ---
Documentation for date of: 10/01/25 Subjective Subjective Interval history: Patient evaluated upper endoscopy did not get transferred from the probation to the [employer] system Upper endoscopic findings are gastritis and esophagitis Patient does need colonoscopy for further evaluation however the colonic prep will take a toll on him and is not a candidate at the moment Exam Vital Signs Temp Pulse Resp BP Pulse Ox O2 Del Method O2 Flow Rate 97.5 F 88 16 158/81 H 98 Nasal Cannula 3 10/01/25 12:00 10/01/25 16:00 10/01/25 14:10 10/01/25 14:44 10/01/25 14:10 10/01/25 12:00 10/01/25 14:10 FiO2 30 09/29/25 14:17 Objective Labs 10/01/25 04:50 10/01/25 04:50 Labs: Laboratory Results - last 24 hr 09/30/25 10/01/25 21:40 04:50 WBC 5.7 RBC 3.32 L Hgb 9.2 L D 9.6 L Hct 30.0 L 30.6 L MCV 92 MCH 28.9 MCHC 31.4 RDW Std Deviation 45.2 H Plt Count 420 Neut % (Auto) 64 Lymph % (Auto) 21 [place] % (Auto) 8 Eos % (Auto) 5 Baso % (Auto) 1 Neut # (Auto) 3.6 Lymph # (Auto) 1.2 [place] # (Auto) 0.5 Eos # (Auto) 0.3 Baso # (Auto) 0.0 Immature Gran # (Auto) 0.05 H Absolute Nucleated RBC 0.00 Immature Gran % 1 H Nucleated RBC % 0 Sodium 140 Potassium 4.9 Chloride 97 L Carbon Dioxide 34.8 H Anion Gap 8 BUN 34 H Creatinine 1.6 H Estim Creat Clear Calc 50.9 L eGFR 48 L BUN/Creatinine Ratio 21 H Glucose 189 H Calculated Osmolality 292 Calcium 9.6 Corrected Calcium 9.9 Magnesium 2.3 Total Bilirubin 0.4 AST 27 ALT 15 Alkaline Phosphatase 76 Total Protein 7.6 Albumin 3.6 D Globulin 4.0 H Albumin/Globulin Ratio 0.9 L Impressions Impression: Anemia blood loss Gastritis Esophagitis Advance diet as tolerated Continue Protonix ABG Interpretation ABG results: 09/15/25 09/15/25 09/16/25 20:48 22:33 04:03 ABG pH 7.30 L 7.33 L 7.29 L ABG pCO2 57 H 49 H 51 H ABG pO2 167 H 154 H 118 H D ABG HCO3 28 H 26 25 ABG O2 Saturation 100 H 100 H 99 H ABG Base Excess 0 -1 -2 VBG pH VBG pCO2 VBG pO2 VBG Base Excess 09/17/25 09/19/25 03:40 08:35 ABG pH ABG pCO2 ABG pO2 ABG HCO3 ABG O2 Saturation ABG Base Excess VBG pH 7.43 7.39 VBG pCO2 41 52 D VBG pO2 139 H 80 H D VBG Base Excess 3 5 H Assessment & Plan A&P Narrative uti vs asb may have colonization of suprapubic cath too. bph mr/dd will give one dose fosfomycin and if off O2, then back to nh at your discretion will see again prn Time Spent With Patient Time: Total time spent is greater than 50% in coordination of care (as documented) at patient's floor/unit and/or counseling patient:
[2025-10-02] VITALS (14 sets, daily range): BP systolic 115–149; BP diastolic 53–77; PULSE 69–103; RESP 15–22; TEMP 36.1–36.7; O2SAT 93–99
[2025-10-02] MEDS: ALBUTEROL/IPRATROPIUM (Duoneb) RT SOL 3 ML NEBU INH ×4 (02:14→14:16)
[2025-10-02] MEDS: MIDODRINE 5 MG TABLET 10 MG PO (05:08)
[2025-10-02] MEDS: HEPARIN SOD INJ 5000 UNIT/ML VIAL SC ×2 (05:09→13:51)
[2025-10-02] MEDS: ACETYLCYSTEINE RT SOL 10% 4 ML NEBU INH (06:52)
[2025-10-02] MEDS: SODIUM CL RT SOL 3% 4 ML NEBU (NON-FORMULARY) INH ×3 (06:56→14:16)
[2025-10-02 07:03] LABS: Basophils # (Auto) 0.0 Thou/mm3 (0.0-0.2); Basophils % (Auto) 1 % (0-2.5); Eosinophils # (Auto) 0.3 Thou/mm3 (0.0-0.5); Eosinophils % (Auto) 5 % (0-10); Hematocrit 30.6 % (41.0-53.0); Hemoglobin 9.8 g/dL (13.5-16.0); Immature Granulocytes Auto 0.06 Thou/mm3 (0.00-0.00); Lymphocytes # (Auto) 1.3 Thou/mm3 (1.0-4.8); Lymphocytes % (Auto) 20 % (10-50); Mean Corpuscular HGB Conc 32.0 g/dl (31.0-37.0); Mean Corpuscular Hemoglobin 29.4 pg (25.0-35.0); Mean Corpuscular Volume 92 fL (80-100); Monocytes # (Auto) 0.5 Thou/mm3 (0.0-0.8); Monocytes % (Auto) 8 % (0-12); Neutrophils # (Auto) 4.1 Thou/mm3 (1.8-7.7); Neutrophils % (Auto) 66 % (37-80); Nucleated Red Blood Cell # 0.00 Thou/mm3 (0.00-0.00); Nucleated Red Blood Cell % 0 /100 WBC (0); Platelet Count 431 Thou/mm3 (140-440); RDW Standard Deviation 45.7 fL (35.1-43.9); Red Blood Count 3.33 Miln/mm3 (4.50-5.90); White Blood Count 6.3 Thou/mm3 (3.8-10.6)
[2025-10-02 07:25] LABS: Alanine Aminotransferase 14 U/L (10-49); Albumin, Serum 3.5 gm/dL (3.4-4.8); Albumin/Globulin Ratio 0.9 (1.2-2.2); Alkaline Phosphatase 87 U/L (46-116); Anion Gap 6 (7-16); Aspartate Amino Transferase 22 U/L (0-34); BUN/Creatinine Ratio 18 Ratio (12-20); Bilirubin,Total 0.4 mg/dL (0.3-1.2); Blood Urea Nitrogen 30 mg/dL (9-23); Calcium 9.7 mg/dL (8.3-10.6); Calcium (Corrected) 10.1 mg/dL (8.5-10.1); Carbon Dioxide 34.1 mMol/L (20.0-31.0); Chloride 99 mMol/L (98-107); Creatinine (Component) 1.7 mg/dL (0.6-1.3); Estimated Creatinine Clearance 47.9 mL/min (>60); Globulin 3.8 gm/dL (2.3-3.5); Glucose 224 mg/dL (74-106); Osmolality,Calculated 290 (275-295); Potassium 5.2 mMol/L (3.4-5.1); Sodium 139 mMol/L (136-145); Total Protein 7.3 gm/dL (5.7-8.2); eGFR 45 See Note
[2025-10-02] MEDS: ASPIRIN 81 MG CHEW PO (08:12)
[2025-10-02] MEDS: BACLOFEN 10 MG TABLET PO (08:12)
[2025-10-02] MEDS: CALCIUM CARBONATE 600 MG TABLET PO (08:13)
[2025-10-02] MEDS: INSULIN LISPRO (AdmeLOG) 1 UNIT/0.01 ML UNIT SC ×3 (08:13→17:14)
[2025-10-02] MEDS: BALSAM PERU/CASTOR OIL (Venelex) 60 GM TUBE TOP (08:14)
--- NOTE | 2025-10-02 13:04 | ESDS_ITS ---
Planned Discharge Date 10/02/25 DS: Providers Provider Date of admission: 09/16/25 00:36 Primary care physician: Saray Benitez NP Admitting Provider: Yoon Allen MD Attending Provider on Admission: Yash Mason DO Consults: 09/16/25 06:07 Consult to General Surgery Routine Comment: SBO , rt inguinal hernia Consulting Provider: Luisito Morales 09/16/25 09:50 Consult to Cardiology Routine Comment: Consulting Provider: Nicole Orozco 09/18/25 08:59 Referral Speech Therapy Stat Comment: 09/18/25 11:12 Consult to Nephrology Routine Comment: CHAR Consulting Provider: Gadiel Christianson 09/19/25 10:32 Consult to Gastroenterology Routine Comment: Melena, stable Hg Consulting Provider: Mack Cristobal 09/20/25 10:53 Consult to Infectious Diseases Routine Comment: ESBL UTI Consulting Provider: Kelvin Oseguera 09/27/25 14:03 Consult to Neurology / Tele-Neurology Routine Comment: Anisochoria Consulting Provider: Faisal Patterson 09/27/25 19:49 Referral Wound Care Routine Comment: presure injury to posterior left ear Attending Provider on DC: Satnam Willingham MD Discharging Provider: Murphy Bonilla MD DS: Diagnosis Problem List Completed Was Problem List Reviewed/Reconciled?: Yes Hospital Course Hospital Course Hospital course: 65-year-old bedbound male with past medical history of evelopmental delay, muscular dystrophy, benign prostatic hyperplasia, history of neurogenic bladder, right inguinal hernia, CVA, CAD, hypertension, hyperlipidemia and diabetes was brought in to the ED on 09/15/2025 from [facility] with altered mental status and had cardiac arrest with downtime of 20 mins at the facility. In ED he was resuscitated and ROSC was achieved. Patient was admitted to ICU for acute encephalopathy postcardiac arrest, distributive shock?septic secondary to UTI for management. Patient was extubated 09/16, weaned off of pressors and was downgraded to telemetry on 09/18. ED Course : Labs revealed WBC 11.4, hemoglobin 16, platelet 226. INR 1.0. D-dimer 3220. ABGs revealed pH 7.33, pCO2 49, pO2 154. FiO2 100%. Chemistry panel reveals sodium 130, potassium 6.4, chloride 89, bicarb 24. Bicarb on 08/23/2025 was 34.6. Anion gap 17. BUN 20 and creatinine 2.4 baseline creatinine 1.4 from 08/23/2025. Blood glucose 255. A1c 5.2, lactic acid 6.5, corrected calcium 11.2, magnesium 3.2. CRP 1.3. Amylase 259. Lipase 55. Procalcitonin 0.45. TSH within normal limits. U tox revealed Tylenol less than 2 COVID and flu negative. Blood cultures were sent. Urinalysis is orange turbid with pH 6.5. Specific gravity of 1.042. Protein 2+, glucose 1+ blood 3+. RBC 370. WBC 2197. Imaging: Head CT showed no acute changes. Abdominal CT was significant for small bowel obstruction pattern with right inguinal hernia containing bowel. Abundant stool in rectosigmoid. CTA chest was negative for PE. Extensive bilateral pneumonia noted. During hospitalization for patient's bilateral pneumonia he was treated with a course of Zosyn IV. With regards to his ESBL UTI, he was treated with meropenem 1 g IV every 12 hourly from 09/20 - 09/22. Infectious disease was consulted who recommended a one-time dose of fosfomycin 3 g IV x 1 on 09/23 since he had not received prior treatment for the year and would be amenable to treatment. Also during patient's prolonged hospitalized course he was on high flow nasal cannula for 10 days and was able to be weaned to his home dose of 3L O2 via NC on 09/30. Neurology was also consulted who ordered a repeat cervical spine MRI to monitor his spinal stenosis, it was severely limited by patient motion but no real changes from his previous scans. His baclofen was increased to twice daily from daily. Patient had melena on admission and was able to undergo EGD on 09/30 which did show some esophagitis and gastritis but no obvious source of bleeding. GI recommends outpatient colonoscopy. With regards to patient's diabetes, his eGFR is now on the borderline of 45. We will discontinue his metformin as outpatient and transition him to glipizide. At this point in time all patient's labs are now returning to his baseline. Patient is currently clinically stable and fit for discharge to custodial. Discharge diagnosis: 1. Acute on chronic respiratory failure with hypoxia secondary to bilateral pneumonia and skeletal muscle weakness?improving 2. History of severe cervical spine stenosis 3. History of muscular dystrophy 4. Anisocoria 5. Left coloboma 6. Chronic normocytic anemia 7. Melena for investigation 8. Failure to thrive 9. CHAR on CKD stage II?improving 10. NSTEMI type II?resolved 11. Cardiac arrest s/p ROSC 12. Hjd-[id number]-rqbhwjbyv diabetes mellitus type 2 [5.2%] 13. Dysphagia 14. History of depression 15. History of TIA 16. Primary hypertension 17. Hyperlipidemia 18. History of BPH and neurogenic bladder 19. Right inguinal hernia Discharge Plan: ? We have stopped your metformin due to your kidney function. ?We have started you on a new diabetes medication, glipizide, take 30 minutes before meals. Do not take if you do not eat that day. ? We have increased your baclofen dose to 10 mg twice daily. ? Continue rest of your home medication as before. ? Follow-up with neurology, Dr Patterson within 2 weeks of discharge. ? Go for a repeat renal function test in 1 week to review with your primary doctor. The nurse will give you the request for this. - Follow up with your primary care physician within 1 week of discharge. If you do not have a primary care physician, please follow up with the [facility] Residents clinic ([phone]) ? If you experience any new, worsening or persistent symptoms either call your primary doctor, or dial 911 or present to the emergency department. We are grateful to be able to participate in Mr. Ennis's care. We wish him the best. Plan of care discussed with Attending Dr. Tarsha Bonilla MD PGY 2 Disclaimer: This note was dictated by speech recognition. Minor errors in ob gyn physician assistant may be present due to voice recognition software. Time Spent with Patient Time attestation: Total time spent providing and/or coordinating discharge services: Time spent: Greater than 30 minutes (37) Exam Vital Signs Temp Pulse Resp BP Pulse Ox O2 Del Method O2 Flow Rate 97.0 F 69 20 115/59 L 96 Nasal Cannula 2 10/02/25 08:00 10/02/25 10:28 10/02/25 10:28 10/02/25 08:00 10/02/25 10:28 10/02/25 08:00 10/02/25 10:28 FiO2 30 09/29/25 14:17 Narrative Exam General: Alert and oriented x1. In no acute distress. Eyes: uneven signs of pupils, reactive to light bilaterally. HEENT: Atraumatic, normocephalic. No JVD noted. Cardiovascular: Normal S1 and S2. Normal rate and regular rhythm. No murmurs appreciated. No peripheral pitting edema noted. No JVD noted. Respiratory: No respiratory distress. Lungs are clear to auscultation bilaterally. No wheezing or crackles heard. Abdomen: Soft, nontender, nondistended. Skin: No rash. Musculoskeletal: No gross injuries. Able to move all 4 extremities. Neuro: Alert and oriented x1. Does not follow all my commands Psych: Calm. Cooperative. No agitation Discharge Plan Plan Patient Disposition: Home w/HOME HEALTH Patient condition on transfer: Stable and Benefits outweigh risks Care Plan Goals: ? We have stopped your metformin due to your kidney function. ?We have started you on a new diabetes medication, glipizide, take 30 minutes before meals. Do not take if you do not eat that day. ? We have increased your baclofen dose to 10 mg twice daily. ? Continue rest of your home medication as before. ? Follow-up with neurology, Dr Patterson within 2 weeks of discharge. ? Go for a repeat renal function test in 1 week to review with your primary d simbaor. The nurse will give you the request for this. - Follow up with your primary care physician within 1 week of discharge. If you do not have a primary care physician, please follow up with the [facility] Residents clinic ([phone]) ? If you experience any new, worsening or persistent symptoms either call your primary doctor, or dial 911 or present to the emergency department. Prescriptions/Referrals Prescriptions/Med Rec: New baclofen 10 mg Tablet 10 mg PO BID 30 Days Qty: 60 0RF glipizide 5 mg tablet 5 mg PO QDAY 30 Days Qty: 30 0RF Continued acetaminophen 500 mg capsule 500 mg PO Q6H PRN (Reason: Pain (Scale Score 1-3)) polyethylene glycol 3350 [Miralax] 17 gram Powder In Packet 17 g PO QPM calcium carbonate [Oyster Shell Calcium 500] 500 mg calcium (1,250 mg) Tablet 500 mg PO BID Qty: 60 0RF clopidogrel [Plavix] 75 mg Tablet 75 mg PO QDAY ferrous sulfate 325 mg (65 mg iron) tablet 325 mg PO BID Qty: 60 0RF vitamin A 10,000 unit Capsule 8,000 unit PO QDAY methenamine hippurate 1 gram tablet 1 g PO DAILY Rx Instructions: HOLD DURING ANTIBIOTICS AND RESUME AFTER aspirin 81 mg tablet,delayed release (DR/EC) 81 mg PO HS Discontinued magnesium oxide 400 mg magnesium capsule 400 mg PO QDAY sennosides-docusate sodium 8.6-50 mg tablet 1 tab-cap PO QHS PRN (Reason: Constipation) gabapentin 100 mg Capsule 100 mg PO TID duloxetine 20 mg Capsule,Delayed Release(Dr/Ec) 20 mg PO BID baclofen 10 mg Tablet 10 mg PO HS finasteride 5 mg Tablet 5 mg PO QDAY Qty: 30 0RF metformin 500 mg Tablet 500 mg PO BID tamsulosin 0.4 mg capsule 0.8 mg PO HS No Action multivitamin Tablet 1 tab PO HS Referrals: Saray Benitez NP [Primary Care Provider] Faisal Patterson MD [Physician, Neurology] Outpatient Orders (i.e. Home Health, Labs, Imaging): Renal Function Panel (Routine) Timeframe: 1 Week Location: Determined by Patient Ordered By: Murphy Bonilla Patient/Caregiver Discharge Instructions Print Language: Turkish Stand Alone Forms: [facility]ulia Award Info., Patient Portal Info Letter Discharge Order Discharge Orders: Discharge (Routine); Ordered 10/02/25 Ordered By: Murphy Bonilla Quality Discharge Quality Measures VTE prophylaxis Attestestation Attestation I discussed with and supervised the resident physician who took care of this patient. I agree with the assessment and discharge plan as above. Follow-up with primary care provider as scheduled. Return to the emergency room for recurrent symptoms.
--- NOTE | 2025-10-02 13:39 | PD.VPROG1 ---
Telemedicine visit statement This visit was conducted with the use of interactive audio and video telecommunications system that permits real time communication between the patient and the provider. Patient's verbal consent for virtual visit was obtained on 10/02/25 at 1339. Documentation for date of: 10/02/25 Virtual exam Vital Signs Temp Pulse Resp BP Pulse Ox O2 Del Method O2 Flow Rate 97.0 F 69 20 115/59 L 96 Nasal Cannula 2 10/02/25 08:00 10/02/25 10:28 10/02/25 10:28 10/02/25 08:00 10/02/25 10:28 10/02/25 08:00 10/02/25 10:28 FiO2 30 09/29/25 14:17 Objective Labs 10/02/25 06:40 10/02/25 06:40 Labs: Laboratory Results - last 24 hr 10/02/25 06:40 WBC 6.3 RBC 3.33 L Hgb 9.8 L Hct 30.6 L MCV 92 MCH 29.4 MCHC 32.0 RDW Std Deviation 45.7 H Plt Count 431 Neut % (Auto) 66 Lymph % (Auto) 20 [place] % (Auto) 8 Eos % (Auto) 5 Baso % (Auto) 1 Neut # (Auto) 4.1 Lymph # (Auto) 1.3 [place] # (Auto) 0.5 Eos # (Auto) 0.3 Baso # (Auto) 0.0 Immature Gran # (Auto) 0.06 H Absolute Nucleated RBC 0.00 Immature Gran % 1 H Nucleated RBC % 0 Sodium 139 Potassium 5.2 H Chloride 99 Carbon Dioxide 34.1 H Anion Gap 6 L BUN 30 H Creatinine 1.7 H Estim Creat Clear Calc 47.9 L eGFR 45 L BUN/Creatinine Ratio 18 Glucose 224 H Calculated Osmolality 290 Calcium 9.7 Corrected Calcium 10.1 Total Bilirubin 0.4 AST 22 ALT 14 Alkaline Phosphatase 87 Total Protein 7.3 Albumin 3.5 Globulin 3.8 H Albumin/Globulin Ratio 0.9 L ABG Interpretation ABG results: 09/15/25 09/15/25 09/16/25 20:48 22:33 04:03 ABG pH 7.30 L 7.33 L 7.29 L ABG pCO2 57 H 49 H 51 H ABG pO2 167 H 154 H 118 H D ABG HCO3 28 H 26 25 ABG O2 Saturation 100 H 100 H 99 H ABG Base Excess 0 -1 -2 VBG pH VBG pCO2 VBG pO2 VBG Base Excess 09/17/25 09/19/25 03:40 08:35 ABG pH ABG pCO2 ABG pO2 ABG HCO3 ABG O2 Saturation ABG Base Excess VBG pH 7.43 7.39 VBG pCO2 41 52 D VBG pO2 139 H 80 H D VBG Base Excess 3 5 H
--- NOTE | 2025-10-02 16:11 | PC.NURSE ---
Report was given to nurse Guzman from [facility].
--- NOTE | 2025-10-02 16:18 | PC.SS ---
Addendum entered by SIMON Gonzalez 10/02/25 17:03: OUTPATIENT INTERVIEWING CLERK was informed by bedside nurse that she was able to get in contact with raul from the group and confirmed they can take patient as they have 24/7 staff available, bedside nurse stated that patietn is good to go and requested OUTPATIENT INTERVIEWING CLERK schedule transportation. OUTPATIENT INTERVIEWING CLERK called [facility] [phone] but they stated that [facility] will transfer OUTPATIENT INTERVIEWING CLERK to another [facility] emergency department as that number is for [employer] only. OUTPATIENT INTERVIEWING CLERK was transferred. Staff at [facility] were unable to verify patient information. OUTPATIENT INTERVIEWING CLERK scheduled transportation with [facility] ETA 17:45. OUTPATIENT INTERVIEWING CLERK informed bedside nurse of ETA 0316. Original Note: OUTPATIENT INTERVIEWING CLERK attempted to call Raul from patient custodial to confirm that someone will receive patient once patient arrives at custodial but Raul did not answer, OUTPATIENT INTERVIEWING CLERK left requesting call back.
[2025-10-02] MEDS: INSULIN DEGLUDEC 5 UNIT/0.05 ML (PER 5 UNITS) SC (17:52)
--- NOTE | 2025-10-02 19:24 | PD.IMPROG ---
Documentation for date of: 10/02/25 Subjective Subjective Interval history: Patient evaluated hemoglobin hematocrit 9.8 and 30.6 Exam Vital Signs Temp Pulse Resp BP Pulse Ox O2 Del Method O2 Flow Rate 97.5 F 83 18 124/68 93 L Nasal Cannula 2 10/02/25 18:15 10/02/25 18:15 10/02/25 18:15 10/02/25 18:15 10/02/25 18:15 10/02/25 18:15 10/02/25 18:15 FiO2 30 09/29/25 14:17 Objective Labs 10/02/25 06:40 10/02/25 06:40 Labs: Laboratory Results - last 24 hr 10/02/25 06:40 WBC 6.3 RBC 3.33 L Hgb 9.8 L Hct 30.6 L MCV 92 MCH 29.4 MCHC 32.0 RDW Std Deviation 45.7 H Plt Count 431 Neut % (Auto) 66 Lymph % (Auto) 20 [place] % (Auto) 8 Eos % (Auto) 5 Baso % (Auto) 1 Neut # (Auto) 4.1 Lymph # (Auto) 1.3 [place] # (Auto) 0.5 Eos # (Auto) 0.3 Baso # (Auto) 0.0 Immature Gran # (Auto) 0.06 H Absolute Nucleated RBC 0.00 Immature Gran % 1 H Nucleated RBC % 0 Sodium 139 Potassium 5.2 H Chloride 99 Carbon Dioxide 34.1 H Anion Gap 6 L BUN 30 H Creatinine 1.7 H Estim Creat Clear Calc 47.9 L eGFR 45 L BUN/Creatinine Ratio 18 Glucose 224 H Calculated Osmolality 290 Calcium 9.7 Corrected Calcium 10.1 Total Bilirubin 0.4 AST 22 ALT 14 Alkaline Phosphatase 87 Total Protein 7.3 Albumin 3.5 Globulin 3.8 H Albumin/Globulin Ratio 0.9 L Impressions Impression: Gastritis Esophagitis Continue to monitor CBC not a candidate for colonoscopy ABG Interpretation ABG results: 09/15/25 09/15/25 09/16/25 20:48 22:33 04:03 ABG pH 7.30 L 7.33 L 7.29 L ABG pCO2 57 H 49 H 51 H ABG pO2 167 H 154 H 118 H D ABG HCO3 28 H 26 25 ABG O2 Saturation 100 H 100 H 99 H ABG Base Excess 0 -1 -2 VBG pH VBG pCO2 VBG pO2 VBG Base Excess 09/17/25 09/19/25 03:40 08:35 ABG pH ABG pCO2 ABG pO2 ABG HCO3 ABG O2 Saturation ABG Base Excess VBG pH 7.43 7.39 VBG pCO2 41 52 D VBG pO2 139 H 80 H D VBG Base Excess 3 5 H Assessment & Plan A&P Narrative uti vs asb may have colonization of suprapubic cath too. bph mr/dd will give one dose fosfomycin and if off O2, then back to nh at your discretion will see again prn Time Spent With Patient Time: Total time spent is greater than 50% in coordination of care (as documented) at patient's floor/unit and/or counseling patient:
--- NOTE | 2025-10-03 10:59 | PC.CC ---
Addendum entered by Sy Paul RN 10/03/25 14:51: while gathering the documents for the HH ref, PT notes state the patient is nonambulatory PLOF and uses a jaylyn lift at home. I called Dr. Willingham to inform him, he stated to cancel the hh referal Addendum entered by Sy Paul RN 10/03/25 14:41: 1430: spoke to Dr. Willingham regarding the HH order. He stated the patient does need HH. He will enter order Original Note: 0813: called ext [phone], spoke to Dr. Dia about the dc disposition of home w/ home health however, no HH orders entered. He stated he will talk to Dr. Willingham if pt still needs home health since pt dc'd back to his [facility]. 0813: called ext [phone] for any of the residents - no answer. 0811: called Dr. Willingham to discuss the HH disposition. no answer
== END 2025-10-02 18:16 | disposition home health service (06) | DRG 698 ==
LOC: SERX 22:11 → SERHOLD 09-16 00:50 → S2SX 09-16 02:46 → S2NX 09-18 13:13
PROVIDERS: Internal Medicine; Internal Medicine Infectious Disease; Specialist; Student in an Organized Health Care Education/Training Program; Admitting Provider Student in an Organized Health Care Education/Training Program; Emergency Provider Emergency Medicine; PCP Registered Nurse; Visit Provider Student in an Organized Health Care Education/Training Program
PROC: (CPT 43239; principal; 2025-09-30 17:30)
DX: T83.511A Infection and inflammatory reaction due to indwelling urethral catheter, initial encounter (principal); A41.9 Sepsis, unspecified organism; J96.01 Acute respiratory failure with hypoxia; R57.8 Other shock; R65.21 Severe sepsis with septic shock; I21.A1 Myocardial infarction type 2; J18.9 Pneumonia, unspecified organism; G82.50 Quadriplegia, unspecified; N17.0 Acute kidney failure with tubular necrosis; J96.21 Acute and chronic respiratory failure with hypoxia; K21.01 Gastro-esophageal reflux disease with esophagitis, with bleeding; I46.9 Cardiac arrest, cause unspecified; G93.40 Encephalopathy, unspecified; I13.0 Hypertensive heart and chronic kidney disease with heart failure and stage 1 through stage 4 chronic kidney disease, or unspecified chronic kidney disease; E87.20 Acidosis, unspecified; E87.1 Hypo-osmolality and hyponatremia; K92.1 Melena; N17.9 Acute kidney failure, unspecified; Z16.12 Extended spectrum beta lactamase (ESBL) resistance; D62 Acute posthemorrhagic anemia; K56.609 Unspecified intestinal obstruction, unspecified as to partial versus complete obstruction; K56.7 Ileus, unspecified; N39.0 Urinary tract infection, site not specified; N18.2 Chronic kidney disease, stage 2 (mild); Z87.440 Personal history of urinary (tract) infections; G71.00 Muscular dystrophy, unspecified; Z74.01 Bed confinement status; K40.90 Unilateral inguinal hernia, without obstruction or gangrene, not specified as recurrent; N40.0 Benign prostatic hyperplasia without lower urinary tract symptoms; N31.9 Neuromuscular dysfunction of bladder, unspecified; E87.5 Hyperkalemia; E83.52 Hypercalcemia; G62.9 Polyneuropathy, unspecified; E11.22 Type 2 diabetes mellitus with diabetic chronic kidney disease; R13.10 Dysphagia, unspecified; B96.20 Unspecified Escherichia coli [E. coli] as the cause of diseases classified elsewhere; B96.4 Proteus (mirabilis) (morganii) as the cause of diseases classified elsewhere; E87.8 Other disorders of electrolyte and fluid balance, not elsewhere classified; H57.02 Anisocoria; I25.10 Atherosclerotic heart disease of native coronary artery without angina pectoris; G70.00 Myasthenia gravis without (acute) exacerbation; Z79.84 Long term (current) use of oral hypoglycemic drugs; Z79.899 Other long term (current) drug therapy; Z87.442 Personal history of urinary calculi; Z99.3 Dependence on wheelchair; Z99.81 Dependence on supplemental oxygen; Z86.73 Personal history of transient ischemic attack (TIA), and cerebral infarction without residual deficits; K29.70 Gastritis, unspecified, without bleeding; M50.322 Other cervical disc degeneration at C5-C6 level; Q13.0 Coloboma of iris; R62.7 Adult failure to thrive; M48.02 Spinal stenosis, cervical region; Y84.6 Urinary catheterization as the cause of abnormal reaction of the patient, or of later complication, without mention of misadventure at the time of the procedure
CPT/HCPCS: 36415; 36600; 51702; 70450; 71045; 71275; 72141; 74018; 74177; 80053; 80061; 80202; 80307; 80320; 80329; 81001; 82010; 82140; 82150; 82248; 82270; 82436; 82550; 82728; 82803; 83036; 83540; 83550; 83605; 83690; 83735; 83880; 84100; 84132; 84133; 84145; 84300; 84443; 84484; 85014; 85018; 85025; 85379; 85610; 85652; 85730; 86140; 86331; 86635; 86703; 86803; 86850; 86900; 86901; 86923; 87040; 87077; 87081; 87086; 87186; 87205; 87502; 87811; 92526; 92610; 92950; 93005; 93306; 94002; 94003; 94640; 94644; 94664; 94667; 96365; 96366; 96375; 99291; 99292; A4314; A4649; A9270; J0164; J0330; J0613; J1265; J1644; J1815; J1938; J2185; J2250; J2405; J2470; J2543; J2598; J2704; J3010; J3373; J3475; J3480; J3490; J7030; J7050; J7120; J7999; P9016; P9047; Q9967; G0480